=== PATIENT | female | born 1960 | race Caucasian/White ===

== ENCOUNTER → 2016-08-20 | Outpatient (CLI) | payer BC ==
[~2016-08-20] MED LIST: ATOR10TA88 PO; BTP80 PO; FLV1 PO; LEVO150T9 PO; SERT-234 PO; SPIR50TA2 PO; VTMD1000 PO; WARF5TAB7 PO
--- NOTE | 2016-08-21 06:32 | PAP/PSG TECHNICIAN REPORT ---
[facility] [place] Polysomnogram Report Study name: None Report date: 08/21/2016 Study date: 08/20/2016 Referring Physician: Rosa MARTINEZ M.D. Name: JULITA JOSE Interpreting Physician: Nuria Martinez M.D. Date of : 1960 [place]: Ana Ford RPSGT. Sex: Female Age: 55 Study Type: PSG PAP Weight: 305 lbs Height: 55 years, Height 5' 5.5" BMI: 49.98 Medications: ATORVASTATIN 10 MG, LEVOTHYROXINE 150 MCG, SERTRALINE 100 MG, WARFARIN 5 MG, SOTALOL 80 MG, FOLIC ACID 1 MG, SPRIONOLACTONE 50 MG, VIT D 1000 UNITS Patient History 55 yr-old female here for a CPAP update study. She was found to be positive for RAQUEL via a home sleep study. She was then placed on auto CPAP at home. She is back to assess her CPAP pressure. She wears a Dreamwear nasal pillows mask size small from [employer]. The test was started on room air. ETCO2 testing was not utilized during this study due to CPAP being in use. Room 1 Parameters Monitored NPSG: E1-M2, E2-M1, Fp1-M2, Fp2-M1, F3-M2, F4-M2, F4-M1, C3-M2, C4-M2, C4-M1, O1-M2, O2-M2, O2-M1, T3-M2, T4-M1, P3-M2, P4-M1, CHIN1, CHIN2, HR, EKG, Legs, PFLOW, SNOR, FLOW, CFLOW, Tidal Volume, THOR, ABDO, SpO2, PLTH, CPRESS, ETCO2 Wave, ETCO2, pH Sleep Architecture Sleep Stages Time at Lights Off 9:26:21 PM STAGES Time (min.) TST (%) Time at Lights On 5:34:51 AM Wake 130.0 -- Total Recording Time (TRT) 488.50 min. N1 47.0 13 Total Sleep Period (TSP) 464.0 min. N2 258.5 72 Total Sleep Time (TST) 358.5min. N3 20.5 6 Awake Time 130.0 min. REM 32.5 9 Wake after Sleep Onset 105.5 min. Sleep Efficiency (SE) 73 % Sleep Onset Latency (KALEE) 24.5 min. Number of Stage 1 Shifts None Awakenings 19 Stage Changes 102 Number of REM periods 1 REM 32.5 9 REM Latency 327.5 min. NREM 326.0 91 Body Position Analysis Supine Right Left Side Prone Vertical Total Sleep Time (min.) 387.5 22.4 16.5 38.93 0.0 0.0 Total Sleep Time (%) 89% 6% 5% 11 0% N/A% Total Sleep Time REM (min.) 32.5 0.0 0.0 None 0.0 0.0 Total Sleep Time NREM (min.) 287.1 22.4 16.5 None 0.0 0.0 Intermittent Wake (min.) 67.9 44.2 17.9 None 0.0 0.0 Total Sleep Period (%) 83% None None None None None Arousals Myoclonus (PLM) * Events Count Index Events Count Index Spontaneous 16 3 Events Awake (PLMW) 378 174.5 Respiratory 31 5.2 Events Asleep w/ Arousal (PLMA) 103 17.2 PLM 103 17 Events Asleep w/o Arousal (PLMS) 814 136.2 Snoring 2 0 Total Asleep 917 153.5 Total 152 25 Total 1,295 159 Respiratory Analysis * CA OA MA CH H RERA Total Count 4 1 0 0 84 4 89 Index 0.7 0.2 0.0 0 14.1 1 15.6 Mean Duration 13.7 12.1 0.0 0.00 15.1 14.7 15.0 Longest Duration 14.0 12.1 0.0 0.00 0.0 18.7 22.6 Respiratory Event Summary Total Supine ~Supine Right Left Prone REM NREM Apneas Count 5 4 1 1 0 N/A 1 4 Index 0.8 1 2 2.7 0.0 N/A 2 1 Hypopneas (4% Desat) Count 84 57 27 14 13 N/A 2 82 Index 14.1 10.7 42 37.4 47.3 N/A 3.7 15.1 Apneas & All Hypopneas Count 89 61 28 15 13 N/A 3 86 Index 14.9 11 43 40 47 N/A 5.5 15.8 Respiratory Events (Acute Coordinator+All Hyp+RERA) Count 89 63 30 15 15 N/A 3 86 Index 15.6 12 46 40.1 54.5 N/A 5.5 16.6 Respiratory Related Arousal Count 31 63 17 5 12 N/A 1 30 Index 5.2 3 26 13 44 N/A 2 6 Snoring Analysis Supine Right Left Prone REM NREM Total Snore duration 3.4 min Snores count 85 20 9 N/A 4 110 114 Snore mean duration 1.8 Sec Snores index 16 53 33 N/A 7.4 20.2 19.1 TST with snoring (%) 1.0% Desaturation Event Summary: Minimum %SpO2 Event Count Mean/Min/Max Duration(sec.) Desaturation Index % Time In Bed > 90 129 18.2 / 8.0 / 60.0 65.5 24.6 86 - 90 110 17.1 / 7.0 / 50.0 20.0 68.6 81 - 85 4 33.6 / 18.0 / 50.0 7.5 6.7 76 - 80 0 N/A 0.0 0.0 71 - 75 0 N/A 0.0 0.0 66 - 70 0 N/A 0.0 0.0 61 - 65 0 N/A 0.0 0.0 56 - 60 0 N/A 0.0 0.0 51 - 55 0 N/A 0.0 0.0 < 50 0 N/A 0.0 0.0 Total REM NREM Awake <50% 0.0 min. 0.0 min. 0.0 min. 0.0 min. 51 - 60% 0.0 min. 0.0 min. 0.0 min. 0.0 min. 61 - 70% 0.0 min. 0.0 min. 0.0 min. 0.0 min. 71 - 80% 0.2 min. 0.2 min. 0.0 min. 0.0 min. 81 - 90% 361.4 min. 32.3 min. 270.0 min. 59.0 min. 91 - 100% 118.1 min. 0.0 min. 56.0 min. 62.1 min. Average 89 85 89 91 Minimum SpO2 78 78 83 84 Desaturation Event Index 21.4 14.8 24.3 16.6 # Desat. Events below 89% 139 8 107 24 Time(%) with Saturation below 89% 38.9 6.7 29.9 2.4 Time(min.) with Saturation below 89% 186.6 31.9 143.3 11.4 Time (mins) REM (mins) NREM (mins) % of TST SpO2 Below 90% 137 8 N129 70.0 SpO2 Below 88% 34 0 0 32 Heart Rate Analysis Min (bpm) Max (bpm) Average (bpm) Awake 48 66 59 NREM 46 63 52 REM 50 57 53 Overall 46 63 52 Supplemental O2 Values Minimum O2 level: None Value Start Time End Time [place] Comments Ms. Jose slept in the right, left, and supine positions. No cardiac arrhythmias were noted. PLMs and many arousals from leg movements were noted. No bruxism noted. CPAP was initiated at +4 CMH2O and up-titrated to a level of +15 CMH2O, Cflex 2. A Dreamwear nasal pillows mask size small from [employer] was used during titration. She was not on an optimal pressure for two hours. An O2 titration could not be done. She awoke to use the restroom one time during the night. Ms. Jose stated that she was more restless than usual. The final report will be interpreted and signed by a sleep physician. The completed physician report will then be placed in the patient medical record. Therapy Event: Therapy (cm H20) 4 6 8 10 12 13 14 15 Total Time at Pressure (min.) 127.8 66.2 34.2 23.9 78.6 53.5 74.1 30.1 TST at Pressure (min.) 27.3 41.2 33.2 23.9 78.1 52.5 73.6 28.6 # Periods 1 1 1 1 1 1 1 1 Sleep Onset (min.) 24.5 0.0 1.0 0.0 0.0 0.0 0.0 0.0 REM Onset (min.) N/A N/A N/A N/A N/A 21.2 0.0 N/A Sleep Efficiency % 21 62 97 100 99 98 99 95 Wakefulness (%) 78.6 37.8 2.9 0.0 0.6 1.9 0.7 5.0 Wakefulness (min.) 100.5 25.0 1.0 0.0 0.5 1.0 0.5 1.5 NREM 1 (%) 11.3 25.7 5.8 0.0 3.2 2.8 5.4 18.3 NREM 1 (min.) 14.5 17.0 2.0 0.0 2.5 1.5 4.0 5.5 NREM 2 (%) 10.0 36.5 49.6 80.1 94.3 35.0 93.7 76.7 NREM 2 (min.) 12.8 24.2 17.0 19.1 74.1 18.7 69.4 23.1 NREM 3 (%) 0.0 0.0 41.6 19.9 1.9 0.0 0.0 0.0 NREM 3 (min.) 0.0 0.0 14.2 4.8 1.5 0.0 0.0 0.0 REM (%) 0.0 0.0 0.0 0.0 0.0 60.3 0.3 0.0 REM (min.) 0.0 0.0 0.0 0.0 0.0 32.3 0.2 0.0 # Arousals 44 66 10 0 9 6 9 8 Arousal Index 96.6 96.2 18.0 0.0 6.9 6.9 7.3 16.8 # Snore 30 43 1 0 5 9 10 16 Snore Index 65.9 62.7 1.8 0.0 3.8 10.3 8.2 33.6 AHI 32.9 36.4 30.7 10.1 8.4 6.9 7.3 4.2 AHI Supine 8.8 29.0 30.7 10.1 8.4 6.9 7.3 4.2 AHI Non-Supine 41.0 45.6 N/A N/A N/A N/A N/A N/A NREM AHI 32.9 36.4 30.7 10.1 8.4 8.9 7.4 4.2 REM AHI N/A N/A N/A N/A N/A 5.6 0.0 N/A RDI 37.3 37.9 30.7 10.1 9.2 6.9 7.3 4.2 # Obstructive 0 1 0 0 0 0 0 0 # Central Ap 0 0 0 0 0 1 2 1 # Mixed 0 0 0 0 0 0 0 0 # Hypopneas 15 24 17 4 11 5 7 1 RERAS 2 1 0 0 1 0 0 0 Total Respiratory Events 17 26 17 4 12 6 9 2 Time Below SpO2 89.00% (min.) 11.5 18.4 19.3 21.8 41.4 43.1 18.3 1.5 Mean NREM SpO2 (%) 89 89 89 86 88 88 89 90 Mean REM SpO2 (%) N/A N/A N/A N/A N/A 85 84 N/A Mean Sleep SpO2 (%) 89 89 89 86 88 86 89 90 Min NREM SpO2 (%) 85 83 85 84 85 83 85 87 Min REM SpO2 (%) N/A N/A N/A N/A N/A 78 83 N/A Position Supine (min.) 6.8 22.7 33.2 23.9 78.1 52.5 73.6 28.6 Position Non-supine (min.) 20.5 18.4 0.0 0.0 0.0 0.0 0.0 0.0 LM Index Sleep 122.9 204.0 187.7 201.1 191.2 59.4 119.0 188.8 LM Index NREM 122.9 204.0 187.7 201.1 191.2 94.9 119.3 188.8 LM Index REM N/A N/A N/A N/A N/A 37.2 0.0 N/A Mean Heart Rate (bpm) 57 58 53 52 50 52 49 49 Min Heart Rate (bpm) 54 54 51 50 48 48 46 47
--- NOTE | 2016-09-02 14:37 | POLYSOMNOGRAPH REPORT ---
REFERRING PERSON: Dr. Marina Martinez. METER TESTER POLYPHASE: Ana Ford. Ms. Ramirez is a 55-year-old female sent for a CPAP titration study. She was found to have obstructive sleep apnea on a home sleep test and placed on APAP. She is sent back to the lab to determine her optimal pressure needs. She wears a DreamWear nasal pillow small mask by [employer]. Her [place] sleepiness scale score on the evening of this study is not recorded. BMI is 49.98. Following the technical and digital specifications of the [place] [employer] (AASM) a standard diagnostic polysomnogram was performed monitoring EEG, EOG, EMG (chin and leg deviations), oxygen saturation, body position, digital video, respiratory effort and airflow. The sleep Stage and event scoring was based on the AASM Manual for the Scoring of Sleep and Associated Events 2007 edition. Apneas are defined as a drop in the peak thermal sensor excursion by >90% of baseline for at least 10 seconds. Hypopneas were scored using the 4% oxygen desaturation rule (4A-[employer]ic[employer]) and a decrease in the nasal pressure excursions by >30% of baseline for at least 10 seconds. Respiratory effort-related arousal (RERA's) is defined as a sequence of breaths lasting at least 10 seconds characterized by increasing respiratory effort or flattening of the nasal pressure waveform leading to an arousal from sleep when the sequence of breaths does not meet criteria for an apnea or hypopnea. Apnea Hypopnea index (AHI) is defined as the number of apneas and hypopneas occurring in an hour of sleep. Respiratory disturbance index (RDI) is defined as the number of apneas, hypopneas, and RERA's occurring in an hour of sleep. Ms. Ramirez's total sleep period time was 464 minutes. Total sleep time was 358.5 minutes. Sleep efficiency was 73%. Latency to sleep onset was 24.5 minutes. Wake after sleep onset was 105.5 minutes. Total non-REM sleep time was 326 minutes. She spent 13% of that time in N1 sleep, 72% in N2 sleep and 6% in N3 sleep. REM latency was 327.5 minutes. Total REM sleep time was 32.5 minutes or 9% of total sleep time. There were 152 cortical arousals from sleep. Thirty-one of these arousals were due to respiratory events, 103 were due to periodic limb movements of sleep, 2 were due to snoring and the remaining 16 were spontaneous. There were 917 periodic limb movements noted on this test. Limb movement index was 153.5. Limb movement with arousal index was 17.2. On this titration study, there was 1 obstructive apnea, 4 central apnea and no mixed apnea. Additionally, there were 84 hypopnea and 4 RERA. Apnea-hypopnea index was 14.9. A 114 snoring events were recorded. Total sleep time with snoring was 1%. Mean saturation with sleep was low at 89%. Lowest recorded saturation was 78%. Saturations were less than 89% for 186.6 minutes of recording time. This is significant nocturnal hypoxemia. There was no cardiac ectopy noted on this study. Heart rates during sleep ranged from a low of 46 beats per minute to a high of 63 beats per minute. As stated above, this was a CPAP titration study. This patient was titrated from a CPAP pressure of 4 to a CPAP pressure of 15 over the course of the night. Increasing pressures were needed to prevent apneas, hypopneas and arousals. She was observed on a pressure of 13 for 52.5 minutes of sleep time. 32.3 of these minutes were spent in supine REM sleep. AHI and RDI on this pressure were both 6.9 and saturations were less than 89% for 43.1 minutes of sleep time. Over the remainder of the night, she was titrated to a pressure of 14 then 15. She was observed on a pressure of 15 for 28.6 minutes of sleep time. There was no REM noted on this pressure. AHI and RDI were both 4.2 and saturations were much better with time spent less than 89 of only 1.5 minutes. IMPRESSION AND PLAN: Successful CPAP titration study in this patient with a history of apnea and nocturnal hypoxemia. I would recommend that if she has an APAP at home, that this be set from a minimum pressure of 15 to a maximum pressure of 20. It appears her hypoxemia resolves on these pressure; however, she did not have supine REM sleep on a pressure of 15. Should nocturnal hypoxemia still be suspected, ____ on optimal pressure can be done and further evaluation follow those results.
== END | disposition home or self-care (01) ==
LOC: C.NEUR 20:00
PROVIDERS: ATTEND Registered Nurse
DX: G47.33 Obstructive sleep apnea (adult) (pediatric) (principal); G47.34 Idiopathic sleep related nonobstructive alveolar hypoventilation; I48.0 Paroxysmal atrial fibrillation

== ENCOUNTER 2017-07-02 19:33 | Inpatient (IN) | payer BC, OTHER ==
[~2017-07-02] VITALS: Ht 160 cm; Wt 126.6 kg
[~2017-07-02 19:33] MED LIST changes: +ATOR10TA82 PO; -ATOR10TA88 PO
[2017-07-02 20:09] LABS: HEMATOCRIT 38.6 % (37-47); MEAN CELL VOLUME 87.5 fL (80-100); MEAN CORPUSCULAR HEMOGLOBIN 29.5 pg (25-34); MEAN CORPUSCULAR HGB CONC 33.7 g/dl (32-36); MEAN PLATELET VOLUME 10.3 fL (7.4-10.4); PLATELET COUNT 273 K/uL (130-400); RED CELL DISTRIBUTION WIDTH CV 14.2 % (11.5-14.5); RED CELL DISTRIBUTION WIDTH SD 45.7 fL (36.4-46.3)
[2017-07-02 20:20] LABS: INR 1.5 (0.9-1.1); PTT PATIENT 28.9 SECONDS (21.0-31.0)
[2017-07-02 20:27] LABS: ALBUMIN 3.9 gm/dl (3.4-5.0); CALCIUM 9.6 mg/dl (8.5-10.1); CREATININE 1.12 mg/dl (0.60-1.20); POTASSIUM 4.1 mmol/L (3.5-5.1)
[2017-07-02 20:32] LABS: CKMB 0.7 ng/ml (0.5-3.6); TOTAL PROTEIN 7.9 gm/dl (6.4-8.2)
[2017-07-02] MEDS ORDERED: CFT250 PO (20:34)
[2017-07-02] MEDS ORDERED: SOTA80TA PO (20:34)
[2017-07-02] MEDS ORDERED: WARF-246 PO (20:34)
[2017-07-02] MEDS ORDERED: FOLI1TAB8 PO (20:34)
[2017-07-02] MEDS ORDERED: THY/120 PO (20:34)
[2017-07-02] MEDS ORDERED: LSX20 PO (20:34)
[2017-07-02] MEDS ORDERED: CYAN100020 PO (20:36)
[2017-07-02] MEDS ORDERED: ASPIRIN 81 MG CHEW PO STA (20:37)
[2017-07-02] MEDS ORDERED: NITROGLYCERIN 0.4 MG SL PER TAB CHARGE SL PRN (20:45)
--- NOTE | 2017-07-02 20:46 | EMERGENCY ROOM VISIT NOTE ---
History Report prepared by Deena: Maite Bhat Under the Supervision of: Dr. Becca Brink M.D. First contact with patient: 20:16 Chief Complaint: IRREGULAR HEARTBEAT Stated Complaint: A FIB,CHEST/ARM/JAW DISCOMFORT Nursing Triage Summary: patient states when she was leaving work today she developed chest discomfort, left arm pain, and face pain. patient states she has a hx of afib. History of Present Illness The patient is a 56 year old female who presents to the Emergency Room with complaints of an irregular heart beat today. The patient states that she has atrial fibrillation, and that she can feel when she is in atrial fibrillation. She reports that she was in atrial fibrillation last night into this morning. She states that when she was leaving work today, she had chest pain, left arm pain, and left-sided facial pain. She denies back pain, abdominal pain, nausea, and vomiting. The patient rates her pain at a 6/10. The patient reports that she takes Coumadin for a history of blood clots. The patient reports a history of a DVT and PE. She denies a history of diabetes, but reports a family history of heart disease. She states that she was recently diagnosed with CREST syndrome. The patient denies recent travel. Source of History: patient Onset: today Position: chest Symptom Intensity: rated at a 6/10 Quality: other (irregular heart beat ) Associated Symptoms: + chest pain, No nausea, No vomiting, No abdominal pain , No back pain Note: additional symptoms: left arm pain, left-sided facial pain Review of Systems See HPI for pertinent positives & negatives. A total of 10 systems reviewed and were otherwise negative. Past Medical & Surgical Medical Problems: (1) Acute Venous Embolism & Thrombosis Deep Vessels Proximal Le (2) Atrial fibrillation (3) Depression (4) Depressive Disorder Nec (5) Diverticulosis Colon (W/O Ment Of Hemorrhage) (6) Dyslipidemia (7) History of adenomatous polyp of colon (8) History of DVT of lower extremity (9) History of pulmonary embolism (10) Hyperlipidemia Nec/Nos (11) Hypothyroidism (12) Hypothyroidism Nos (13) MTHFR mutation (14) Obesity, Nos (15) Osteoarthros Nos-Unspec (16) Raynaud's phenomenon (17) Raynaud's Syndrome Surgical Problems: (1) H/O myringotomy Family History Cancer Diabetes mellitus Heart disease Hypertension MTHFR deficiency Social History Smoking Status: Never Smoker Alcohol Use: none Drug Use: none Housing Status: lives alone Occupation Status: employed Current/Historical Medications Scheduled Atorvastatin (Lipitor), 10 MG PO QAM Cefuroxime Axetil (Cefuroxime Axetil), 500 MG PO BID Cholecalciferol (Vitamin D3), 1,000 INTER.UNIT PO QAM Cyanocobalamin (Vitamin B12), 1 TAB PO QAM Folic Acid (Folvite), 1 MG PO QAM Furosemide (Furosemide), 2 MG PO QAM Sertraline (Zoloft), 200 MG PO DAILY Sotalol Hcl (Sotalol Hcl), 80 MG PO BID Spironolactone (Aldactone), 75 MG PO BID Thyroid (Antlers Thyroid), 120 MG PO QAM Warfarin Sodium (Warfarin Sodium), 5 MG PO DAILY Allergies Coded Allergies: Amoxicillin (Verified Allergy, Unknown, RASH, PRURITIS, 02/27/16) Clavulanic Acid (Verified Allergy, Unknown, RASH, PRURITIS, 02/27/16) Physical Exam Vital Signs Date Time Temp Pulse Resp B/P (MAP) Pulse Ox O2 Delivery O2 Flow Rate FiO2 07/02/17 23:30 36.9 56 20 121/74 95 Room Air 07/02/17 23:18 56 20 121/74 96 Room Air 07/02/17 21:47 55 20 123/59 96 Room Air 07/02/17 20:57 60 07/02/17 20:22 70 20 116/56 95 Room Air 07/02/17 20:22 96 Room Air 07/02/17 19:36 36.9 56 20 155/74 97 Room Air Physical Exam Vital signs reviewed. General: Well-appearing female, in no significant distress. HEENT: No scleral icterus, PERRLA, neck supple. Atraumatic. Cardiovascular: Regular rate and rhythm, no extra sounds. Pulmonary: Clear to auscultation bilaterally, normal work of breathing. Abdomen: Obese, soft, nontender, nondistended, positive bowel sounds. Musculoskeletal: Atraumatic, no peripheral edema. Neurologic: Patient awake alert and oriented x 3 Skin: Warm, dry, no rash Medical Decision & Procedures ER Provider Diagnostic Interpretation: Radiology results as stated below per my review and radiologist interpretation: CHEST ONE VIEW PORTABLE CLINICAL HISTORY: Chest pain. COMPARISON STUDY: Chest CT February 27, 2016 per FINDINGS: Mild elevation of the left hemidiaphragm is unchanged. There is no pneumothorax or pleural effusion. Moderate cardiomegaly is noted. Mild interstitial thickening is present. There is no consolidation to suggest pneumonia. IMPRESSION: 1. Mild nonspecific interstitial thickening. 2. No consolidation to suggest pneumonia. Electronically signed by: Diogo Rhodes M.D. 07/02/2017 8:47 PM Dictated Date/Time: 07/02/2017 8:46 PM Laboratory Results Test 07/02/17 19:56 07/02/17 21:51 D-Dimer 310 ug/L FEU (0-500) Total Creatine Kinase 51 U/L (26-192) Creatine Kinase MB 0.7 ng/ml (0.5-3.6) Creatine Kinase MB Ratio 1.4 (0-3.0) Bedside Troponin I 0.270 ng/ml (0-0.045) Laboratory results per my review. Medications Administered Medications (Trade) Dose Ordered Sig/Aristides Route Start Time Stop Time Status Last Admin Dose Admin Aspirin (Aspirin Chew) 324 mg NOW STAT PO 07/02/17 20:37 07/02/17 20:38 DC 07/02/17 20:56 324 MG Nitroglycerin (Nitrostat Tab) 0.4 mg Q5M PRN SL 07/02/17 20:45 07/03/17 01:02 DC 07/02/17 20:56 0.4 MG Nitroglycerin (Nitroglycerin 2% Oint) 1 inch NOW ONCE EXT 07/02/17 23:00 07/02/17 23:01 DC 07/02/17 23:04 1 INCH Heparin Sodium/ Dextrose (Heparin 25,000 Unit/500ml D5W) 25,000 unit STK-MED ONCE .ROUTE 07/02/17 23:01 07/02/17 23:02 DC 07/02/17 23:16 25,000 UNIT Heparin Sodium (Porcine) (Heparin Iv Bolus) 10,000 unit STK-MED ONCE .ROUTE 07/02/17 23:02 07/02/17 23:03 DC 07/02/17 23:15 4,000 UNIT ECG Indication: chest pain Rate (beats per minute): 57 Rhythm: sinus bradycardia Findings: no ectopy, other (nonspecific-ST change, poor quality baseline for interpretation) ED Course 2036: Past medical records reviewed. The patient was evaluated in room B2. A complete history and physical examination was performed. 2044: Ordered Nitroglycerin 0.4 mg SL. 2248: Ordered Heparin Sodium/Dextrose 1 ea. 0: Ordered Nitroglycerin 1 inch EXT. 2300: Ordered Heparin Sodium/Dextrose 25,000 unir. 2302: Ordered Heparin Sodium (Porcine) 10,000 unit. 2308: I reviewed the patient's case with Dr. Carolina. He will evaluate the patient for further management. 2311: Upon reevaluation, the patient is resting comfortably. I discussed laboratory and radiographic results with her. She verbalized agreement of the treatment plan. The patient will be evaluated for further management and care. Medical Decision Differential Diagnoses: Acute coronary syndrome, pulmonary embolus, aortic dissection, musculoskeletal pain, pneumonia, pleural effusion, pneumothorax This patient was evaluated and appeared to be in no significant distress. IV access was obtained and laboratory work was drawn. The patient was placed on the cardiac monitor technician and found to be in a normal sinus rhythm. The patient was given aspirin 324 mg to chew. The patient was given a nitroglycerin trial which was successful in alleviating her episodic chest pain. First set of cardiac enzymes are negative. Chest x-ray is clear. Patient was advised of the findings and a repeat troponin was performed. The patient's troponin is positive at 0.270. Patient was placed on a heparin drip. Repeat EKG was performed and reveals no acute abnormality. Case was discussed with the hospitalist service will evaluate the patient for further management. Patient is aware of the plan and agrees. Medication Reconcilliation Current Medication List: was personally reviewed by me Blood Pressure Screening Patient's blood pressure: Low blood pressure Consults Time Called: [phone] Consulting Physician: Dr. Lynn Benoit Returned Call: [phone] I reviewed the patient's case with Dr. Carolina. He will evaluate the patient for further management. Impression Primary Impression: Acute coronary syndrome Scribe Attestation The scribe's documentation has been prepared under my direction and personally reviewed by me in its entirety. I confirm that the note above accurately reflects all work, treatment, procedures, and medical decision making performed by me. Departure Information Dispostion Being Evaluated By Hospitalist Referrals Silverio Gan DO (PCP) Patient Instructions My [facility]
--- NOTE | 2017-07-02 20:49 | DIAGNOSTIC IMAGING REPORT ---
CHEST ONE VIEW PORTABLE CLINICAL HISTORY: Chest pain. COMPARISON STUDY: Chest CT February 27, 2016 per FINDINGS: Mild elevation of the left hemidiaphragm is unchanged. There is no pneumothorax or pleural effusion. Moderate cardiomegaly is noted. Mild interstitial thickening is present. There is no consolidation to suggest pneumonia. IMPRESSION: 1. Mild nonspecific interstitial thickening. 2. No consolidation to suggest pneumonia. Electronically signed by: Diogo Rhodes M.D. 07/02/2017 8:47 PM Dictated Date/Time: 07/02/2017 8:46 PM
[2017-07-02] MEDS ORDERED: NITROGLYCERIN OINT 2% 1GM PACKET EXT ONE (23:00)
[2017-07-02] MEDS ORDERED: HEPARIN 25000 UNIT/500 ML D5W ONE (23:01)
[2017-07-02] MEDS ORDERED: HEPARIN SOD (PORCINE) 1000 UNIT/ML 10 ML VIAL ONE (23:02)
[2017-07-02 23:30] VITALS: BP 121/74; PULSE 56; TEMP 36.9; O2SAT 95; Ht 160 cm; Wt 126.6 kg
--- NOTE | 2017-07-02 23:57 | History and Physical ---
History & Physical Date & Time of Service: Jul 02, 2017 at 23:57 Chief Complaint: A Fib,Chest/Arm/Jaw Discomfort Primary Care Physician: Radha Longoria D.O. History of Present Illness Source: patient This is a 56 year old F patient with past medical history hypothyroidism, recent diagnosis of CREST, history of pulmonary embolism , atrial fibrillation, on coumadin 5 mg daily at home, found to be subtherapeutic with INR 1.5 , after presenting to the ED for left chest, left arm, and left jaw pain. These sensation started around 6:40 PM after patient was leaving a clinic and walking to her car. Patient reports history of palpitations in the past and for atrial fibrillation has followed with Dr. Silverio Gan black ash worker however the sensations that she experienced prior to arrival to the ED was unusual for her. In the ED, the initial troponin was negative however second troponin elevated to 0.27. The ED doctor ordered for her nitropaste, aspirin 325 mg and IV heparin. When patient was seen and examined by internal medicine hospitalist, the patient reported that symptoms resolving Past Medical/Surgical History Medical Problems: (1) Atrial fibrillation Status: Chronic (2) Depression Status: Chronic (3) Dyslipidemia Status: Chronic (4) History of adenomatous polyp of colon Permanent Comment: 2009 f/u 5 yrs Status: Chronic (5) History of DVT of lower extremity Permanent Comment: LLE December 2010 Status: Chronic (6) History of pulmonary embolism Permanent Comment: December 2010 + March 2014 Status: Chronic (7) Hypothyroidism Status: Chronic (8) MTHFR mutation Permanent Comment: heterozygous Status: Chronic (9) Raynaud's phenomenon Status: Chronic Family History Cancer Diabetes mellitus Heart disease Hypertension MTHFR deficiency Social History Smoking Status: Never Smoker Drug Use: none Occupational Status: employed Immunizations History of Influenza Vaccine: Yes Influenza Vaccine Date: Apr 03, 2015 History of Tetanus Vaccine?: Yes Tetanus Immunization Date: Jun 27, 2010 History of Pneumococcal: No History of Hepatitis B Vaccine: No Multi-Drug Resistant Organisms History of MDRO: No Allergies Coded Allergies: Amoxicillin (Verified Allergy, Unknown, RASH, PRURITIS, 02/27/16) Clavulanic Acid (Verified Allergy, Unknown, RASH, PRURITIS, 02/27/16) Home Medications Scheduled Atorvastatin (Lipitor), 10 MG PO QAM Cefuroxime Axetil (Cefuroxime Axetil), 500 MG PO BID Cholecalciferol (Vitamin D3), 1,000 INTER.UNIT PO QAM Cyanocobalamin (Vitamin B12), 1 TAB PO QAM Folic Acid (Folvite), 1 MG PO QAM Furosemide (Furosemide), 2 MG PO QAM Sertraline (Zoloft), 200 MG PO DAILY Sotalol Hcl (Sotalol Hcl), 80 MG PO BID Spironolactone (Aldactone), 75 MG PO BID Thyroid ([place] Thyroid), 120 MG PO QAM Warfarin Sodium (Warfarin Sodium), 5 MG PO DAILY Review of Systems Constitutional: No fever Eyes: No worsening of vision, No eye pain, No redness, No discharge, No diplopia, No problem reported ENT: + problem reported (left jaw pain), No hearing loss, No unusual epistaxis , No nasal symptoms, No sore throat, No tinnitus, No dental problems, No trouble swallowing Respiratory: No cough, No wheezing, No shortness of breath, No dyspnea on exertion, No dyspnea at rest Cardiovascular: + chest pain, + palpitations, No edema Abdomen: No pain, No nausea, No vomiting, No diarrhea, No constipation, No GI bleeding, No problem reported Musculoskeletal: + muscle pain (left arm pain) Genitourinary - Female: No dysuria Neurologic: No paralysis, No numbness/tingling Psychiatric: No substance abuse Endocrine: No fatigue Hematologic / Lymphatic: No abnormal bleeding/bruising Integumentary: No rash Physical Exam Vital Signs Date Time Temp Pulse Resp B/P (MAP) Pulse Ox O2 Delivery O2 Flow Rate FiO2 07/02/17 23:18 56 20 121/74 96 Room Air 07/02/17 21:47 55 20 123/59 96 Room Air 07/02/17 20:57 60 07/02/17 20:22 70 20 116/56 95 Room Air 07/02/17 20:22 96 Room Air 07/02/17 19:36 36.9 56 20 155/74 97 Room Air General Appearance: no apparent distress Head: normocephalic, atraumatic Eyes: normal inspection, EOMI, sclerae normal ENT: normal ENT inspection, hearing grossly normal, pharynx normal Neck: supple, no JVD, trachea midline Respiratory/Chest: chest non-tender, lungs clear, normal breath sounds, no respiratory distress, no accessory muscle use Cardiovascular: no edema, no JVD, normal peripheral pulses, + bradycardia ( heart rate in the 50s) Abdomen/GI: normal bowel sounds, non tender, soft Back: normal inspection, no CVA tenderness, no muscle spasm, normal range of motion Extremities/Musculoskelatal: normal inspection, no calf tenderness, no pedal edema, normal range of motion, non-tender Neurologic/Psych: alert, normal mood/affect, oriented x 3 Skin: normal color, warm/dry, no rash Diagnostics Laboratory Results Results Past 24 Hours Test 07/02/17 19:56 07/02/17 20:00 07/02/17 21:51 Range/Units White Blood Count 10.00 4.8-10.8 K/uL Red Blood Count 4.41 4.2-5.4 M/uL Hemoglobin 13.0 12.0-16.0 g/dL Hematocrit 38.6 37-47 % Mean Corpuscular Volume 87.5 80-100 fL Mean Corpuscular Hemoglobin 29.5 25-34 pg Mean Corpuscular Hemoglobin Concent 33.7 32-36 g/dl RDW Standard Deviation 45.7 36.4-46.3 fL RDW Coefficient of Variation 14.2 11.5-14.5 % Platelet Count 273 130-400 K/uL Mean Platelet Volume 10.3 7.4-10.4 fL Prothrombin Time 15.3 9.0-12.0 SECONDS Prothromb Time International Ratio 1.5 0.9-1.1 Activated Partial Thromboplast Time 28.9 21.0-31.0 SECONDS Partial Thromboplastin Ratio 1.1 D-Dimer 310 0-500 ug/L FEU Sodium Level 134 136-145 mmol/L Potassium Level 4.1 3.5-5.1 mmol/L Chloride Level 101 98-107 mmol/L Carbon Dioxide Level 27 21-32 mmol/L Anion Gap 6.0 3-11 mmol/L Blood Urea Nitrogen 16 7-18 mg/dl Creatinine 1.12 0.60-1.20 mg/dl Est Creatinine Clear Calc Drug Dose 72.4 ml/min Estimated GFR () 62.7 Estimated GFR (Non- 54.1 BUN/Creatinine Ratio 13.9 10-20 Random Glucose 101 70-99 mg/dl Calcium Level 9.6 8.5-10.1 mg/dl Total Bilirubin 0.9 0.2-1 mg/dl Aspartate Amino Transf (AST/SGOT) 20 15-37 U/L Alanine Aminotransferase (ALT/SGPT) 24 12-78 U/L Alkaline Phosphatase 109 45-117 U/L Total Creatine Kinase 51 26-192 U/L Creatine Kinase MB 0.7 0.5-3.6 ng/ml Creatine Kinase MB Ratio 1.4 0-3.0 Total Protein 7.9 6.4-8.2 gm/dl Albumin 3.9 3.4-5.0 gm/dl Globulin 4.0 2.5-4.0 gm/dl Albumin/Globulin Ratio 1.0 0.9-2 Bedside Troponin I < 0.030 0.270 0-0.045 ng/ml Diagnostic Radiology FINDINGS: Mild elevation of the left hemidiaphragm is unchanged. There is no pneumothorax or pleural effusion. Moderate cardiomegaly is noted. Mild interstitial thickening is present. There is no consolidation to suggest pneumonia. IMPRESSION: 1. Mild nonspecific interstitial thickening. 2. No consolidation to suggest pneumonia Impression Assessment and Plan 56 year old F with atrial fibrillation history and presents with left sided chest/arm/jaw pain Chest pain Lexiscan nuclear stress test report 06/2016: Myocardial perfusion imaging is normal. initial admission troponin negative, second troponin elevated 0.27, trend troponin s/p in the ED nitropaste, aspirin 325 mg currently on IV heparin echocardiogram ordered NPO after midnight if stress test needed cardiology consult requested Atrial Fibrillation - Rate controlled Continue home dose sotalol Continue Warfrain 5 mg daily and trend INR 2D echocardiogram report 01/2017: ejection fraction is 55-59%, The left ventricular diastolic function is moderately abnormal (grade II). elevated pulmonary artery systolic pressure is 58mm Hg. Continue home dose spirolactone and Lasix Hypothyroidism On [place] Thyroid 120 mg daily (is nonformulary medication) check TSH CREST syndrome - recent diagnosis as per patient Full Code Follows with Dr. Longoria PCP Follows with Dr. Silverio Gan Cardiology Level of Care Telemetry Resuscitation Status FULL RESUSCITATION VTE Prophylaxis VTE Risk Assessment Done? Y/N: Yes Risk Level: Moderate
[2017-07-03] VITALS (15 sets, daily range): BP systolic 100–130; BP diastolic 52–78; PULSE 46–61; TEMP 36.7–37.2; O2SAT 90–97
[2017-07-03] MEDS: HEPARIN 25,000 UNIT/500ML D5W 500 ML IV PRN (01:52)
[2017-07-03] MEDS: SOTALOL HCL 80 MG TAB PO SCH ×2 (07:47→20:44)
[2017-07-03] MEDS: ARMOUR THYROID 30 MG TAB PO SCH (07:48)
[2017-07-03] MEDS: CEFUROXIME AXETIL 250 MG TAB PO SCH ×2 (07:49→20:45)
[2017-07-03] MEDS: FUROSEMIDE 20 MG TAB PO SCH (07:49)
[2017-07-03] MEDS: SERTRALINE HCL 100 MG TAB PO SCH (07:50)
[2017-07-03] MEDS: SPIRONOLACTONE 25 MG TAB PO SCH ×2 (07:51→15:36)
[2017-07-03 08:28] LABS: BASO % 0.4 %; BASO ABS # 0.03 K/uL (0-0.2); EOS % 4.2 %; EOS ABS # 0.35 K/uL (0-0.5); HEMATOCRIT 37.5 % (37-47); HEMOGLOBIN 12.5 g/dL (12.0-16.0); IG# 0.01 K/uL (0.00-0.02); LYMPH % 17.8 %; LYMPH ABS # 1.47 K/uL (1.2-3.4); MEAN CELL VOLUME 87.8 fL (80-100); MEAN CORPUSCULAR HEMOGLOBIN 29.3 pg (25-34); MEAN CORPUSCULAR HGB CONC 33.3 g/dl (32-36); MEAN PLATELET VOLUME 10.3 fL (7.4-10.4); MONO % 6.9 %; MONO ABS # 0.57 K/uL (0.11-0.59); NEUT % 70.6 %; NEUT ABS # 5.85 K/uL (1.4-6.5); PLATELET COUNT 243 K/uL (130-400); RED CELL DISTRIBUTION WIDTH CV 14.3 % (11.5-14.5); RED CELL DISTRIBUTION WIDTH SD 46.1 fL (36.4-46.3); WHITE BLOOD COUNT 8.28 K/uL (4.8-10.8)
[2017-07-03 08:36] LABS: INR 1.4 (0.9-1.1)
[2017-07-03 08:44] LABS: PTT PATIENT 48.1 SECONDS (21.0-31.0)
[2017-07-03 08:53] LABS: ALBUMIN 3.6 gm/dl (3.4-5.0); CALCIUM 9.6 mg/dl (8.5-10.1); CREATININE 0.81 mg/dl (0.60-1.20); POTASSIUM 3.9 mmol/L (3.5-5.1)
[2017-07-03 09:04] LABS: TOTAL PROTEIN 7.4 gm/dl (6.4-8.2)
--- NOTE | 2017-07-03 10:00 | CARDIOLOGY CONSULTATION ---
DATE OF CONSULTATION: 07/03/2017 REASON FOR CONSULTATION: Chest pain. REFERRING PHYSICIAN: Dr. Jonah Carolina. HISTORY OF PRESENT ILLNESS: Ms. Ramirez is a 56-year-old female who is well known to the undersigned with a history of paroxysmal atrial fibrillation maintained in sinus rhythm with sotalol. Recently she had been experiencing episodes of recurrent atrial fibrillation and sotalol was again titrated to 80 mg twice daily. On 07/02/2017, she developed left-sided chest discomfort radiating down her left arm. The pain became moderate to severe and lasted more than 30 minutes. She came to the Emergency Department for further evaluation. Pain graded at 6/10. There was mild associated shortness of breath. The patient was admitted to the progressive care unit. She was treated with intravenous heparin overnight. Her INR was noted to be subtherapeutic on admission. Chest x-ray demonstrated no acute process. Resting 2D transthoracic echo performed this morning demonstrates normal biventricular function. A D-dimer was performed on admission and was found to be negative denoting a low probability for recurrent pulmonary embolus. Currently, the patient is resting comfortably. She is aware of an ache in her left upper chest. Previously noted discomfort has resolved. She describes the pain as extremely mild. There is no shortness of breath at this time. REVIEW OF SYSTEMS: The pertinent positive noted above, a comprehensive 10-system review is otherwise negative. PAST MEDICAL HISTORY: 1. Paroxysmal atrial fibrillation maintained in sinus rhythm with sotalol. 2. History of MTHFR mutation -- heterozygous. 3. History of deep venous thrombosis and pulmonary embolus. 4. History of right ventricular enlargement. 5. Dyslipidemia. 6. RAQUEL. 7. Diastolic heart failure. 8. Prothrombin gene mutation. 9. Chronic fatigue. 10. Pulmonary embolus. 11. Obesity. 12. Raynaud's phenomenon. 13. Recent diagnosis of CREST syndrome. PAST SURGICAL HISTORY: Colonoscopy. FAMILY HISTORY: Negative for premature CAD or sudden cardiac . SOCIAL HISTORY: Lifelong nonsmoker. She is single and lives alone. ALLERGIES: AUGMENTIN. HOME MEDICATIONS: 1. Lipitor 10 mg daily. 2. Folic acid daily. 3. Lasix 20 mg daily. 4. Sotalol 80 mg twice daily. 5. [place] Thyroid 120 mg daily. 6. Albuterol inhaler as needed. 7. Coumadin 10 mg as directed by the anticoagulation clinic. 8. Zoloft 100 mg, 2 tablets daily. 9. Supplemental oxygen through CPAP at bedtime. 10. Aldactone 75 mg daily. 11. Vitamin D daily. LABORATORY DATA: Initial troponin 0.27 with a repeat troponin of 18.700. Sodium 138, potassium 3.9, chloride 103, CO2 is 28, BUN is 13, creatinine is 0.81. TSH 1.80, white blood cell count 8.28, hemoglobin is 12.5, platelet count is 243. Hepatitis screen is pending. ECG on admission demonstrates sinus bradycardia with subtle ST elevation noted in lead 3. Repeat ECG performed at 10:55 p.m. demonstrates sinus rhythm with a nonspecific ST abnormality, subtle ST elevation in lead 3 has resolved. PHYSICAL EXAMINATION: VITAL SIGNS: Temperature is 36.7 degrees centigrade, pulse is 50 beats per minute and regular, respiratory rate is 18 breaths per minute, blood pressure is 101/57. SAO2 is 93% on room air. GENERAL: NAD, awake, alert and oriented x3. HEENT: Mucous membranes are moist. No scleral icterus. Conjunctivae are pink. NECK: Supple without JVD or HJR. There is no carotid bruit. HEART: Regular with a normal S1, S2. There is no murmur, rub, or gallop. LUNGS: Clear without rales, rhonchi or wheeze. ABDOMEN: Soft, nontender. No rebound or guarding. Normal bowel sounds. EXTREMITIES: Warm and dry. No clubbing, cyanosis or edema. Femoral pulses 2/4 bilaterally. Her radial pulses 2/4 in the right upper extremity. NEUROLOGIC: Demonstrates no focal deficit. FINAL IMPRESSION: 1. Non-ST elevation myocardial infarction, suspected right coronary artery culprit. 2. Preserved left ventricular systolic function. 3. Paroxysmal atrial fibrillation, currently sinus bradycardia on antiarrhythmic therapy. 4. History of deep venous thrombosis, pulmonary embolus, hypercoagulable state with currently subtherapeutic INR. 5. Obesity with obstructive sleep apnea on CPAP at bedtime. 6. History of pulmonary hypertension. 7. Compensated diastolic heart failure. PLAN AND RECOMMENDATIONS: The risk, benefits, and alternatives to cardiac catheterization with coronary angiography as well as the need for possible percutaneous intervention were discussed with patient at length. Given the need for long-term anticoagulation, we would consider bare metal stenting if necessary. The patient understands the risks and is agreeable to proceed with procedure. Due to her obesity, we will perform procedure via the right radial artery approach. All questions were answered to her satisfaction. Further recommendations pending result of catheterization.
[2017-07-03] MEDS ORDERED: MIDAZOLAM HCL 1 MG/ML 2ML VIAL ONE (10:27)
[2017-07-03] MEDS ORDERED: NiCARDipine HCL INJ 2.5 MG/ML 10 ML AMP ONE (10:27)
[2017-07-03] MEDS ORDERED: FENTANYL CITRATE INJ 50 MCG/1 ML 2 ML VIAL ONE (10:27)
[2017-07-03] MEDS ORDERED: HEPARIN SOD (PORCINE) 1000 UNIT/ML 10 ML VIAL ONE (10:27)
[2017-07-03] MEDS ORDERED: NITROGLYCERIN/D5W 100MCG/ML 20ML SYR ONE (10:29)
--- NOTE | 2017-07-03 11:30 | Post Sedation Assessment ---
Post Sedation Assessment General Date of Sedation Jul 03, 2017. Vital Signs: Vital Signs Past 12 Hours Date Time Temp Pulse Resp B/P (MAP) Pulse Ox O2 Delivery O2 Flow Rate FiO2 07/03/17 11:15 53 18 105/50 (68) 100 Mask 6 07/03/17 07:45 Room Air 07/03/17 07:34 36.7 50 18 101/57 (72) 93 Room Air 07/03/17 04:03 36.8 61 18 100/59 (73) 90 Nasal Cannula 2.0 07/03/17 04:00 Room Air 07/03/17 00:50 37.2 53 20 117/54 (75) 97 Room Air 07/03/17 00:27 54 20 121/74 93 Room Air Post Procedure Recovery Score Activity: (2) Moves 4 extremities * Respiration: (2) Deep breath/cough Circulation: (2) +/-20% PreAnes Value Consciousness: (2) Fully Awake Oxygen Saturation: (2) > 92% On Room Air Post Anesthesia Score: 10 Post Sedation Plan On clinical assessment, the patient appears to have tolerated the sedation without complications. Patient is recovering as anticipated. Patient will continue to be monitored by nursing and may be discharged when sedation discharge criteria are met per below protocol. Upon Completions of procedure and additional 15 minutes continue every 5 minute vital signs and the P.A.R. score; then discharge to a Phase I or Fast Track to Phase II per the following guidelines: * Discharge Patient to appropriate Phase II area if PAR is 8 or greater or return to pre- procedure baseline. The post - procedure orders will be as directed. * If PAR score is less than 8 or not return to pre-procedure baseline then patient will follow Phase I monitoring till PAR is reached for Phase II. The Phase I may be done in procedure room or may call to secure a Phase I area. * If naloxone or flumazenil are used for reversal, hold in Phase I for an additional 60 -120 minutes before discharge to Phase II. Please call the Sedation Physician to re-evaluate and complete post-note for discharge to Phase II area. Do NOT discharge from procedure sedation or Phase 1 until post- sedation evaluation note is complete by procedure /sedation MD Sedation Discharge Instructions to be given to the patient at discharge to home.
--- NOTE | 2017-07-03 11:31 | Pre Sedation Assessment ---
Pre Sedation Assessment General Date of Sedation: Jul 03, 2017. Vital Signs Past 12 Hours Date Time Temp Pulse Resp B/P (MAP) Pulse Ox O2 Delivery O2 Flow Rate FiO2 07/03/17 11:15 53 18 105/50 (68) 100 Mask 6 07/03/17 07:45 Room Air 07/03/17 07:34 36.7 50 18 101/57 (72) 93 Room Air 07/03/17 04:03 36.8 61 18 100/59 (73) 90 Nasal Cannula 2.0 07/03/17 04:00 Room Air 07/03/17 00:50 37.2 53 20 117/54 (75) 97 Room Air 07/03/17 00:27 54 20 121/74 93 Room Air Review Cardiovascular: regular rate, rhythm, no edema, no gallop Lungs: chest non-tender, lungs clear, normal breath sounds Pre-Sedation Airway Assessment Smoking Status: Never Smoker Short Thick Neck: Yes Thyro-mental Distance: < or =3 Finger Breadths Oral Cavity: WNL Mallampati Classification: Class III ASA Classification: Class III NPO Status Date of Last Intake of Fluids: Jul 02, 2017 Time of Last Intake of Fluids: 1899 Date of Last Intake of Solids: Jul 02, 2017 Time of Last Intake of Solids: 1899 Procedure Planning Contraindications for Sedation: None Current Medications Reviewed: Yes Notes The planned sedation has been discussed with the patient. Informed Consent was obtained. I have identified the patient, determined the appropriateness of sedation and have assessed the patient immediately prior to the procedure. All medicine(s) and interventions are by my order.
[2017-07-03] MEDS ORDERED: ATROPINE SULFATE 0.1 MG/ML 5ML SYR IV PRN (11:45)
[2017-07-03] MEDS ORDERED: SODIUM CHLORIDE 0.9% 1000ML 250 ML IV PRN (11:45)
[2017-07-03] MEDS ORDERED: ACETAMINOPHEN 325 MG TAB PO PRN (11:45)
[2017-07-03] MEDS ORDERED: ONDANSETRON INJ 2 MG/ML 2 ML VIAL IV PRN (11:45)
--- NOTE | 2017-07-03 11:45 | Cardiac Catheterization ---
Procedure Note Procedure Date Jul 03, 2017. Pre-Procedure Diagnosis Non STEMI AUC Score 8 Post-Procedure Diagnosis Mild CAD, Moderate CAD Procedure(s) Performed Coronary Angiography, Left Heart Cath Construction Superintendent Dr. Gan Lumber Kiln Operator(s) Yahaira AUTOMOTIVE SERVICES MANAGER Estimated Blood Loss 5cc Medication(s) Fentanyl, Heparin, Nicardipine, Nitroglycerin, Versed, Lidocaine 1% Summary of Findings Mild CAD. Hemodynamics Rest Ao: 107/77/53 Final Ao: 108/74/51 LV: 109/3/17 Recommendations Medical therapy and/or Counseling Specimens None Radiation Exposure (mGy) 1757 Contrast (mls) 80 Anesthesia light sedation, Start 1052. End 1115. Sedation monitor Destin Vaughn RN Procedural Complication(s) None Disposition PCU ACC Data Cardiac Status Clinical evaluation leading to the procedure CAD Presntation: Non STEMI Anginal Classification: CCS IV Heart Failure: No Cardiogenic Shock w/in 24Hrs: No Cardiac Arrest w/in 24Hrs: No Imaging studies past 6 months: Yes Stress studies past 6 months: No Coronary Anatomy Dominant: Right Left Main (% Stenosis): Normal LAD (% Stenosis): Distal (10%, tapers to small 1mm vessel at apex) D1 (% Stenosis): Normal D2 (% Stenosis): Normal D3 (% Stenosis): Normal Circumflex (% Stenosis): Proximal (10%) OM1 (% Stenosis): Distal (mild luminal irregularities) L PL1 (% Stenosis): Normal RCA (% Stenosis): Proximal (20%) R PDA (% Stenosis): Normal R PL1 (% Stenosis): Normal R PL2 (% Stenosis): Normal AM (% Stenosis): Normal Diagnostic Status: Urgent Closure Device Percutaneous Entry Location: Radial Closure Device: Radial Band Recommendations: Medical therapy and/or Counseling Intraprocedure Events Significant Dissection: No Perforation: No
[2017-07-03] MEDS ORDERED: CLOPIDOGREL BISULFATE 75 MG TAB PO ONE (14:44)
--- NOTE | 2017-07-03 15:25 | DIAGNOSTIC IMAGING REPORT ---
BILATERAL LOWER EXTREMITY VENOUS DOPPLER CLINICAL HISTORY: Chest pain and atrial fibrillation. History of deep venous thrombus. COMPARISON STUDY: Bilateral lower extremity venous Doppler April 17, 2014 TECHNIQUE: Sonography of the deep venous system of the bilateral lower extremities was performed. Compression and augmentation were evaluated. FINDINGS: The bilateral common femoral, superficial femoral and popliteal veins were compressible. Augmentation was normal. Flow was shown within the deep calf vessels. IMPRESSION: No evidence of deep venous thrombus within the bilateral lower extremities. Electronically signed by: Diogo Rhodes M.D. 07/03/2017 3:24 PM Dictated Date/Time: 07/03/2017 3:23 PM
[2017-07-03] MEDS: CHOLECALCIFEROL 1000 INTER.UNIT TAB PO SCH (15:36)
[2017-07-03] MEDS: ATORVASTATIN 10 MG TAB PO SCH (15:36)
[2017-07-03] MEDS: CYANOCOBALAMIN 100 MCG TAB (VIT B-12) PO SCH (15:38)
[2017-07-03] MEDS ORDERED: WARFARIN SOD 5 MG TAB PO SCH (16:00)
--- NOTE | 2017-07-03 16:10 | ECHOCARDIOGRAM REPORT ---
*NOTICE TO RECEIVING [employer] This information is strictly Confidential and protected under [place] law. [place] law prohibits you from making any further disclosure of this information unless further disclosure is expressly permitted by the written consent of the person to whom it pertains or is authorized by law. A general authorization for the release of medical or other information is not sufficient for this purpose. Hospital accepts no responsibility if the information is made available to any other person, INCLUDING THE PATIENT. Interpretation Summary * Name: JULITA JOSE Study Date: 07/03/2017 08:31 AM BP: 100/59 mmHg * Patient Location: C.2T\S\S239\S\2 HR: 61 * : 1960 (M/d/yyyy) Gender: Female Height: 63 in * Age: 56 yrs Ethnicity: [place] Weight: 288 lb * Ordering Physician: Jonah Carolina * Referring Physician: Self, Referred * Performed By: Alphonse Last RCS * * Reason For Study: Chest Pain * BSA: 2.3 m2 * The study was technically adequate. * Compared to prior study, there is no significant change. * -- Conclusions -- * Ejection Fraction = 55-60%. * There is borderline concentric left ventricular hypertrophy. * The left atrium is moderately dilated. * There is mild mitral regurgitation. * There is moderate tricuspid regurgitation. * The estimated systolic PAP 44mmHg. * Normal inferior vena cava diameter and respiratory variation suggests normal central venous pressure. Procedure Details * A complete two-dimensional transthoracic echocardiogram was performed (2D, M-mode, Doppler and color flow Doppler). * Patient supine for imagining. Left Ventricle * The left ventricle is normal in size. * There is borderline concentric left ventricular hypertrophy. * Ejection Fraction = 55-60%. * Left ventricular systolic function is normal. * The left ventricular wall motion is normal. Right Ventricle * The right ventricle is normal size. * The right ventricular systolic function is normal as assessed by tricuspid annular plane systolic excursion (TAPSE) (normal >1.5 cm). Atria * The left atrium is moderately dilated. * Right atrial size is normal. * There is no evidence of atrial septal defect, but resolution does not allow assessment for a patent foramen ovale. Mitral Valve * The mitral valve is normal. * There is mild mitral annular calcification. * There is no mitral valve stenosis. * There is mild mitral regurgitation. Tricuspid Valve * The tricuspid valve is normal. * There is no tricuspid stenosis. * There is moderate tricuspid regurgitation. * The estimated systolic PAP 44mmHg. Aortic Valve * Aortic valve sclerosis mild, without significant aortic valvular stenosis. * The aortic valve is not well visualized. * Aortic stenosis is absent. * There is no significant aortic regurgitation. Pulmonic Valve * The pulmonary valve is not well seen, but the Doppler examination is normal without significant regurgitation or stenosis. Great Vessels * The aortic root is normal size. Pericardium/Pleural * There is no pericardial effusion. Great Vessels * Normal inferior vena cava diameter and respiratory variation suggests normal central venous pressure. Left Ventricular Diastolic Function * Diastolic dysfunction, Grade II (pseudonormalization pattern). MMode 2D Measurements and Calculations IVSd 1.0 cm IVSs 1.4 cm LVIDd 5.2 cm LVIDs 3.6 cm LVPWd 1.0 cm LVPWs 1.4 cm IVS/LVPW 0.97 FS 30.2 % EDV(Teich) 126.7 ml ESV(Teich) 54.3 ml EF(Teich) 57.1 % EDV(cubed) 136.7 ml ESV(cubed) 46.6 ml EF(cubed) 65.9 % % IVS thick 42.2 % % LVPW thick 33.7 % LV mass(C)d 198.7 grams LV mass(C)dI 88.0 grams/m\S\2 LV mass(C)s 183.8 grams LV mass(C)sI 81.4 grams/m\S\2 SV(Teich) 72.3 ml SI(Teich) 32.0 ml/m\S\2 SV(cubed) 90.1 ml SI(cubed) 39.9 ml/m\S\2 Ao root diam 3.1 cm Ao root area 7.3 cm\S\2 ACS 1.6 cm LA dimension 4.8 cm asc Aorta Diam 2.5 cm LA/Ao 1.6 EDV(MOD-sp4) 101.5 ml ESV(MOD-sp4) 44.7 ml EF(MOD-sp4) 56.0 % EDV(MOD-sp2) 142.6 ml ESV(MOD-sp2) 44.3 ml EF(MOD-sp2) 68.9 % SV(MOD-sp4) 56.8 ml SI(MOD-sp4) 25.1 ml/m\S\2 SV(MOD-sp2) 98.3 ml SI(MOD-sp2) 43.5 ml/m\S\2 Doppler Measurements and Calculations MV E max orly 101.9 cm/sec MV A max orly 31.9 cm/sec MV E/A 3.2 MV P1/2t max orly 120.4 cm/sec MV P1/2t 96.7 msec MVA(P1/2t) 2.3 cm\S\2 MV dec slope 364.6 cm/sec\S\2 MV dec time 0.25 sec Ao V2 max 201.2 cm/sec Ao max PG 16.2 mmHg Ao max PG (full) 11.0 mmHg LV V1 max PG 5.2 mmHg LV V1 max 114.3 cm/sec PA V2 max 99.3 cm/sec PA max PG 3.9 mmHg TR max orly 319.6 cm/sec
--- NOTE | 2017-07-03 19:04 | Progress Note ---
Internal Med Progress Note Date of Service: Jul 03, 2017. Provider Documentation: SUBJECTIVE: no complain of chest pain or SOB no palpitation feels fine s/p cardiac cath today , shows minimum coronary occlusion OBJECTIVE: Vital Signs-as noted below Exam: General-pleasant, no sign of distress Eyes-sclera non icteric, , PERRLA/EOMI ENT-NAD Neck-no thyromegaly , trachea midline Lungs-CLEAR TO AUSCULTATE Heart-regular S1/s2 Abdomen-soft, non tender , no organomegaly Extremities-no rash or deformity Neuro-AAO x3, no focal neurological deficit Lab data as noted below. ASSESSMENT & PLAN: 56 year old F with atrial fibrillation history and presents with left sided chest/arm/jaw pain CHEST PAIN : symptom has resolved Lexiscan nuclear stress test report 06/2016: Myocardial perfusion imaging is normal. troponin elevated 0.2-> 18 .7 appreciate cardiology input ECHO : Ejection Fraction = 55-60%. There is borderline concentric left ventricular hypertrophy. The left atrium is moderately dilated. There is mild mitral regurgitation. There is moderate tricuspid regurgitation. The estimated systolic PAP 44mmHg. pt underwent Cardiac cath today : showed minimum occlusive coronary artery disease continue with IV heparin bridge with Coumadin for sub therapeutic INR Atrial Fibrillation - Rate controlled on Sotalol INR sub therapeutic 1.3 continued with Coumadin and IV heparin bridge HX OF PE /LOWER EXT DVT /MTHFR heterozygous mutation : On Coumadin continue IV heparin for sub therapeutic INR Hypothyroidism On [place] Thyroid 120 mg daily CREST syndrome - follows with Rheumatology Full Code DVT PROPHYLAXIS Coumadin/IV heparin bridge DISPOSITION discharge home when medically stable Follows with Dr. Longoria PCP Follows with Dr. Silverio Gan Cardiology Vital Signs: Date Time Temp Pulse Resp B/P (MAP) Pulse Ox O2 Delivery O2 Flow Rate FiO2 07/04/17 18:26 37.1 78 20 97 Room Air 07/04/17 16:00 Room Air 07/04/17 15:35 37.1 78 20 109/72 (84) 97 Nasal Cannula 2.0 07/04/17 12:00 Nasal Cannula 2.0 07/04/17 10:56 37.1 50 20 102/64 (77) 96 Nasal Cannula 2.0 07/04/17 08:00 Nasal Cannula 2.0 07/04/17 07:41 36.9 49 20 107/72 (84) 92 07/04/17 04:02 37.2 56 18 96/58 (71) 95 Nasal Cannula 2.0 07/04/17 04:00 Room Air 07/03/17 23:59 Room Air 07/03/17 23:10 37.2 56 17 103/67 (79) 92 Nasal Cannula 2.0 Lab Results: Results Past 24 Hours Test 07/04/17 06:44 Range/Units Prothrombin Time 13.9 9.0-12.0 SECONDS Prothromb Time International Ratio 1.3 0.9-1.1 Activated Partial Thromboplast Time 48.9 21.0-31.0 SECONDS Partial Thromboplastin Ratio 1.9 Troponin I 4.130 0-0.045 ng/ml
[2017-07-03 19:48] LABS: PTT PATIENT 48.5 SECONDS (21.0-31.0)
[2017-07-04 04:02] VITALS: BP 96/58; PULSE 56; TEMP 37.2; O2SAT 95
[2017-07-04 07:25] LABS: INR 1.3 (0.9-1.1)
[2017-07-04 07:41] VITALS: BP 107/72; PULSE 49; TEMP 36.9; O2SAT 92
[2017-07-04 07:43] LABS: PTT PATIENT 48.9 SECONDS (21.0-31.0)
[2017-07-04] MEDS: SOTALOL HCL 80 MG TAB PO SCH (08:52)
[2017-07-04] MEDS: SPIRONOLACTONE 25 MG TAB PO SCH ×2 (08:53→17:28)
[2017-07-04] MEDS: FUROSEMIDE 20 MG TAB PO SCH (08:53)
[2017-07-04] MEDS: SERTRALINE HCL 100 MG TAB PO SCH (08:53)
[2017-07-04] MEDS: ARMOUR THYROID 30 MG TAB PO SCH (08:54)
[2017-07-04] MEDS: CEFUROXIME AXETIL 250 MG TAB PO SCH (08:54)
[2017-07-04] MEDS: ATORVASTATIN 10 MG TAB PO SCH (08:54)
[2017-07-04] MEDS: CHOLECALCIFEROL 1000 INTER.UNIT TAB PO SCH (08:54)
[2017-07-04] MEDS: CYANOCOBALAMIN 100 MCG TAB (VIT B-12) PO SCH (08:55)
[2017-07-04] MEDS ORDERED: CLOPIDOGREL BISULFATE 75 MG TAB PO SCH (09:00)
[2017-07-04] MEDS ORDERED: OPTIRAY 320 IV PRN (09:45)
[2017-07-04 10:56] VITALS: BP 102/64; PULSE 50; TEMP 37.1; O2SAT 96
[2017-07-04] MEDS: HEPARIN 25,000 UNIT/500ML D5W 500 ML IV PRN (11:40)
--- NOTE | 2017-07-04 12:54 | DIAGNOSTIC IMAGING REPORT ---
CT ANGIOGRAM OF THE CHEST CLINICAL HISTORY: Atypical chest pain. COMPARISON STUDY: Chest CT scans dated 02/27/2016 and 12/27/2010. TECHNIQUE: Following the IV administration of 92 cc of Optiray 320, CT angiogram of the chest was performed from the upper abdomen to the thoracic inlet utilizing the pulmonary embolus protocol. Images are reviewed in the axial, sagittal, and coronal planes. 3-D MIPS images are created and assessed. IV contrast was administered without complication. A dose lowering technique was utilized adhering to the principles of ALARA. CT DOSE: 688.59 mGy.cm FINDINGS: Thyroid: Imaged portions of the thyroid gland are normal in size and attenuation. Thoracic aorta: There is mild atherosclerotic calcification of the thoracic aorta, which is normal in caliber and demonstrates standard 3-vessel arch anatomy. No dissection is seen. Pulmonary vasculature: The pulmonary trunk is normal in caliber. There are no filling defects identified in main, lobar, or segmental pulmonary branches to suggest pulmonary embolus. Heart: The heart is enlarged and without pericardial effusion. The coronary arteries are densely calcified. Lungs and pleural spaces: There are small foci of linear scarring versus atelectasis. No airspace consolidation or pleural effusion is identified. The trachea and central airways are clear. Mediastinum: There is no mediastinal lymphadenopathy. [place]: Clear. Axillae: There is no axillary lymphadenopathy. Upper abdomen: There is a small hiatal hernia. Partially visualized upper abdominal viscera is otherwise within normal limits. Skeletal structures: The skeletal structures are osteopenic. Degenerative change is seen throughout the thoracic spine. No lytic or blastic bony lesions are seen. IMPRESSION: 1. There is no evidence of pulmonary embolus in the main, lobar, or segmental pulmonary arteries. 2. Cardiomegaly. 3. The lungs are clear. Electronically signed by: Stevie Leach M.D. 07/04/2017 12:53 PM Dictated Date/Time: 07/04/2017 12:45 PM
--- NOTE | 2017-07-04 13:41 | CARDIOLOGY PROGRESS NOTE ---
DATE: 07/04/2017 DATE: 07/04/2017 SUBJECTIVE: The patient is seen and examined at the bedside. No recurrent chest discomfort overnight. No recurrent atrial fibrillation on telemetry. She is feeling well from a cardiovascular perspective. Denies shortness of breath, orthopnea, PND, lower extremity edema. CTA of the chest negative for PE. Anxiously awaiting discharge. INR subtherapeutic. REVIEW OF SYSTEMS: The pertinent positives noted above, a 4-system review including cardiovascular, pulmonary, gastroenterology, and neurologic systems otherwise negative. MEDICATIONS: Reviewed via EMR. Please see list for details. LABORATORY DATA: The labs were not performed this a.m. PHYSICAL EXAMINATION: VITAL SIGNS: Temperature is 37.1 degrees centigrade, pulse 50 beats per minute and regular, respiratory rate 20 breaths per minute. Blood pressure 102/64. SaO2 96% on 2 liters. GENERAL: NAD, obese, awake, alert and oriented x3. HEAD, EYES, EARS, NOSE, AND THROAT: Mucous membranes moist. No scleral icterus. Conjunctivae pink. NECK: Supple without JVD or HJR. No carotid bruit. HEART: Regular with a normal S1 and S2. No murmur, rub or gallop. LUNGS: Clear without rales, rhonchi or wheeze. ABDOMEN: Obese, nontender. No rebound or guarding. Normal bowel sounds. EXTREMITIES: Warm and dry without clubbing, cyanosis or edema. There is no right wrist ecchymosis. NEUROLOGIC EXAMINATION: Demonstrates no focal deficit. FINAL IMPRESSION: 1. Elevated troponin of undetermined etiology. There is no evidence of obstructive coronary artery disease. No evidence of pulmonary embolus on CTA. Suspect possible transient cardioembolic event related to paroxysmal atrial fibrillation in the setting of subtherapeutic INR. However, this cannot be confirmed at this time. Her echo is stable with normal LV function and no regional wall motion abnormalities. 2. Paroxysmal atrial fibrillation maintained in sinus rhythm with sotalol. 3. History of deep venous thrombosis, pulmonary embolism, hypercoagulable state, on chronic anticoagulation. 4. Obstructive sleep apnea on CPAP. 5. Pulmonary hypertension. 6. Compensated diastolic heart failure. PLAN AND RECOMMENDATIONS: The patient will continue Plavix for 3 months at this time. She will also continue aspirin and Coumadin as previously ordered. She has a follow-up appointment scheduled with me later next week on Thursday. Other cardiovascular medications will be continued as listed in the EMR. I will sign off at this time. Please call with questions.
[2017-07-04] MEDS ORDERED: LOVENOX TEACHING KIT ONE (15:00)
[2017-07-04] MEDS ORDERED: ENOXAPARIN 1 MG/KG SQ SCH (15:00)
[2017-07-04 15:35] VITALS: BP 109/72; PULSE 78; TEMP 37.1; O2SAT 97
[2017-07-04] MEDS ORDERED: ENOXAPARIN 150 MG/1ML SYR SQ SCH (16:00)
[2017-07-04] MEDS ORDERED: WARFARIN SOD 5 MG TAB PO SCH (16:00)
[2017-07-04] MEDS ORDERED: LVNIS120 SC (17:24)
[2017-07-04] MEDS ORDERED: PLV75 PO (17:24)
[2017-07-04] MEDS ORDERED: CMD5 PO ×2 (17:24→17:26)
--- NOTE | 2017-07-04 17:51 | Discharge Instructions ---
Discharge Instructions Date of Service Jul 04, 2017. Admission Reason for Admission: Atrial Fibrillation, Chest Pain Discharge Discharge Diagnosis / Problem: ATRIAL FIBRILLATION Discharge Goals Goal(s): Improve disease control, Diagnostic testing, Therapeutic intervention Activity Recommendations Activity Limitations: resume your previous activity . Instructions / Follow-Up Instructions / Follow-Up HOSPITAL FOLLOW UP 07/08/2017 9:50 AM Radha Longoria DO [facility] STOP TAKING PLAVIX AFTER 3 MONTHS CONT TO TAKE ASPIRIN AND COUMADIN PER DIRECTED YOU ARE BEING DISCHARGED WITH LOVENOX [facility] PT/INR CHECK ON Friday07/07/17 LOVENOX NEEDS TO BE DISCONTINUED WHEN INR ~2 YOUR INR TODAY IS 1.3 YOU ARE BEING DISCHARGED WITH LOVENOX [facility] CARDIOLOGY FOLLOW UP : 07/10/2017 4:00 PM Silverio Gan DO Cardiology, [facility] Hospital Diet Patient's current hospital diet: AHA Diet (Heart Healthy) Discharge Diet Recommended Diet: AHA Diet (Heart Healthy) Pending Studies Studies pending at discharge: yes List of pending studies: LAB : PT/INR ON Friday07/07/17 Medical Emergencies . Who to Call and When: Medical Emergencies: If at any time you feel your situation is an emergency, please call 911 immediately. . Non-Emergent Contact Non-Emergency issues call your: Primary Care Provider . . "Provider Documentation" section prepared by Chioma Iverson. . VTE Core Measure Inpt VTE Proph given/why not?: Warfarin (Coumadin)
[2017-07-04 18:26] VITALS: BP 109/72; PULSE 78; TEMP 37.1; O2SAT 97
--- NOTE | 2017-07-04 22:28 | Discharge Summary ---
Discharge Summary Date of Service Jul 04, 2017. Discharge Summary Admission Date: Jul 02, 2017 at 23:38 Discharge Date: Jul 04, 2017 Principal Diagnosis: ATRIAL FIBRILLATION Medication Reconciliation New Medications: Enoxaparin (Lovenox) 120 Mg/0.8 Ml Inj 120 MG SC Q12 for 4 Days, #8 EA 2 Refills Clopidogrel Bisulfate (Clopidogrel) 75 Mg Tab 75 MG PO QAM for 30 Days, #30 TAB 3 Refills Warfarin Sod (Coumadin) 5 Mg Tab 7.5 MG PO DAILY@1600 for 30 Days, #10 TAB Continued Medications: Atorvastatin (Lipitor) 10 Mg Tab 10 MG PO QAM, TAB Cholecalciferol (Vitamin D3) 1,000 Inter.unit Tab 1000 INTER.UNIT PO QAM Cyanocobalamin (Vitamin B12) Unknown Strength Tab 1 TAB PO QAM Folic Acid (Folvite) 1 Mg Tab 1 MG PO QAM, TAB Furosemide (Furosemide) 20 Mg Tab 2 MG PO QAM Sertraline (Zoloft) 100 Mg Tab 200 MG PO DAILY, TAB Sotalol Hcl (Sotalol Hcl) 80 Mg Tab 80 MG PO BID, TAB Spironolactone (Aldactone) 50 Mg Tab 75 MG PO BID Thyroid ([place] Thyroid) 120 Mg Tab 120 MG PO QAM Discontinued Medications: Cefuroxime Axetil (Cefuroxime Axetil) 250 Mg Tab 500 MG PO BID for 10 Days PRESCRIBED 06/27/2017, TAKE DIRECTED UNTIL GONE Warfarin Sodium (Warfarin Sodium) 5 Mg Tab 5 MG PO DAILY TAKE 5 MG EVERY DAY OR OTHERWISE DIRECTED TO TAKE BY THE ANTICOAGULATION CLINIC/MD Referrals At Discharge Follow up Referrals: Senior Research Project Manager Referral - 07/10/17 with Silverio Gan, DO Physician Referral - 07/08/17 with Radha Longoria D.O. Admission Information HPI (per Admitting provider): This is a 56 year old F patient with past medical history hypothyroidism, recent diagnosis of CREST, history of pulmonary embolism , atrial fibrillation, on coumadin 5 mg daily at home, found to be subtherapeutic with INR 1.5 , after presenting to the ED for left chest, left arm, and left jaw pain. These sensation started around 6:40 PM after patient was leaving a clinic and walking to her car. Patient reports history of palpitations in the past and for atrial fibrillation has followed with Dr. Silverio Gan training and documentation specialist however the sensations that she experienced prior to arrival to the ED was unusual for her. In the ED, the initial troponin was negative however second troponin elevated to 0.27. The ED doctor ordered for her nitropaste, aspirin 325 mg and IV heparin. When patient was seen and examined by internal medicine hospitalist, the patient reported that symptoms resolving Physical Exam (per Admitting): General Appearance: no apparent distress Head: normocephalic, atraumatic Eyes: normal inspection, EOMI, sclerae normal ENT: normal ENT inspection, hearing grossly normal, pharynx normal Neck: supple, no JVD, trachea midline Respiratory/Chest: chest non-tender, lungs clear, normal breath sounds, no respiratory distress, no accessory muscle use Cardiovascular: no edema, no JVD, normal peripheral pulses, + bradycardia ( heart rate in the 50s) Abdomen/GI: normal bowel sounds, non tender, soft Back: normal inspection, no CVA tenderness, no muscle spasm, normal range of motion Extremities/Musculoskelatal: normal inspection, no calf tenderness, no pedal edema, normal range of motion, non-tender Neurologic/Psych: alert, normal mood/affect, oriented x 3 Skin: normal color, warm/dry, no rash Hospital Course no complain of chest pain or SOB no LOZADA , P/E: Exam: General-pleasant, no sign of distress Eyes-sclera non icteric, , PERRLA/EOMI ENT-NAD Neck-no thyromegaly , trachea midline Lungs-CLEAR TO AUSCULTATE Heart-regular S1/s2 Abdomen-soft, non tender , no organomegaly Extremities-no rash or deformity Neuro-AAO x3, no focal neurological deficit Date Time Temp Pulse Resp B/P (MAP) Pulse Ox O2 Delivery O2 Flow Rate FiO2 07/04/17 18:26 37.1 78 20 97 Room Air 07/04/17 16:00 Room Air 07/04/17 15:35 37.1 78 20 109/72 (84) 97 Nasal Cannula 2.0 07/04/17 12:00 Nasal Cannula 2.0 07/04/17 10:56 37.1 50 20 102/64 (77) 96 Nasal Cannula 2.0 07/04/17 08:00 Nasal Cannula 2.0 07/04/17 07:41 36.9 49 20 107/72 (84) 92 07/04/17 04:02 37.2 56 18 96/58 (71) 95 Nasal Cannula 2.0 07/04/17 04:00 Room Air 07/03/17 23:59 Room Air 07/03/17 23:10 37.2 56 17 103/67 (79) 92 Nasal Cannula 2.0 CHEST PAIN : symptom has resolved . no further complain , no SOB or LOZADA Lexiscan nuclear stress test report 06/2016: Myocardial perfusion imaging is normal. troponin elevated 0.2-> 18 .7 appreciate cardiology input ECHO : Ejection Fraction = 55-60%. There is borderline concentric left ventricular hypertrophy. The left atrium is moderately dilated. There is mild mitral regurgitation. There is moderate tricuspid regurgitation. The estimated systolic PAP 44mmHg. pt underwent Cardiac cath : showed minimum occlusive coronary artery disease continue with IV heparin bridge with Coumadin for sub therapeutic INR CT chest negative for PE stable to be discharged home today will be discharged with SC Lovenox bridge /Coumadin Atrial Fibrillation - Rate controlled on Sotalol INR sub therapeutic 1.3 continued with Coumadin and IV heparin bridge will be discharged with SC Lovenox bridge /Coumadin pt is familiar with Lovenox SC , was on Lovenox bridge after Dx with PE in past HX OF PE /LOWER EXT DVT /MTHFR heterozygous mutation : On Coumadin treated with IV heparin for sub therapeutic INR will be discharged with SC Lovenox bridge /Coumadin Hypothyroidism On [place] Thyroid 120 mg daily CREST syndrome - follows with Rheumatology Full Code DVT PROPHYLAXIS Coumadin/IV heparin bridge DISPOSITION stable to be discharge home today Follows with Dr. Longoria PCP Follows with Dr. Silverio Gan Cardiology Total time spent on discharge = 35 MINS This includes examination of the patient, discharge planning, medication reconciliation, and communication with other providers. Discharge Instructions Discharge Instructions Date of Service Jul 04, 2017. Admission Reason for Admission: Atrial Fibrillation, Chest Pain Discharge Discharge Diagnosis / Problem: ATRIAL FIBRILLATION Discharge Goals Goal(s): Improve disease control, Diagnostic testing, Therapeutic intervention Activity Recommendations Activity Limitations: resume your previous activity . Instructions / Follow-Up Instructions / Follow-Up HOSPITAL FOLLOW UP 07/08/2017 9:50 AM Radha Longoria DO [facility] STOP TAKING PLAVIX AFTER 3 MONTHS CONT TO TAKE ASPIRIN AND COUMADIN PER DIRECTED YOU ARE BEING DISCHARGED WITH [facility] PT/INR CHECK ON Friday07/07/17 LOVENOX NEEDS TO BE DISCONTINUED WHEN INR ~2 YOUR INR TODAY IS 1.3 YOU ARE BEING DISCHARGED WITH LOVENOX [facility]ER[facility] CARDIOLOGY FOLLOW UP : 07/10/2017 4:00 PM Silverio Gan DO Cardiology, [facility] Diet Patient's current hospital diet: AHA Diet (Heart Healthy) Discharge Diet Recommended Diet: AHA Diet (Heart Healthy) Pending Studies Studies pending at discharge: yes List of pending studies: LAB : PT/INR ON Friday07/07/17 Medical Emergencies . Who to Call and When: Medical Emergencies: If at any time you feel your situation is an emergency, please call 911 immediately. . Non-Emergent Contact Non-Emergency issues call your: Primary Care Provider . . "Provider Documentation" section prepared by Chioma Iverson. Additional Copies To Radha Longoria D.O. Kopinski, Thomas O., DO
== END 2017-07-04 19:11 | disposition home or self-care (01) | DRG 287 ==
LOC: C.EDB 19:35 → C.2T 23:38 → ENRESERV 23:53
PROVIDERS: ADMIT Hospitalist; ATTEND Hospitalist
PROC: B211YZZ Fluoroscopy of Multiple Coronary Arteries using Other Contrast (ICD-10-PCS; principal; 2017-07-03 09:34)
PROC: 4A023N7 Measurement of Cardiac Sampling and Pressure, Left Heart, Percutaneous Approach (ICD-10-PCS; principal; 2017-07-03 09:34)
DX: I48.0 Paroxysmal atrial fibrillation (principal); I50.32 Chronic diastolic (congestive) heart failure; Z68.42 Body mass index [BMI] 45.0-49.9, adult; R07.9 Chest pain, unspecified; R79.1 Abnormal coagulation profile; I25.10 Atherosclerotic heart disease of native coronary artery without angina pectoris; R78.89 Finding of other specified substances, not normally found in blood; I27.20 Pulmonary hypertension, unspecified; E78.5 Hyperlipidemia, unspecified; F32.9 Major depressive disorder, single episode, unspecified; E03.9 Hypothyroidism, unspecified; M34.1 CR(E)ST syndrome; J32.9 Chronic sinusitis, unspecified; G47.33 Obstructive sleep apnea (adult) (pediatric); E66.9 Obesity, unspecified; Z79.899 Other long term (current) drug therapy; Z79.01 Long term (current) use of anticoagulants; Z86.718 Personal history of other venous thrombosis and embolism; Z86.711 Personal history of pulmonary embolism; Z82.49 Family history of ischemic heart disease and other diseases of the circulatory system; Z83.3 Family history of diabetes mellitus; Z83.49 Family history of other endocrine, nutritional and metabolic diseases

== ENCOUNTER → 2017-07-30 | Day surgery (SDC) | payer OTHER ==
[~2017-07-30] VITALS: Ht 160 cm; Wt 130.0 kg
[~2017-07-30] MED LIST changes: +ASPCH81X PO; -BTP80 PO; +CMD5 PO; +CYAN100020 PO; +FAMO20TA11 PO; +FENTANYL CITRATE INJ 50 MCG/1 ML 2 ML VIAL ONE; -FLV1 PO; +FOLI1TAB8 PO; -LEVO150T9 PO; +LSX20 PO; +LVNIS120 SC; +MIDAZOLAM HCL 1 MG/ML 2ML VIAL ONE; +PLV75 PO; +SOTA80TA PO; +THY/120 PO; -WARF5TAB7 PO
[2017-07-30 08:48] VITALS: BP 118/48; PULSE 51; TEMP 37.1; O2SAT 94; Ht 160 cm; Wt 130.0 kg
--- NOTE | 2017-07-30 09:52 | Pre Sedation Assessment ---
Pre Sedation Assessment General Date of Sedation: Jul 30, 2017. Vital Signs Past 12 Hours Date Time Temp Pulse Resp B/P (MAP) Pulse Ox O2 Delivery O2 Flow Rate FiO2 07/30/17 08:48 37.1 51 16 118/48 (71) 94 Room Air Review Cardiovascular: regular rate, rhythm, no edema, no gallop Lungs: lungs clear, normal breath sounds, no respiratory distress Pre-Sedation Airway Assessment Smoking Status: Never Smoker Hx of Sleep Apnea: Yes Short Thick Neck: Yes Thyro-mental Distance: < or =3 Finger Breadths Oral Cavity: Capped Teeth Mallampati Classification: Class II NPO Status Date of Last Intake of Fluids: Jul 29, 2017 Time of Last Intake of Fluids: 2149 Date of Last Intake of Solids: Jul 29, 2017 Time of Last Intake of Solids: 2029 Procedure Planning Contraindications for Sedation: None Current Medications Reviewed: Yes Notes The planned sedation has been discussed with the patient. Informed Consent was obtained. I have identified the patient, determined the appropriateness of sedation and have assessed the patient immediately prior to the procedure. All medicine(s) and interventions are by my order.
--- NOTE | 2017-07-30 09:53 | History & Physical Bridge Note ---
H&P Re-Evaluation Bridge Note: I have examined the patient, reviewed the History & Physical and in the interval since the performance of the History & Physical I have noted the following changes of clinical significance: Right heart catheterization requested by supervisor solder making to assess pulmonary artery pressure. Risk discussed with patient. She is agreeable to proceed.
--- NOTE | 2017-07-30 10:19 | Post Sedation Assessment ---
Post Sedation Assessment General Date of Sedation Jul 30, 2017. Vital Signs: Vital Signs Past 12 Hours Date Time Temp Pulse Resp B/P (MAP) Pulse Ox O2 Delivery O2 Flow Rate FiO2 07/30/17 08:48 37.1 51 16 118/48 (71) 94 Room Air Post Procedure Recovery Score Activity: (2) Moves 4 extremities * Respiration: (2) Deep breath/cough Circulation: (2) +/-20% PreAnes Value Consciousness: (2) Fully Awake Oxygen Saturation: (2) > 92% On Room Air Post Anesthesia Score: 10 Discharge Sedation Level of Care: Fast Track Phase II Post Sedation Plan On clinical assessment, the patient appears to have tolerated the sedation without complications. Patient is recovering as anticipated. Patient will continue to be monitored by nursing and may be discharged when sedation discharge criteria are met per below protocol. Upon Completions of procedure and additional 15 minutes continue every 5 minute vital signs and the P.A.R. score; then discharge to a Phase I or Fast Track to Phase II per the following guidelines: * Discharge Patient to appropriate Phase II area if PAR is 8 or greater or return to pre- procedure baseline. The post - procedure orders will be as directed. * If PAR score is less than 8 or not return to pre-procedure baseline then patient will follow Phase I monitoring till PAR is reached for Phase II. The Phase I may be done in procedure room or may call to secure a Phase I area. * If naloxone or flumazenil are used for reversal, hold in Phase I for an additional 60 -120 minutes before discharge to Phase II. Please call the Sedation Physician to re-evaluate and complete post-note for discharge to Phase II area. Do NOT discharge from procedure sedation or Phase 1 until post- sedation evaluation note is complete by procedure /sedation MD Sedation Discharge Instructions to be given to the patient at discharge to home.
--- NOTE | 2017-07-30 10:32 | Cardiac Catheterization ---
Procedure Note Procedure Date Jul 30, 2017. Pre-Procedure Diagnosis Cardiothoracic Symptom (Assess pulmonary hypertension) AUC Score N/A Post-Procedure Diagnosis Elevated Intracardiac Pressures (Moderate pulmonary hypertension) Procedure(s) Performed Right Heart Cath Chemical Plant Operator Supervisor Dr. Gan Manufactured Buildings Repairer(s) Donnie RTR Estimated Blood Loss 2cc Medication(s) Versed Summary of Findings Moderate pulmonary hypertension Mildly elevated PCWP 14mmHg Normal right atrial pressure. No evidence of intracardiac shunt. Qp/Qs= 1.0 using Room air pulse oximetry O2 saturation. Cardiac output (Thermodilution) 5.7 L/min Cardiac index (Thermodilution) 2.5 L/min/m2 Hemodynamics Rest Ao: 139/74 Final Ao: 129/72 LV: N/A RA: RV: 55/-310 PA: (s/d/m) PW: Recommendations Medical therapy and/or Counseling Specimens None Radiation Exposure (mGy) 44 Contrast (mls) 0cc Anesthesia Light sedation. Start 1001. End 1014. Monitor: Alphonse Gloria RN Procedural Complication(s) None Disposition Side Stapler Holding/Recovery ACC Data Cardiac Status Clinical evaluation leading to the procedure CAD Presntation: Stable angina Anginal Classification: CCS II Heart Failure: No Diagnostic Status: Elective Closure Device Percutaneous Entry Location: Brachial Closure Device: none - manual hold Recommendations: Medical therapy and/or Counseling
--- NOTE | 2017-07-30 10:36 | Discharge Instructions ---
Discharge Instructions Procedure Procedure Date: Jul 30, 2017. Reason for Visit: Pulmonary Hypertenstion. Discharge Discharge Date: Jul 30, 2017. Discharge Diagnosis: Moderate pulmonary hypertension Last Recorded Wt (Kilograms): 130 Anesthesia Post Anesthesia Instructions: If you have had General Anesthesia or IV Sedation: * Do not drive today. * Resume driving when surgeon permits. * Do not make important decisions or sign legal documents today. * Call surgeon for: 1. Temperature elevations greater than 101 degrees F. 2. Uncontrollable pain. 3. Excessive bleeding. 4. Persistent nausea and vomiting. 5. Medication intolerance (nausea, vomiting or rash). * For nausea and vomiting use only clear liquids such as: tea, soda, bouillon until nausea subsides, then gradually increase diet as tolerated. * If you have any concerns or questions, call your surgeon's office. If physician is unavailable and it is an emergency, call 911 or go to the nearest emergency room. Instructions Activity Recommendations: limitations as noted below Return to School/Work: with the following limitations Recommended Home Diet: resume previous diet Allergies: Coded Allergies: Amoxicillin (Verified Allergy, Unknown, RASH, PRURITIS, 02/27/16) Clavulanic Acid (Verified Allergy, Unknown, RASH, PRURITIS, 02/27/16) Provider Instructions ACTIVITY RECOMMENDATIONS: Excess manipulation of the wrist should be avoided for the next 24-48 hours. * No lifting over 2 pounds (approximately a 1/2 gallon of milk) with the utilized arm for 24 hours. * No strenuous activity such as bowling or tennis for 3 days. * Keep the site of the procedure covered with a bandage for 24 hours. *You may shower the day after the procedure. Do not take a tub bath or submerge the puncture site in water for the next 3 days. *Do not operate any motorized equipment for 3 days. SPECIAL CARE INSTRUCTIONS: The site may be slightly bruised and sore following your procedure. Should any of the following occur, contact the Dr. who performed your procedure. 1. Redness/inflammation, swelling, chills, or fever, or colored drainage at procedure site within 3-7 days after your procedure. 2. Coldness, discoloration, ongoing numbness, severe pain, or swelling. Expect mild tingling of hand and tenderness at the puncture site for up to three days. If this persists beyond three days, or other symptoms develop, notify the Dr. who performed your procedure. BLEEDING: If the procedure site on your wrist begins to bleed, do not panic 1. Place 1 or 2 fingers firmly just slightly below the insertion site to stop the bleeding. You may be able to feel your pulse as you hold pressure. 2. Lift your finger after 5 minutes to see if the bleeding has stopped. 3. Once the bleeding has stopped, gently wipe the wrist area clean with a bandage. * If the bleeding from your arm does not stop after 10 minutes, or if there is a large amount of bleeding or spurting, call 911 (do not drive yourself to the hospital). SKIN IRRITATION: * You may experience some redness and/or swelling in the area where radiation was administered. If any skin irritation occurs, please contact your family physician. FOLLOW UP VISIT: Keep any scheduled doctor appointments. Follow Up Follow-up with: Dr. Gan as scheduled. Dr. Rosa as scheduled. Roge Carrillo Recommendations: Call your doctor if: * Temperature above 101 degrees * Pain not relieved by pain medicine ordered * There is increased drainage or redness from any incision * You have any unanswered questions or concerns. Your Doctors Instructions noted above were prepared by provider Silverio Gan. Patient Signature Section: Patient Instructions Signature Page Claudia Ramirez Patient (or Guardian) Signature/Date: I have read and understand the instructions given to me by my caregivers. Caregiver/RN/Doctor Signature/Date: The above-named patient and/or guardian has received patient instructions on this date. + Original Patient Signature Page (only) stays with chart. Please make copy for patient.
[2017-07-30 11:30] VITALS: BP 108/48; PULSE 52; O2SAT 92
== END | disposition home or self-care (01) ==
LOC: C.CATH 08:27
PROVIDERS: ATTEND Internal Medicine Cardiovascular Disease
DX: I27.20 Pulmonary hypertension, unspecified (principal); I20.9 Angina pectoris, unspecified; I48.0 Paroxysmal atrial fibrillation; I34.0 Nonrheumatic mitral (valve) insufficiency; E78.5 Hyperlipidemia, unspecified; G47.33 Obstructive sleep apnea (adult) (pediatric); I50.32 Chronic diastolic (congestive) heart failure; E72.12 Methylenetetrahydrofolate reductase deficiency; Z86.711 Personal history of pulmonary embolism; Z86.718 Personal history of other venous thrombosis and embolism; Z83.3 Family history of diabetes mellitus; Z82.49 Family history of ischemic heart disease and other diseases of the circulatory system

== ENCOUNTER → 2017-08-27 | Outpatient (CLI) | payer OTHER ==
[~2017-08-27] MED LIST changes: -FENTANYL CITRATE INJ 50 MCG/1 ML 2 ML VIAL ONE; -LVNIS120 SC; -MIDAZOLAM HCL 1 MG/ML 2ML VIAL ONE
--- NOTE | 2017-08-27 12:37 | DIAGNOSTIC IMAGING REPORT ---
LUNG IMAGING VQ CLINICAL HISTORY: Dyspnea. Chest pain. COMPARISON: None TECHNIQUE: For the ventilation portion of this exam, 33 mCi of DTPA was inhaled at N 50 a.m.. Immediately following inhalation, imaging of the chest was carried out in the anterior, posterior, left lateral, right lateral, LPO, RPO, CROATIAN and BRUNNER projections. For the perfusion portion of exam, 5.7 mCi of technetium 99m MAA was injected IV at 12:15 PM. Immediately following injection, imaging of the chest was carried out in the same projections. FINDINGS: Uniform activity characteristics on both ventilation as well as perfusion components of the study. No perfusion defects. No significant ventilation/perfusion mismatch. IMPRESSION: Normal study The above report was generated using voice recognition software. It may contain grammatical, syntax or spelling errors. Electronically signed by: Rd Milligan M.D. 08/27/2017 12:36 PM Dictated Date/Time: 08/27/2017 12:35 PM
--- NOTE | 2017-08-27 12:48 | DIAGNOSTIC IMAGING REPORT ---
CHEST 2 VIEWS ROUTINE CLINICAL HISTORY: SOB, COUGH dyspnea COMPARISON STUDY: 07/02/2017 FINDINGS: Minimal parenchymal infiltrate medial right base. Lungs otherwise are clear. Diaphragms are smooth. IMPRESSION: Minimal parenchymal infiltrate medial right base. The above report was generated using voice recognition software. It may contain grammatical, syntax or spelling errors. Electronically signed by: Rd Milligan M.D. 08/27/2017 12:47 PM Dictated Date/Time: 08/27/2017 12:46 PM
== END | disposition home or self-care (01) ==
LOC: C.NUCL 11:34
PROVIDERS: ATTEND Internal Medicine Critical Care Medicine
DX: I27.20 Pulmonary hypertension, unspecified (principal); M34.1 CR(E)ST syndrome; Z86.711 Personal history of pulmonary embolism; R06.09 Other forms of dyspnea; R05 Cough

== ENCOUNTER 2023-01-09 18:25 | Inpatient (IN) ==
[2023-01-09 19:29] LABS: Basophils # (auto) 0.06 K/uL (0-0.2); Basophils % (auto) 0.8 %; Eosinophils # (auto) 0.12 K/uL (0-0.50); Eosinophils % (auto) 1.6 %; Hematocrit (blood only) 29.6 % (37.0-47.0); Immature Granulocytes # (auto) 0.04 K/uL (0.01-0.20); Immature Granulocytes % (auto) 0.5 %; Lymphocytes # (auto) 0.86 K/uL (1.2-3.4); Lymphocytes % (auto) 11.3 %; Mean Corpuscular Hemoglobin 30.2 pg (25.0-34.0); Mean Corpuscular Hgb Conc 33.8 g/dL (32.0-36.0); Mean Corpuscular Volume 89.4 fL (80.0-100.0); Mean Platelet Volume 11.1 fL (9.4-12.4); Monocytes # (auto) 0.47 K/uL (0.11-0.59); Monocytes % (auto) 6.2 %; Neutrophils # (auto) 6.05 K/uL (1.40-6.50); Neutrophils % (auto) 79.6 %; Platelet Count 184 K/uL (130-400); RDW Coefficient of Variation 15.8 % (11.5-14.5); RDW Standard Deviation 51.8 fL (36.4-46.3); Red Blood Count 3.31 M/uL (4.20-5.40)
[2023-01-09 19:50] LABS: Alanine Aminotransferase 6 U/L (7-52); Albumin Globulin Ratio 1.1 (0.9-2); Albumin Level 3.4 gm/dl (3.4-5.0); Alkaline Phosphatase 59 U/L (34-104); Anion Gap 21 (3-11); Aspartate Aminotransferase 16 U/L (13-39); BUN Creatinine Ratio 9.8 (10-20); Bilirubin,Total 1.1 mg/dl (0.2-1.0); Blood Urea Nitrogen 13 mg/dl (6-23); Calcium 8.9 mg/dl (8.6-10.3); Carbon Dioxide 24 mmol/L (21-32); Chloride 97 mmol/L (98-107); Est GFR (African American) 49.3 ml/min; Est GFR (Non-African American) 42.5 ml/min; Globulin 3.2 gm/dl (2.5-4.0); Glucose 80 mg/dl (70-99(Fasting)); Potassium 2.7 mmol/L (3.5-5.1); Sodium 142 mmol/L (136-145); Total Protein 6.6 gm/dl (6.0-8.3)
[2023-01-09 20:59] LABS: Magnesium 1.1 mg/dl (1.7-2.4)
[2023-01-09] MEDS: LACTATED RINGER'S 1,000 ML IV SCH (21:10)
[2023-01-09] MEDS ORDERED: PANTOprazole 40 MG in SYRINGE 0 ML IV ONE (21:16)
[2023-01-09] MEDS: MAGNESIUM SULFATE / D5W 1 GM/100 ML BAG IV SCH ×2 (21:33→22:40)
[2023-01-09] MEDS: POTASSIUM CHLORIDE / WTR 10 MEQ/100 ML PLCT IV SCH ×2 (21:33→22:39)
--- NOTE | 2023-01-09 22:06 | Emergency Department Note ---
Impression & Plan Diarrhea, Dehydration, Hypokalemia, Hypomagnesemia ED Provider Note ED Provider Note NAME: JULITA JOSE AGE:62 SEX: Female : 1960 ARRIVES VIA: Private vehicle INFORMANT: Patient ED PROVIDER(s): Jimena Blackburn DO CHIEF COMPLAINT: Dehydration, diarrhea, nausea HPI: This is a 62-year-old female presents emergency department due to concern for dehydration. Patient with recent prolonged course of antibiotics for a lung infection which she just completed 2 weeks ago after developing nausea, vomiting, diarrhea. Patient states she was nauseated and had developed diarrhea while on the antibiotics however since discontinuing them the symptoms have persisted. She is concerned for weakness and dehydration. She denies fevers or chills. She denies any accompanying abdominal pain. She denies black or bloody stools. No other recent travel and no known sick contact. PAST MEDICAL HISTORY:See Below PAST SURGICAL HISTORY:See Below FAMILY HISTORY:See Below SOCIAL HISTORY:See Below HOME MEDICATIONS:See Below ALLERGIES:See Below VITALS:See Below PHYSICAL EXAMINATION: GENERAL: alert, unwell appearing, well nourished, no distress, non-toxic EYE EXAM: normal conjunctiva, PERRL and EOM's grossly intact OROPHARYNX: no exudate, no erythema, lips, buccal mucosa, and tongue normal and mucous membranes are moist NECK: supple, no nuchal rigidity, no adenopathy, non-tender LUNGS: Clear to auscultation. Normal chest wall mechanics, no w/r/r HEART: no murmurs, S1 normal and S2 normal ABDOMEN: abdomen soft, non-tender, normo-active bowel sounds, no masses, no rebound or guarding. BACK: Back is symmetrical on inspection and there is no deformity, no midline tenderness, no CVA tenderness. SKIN: no rashes, petechiae, orbruising UPPER EXTREMITIES: upper extremities are grossly normal. FROM, nml pulses b/l. LOWER EXTREMITIES: No pitting edema. FROM, nml pulses b/l. NEURO EXAM: Normal sensorium, cranial nerves II-XII grossly intact, normal speech, no facial droop,nogross weakness of arms, no gross weakness of legs. Gross sensation intact. No ataxia. Vital Signs: reviewed and remarkable Differential Diagnosis: Medication ADR, C. difficile, electrolyte abnormality, dehydration, CUAUHTEMOC, PUD, gastritis, ACS, as well as others were considered MEDICAL DECISION MAKING: This is a 62-year-old female presents emergency room due to concern for ongoing vomiting and diarrhea after a lengthy course of antibiotics. Patient concern for dehydration. Patient was afebrile and vital signs stable. She does have a known history of A-fib. Labs are drawn and sent, IV established, EKG and chest x-ray performed at bedside and interpreted by me and patient monitored on telemetry. She was started on gentle IV fluid rehydration. It was noted on return of labs that she had hypokalemia and hypomagnesemia. IV repletion of these was started at bedside. She was also given IV Protonix due to her recurrent vomiting. She had no abdominal pain and was afebrile. We discussed the need for additional electrolyte repletion and hydration as an inpatient as well as monitoring and management of her symptoms given their persistence after antibiotics stopped 2 weeks ago. It is unclear if this is still related to her recent prolonged course of antibiotics or other evolving pathology. Patient does have a complicated past medical history including other rheumatologic disorder. Patient states she had not noted any blood in her emesis or stool despite history of anticoagulation due to her A-fib and history of DVT/PE. Patient and family bedside verbalized understanding of all results and plan. Case discussed with the hospitalist for additional evaluation and management. Consultation(s): 2228: Discussed case with Dr. Cassidy for additional inpatient evaluation and mgmt. ER Treatment Provided: See below Diagnostics Interpreted By Me: -ECG: Atrial fibrillation at 81, normal axis, normal intervals, nonspecific ST/T wave changes -Cardiac Monitoring: An order was placed for continuous cardiac monitoring. The monitor shows a rate of 70 with normal sinus rhythm. -Laboratory studies: As stated above and show below. -Imaging studies: X-ray Chest: A single view study of the chest was reviewed and was negative for cardiomegaly, focal infiltrate, effusion, pulmonary edema, or wide mediastinum. Triage Nursing Note Reviewed Prior/Outside Records Reviewed Past Med/Surg History Medical History Aortic stenosis Mild per 02/2020 ECHO Atrial fibrillation CAD (coronary artery disease) Non obstructive per 2017 cath per 03/01/20 cardio note Chronic diastolic CHF (congestive heart failure) Deep vein thrombosis UPPER LEFT THIGH 2010 Depression Mariama's disease Heterozygous MTHFR mutation [id number] Hyperlipidemia Hypothyroidism Mitral valve regurgitation Severe Morbid obesity with BMI of 45.0-49.9, adult On home oxygen therapy WEARS 4L O2 PRN SOB Pulmonary embolism Pulmonary hypertension severe- following with [facility] Restless leg syndrome Scleroderma Sleep apnea CPAP DEVICE WITH 4L O2 Surgical History History of breast biopsy History of bronchoscopy History of cardiac cath multiple--NO STENTS--per pt to check severe pulmonary htn History of cardioversion X 2 History of colonoscopy with polypectomy History of transesophageal echocardiography (SOPHIE) (~03/09/20) Family History Mother Family history of diabetes mellitus Family history of reaction to anesthesia had a stroke after surgery in [facility] [place], was informed that "it was due to the sedation medication they gave her and that it was administed too quickly to her", unsure of what it was Grandfather (Maternal) Family history of diabetes mellitus Grandmother (Maternal) Family history of diabetes mellitus Brother Family history of diabetes mellitus Social History Smoking Status: Never smoker Second Hand Exposure: Yes; Do You Dip or Chew Tobacco: No; Tobacco Cessation Education Requested by Patient: No Hx Alcohol Use: No Hx Substance Use: No Preferred Language: Japanese Communication Ability: Effective Amr Physician Required: No Beliefs That Will Affect Care: None Current Living Situation: Alone Other Information That Helps Us Care for You: No Feels Safe at Home: Yes Safety Concerns: Feels Safe At This Time Assistive Devices: CPAP, Glasses and Wheelchair Allergies Allergies Allergy/AdvReac Type Severity Reaction Status Date / Time amoxicillin Allergy Mild RASH, Verified 10/09/22 09:10 PRURITIS clavulanic acid Allergy Mild RASH, Verified 10/09/22 09:10 PRURITIS Sulfa (Sulfonamide Allergy Mild HEADACHE, Verified 10/09/22 09:10 Antibiotics) FATIGUE Home Meds Home Medications Medication Instructions Recorded Confirmed aspirin 81 mg chewable tablet 81 mg PO QAM 03/06/20 10/09/22 atorvastatin 10 mg tablet 20 mg PO QAM 03/06/20 10/09/22 cholecalciferol (vitamin D3) 125 125 mcg PO QAM 03/06/20 10/09/22 mcg (5,000 unit) tablet (Vitamin D3) cyanocobalamin (vitamin B-12) 500 500 mcg PO QAM 03/06/20 10/09/22 mcg tablet folic acid 1 mg tablet 1 mg PO QAM 03/06/20 10/09/22 furosemide 80 mg tablet 80 mg PO UD 03/06/20 10/09/22 levothyroxine 200 mcg tablet 200 mcg PO QAM 03/06/20 10/09/22 metoprolol succinate 50 mg 50 mg PO BID 03/06/20 10/09/22 tablet,extended release 24 hr sertraline 100 mg tablet 200 mg PO QAM 03/06/20 10/09/22 spironolactone 50 mg tablet 75 mg PO BID 03/06/20 10/09/22 warfarin 7.5 mg tablet (Jantoven) 7.5 mg PO DAILY 03/06/20 10/09/22 ambrisentan 10 mg tablet (Letairis) 10 mg PO DAILY 10/09/22 10/09/22 tadalafil (pulm. hypertension) 20 40 mg PO DAILY 10/09/22 10/09/22 mg tablet (pulmonary hypertension) (Adcirca) Results & Data (ED) Vital Signs Vital Signs - 24 hr 01/09/23 18:28 01/09/23 20:30 01/09/23 20:19 Temperature 36.8 C Temperature Source Temporal Artery Scan Pulse Rate 65 84 70 Pulse Rate from SpO2 Sensor 76 Respiratory Rate 18 21 Respiratory Effort / Characteristics Non-Labored Spontaneous Respiratory Depth Normal Respiratory Pattern Regular Blood Pressure 136/82 Blood Pressure Mean 100 Pulse Oximetry 100 100 Oxygen Delivery Method Nasal Cannula Nasal Cannula Oxygen Flow Rate 8 8 Sepsis Recent Fever Within 48 Hours No Sepsis New/Unexplained Change in Mental Status No Sepsis Action Taken by Nursing No Action Required 01/09/23 20:20 01/09/23 20:30 01/09/23 20:30 Temperature Temperature Source Pulse Rate 71 81 Pulse Rate from SpO2 Sensor 78 90 Respiratory Rate 17 17 Respiratory Effort / Characteristics Respiratory Depth Respiratory Pattern Blood Pressure 143/77 H Blood Pressure Mean 94 Pulse Oximetry 100 100 Oxygen Delivery Method Oxygen Flow Rate Sepsis Recent Fever Within 48 Hours Sepsis New/Unexplained Change in Mental Status Sepsis Action Taken by Nursing 01/09/23 20:40 01/09/23 20:50 01/09/23 21:00 Temperature Temperature Source Pulse Rate 73 72 69 Pulse Rate from SpO2 Sensor Respiratory Rate 15 17 15 Respiratory Effort / Characteristics Respiratory Depth Respiratory Pattern Blood Pressure Blood Pressure Mean Pulse Oximetry Oxygen Delivery Method Oxygen Flow Rate Sepsis Recent Fever Within 48 Hours Sepsis New/Unexplained Change in Mental Status Sepsis Action Taken by Nursing 01/09/23 21:10 01/09/23 21:20 01/09/23 21:30 Temperature Temperature Source Pulse Rate 69 75 73 Pulse Rate from SpO2 Sensor 78 73 Respiratory Rate 20 15 18 Respiratory Effort / Characteristics Respiratory Depth Respiratory Pattern Blood Pressure Blood Pressure Mean Pulse Oximetry 96 100 Oxygen Delivery Method Oxygen Flow Rate Sepsis Recent Fever Within 48 Hours Sepsis New/Unexplained Change in Mental Status Sepsis Action Taken by Nursing 01/09/23 21:40 Temperature Temperature Source Pulse Rate 74 Pulse Rate from SpO2 Sensor 77 Respiratory Rate 16 Respiratory Effort / Characteristics Respiratory Depth Respiratory Pattern Blood Pressure Blood Pressure Mean Pulse Oximetry 100 Oxygen Delivery Method Oxygen Flow Rate Sepsis Recent Fever Within 48 Hours Sepsis New/Unexplained Change in Mental Status Sepsis Action Taken by Nursing Laboratory Data 01/09/23 19:13 01/09/23 19:13 Lab Results 01/09/23 01/09/23 01/09/23 Range/Units 19:13 19:13 19:16 WBC 7.60 (4.8-10.8) K/ul RBC 3.31 L (4.20-5.40) M/uL Hgb 10.0 L (12.0-16.0) g/dl Hct 29.6 L (37.0-47.0) % MCV 89.4 (80.0-100.0) fL MCH 30.2 (25.0-34.0) pg MCHC 33.8 (32.0-36.0) g/dL RDW Std Deviation 51.8 H (36.4-46.3) fL RDW Coeff of Lane 15.8 H (11.5-14.5) % Plt Count 184 (130-400) K/uL MPV 11.1 (9.4-12.4) fL Immature Gran % (Auto) 0.5 % Neut % (Auto) 79.6 % Lymph % (Auto) 11.3 % Simpson % (Auto) 6.2 % Eos % (Auto) 1.6 % Baso % (Auto) 0.8 % Neut # (Auto) 6.05 (1.40-6.50) K/uL Lymph # (Auto) 0.86 L (1.2-3.4) K/uL Simpson # (Auto) 0.47 (0.11-0.59) K/uL Eos # (Auto) 0.12 (0-0.50) K/uL Baso # (Auto) 0.06 (0-0.2) K/uL Immature Gran # (Auto) 0.04 (0.01-0.20) K/uL PT 10.7 (9.0-12.0) Seconds INR 1.0 (0.9-1.1) Sodium 142 (136-145) mmol/L Potassium 2.7 L (3.5-5.1) mmol/L Chloride 97 L (98-107) mmol/L Carbon Dioxide 24 (21-32) mmol/L Anion Gap 21 H (3-11) BUN 13 (6-23) mg/dl Creatinine 1.32 H (0.6-1.2) mg/dl Est Cr Clr Drug Dosing Not Reportable Est GFR ( Amer) 49.3 ml/min Est GFR (Non-Af Amer) 42.5 ml/min BUN/Creatinine Ratio 9.8 L (10-20) Glucose 80 (70-99(Fasting)) mg/dl Calcium 8.9 (8.6-10.3) mg/dl Magnesium 1.1 L (1.7-2.4) mg/dl Total Bilirubin 1.1 H (0.2-1.0) mg/dl AST 16 (13-39) U/L ALT 6 L (7-52) U/L Alkaline Phosphatase 59 (34-104) U/L Total Protein 6.6 (6.0-8.3) gm/dl Albumin 3.4 (3.4-5.0) gm/dl Globulin 3.2 (2.5-4.0) gm/dl Albumin/Globulin Ratio 1.1 (0.9-2) SARS-CoV-2 (PCR) (Negative) Influenza Type A (PCR) (Neg) Influenza Type B (PCR) (Neg) RSV (RT-PCR) (Neg) 01/09/23 Range/Units 22:57 WBC (4.8-10.8) K/ul RBC (4.20-5.40) M/uL Hgb (12.0-16.0) g/dl Hct (37.0-47.0) % MCV (80.0-100.0) fL MCH (25.0-34.0) pg MCHC (32.0-36.0) g/dL RDW Std Deviation (36.4-46.3) fL RDW Coeff of Lane (11.5-14.5) % Plt Count (130-400) K/uL MPV (9.4-12.4) fL Immature Gran % (Auto) % Neut % (Auto) % Lymph % (Auto) % Simpson % (Auto) % Eos % (Auto) % Baso % (Auto) % Neut # (Auto) (1.40-6.50) K/uL Lymph # (Auto) (1.2-3.4) K/uL Simpson # (Auto) (0.11-0.59) K/uL Eos # (Auto) (0-0.50) K/uL Baso # (Auto) (0-0.2) K/uL Immature Gran # (Auto) (0.01-0.20) K/uL PT (9.0-12.0) Seconds INR (0.9-1.1) Sodium (136-145) mmol/L Potassium (3.5-5.1) mmol/L Chloride (98-107) mmol/L Carbon Dioxide (21-32) mmol/L Anion Gap (3-11) BUN (6-23) mg/dl Creatinine (0.6-1.2) mg/dl Est Cr Clr Drug Dosing Est GFR ( Amer) ml/min Est GFR (Non-Af Amer) ml/min BUN/Creatinine Ratio (10-20) Glucose (70-99(Fasting)) mg/dl Calcium (8.6-10.3) mg/dl Magnesium (1.7-2.4) mg/dl Total Bilirubin (0.2-1.0) mg/dl AST (13-39) U/L ALT (7-52) U/L Alkaline Phosphatase (34-104) U/L Total Protein (6.0-8.3) gm/dl Albumin (3.4-5.0) gm/dl Globulin (2.5-4.0) gm/dl Albumin/Globulin Ratio (0.9-2) SARS-CoV-2 (PCR) NEGATIVE (Negative) Influenza Type A (PCR) Negative (Neg) Influenza Type B (PCR) Negative (Neg) RSV (RT-PCR) Negative (Neg) Administered Medications Ambrisentan (Ambrisentan 10mg Tablet) 1 each PO DAILY [facility] Stop: 02/09/23 13:29 Last Admin: 01/10/23 15:13 Dose: 1 each Documented By: MOODY Aspirin (Aspirin 81 Mg Ectab) 81 mg PO [facility] Stop: 02/09/23 08:59 Last Admin: 01/10/23 08:11 Dose: 81 mg Documented By: MOODY Atorvastatin Calcium (Atorvastatin 20 Mg Tab) 20 mg PO [facility] Stop: 02/09/23 08:59 Last Admin: 01/10/23 08:10 Dose: 20 mg Documented By: MOODY Cyanocobalamin (Cyanocobalamin (B-12) 500 Mcg Tablet) 500 mcg PO [facility] Stop: 02/09/23 08:59 Last Admin: 01/10/23 08:11 Dose: 500 mcg Documented By: MOODY Folic Acid (Folic Acid 1 Mg Tab) 1 mg PO [facility] Stop: 02/09/23 08:59 Last Admin: 01/10/23 08:11 Dose: 1 mg Documented By: MOODY Potassium Chloride/Dextrose/Sod Cl (D5nss + 20meq Kcl) 20 meq in 1,000 mls @ 100 mls/hr IV .Q10H [facility] Stop: 02/09/23 01:49 Last Admin: 01/10/23 20:14 Dose: 100 mls/hr Documented By: Infusion: 01/10/23 17:04 Dose: 0 mls/hr Documented By: Admin: 01/10/23 04:29 Dose: 100 mls/hr Documented By: CELIO Levothyroxine Sodium (Levothyroxine Sodium 200 Mcg Tablet) 200 mcg PO DAILYBB [facility] Stop: 02/09/23 06:29 Last Admin: 01/10/23 06:19 Dose: 200 mcg Documented By: CELIO Metoprolol Succinate (Metoprolol Succ 50mg Ext Rel Tab) 50 mg PO BID [facility] Stop: 02/09/23 08:59 Last Admin: 01/10/23 20:14 Dose: 50 mg Documented By: Admin: 01/10/23 08:10 Dose: 50 mg Documented By: MOODY Ondansetron HCl (Ondansetron Inj 2 Mg/Ml 2 Ml Vial) 4 mg IV Q6H PRN PRN Reason: Nausea Stop: 02/09/23 01:49 Last Admin: 01/10/23 20:16 Dose: 4 mg Documented By: Admin: 01/10/23 08:38 Dose: 4 mg Documented By: MOODY Sertraline HCl (Sertraline Hcl 100 Mg Tablet) 200 mg PO [facility] Stop: 02/09/23 08:59 Last Admin: 01/10/23 08:11 Dose: 200 mg Documented By: MOODY Vitamin D (Cholecalciferol 5,000 Units 125 Mcg Tab) 5,000 units PO [facility] Stop: 02/09/23 08:59 Last Admin: 01/10/23 08:10 Dose: 5,000 units Documented By: MOODY Warfarin Sodium (Warfarin Sod 5 Mg Tab) 5 mg PO DAILY@1600 [facility] Stop: 02/09/23 15:59 Last Admin: 01/10/23 16:21 Dose: 5 mg Documented By: MOODY Discontinued Medications Enoxaparin Sodium (Enoxaparin Inj 120 Mg/0.8 Ml Syr) 111 mg SQ Q12@0600,1800 [facility] Stop: 02/09/23 05:59 Last Admin: 01/10/23 06:20 Dose: 111 mg Documented By: CELIO Lactated Ringer's (Lr) 1,000 mls @ 200 mls/hr IV .Q5H [facility] Stop: 02/08/23 20:44 Last Admin: 01/10/23 04:17 Dose: Not Given Documented By: Infusion: 01/10/23 02:10 Dose: 0 mls/hr Documented By: Admin: 01/09/23 21:10 Dose: 200 mls/hr Documented By: DAHLIA Magnesium Sulfate/Dextrose (Magnesium Sulfate / D5w) 1 gm in 100 mls @ 100 mls/hr IV Q1H [facility] Stop: 01/09/23 23:15 Last Infusion: 01/09/23 23:40 Dose: 0 mls/hr Documented By: Admin: 01/09/23 22:40 Dose: 100 mls/hr Documented By: Infusion: 01/09/23 22:39 Dose: 0 mls/hr Documented By: Admin: 01/09/23 21:33 Dose: 100 mls/hr Documented By: DAHLIA Potassium Chloride (K Edgard / Wtr) 10 meq in 100 mls @ 100 mls/hr IV Q1H [facility] Stop: 01/09/23 23:29 Last Infusion: 01/09/23 23:39 Dose: 0 mls/hr Documented By: Admin: 01/09/23 22:39 Dose: 100 mls/hr Documented By: Infusion: 01/09/23 22:39 Dose: 0 mls/hr Documented By: Admin: 01/09/23 21:33 Dose: 100 mls/hr Documented By: DAHLIA Pantoprazole Sodium 40 mg/ (Syringe) 10 mls @ 5 mls/min IV NOW ONE Stop: 01/09/23 21:17 Last Admin: 01/09/23 22:59 Dose: 5 mls/min Documented By: DAHLIA Potassium Chloride (K Edgard / Wtr) 10 meq in 100 mls @ 100 mls/hr IV Q1H [facility] Stop: 01/10/23 06:29 Last Infusion: 01/10/23 09:40 Dose: 0 mls/hr Documented By: Admin: 01/10/23 07:24 Dose: 100 mls/hr Documented By: Infusion: 01/10/23 07:22 Dose: 100 mls/hr Documented By: Admin: 01/10/23 06:22 Dose: 100 mls/hr Documented By: Infusion: 01/10/23 06:22 Dose: 100 mls/hr Documented By: Admin: 01/10/23 05:30 Dose: 100 mls/hr Documented By: Infusion: 01/10/23 05:15 Dose: 100 mls/hr Documented By: Admin: 01/10/23 04:15 Dose: 100 mls/hr Documented By: TPB Magnesium Sulfate/Dextrose (Magnesium Sulfate / D5w) 1 gm in 100 mls @ 50 mls/hr IV ONE ONE Stop: 01/10/23 03:53 Last Infusion: 01/10/23 06:29 Dose: 0 mls/hr Documented By: Admin: 01/10/23 04:15 Dose: 50 mls/hr Documented By: CELIO Magnesium Sulfate/Dextrose (Magnesium Sulfate / D5w) 1 gm in 100 mls @ 50 mls/hr IV Q2H [facility] Stop: 01/10/23 10:59 Last Infusion: 01/10/23 17:05 Dose: 0 mls/hr Documented By: Admin: 01/10/23 10:10 Dose: 50 mls/hr Documented By: Infusion: 01/10/23 10:04 Dose: 50 mls/hr Documented By: Admin: 01/10/23 08:04 Dose: 50 mls/hr Documented By: MOODY Potassium Phosphate 30 mmol/ (Sodium Chloride) 510 mls @ 102 mls/hr IV ONE ONE Stop: 01/10/23 11:59 Last Infusion: 01/10/23 17:07 Dose: 0 mls/hr Documented By: Admin: 01/10/23 08:04 Dose: 102 mls/hr Documented By: MOODY Magnesium Sulfate/Dextrose (Magnesium Sulfate / D5w) 1 gm in 100 mls @ 50 mls/hr IV Q2H [facility] Stop: 01/10/23 13:29 Last Infusion: 01/10/23 17:19 Dose: 0 mls/hr Documented By: Admin: 01/10/23 15:09 Dose: 50 mls/hr Documented By: Infusion: 01/10/23 14:55 Dose: 50 mls/hr Documented By: Abby Admin: 01/10/23 12:55 Dose: 50 mls/hr Documented By: MOODY Potassium Chloride (K Edgard / Wtr) 10 meq in 100 mls @ 100 mls/hr IV Q1H [facility] Stop: 01/10/23 17:59 Last Admin: 01/10/23 17:53 Dose: Not Given Documented By: [facility] Admin: 01/10/23 17:53 Dose: Not Given Documented By: Abby Infusion: 01/10/23 17:53 Dose: 100 mls/hr Documented By: Admin: 01/10/23 16:20 Dose: 100 mls/hr Documented By: Infusion: 01/10/23 16:13 Dose: 100 mls/hr Documented By: Admin: 01/10/23 15:13 Dose: 100 mls/hr Documented By: MOODY Ioversol (Optiray 320 100ml) 93 ml IV ONCE ONE Stop: 01/10/23 12:05 Last Admin: 01/10/23 12:05 Dose: 93 ml Documented By: LINDY Miscellaneous (Ambrisentan [Letairis] - Order Awaiting Action) 1 each N/A QS [facility] Stop: 02/09/23 07:59 Last Admin: 01/10/23 08:05 Dose: Not Given Documented By: MOODY Miscellaneous (Patient's Height &/Or Weight Needed) 1 each N/A Q2H [facility] Stop: 02/09/23 02:29 Last Admin: 01/10/23 02:28 Dose: 1 each Documented By: HERMES Potassium Chloride (Potassium Chloride Pwd 20 Meq Pack) 40 meq PO NOW [facility] Stop: 01/10/23 06:52 Last Admin: 01/10/23 08:03 Dose: 40 meq Documented By: MOODY Discharge Plan Visit Data Chief Complaint: Dehydration Stated Complaint: NAUSEA, VOMITING, DEHYDRATION ED Provider: Jimena Blackburn Discharge Problem: Diarrhea, Dehydration, Hypokalemia, Hypomagnesemia Patient Disposition: Admitted As Inpatient Discharge Instructions Interventions: ED Discharge Assessment Last Done: 01/10/23 02:44
[2023-01-09 22:55] LABS: Prothrombin Time 10.7 Seconds (9.0-12.0)
[2023-01-10 00:01] LABS: Influenza A virus by PCR Negative (Neg); Influenza B virus by PCR Negative (Neg); RSV by PCR Negative (Neg); SARS CoV2 RNA(COVID-19) Ceph NEGATIVE (Negative)
--- NOTE | 2023-01-10 00:01 | XRay Report ---
SINGLE VIEW CHEST CLINICAL HISTORY: Dehydration. FINDINGS: An AP upright chest radiograph is compared to study dated 10/09/2022. A right PICC line is u nchanged in position. The heart is enlarged. The pulmonary vasculature is not congested. Chronic inte rstitial thickening similar to previous. No airspace consolidation or large pleural effusion is ident ified. No pneumothorax is seen. The skeletal structures are osteopenic. Bony thorax is grossly intact . IMPRESSION: Cardiomegaly with no active disease in the chest. ACT 112: Negative or not required by law. Electronically signed by: Stevie Leach M.D. 01/10/2023 12:00 AM
--- NOTE | 2023-01-10 01:42 | History & Physical Report ---
Date of Service January 10, 2023 Assessment & Plan (1) Nausea & vomiting: Plan: 62-year-old female history of MTHFR mutation chronic hypoxemic respiratory failure on a 8-10 L oxygen at home, pulmonary artery hypertension, right ventricle enlargement, limited systemic sclerosis, history of PE, history of depression, hyperlipidemia, hypothyroidism, obstructive sleep apnea, on CPAP nightly, chronic atrial fibrillation, diastolic heart failure, obesity, chronic kidney disease stage III presents with n/v and electrolyte abnormalities. Persistent nausea and vomiting Weight loss Diarrhea Since on IV antibiotics for Mycobacterium abscesses Stop antibiotics couple of weeks ago but still has nausea and vomiting We will keep her on IV fluids, IV antiemetics, clears Monitor in the hospital and consult GI in a.m. Electrolyte abnormalities We will replace potassium and magnesium Will further labs in a.m. Chronic hypoxic respiratory failure on on 8 to 10 L oxygen at home History of PE History of A-fib History of pulmonary hypertension On Coumadin INR subtherapeutic We will do Lovenox bridge and follow INR Pulmonary hypertension Limited systemic sclerosis Continue home medications Follow-up with pulmonary Chronic A-fib On metoprolol and Coumadin We will monitor Chronic diastolic CHF We will hold the Lasix and spironolactone Getting fluids we will monitor for volume overload Obstructive sleep apnea CPAP nightly with oxygen Hypothyroidism continue Synthyroid Chronic kidney stage III Creatinine 1.32 seems baseline We will follow labs Decreased hearing Possible side effects from antibiotics We will consult ENT DVT prophylaxis Lovenox Disposition close monitoring telemetry floor Full code (2) Electrolyte abnormality: History of Present Illness Chief Complaint: Persistent nausea and vomiting, electrolyte abnormalities Primary Care Provider: Ibis Coyle PA-C 62-year-old female history of MTHFR mutation chronic hypoxemic respiratory failure on a 8-10 L oxygen at home, pulmonary artery hypertension, right ventricle enlargement, limited systemic sclerosis, history of PE, history of d epression, hyperlipidemia, hypothyroidism, obstructive sleep apnea, on CPAP nightly, chronic atrial fibrillation, diastolic heart failure, obesity, chronic kidney disease stage III, lives at home alone, ambulates with a walker, sister lives close by comes because of ongoing persistent nausea vomiting and weight loss and found to electrolyte abnormalities. Because of increasing oxygen requirements patient underwent bronchoscopy in July 2022 and cultures grew Mycobacterium abscessus . Followed with ID and was treated with p.o. azithromycin Zyvox and IV cefoxitin and amikacin plan to treat for 6 to 12 months. Per patient start developing CUAUHTEMOC and was not getting better and also patient was on and developing nausea vomiting and diarrhea patient was reevaluated by pulmonary and thought her cultures were mostly colonization and antibiotics were stopped couple of weeks ago. As outpatient labs were improving. After stopping antibiotics her diarrhea improved. But she still continued to have nausea and vomiting and not able to keep anything down. And last couple of days she was extremely weak and tired and at home health nurse advised to come to the ER. She says he lost about 45 pounds since last 1 month. Also thinks her hearing is decreased and thinks probably from the side effects of antibiotics. Denies any fevers. Has some cough. Some runny nose. No blurred visions no headaches. No chest pain. No abdominal pain. Today had diarrhea. Micturating fine. Currently hemodynamically stable. Allergies Allergy/AdvReac Type Severity Reaction Status Date / Time amoxicillin Allergy Mild RASH, Verified 10/09/22 09:10 PRURITIS clavulanic acid Allergy Mild RASH, Verified 10/09/22 09:10 PRURITIS Sulfa (Sulfonamide Allergy Mild HEADACHE, Verified 10/09/22 09:10 Antibiotics) FATIGUE Home Medications Medication Instructions Recorded Confirmed Type aspirin 81 mg chewable tablet 81 mg PO QAM 03/06/20 10/09/22 History atorvastatin 10 mg tablet 10 mg PO QAM 03/06/20 10/09/22 History cholecalciferol (vitamin D3) 125 125 mcg PO QAM 03/06/20 10/09/22 History mcg (5,000 unit) tablet (Vitamin D3) cyanocobalamin (vitamin B-12) 500 500 mcg PO QAM 03/06/20 10/09/22 History mcg tablet folic acid 1 mg tablet 1 mg PO QAM 03/06/20 10/09/22 History furosemide 80 mg tablet 80 mg PO UD 03/06/20 10/09/22 History levothyroxine 200 mcg tablet 200 mcg PO QAM 03/06/20 10/09/22 History metoprolol succinate 25 mg 25 mg PO QPM 03/06/20 10/09/22 History tablet,extended release 24 hr metoprolol succinate 50 mg 50 mg PO QAM 03/06/20 10/09/22 History tablet,extended release 24 hr sertraline 100 mg tablet 200 mg PO QAM 03/06/20 10/09/22 History spironolactone 50 mg tablet 100 mg PO QAM 03/06/20 10/09/22 History warfarin 7.5 mg tablet (Jantoven) 7.5 mg PO DAILY 03/06/20 10/09/22 History spironolactone 50 mg tablet 50 mg PO QPM 07/19/20 10/09/22 History ambrisentan 10 mg tablet (Letairis) 10 mg PO DAILY 10/09/22 10/09/22 History tadalafil (pulm. hypertension) 20 40 mg PO DAILY 10/09/22 10/09/22 History mg tablet (pulmonary hypertension) (Adcirca) Past Med/Surg History Medical History Aortic stenosis Mild per 02/2020 ECHO Atrial fibrillation CAD (coronary artery disease) Non obstructive per 2018 cath per 03/01/20 cardio note Chronic diastolic CHF (congestive heart failure) Deep vein thrombosis UPPER LEFT THIGH 2010 Depression Mariama's disease Heterozygous MTHFR mutation [id number] Hyperlipidemia Hypothyroidism Mitral valve regurgitation Severe Morbid obesity with BMI of 45.0-49.9, adult On home oxygen therapy WEARS 4L O2 PRN SOB Pulmonary embolism Pulmonary hypertension severe- following with [facility] Restless leg syndrome Scleroderma Sleep apnea CPAP DEVICE WITH 4L O2 Surgical History History of breast biopsy History of bronchoscopy History of cardiac cath multiple--NO STENTS--per pt to check severe pulmonary htn History of cardioversion X 2 History of colonoscopy with polypectomy History of transesophageal echocardiography (SOPHIE) (~03/09/20) Family History Mother Family history of diabetes mellitus Family history of reaction to anesthesia had a stroke after surgery in [facility] [place], was informed that "it was due to the sedation medication they gave her and that it was administed too quickly to her", unsure of what it was Grandfather (Maternal) Family history of diabetes mellitus Grandmother (Maternal) Family history of diabetes mellitus Brother Family history of diabetes mellitus Social History Smoking Status: Never smoker Second Hand Exposure: Yes (parents smoked); Do You Dip or Chew Tobacco: No; Hx Alcohol Use: No Hx Substance Use: No Preferred Language: Albanian Communication Ability: Effective Rn Production Required: No Beliefs That Will Affect Care: None Current Living Situation: Alone Feels Safe at Home: Yes Assistive Devices: Denture - Lower, Glasses and Oxygen - at Night Review of Systems Review of Systems: All systems reviewed & are unremarkable except as noted in Subjective Physical Exam Physical Exam: General- Not in acute distress. Head- atraumatic Eyes- PERRL ENT- oropharynx dry Neck- supple, no JVD, Lungs- clear to auscultation and percussion Heart- regular rhythm; no murmur, no gallop, no rub appreciated Abdomen- normal bowel sounds, soft, nontender, no masses or hepatosplenomegaly Extremities- pedal edema present, no erythema seen Neuro- alert, oriented x 3; NOn focal. Skin- warm & dry Results & Data Results & Data Vital Signs (Past 12 Hours) Vital Signs Temp Pulse Resp BP Pulse Ox O2 Del Method O2 Flow Rate 01/10/23 01:00 73 17 127/89 100 Nasal Cannula 9 01/10/23 00:30 71 17 137/82 100 Nasal Cannula 9 01/10/23 00:00 73 20 132/79 100 Nasal Cannula 9 01/09/23 23:31 67 16 131/85 100 Nasal Cannula 9 01/10/23 00:28 78 01/09/23 23:00 74 16 134/91 98 Nasal Cannula 9 01/09/23 21:40 74 16 100 01/09/23 21:30 73 18 100 01/09/23 21:20 75 15 01/09/23 21:10 69 20 96 01/09/23 21:00 69 15 01/09/23 20:50 72 17 01/09/23 20:40 73 15 01/09/23 20:30 81 17 100 01/09/23 20:30 143/77 H 01/09/23 20:20 71 17 100 01/09/23 20:19 70 21 100 Nasal Cannula 8 01/09/23 20:30 84 01/09/23 18:28 36.8 C 65 18 136/82 100 Nasal Cannula 8 Diagnostic Findings Laboratory Results WBC 7.60 K/ul (4.8-10.8) 01/09/23 19:13 RBC 3.31 M/uL (4.20-5.40) L 01/09/23 19:13 Hgb 10.0 g/dl (12.0-16.0) L 01/09/23 19:13 Hct 29.6 % (37.0-47.0) L 01/09/23 19:13 MCV 89.4 fL (80.0-100.0) 01/09/23 19:13 MCH 30.2 pg (25.0-34.0) 01/09/23 19:13 MCHC 33.8 g/dL (32.0-36.0) 01/09/23 19:13 RDW Std Deviation 51.8 fL (36.4-46.3) H 01/09/23 19:[address] 15.8 % (11.5-14.5) H 01/09/23 19:13 Plt Count 184 K/uL (130-400) 01/09/23 19:13 MPV 11.1 fL (9.4-12.4) 01/09/23 19:13 Immature Gran % (Auto) 0.5 % 01/09/23 19:13 Neut % (Auto) 79.6 % 01/09/23 19:13 Lymph % (Auto) 11.3 % 01/09/23 19:13 [place] % (Auto) 6.2 % 01/09/23 19:13 Eos % (Auto) 1.6 % 01/09/23 19:13 Baso % (Auto) 0.8 % 01/09/23 19:13 Neut # (Auto) 6.05 K/uL (1.40-6.50) 01/09/23 19:13 Lymph # (Auto) 0.86 K/uL (1.2-3.4) L 01/09/23 19:13 [place] # (Auto) 0.47 K/uL (0.11-0.59) 01/09/23 19:13 Eos # (Auto) 0.12 K/uL (0-0.50) 01/09/23 19:13 Baso # (Auto) 0.06 K/uL (0-0.2) 01/09/23 19:13 Immature Gran # (Auto) 0.04 K/uL (0.01-0.20) 01/09/23 19:13 PT 10.7 Seconds (9.0-12.0) 01/09/23 19:16 INR 1.0 (0.9-1.1) 01/09/23 19:16 Sodium 142 mmol/L (136-145) 01/09/23 19:13 Potassium 2.7 mmol/L (3.5-5.1) L 01/09/23 19:13 Chloride 97 mmol/L (98-107) L 01/09/23 19:13 Carbon Dioxide 24 mmol/L (21-32) 01/09/23 19:13 Anion Gap 21 (3-11) H 01/09/23 19:13 BUN 13 mg/dl (6-23) 01/09/23 19:13 Creatinine 1.32 mg/dl (0.6-1.2) H 01/09/23 19:13 Est Cr Clr Drug Dosing Not Reportable 01/09/23 19:13 Est GFR ( Amer) 49.3 ml/min 01/09/23 19:13 Est GFR (Non-Af Amer) 42.5 ml/min 01/09/23 19:13 BUN/Creatinine Ratio 9.8 (10-20) L 01/09/23 19:13 Glucose 80 mg/dl (70-99(Fasting)) 01/09/23 19:13 Calcium 8.9 mg/dl (8.6-10.3) 01/09/23 19:13 Magnesium 1.1 mg/dl (1.7-2.4) L 01/09/23 19:13 Total Bilirubin 1.1 mg/dl (0.2-1.0) H 01/09/23 19:13 AST 16 U/L (13-39) 01/09/23 19:13 ALT 6 U/L (7-52) L 01/09/23 19:13 Alkaline Phosphatase 59 U/L (34-104) 01/09/23 19:13 Total Protein 6.6 gm/dl (6.0-8.3) 01/09/23 19:13 Albumin 3.4 gm/dl (3.4-5.0) 01/09/23 19:13 Globulin 3.2 gm/dl (2.5-4.0) 01/09/23 19:13 Albumin/Globulin Ratio 1.1 (0.9-2) 01/09/23 19:13 SARS-CoV-2 (PCR) NEGATIVE (Negative) 01/09/23 22:57 Influenza Type A (PCR) Negative (Neg) 01/09/23 22:57 Influenza Type B (PCR) Negative (Neg) 01/09/23 22:57 RSV (RT-PCR) Negative (Neg) 01/09/23 22:57 Impressions Chest X-Ray 01/09/23 18:34 SINGLE VIEW CHEST CLINICAL HISTORY: Dehydration. FINDINGS: An AP upright chest radiograph is compared to study dated 10/09/2022. A right PICC line is unchanged in position. The heart is enlarged. The pulmonary vasculature is not congested. Chronic interstitial thickening similar to previous. No airspace consolidation or large pleural effusion is identified. No pneumothorax is seen. The skeletal structures are osteopenic. Bony thorax is grossly intact. IMPRESSION: Cardiomegaly with no active disease in the chest. ACT 112: Negative or not required by law. Electronically signed by: Stevie Leach M.D. 01/10/2023 12:00 AM ECG Additional Comments: ECG A-fib with rate of [address] changes seen Code Status & VTE Plan VTE Prophylaxis Plan VTE Prophylaxis will be ordered: Yes
[2023-01-10] MEDS ORDERED: ENOXAPARIN 1 MG/KG SQ SCH (01:50)
[2023-01-10] MEDS ORDERED: METOPROLOL TARTRATE 1 MG/ML VIAL IV PRN (01:50)
[2023-01-10] MEDS ORDERED: NITROGLYCERIN SL 0.4 MG/TAB TAB SL PRN (01:50)
[2023-01-10] MEDS ORDERED: MAGNESIUM SULFATE / D5W 1 GM/100 ML BAG IV ONE (01:54)
[2023-01-10] MEDS ORDERED: Patient's HEIGHT &/or WEIGHT Needed SCH (02:30)
[2023-01-10] MEDS ORDERED: ENOXAPARIN INJ 120 MG/0.8 ML SYR SQ SCH ×2 (03:00→06:00)
[2023-01-10] MEDS: POTASSIUM CHLORIDE / WTR 10 MEQ/100 ML PLCT IV SCH ×7 (04:15→17:53)
[2023-01-10] MEDS: LACTATED RINGER'S 1,000 ML IV SCH (04:17)
[2023-01-10] MEDS: D5NSS + 20MEQ KCL 20 MEQ/1,000 ML BAG IV SCH ×2 (04:29→20:14)
[2023-01-10] MEDS ORDERED: PNEUMOCOCCAL POLYSACCHARIDES 25 MCG/0.5 ML VIAL/SYR IM ONE (04:41)
[2023-01-10] MEDS: LEVOTHYROXINE SODIUM 200 MCG TABLET PO SCH (06:19)
[2023-01-10 06:32] LABS: Basophils # (auto) 0.05 K/uL (0-0.2); Basophils % (auto) 0.7 %; Eosinophils # (auto) 0.25 K/uL (0-0.50); Eosinophils % (auto) 3.5 %; Hematocrit (blood only) 26.7 % (37.0-47.0); Immature Granulocytes # (auto) 0.07 K/uL (0.01-0.20); Mean Corpuscular Hemoglobin 30.3 pg (25.0-34.0); Mean Corpuscular Hgb Conc 33.7 g/dL (32.0-36.0); Mean Corpuscular Volume 89.9 fL (80.0-100.0); Mean Platelet Volume 11.1 fL (9.4-12.4); Monocytes # (auto) 0.63 K/uL (0.11-0.59); Monocytes % (auto) 8.7 %; Neutrophils # (auto) 4.92 K/uL (1.40-6.50); Neutrophils % (auto) 68.1 %; Platelet Count 150 K/uL (130-400); RDW Coefficient of Variation 15.8 % (11.5-14.5); RDW Standard Deviation 52.2 fL (36.4-46.3); Red Blood Count 2.97 M/uL (4.20-5.40); White Blood Count 7.22 K/ul (4.8-10.8)
[2023-01-10 06:48] LABS: Calcium 8.4 mg/dl (8.6-10.3); Creatinine Clr Calc Pharmacy 55.4 ml/min; Est GFR (African American) 54.2 ml/min; Est GFR (Non-African American) 46.8 ml/min; Magnesium 1.6 mg/dl (1.7-2.4); Phosphorus 1.8 mg/dl (2.5-4.9); Potassium 2.7 mmol/L (3.5-5.1)
[2023-01-10] MEDS ORDERED: POTASSIUM CHLORIDE PWD 20 MEQ PACK PO STA (06:51)
[2023-01-10] MEDS ORDERED: POTASSIUM PHOS 3 MMOL/1 ML INFUSION IV STA (06:52)
[2023-01-10 06:59] LABS: INR 2.6 (0.9-1.1); Prothrombin Time 26.6 Seconds (9.0-12.0)
[2023-01-10] MEDS ORDERED: POTASSIUM PHOSPHATE 30 MMOL in SODIUM CHLORIDE 0.9% 500 ML IV ONE (07:00)
[2023-01-10] MEDS: MAGNESIUM SULFATE / D5W 1 GM/100 ML BAG IV SCH ×4 (08:04→15:09)
[2023-01-10] MEDS: ATORVASTATIN 20 MG TAB PO SCH (08:10)
[2023-01-10] MEDS: CHOLECALCIFEROL 5,000 UNITS 125 MCG TAB PO SCH (08:10)
[2023-01-10] MEDS: METOPROLOL SUCC 50MG EXT REL TAB PO SCH ×2 (08:10→20:14)
[2023-01-10] MEDS: FOLIC ACID 1 MG TAB PO SCH (08:11)
[2023-01-10] MEDS: CYANOCOBALAMIN (B-12) 500 MCG TABLET PO SCH (08:11)
[2023-01-10] MEDS: SERTRALINE HCL 100 MG TABLET PO SCH (08:11)
[2023-01-10] MEDS: ASPIRIN 81 MG ECTAB PO SCH (08:11)
[2023-01-10] MEDS: ONDANSETRON INJ 2 MG/ML 2 ML VIAL IV PRN ×2 (08:38→20:16)
[2023-01-10] MEDS ORDERED: HEPARIN SOD 5,000 UNIT/0.5 ML VIAL SQ SCH (09:00)
--- NOTE | 2023-01-10 10:09 | Gastrointestinal Consultation ---
Date of Consultation January 10, 2023 Assessment & Plan (1) Nausea & vomitin62 year old female with history of MTHFR mutation chronic hypoxemic respiratory failure on a 8-10 L oxygen at home, pulmonary artery hypertension, right ventricle enlargement, limited systemic sclerosis, history of PE, history of de pression, hyperlipidemia, hypothyroidism, obstructive sleep apnea, on CPAP nightly, chronic atrial fibrillation, diastolic heart failure, obesity, CKD3 - GI asked to evaluate for intermittent nausea/vomiting without abd pain but does note a 40 lb weight loss since onset of her symptoms May continue clear liquids as tolerated Recommend abdominal imaging, consider a CT scan given her weight loss Recommend antiemetics scheduled Check c.diff, stool culture Can trial PO PPI twice daily Given her chronic respiratory failure, pulmonary hypertension she should have a discussion with her pulmonary team regarding endoscopic evaluation. We did discuss EGD/Colonoscopy given her symptoms and weight loss. She would consider these testing pending on pulmonary clearance Thank you for allowing us to participate in the care of this patient. Please call with any acute changes, questions or concerns. Please see addendum below with additional recommendation from my supervising physician. Supervising Physician Co-Signing Physician Notes I performed a history and physical examination of the patient today, including specifically on physical exam - soft abdomen. I have discussed the patient's management with the advanced practitioner. Please refer to the nurse practitioner's note for the documented findings and plan of care. Obtain CT scan abdomen. Antiemetics. Endoscopy as OP. Recall GI if needed after imaging. History of Present Illness Reason for Consultation: nausea/vomiting Requesting Physician: Sarah Attending Physician: Navin Smith MD History of Present Illness 62 year old female with history of MTHFR mutation chronic hypoxemic respiratory failure on a 8-10 L oxygen at home, pulmonary artery hypertension, right ventricle enlargement, limited systemic sclerosis, history of PE, history of depression, hyperlipidemia, hypothyroidism, obstructive sleep apnea, on CPAP nightly, chronic atrial fibrillation, diastolic heart failure, obesity, chronic kidney disease stage III presents with n/v - GI asked to evaluate. Pt was seen and evaluated, chart reviewed. Notes that she was on 2 IV and 2 PO ABX since September for a pulmonary infection. Notes that she had some kidney function changes and one IV ABX was stopped about 1 month ago, persistent kidney function changes w/ cessation of the additional IV ABX about 3 weeks ago. Had an additional opinion from a pulmonary and stopped the oral PO ABX about 1-2 weeks ago. However, persistent GI symptoms. Notes nausea/vomiting started the day she started ABX. Occurs intermittent and at random. Not associated with any pain. No associated with PO intake. No GERD, dysphagia. Had diarrhea the duration of ABX, last episodes of diarrhea was yesterday, 1 episode. No black or bloody stools. Because of her pulmonary HTN she has not had endosocpic evaluation in a while No GI imaging LFTs normal Lipase not checked Still has gallbladder Colonoscopy 2014: diverticulosis, 5 mm polyp Colonoscopy 2009: Diverticulosis sigmoid colon and descending colon.One 4 mm polyp in the transverse colon. The examination was otherwise normal. Allergies Allergy/AdvReac Type Severity Reaction Status Date / Time amoxicillin Allergy Mild RASH, Verified 10/09/22 09:10 PRURITIS clavulanic acid Allergy Mild RASH, Verified 10/09/22 09:10 PRURITIS Sulfa (Sulfonamide Allergy Mild HEADACHE, Verified 10/09/22 09:10 Antibiotics) FATIGUE Home Medications Medication Instructions Recorded Confirmed Type aspirin 81 mg chewable tablet 81 mg PO QAM 03/06/20 10/09/22 History atorvastatin 10 mg tablet 20 mg PO QAM 03/06/20 10/09/22 History cholecalciferol (vitamin D3) 125 125 mcg PO QAM 03/06/20 10/09/22 History mcg (5,000 unit) tablet (Vitamin D3) cyanocobalamin (vitamin B-12) 500 500 mcg PO QAM 03/06/20 10/09/22 History mcg tablet folic acid 1 mg tablet 1 mg PO QAM 03/06/20 10/09/22 History furosemide 80 mg tablet 80 mg PO UD 03/06/20 10/09/22 History levothyroxine 200 mcg tablet 200 mcg PO QAM 03/06/20 10/09/22 History metoprolol succinate 50 mg 50 mg PO BID 03/06/20 10/09/22 History tablet,extended release 24 hr sertraline 100 mg tablet 200 mg PO QAM 03/06/20 10/09/22 History spironolactone 50 mg tablet 75 mg PO BID 03/06/20 10/09/22 History warfarin 7.5 mg tablet (Jantoven) 7.5 mg PO DAILY 03/06/20 10/09/22 History ambrisentan 10 mg tablet (Letairis) 10 mg PO DAILY 10/09/22 10/09/22 History tadalafil (pulm. hypertension) 20 40 mg PO DAILY 10/09/22 10/09/22 History mg tablet (pulmonary hypertension) (Adcirca) Patient History Medical History Aortic stenosis Mild per 02/2020 ECHO Atrial fibrillation CAD (coronary artery disease) Non obstructive per 2017 cath per 03/01/20 cardio note Chronic diastolic CHF (congestive heart failure) Deep vein thrombosis UPPER LEFT THIGH 2010 Depression Mariama's disease Heterozygous MTHFR mutation [id number] Hyperlipidemia Hypothyroidism Mitral valve regurgitation Severe Morbid obesity with BMI of 45.0-49.9, adult On home oxygen therapy WEARS 4L O2 PRN SOB Pulmonary embolism Pulmonary hypertension severe- following with [facility] Restless leg syndrome Scleroderma Sleep apnea CPAP DEVICE WITH 4L O2 Surgical History History of breast biopsy History of bronchoscopy History of cardiac cath multiple--NO STENTS--per pt to check severe pulmonary htn History of cardioversion X 2 History of colonoscopy with polypectomy History of transesophageal echocardiography (SOPHIE) (~03/09/20) Family History Mother Family history of diabetes mellitus Family history of reaction to anesthesia had a stroke after surgery in [facility] [place], was informed that "it was due to the sedation medication they gave her and that it was administed too quickly to her", unsure of what it was Grandfather (Maternal) Family history of diabetes mellitus Grandmother (Maternal) Family history of diabetes mellitus Brother Family history of diabetes mellitus Social History Smoking Status: Never smoker Second Hand Exposure: Yes; Do You Dip or Chew Tobacco: No; Tobacco Cessation Education Requested by Patient: No Hx Alcohol Use: No Hx Substance Use: No Preferred Language: Tamazight Communication Ability: Effective Binder Fixer Required: No Beliefs That Will Affect Care: None Current Living Situation: Alone Other Information That Helps Us Care for You: No Feels Safe at Home: Yes Safety Concerns: Feels Safe At This Time Assistive Devices: CPAP, Glasses and Wheelchair Review of Systems Review of Systems: All systems reviewed & are unremarkable except as noted in HPI & below Physical Exam Constitutional: WD/WN, vitals as above Respiratory: normal respiratory effort, lungs clear to auscultation Cardiovascular: Rate/Rhythm: regular rate and regular rhythm Gastrointestinal (Abdomen): normal bowel sounds, soft, nontender, no hepatosplenomegaly Skin: no rashes, warm and dry Results & Data Vital Signs (Past 12 Hours) Vital Signs Temp Pulse Pulse Resp BP BP Pulse Ox 01/10/23 08:00 36.8 C 92 H 18 105/63 98 01/10/23 04:00 01/10/23 04:15 81 19 96 01/10/23 03:54 36.9 C 88 20 135/64 98 01/10/23 02:00 82 19 125/74 100 01/10/23 01:30 90 16 136/75 100 01/10/23 01:00 73 17 127/89 100 01/10/23 00:30 71 17 137/82 100 01/10/23 00:00 73 20 132/79 100 01/09/23 23:31 67 16 131/85 100 01/10/23 00:28 78 01/09/23 23:00 74 16 134/91 98 O2 Del Method O2 Flow Rate 01/10/23 08:00 High Flow Nasal Cannula 9 01/10/23 04:00 Nasal Cannula 9 01/10/23 04:15 4 01/10/23 03:54 Nasal Cannula 9 01/10/23 02:00 Nasal Cannula 9 01/10/23 01:30 Nasal Cannula 10 01/10/23 01:00 Nasal Cannula 9 01/10/23 00:30 Nasal Cannula 9 01/10/23 00:00 Nasal Cannula 9 01/09/23 23:31 Nasal Cannula 9 01/10/23 00:28 01/09/23 23:00 Nasal Cannula 9 Laboratory Results 01/10/23 01/10/23 01/10/23 Range/Units 05:28 05:28 05:28 WBC 7.22 (4.8-10.8) K/ul RBC 2.97 L (4.20-5.40) M/uL Hgb 9.0 L (12.0-16.0) g/dl Hct 26.7 L (37.0-47.0) % MCV 89.9 (80.0-100.0) fL MCH 30.3 (25.0-34.0) pg MCHC 33.7 (32.0-36.0) g/dL RDW Std Deviation 52.2 H (36.4-46.3) fL RDW Coeff of Lane 15.8 H (11.5-14.5) % Plt Count 150 (130-400) K/uL MPV 11.1 (9.4-12.4) fL Immature Gran % (Auto) 1.0 % Neut % (Auto) 68.1 % Lymph % (Auto) 18.0 % [place] % (Auto) 8.7 % Eos % (Auto) 3.5 % Baso % (Auto) 0.7 % Neut # (Auto) 4.92 (1.40-6.50) K/uL Lymph # (Auto) 1.30 (1.2-3.4) K/uL [place] # (Auto) 0.63 H (0.11-0.59) K/uL Eos # (Auto) 0.25 (0-0.50) K/uL Baso # (Auto) 0.05 (0-0.2) K/uL Immature Gran # (Auto) 0.07 (0.01-0.20) K/uL PT 26.6 H (9.0-12.0) Seconds INR 2.6 H (0.9-1.1) Sodium 139 (136-145) mmol/L Potassium 2.7 L (3.5-5.1) mmol/L Chloride 97 L (98-107) mmol/L Carbon Dioxide 27 (21-32) mmol/L Anion Gap 15 H (3-11) BUN 11 (6-23) mg/dl Creatinine 1.22 H (0.6-1.2) mg/dl Est Cr Clr Drug Dosing 55.4 Est GFR ( Amer) 54.2 ml/min Est GFR (Non-Af Amer) 46.8 ml/min BUN/Creatinine Ratio 9.0 L (10-20) Glucose 91 (70-99(Fasting)) mg/dl Calcium 8.4 L (8.6-10.3) mg/dl Phosphorus 1.8 L (2.5-4.9) mg/dl Magnesium 1.6 L (1.7-2.4) mg/dl Total Bilirubin (0.2-1.0) mg/dl AST (13-39) U/L ALT (7-52) U/L Alkaline Phosphatase (34-104) U/L Total Protein (6.0-8.3) gm/dl Albumin (3.4-5.0) gm/dl Globulin (2.5-4.0) gm/dl Albumin/Globulin Ratio (0.9-2) SARS-CoV-2 (PCR) (Negative) Influenza Type A (PCR) (Neg) Influenza Type B (PCR) (Neg) RSV (RT-PCR) (Neg) 01/09/23 01/09/23 01/09/23 Range/Units 22:57 19:16 19:13 WBC (4.8-10.8) K/ul RBC (4.20-5.40) M/uL Hgb (12.0-16.0) g/dl Hct (37.0-47.0) % MCV (80.0-100.0) fL MCH (25.0-34.0) pg MCHC (32.0-36.0) g/dL RDW Std Deviation (36.4-46.3) fL RDW Coeff of Lane (11.5-14.5) % Plt Count (130-400) K/uL MPV (9.4-12.4) fL Immature Gran % (Auto) % Neut % (Auto) % Lymph % (Auto) % [place] % (Auto) % Eos % (Auto) % Baso % (Auto) % Neut # (Auto) (1.40-6.50) K/uL Lymph # (Auto) (1.2-3.4) K/uL [place] # (Auto) (0.11-0.59) K/uL Eos # (Auto) (0-0.50) K/uL Baso # (Auto) (0-0.2) K/uL Immature Gran # (Auto) (0.01-0.20) K/uL PT 10.7 (9.0-12.0) Seconds INR 1.0 (0.9-1.1) Sodium 142 (136-145) mmol/L Potassium 2.7 L (3.5-5.1) mmol/L Chloride 97 L (98-107) mmol/L Carbon Dioxide 24 (21-32) mmol/L Anion Gap 21 H (3-11) BUN 13 (6-23) mg/dl Creatinine 1.32 H (0.6-1.2) mg/dl Est Cr Clr Drug Dosing Not Reportable Est GFR ( Amer) 49.3 ml/min Est GFR (Non-Af Amer) 42.5 ml/min BUN/Creatinine Ratio 9.8 L (10-20) Glucose 80 (70-99(Fasting)) mg/dl Calcium 8.9 (8.6-10.3) mg/dl Phosphorus (2.5-4.9) mg/dl Magnesium 1.1 L (1.7-2.4) mg/dl Total Bilirubin 1.1 H (0.2-1.0) mg/dl AST 16 (13-39) U/L ALT 6 L (7-52) U/L Alkaline Phosphatase 59 (34-104) U/L Total Protein 6.6 (6.0-8.3) gm/dl Albumin 3.4 (3.4-5.0) gm/dl Globulin 3.2 (2.5-4.0) gm/dl Albumin/Globulin Ratio 1.1 (0.9-2) SARS-CoV-2 (PCR) NEGATIVE (Negative) Influenza Type A (PCR) Negative (Neg) Influenza Type B (PCR) Negative (Neg) RSV (RT-PCR) Negative (Neg) 01/09/23 Range/Units 19:13 WBC 7.60 (4.8-10.8) K/ul RBC 3.31 L (4.20-5.40) M/uL Hgb 10.0 L (12.0-16.0) g/dl Hct 29.6 L (37.0-47.0) % MCV 89.4 (80.0-100.0) fL MCH 30.2 (25.0-34.0) pg MCHC 33.8 (32.0-36.0) g/dL RDW Std Deviation 51.8 H (36.4-46.3) fL RDW Coeff of Lane 15.8 H (11.5-14.5) % Plt Count 184 (130-400) K/uL MPV 11.1 (9.4-12.4) fL Immature Gran % (Auto) 0.5 % Neut % (Auto) 79.6 % Lymph % (Auto) 11.3 % [place] % (Auto) 6.2 % Eos % (Auto) 1.6 % Baso % (Auto) 0.8 % Neut # (Auto) 6.05 (1.40-6.50) K/uL Lymph # (Auto) 0.86 L (1.2-3.4) K/uL [place] # (Auto) 0.47 (0.11-0.59) K/uL Eos # (Auto) 0.12 (0-0.50) K/uL Baso # (Auto) 0.06 (0-0.2) K/uL Immature Gran # (Auto) 0.04 (0.01-0.20) K/uL PT (9.0-12.0) Seconds INR (0.9-1.1) Sodium (136-145) mmol/L Potassium (3.5-5.1) mmol/L Chloride (98-107) mmol/L Carbon Dioxide (21-32) mmol/L Anion Gap (3-11) BUN (6-23) mg/dl Creatinine (0.6-1.2) mg/dl Est Cr Clr Drug Dosing Est GFR ( Amer) ml/min Est GFR (Non-Af Amer) ml/min BUN/Creatinine Ratio (10-20) Glucose (70-99(Fasting)) mg/dl Calcium (8.6-10.3) mg/dl Phosphorus (2.5-4.9) mg/dl Magnesium (1.7-2.4) mg/dl Total Bilirubin (0.2-1.0) mg/dl AST (13-39) U/L ALT (7-52) U/L Alkaline Phosphatase (34-104) U/L Total Protein (6.0-8.3) gm/dl Albumin (3.4-5.0) gm/dl Globulin (2.5-4.0) gm/dl Albumin/Globulin Ratio (0.9-2) SARS-CoV-2 (PCR) (Negative) Influenza Type A (PCR) (Neg) Influenza Type B (PCR) (Neg) RSV (RT-PCR) (Neg)
[2023-01-10] MEDS ORDERED: OPTIRAY 320 100ml IV ONE (12:04)
--- NOTE | 2023-01-10 12:20 | CT Scan Report ---
CT SCAN OF THE ABDOMEN AND PELVIS WITH IV CONTRAST CLINICAL HISTORY: Nausea and vomiting. COMPARISON STUDY: No priors. TECHNIQUE: Following the IV administration of 93 cc of Optiray 320, CT scan of the abdomen and pelvi s is performed from the lung bases to the proximal femora. Images are reviewed in the axial, sagittal , and coronal planes. IV contrast was administered without complication. A dose lowering technique wa s utilized adhering to the principles of ALARA. CT DOSE: 1352.60 mGy.cm FINDINGS: Lung bases: The heart is enlarged and without pericardial effusion. The coronary arteries an mitral a nnulus are densely calcified. There is a small hiatal hernia. There are small pleural effusions with dependent consolidation. Intralobular septal thickening is noted at the lung bases. Liver: The contrast-enhanced liver is normal in size, contour, and attenuation. There is no intrahepa tic biliary ductal dilatation. The hepatic veins and portal veins are patent. Gallbladder: Unremarkable. Spleen: Normal in size and attenuation. Pancreas: Unremarkable. Adrenal glands: Unremarkable. Kidneys: The contrast enhanced kidneys are normal in size and without hydronephrosis. The kidneys enh ance symmetrically. Abdominal vasculature: The abdominal aorta is normal in course and caliber noting moderate to advance d atherosclerotic calcification. Bowel: There is mild colonic diverticulosis without CT evidence of acute diverticulitis. No bowel obs truction is seen. The appendix is well-visualized and normal. Peritoneum: There is trace perihepatic, perisplenic, and pelvic ascites. No intraperitoneal free air is seen. Lymphadenopathy: None. Pelvic viscera: The bladder wall appears circumferentially thickened with surrounding infiltration. T he uterus and adnexa are normal as visualized. Skeletal structures: The skeletal structures are osteopenic. No lytic or blastic lesions are seen. Th ere is mild lumbosacral spondylosis. Soft tissues: There is body wall edema. IMPRESSION: 1. Cardiomegaly with intralobular septal thickening. Correlate clinically for evidence of congestive failure. 2. Small pleural effusions dependent consolidation. This likely represents atelectasis and clinical c orrelation will be required. 3. Body wall edema and a trace abdominopelvic ascites indicate fluid overload. 4. The bladder wall appears thickened and there is pericystic infiltration. Correlate with clinical f indings and urinalysis. 5. Additional findings as above. ACT 112: Negative or not required by law. Electronically signed by: Stevie Leach M.D. 01/10/2023 12:19 PM
--- NOTE | 2023-01-10 14:16 | Electrocardiogram Report ---
Test Reason : Blood Pressure : / mmHG Vent. Rate : 081 BPM Atrial Rate : 000 BPM P-R Int : 000 ms QRS Dur : 086 ms QT Int : 374 ms P-R-T Axes : 000 001 -38 degrees QTc Int : 434 ms Atrial fibrillation Abnormal ECG When compared with ECG of 03-JUL-2017 09:49, Atrial fibrillation has replaced Sinus rhythm Vent. rate has increased BY 32 BPM T wave inversion more evident in Inferior leads T wave inversion now evident in Anterior leads Confirmed by Justin Adams ([id number]) on 01/10/2023 12:25:49 PM Referred By: REFERRED SELF Confirmed By:Justin Adams
[2023-01-10] MEDS: AMBRISENTAN 10MG TABLET PO SCH (15:13)
[2023-01-10] MEDS ORDERED: WARFARIN SOD 7.5 MG TAB PO SCH (16:00)
[2023-01-10] MEDS ORDERED: WARFARIN SOD 5 MG TAB PO SCH (16:00)
--- NOTE | 2023-01-10 16:13 | Communication Note ---
Date of Service: January 10, 2023 Patient seen and examined at bedside. She is sitting up on the bed; not in any distress. She reports nausea; no vomiting episode. GI consulted; recommended CT abdomen pelvis. CT abdomen and pelvis reviewed; findings suspicious of UTI. Small pleural effusion with dependent consolidation. No significant intra-abdominal abnormality. Urinalysis ordered. Continue supportive care. On physical exam Constitutional: Awake, alert orient x3; not in distress. Respiratory: Bilateral fine crackles present. Cardiovascular: RRR, no murmur, no edema Vessels: no JVD or carotid bruit Chest: normal inspection of chest Abdomen: normal bowel sounds, soft, nontender, no hepatosplenomegaly Musculoskeletal: no cyanosis or clubbing, extremities motor strength 5/5 Skin: no rashes, warm and dry normal turgor Neurologic: PERRL, EOMI, accommodation nl, no face palsy, no dysarthria CN's II- XI intact bilaterally and moves all extremities Psychiatric: A+Ox3, euthymic affect
[2023-01-10 16:24] LABS: BUN Creatinine Ratio 7.9 (10-20); Calcium 8.2 mg/dl (8.6-10.3); Creatinine Clr Calc Pharmacy 53.2 ml/min; Est GFR (African American) 51.6 ml/min; Est GFR (Non-African American) 44.6 ml/min; Potassium 4.2 mmol/L (3.5-5.1)
[2023-01-10 17:50] LABS: Appearance Urine Cloudy (Clear); Bacteria Urine Automated 2+ (Negative); Bilirubin Urine Negative (Negative); Blood Urine Negative (Negative); Cast Urine Automated 0 /lpf (0-5); Color Urine Yellow; Glucose Urine UA Negative (Negative); Ketones Urine 1+ (Negative); Leukocyte Esterase Urine 2+ (Negative); Nitrite Urine Positive (Negative); Protein Urine Negative (Negative); Specific Gravity Urine 1.024 (1.000-1.030); Urobilinogen Urine Negative (Negative); pH Urine 6.5 (4.5-7.5)
[2023-01-11] MEDS: D5NSS + 20MEQ KCL 20 MEQ/1,000 ML BAG IV SCH ×2 (05:21→10:11)
[2023-01-11] MEDS: LEVOTHYROXINE SODIUM 200 MCG TABLET PO SCH (05:21)
[2023-01-11 06:15] LABS: Basophils # (auto) 0.04 K/uL (0-0.2); Basophils % (auto) 0.7 %; Eosinophils # (auto) 0.29 K/uL (0-0.50); Eosinophils % (auto) 5.1 %; Hematocrit (blood only) 26.2 % (37.0-47.0); Hemoglobin 8.7 g/dl (12.0-16.0); Immature Granulocytes # (auto) 0.03 K/uL (0.01-0.20); Immature Granulocytes % (auto) 0.5 %; Lymphocytes # (auto) 1.09 K/uL (1.2-3.4); Lymphocytes % (auto) 19.1 %; Mean Corpuscular Hemoglobin 30.7 pg (25.0-34.0); Mean Corpuscular Hgb Conc 33.2 g/dL (32.0-36.0); Mean Corpuscular Volume 92.6 fL (80.0-100.0); Mean Platelet Volume 11.2 fL (9.4-12.4); Monocytes % (auto) 8.7 %; Neutrophils # (auto) 3.77 K/uL (1.40-6.50); Neutrophils % (auto) 65.9 %; Platelet Count 123 K/uL (130-400); RDW Coefficient of Variation 15.9 % (11.5-14.5); RDW Standard Deviation 54.5 fL (36.4-46.3); Red Blood Count 2.83 M/uL (4.20-5.40); White Blood Count 5.72 K/ul (4.8-10.8)
[2023-01-11 06:20] LABS: BUN Creatinine Ratio 7.1 (10-20); Calcium 7.9 mg/dl (8.6-10.3); Creatinine Clr Calc Pharmacy 61.5 ml/min; Est GFR (African American) 60.1 ml/min; Est GFR (Non-African American) 51.9 ml/min; Phosphorus 2.3 mg/dl (2.5-4.9); Potassium 3.4 mmol/L (3.5-5.1)
[2023-01-11 06:32] LABS: INR 2.7 (0.9-1.1); Prothrombin Time 27.7 Seconds (9.0-12.0)
[2023-01-11] MEDS: FOLIC ACID 1 MG TAB PO SCH (09:18)
[2023-01-11] MEDS: METOPROLOL SUCC 50MG EXT REL TAB PO SCH ×2 (09:19→20:08)
[2023-01-11] MEDS: AMBRISENTAN 10MG TABLET PO SCH (09:19)
[2023-01-11] MEDS: CYANOCOBALAMIN (B-12) 500 MCG TABLET PO SCH (09:19)
[2023-01-11] MEDS: SERTRALINE HCL 100 MG TABLET PO SCH (09:19)
[2023-01-11] MEDS: CHOLECALCIFEROL 5,000 UNITS 125 MCG TAB PO SCH (09:19)
[2023-01-11] MEDS: ATORVASTATIN 20 MG TAB PO SCH (09:20)
[2023-01-11] MEDS: ASPIRIN 81 MG ECTAB PO SCH (09:20)
[2023-01-11] MEDS: ONDANSETRON INJ 2 MG/ML 2 ML VIAL IV PRN (09:23)
[2023-01-11] MEDS: cefTRIAXone SODIUM 2,000 MG in DEXTROSE 5% 50 ML IV SCH (09:27)
[2023-01-11] MEDS: METOCLOPRAMIDE HCL INJ 5 MG/ML 2 ML VIAL IV PRN ×2 (12:18→20:08)
--- NOTE | 2023-01-11 14:45 | Hospitalist Progress Note ---
Date of Service January 11, 2023 Assessment & Plan (1) Nausea & vomiting: (2) Electrolyte abnormality: Plan 62-year-old female history of MTHFR mutation chronic hypoxemic respiratory failure on a 8-10 L oxygen at home, pulmonary artery hypertension, right ventricle enlargement, limited systemic sclerosis, history of PE, history of depression, hyperlipidemia, hypothyroidism, obstructive sleep apnea, on CPAP nightly, chronic atrial fibrillation, diastolic heart failure, obesity, chronic kidney disease stage III presents with n/v and electrolyte abnormalities. Persistent nausea and vomiting Weight loss Diarrhea Urine tract infection Patient reports 3-month history of nausea, vomiting and weight loss Reports that they started when she was on IV antibiotics for Mycobacterium abscesses Stop antibiotics couple of weeks ago but still has nausea and vomiting GI consulted; recommended CT abdomen pelvis. CT abdomen and pelvis personally reviewed; bladder wall thickening present. Urinalysis suggestive of infection. Urine culture growing gram-negative bacilli. Continue supportive care with antiemetics. Her nausea and vomiting can be related with her UTI or gastroparesis secondary to systemic sclerosis. Started on ceftriaxone. Will obtain blood culture today. Recently, she was receiving IV antibiotics through PICC line as outpatient. We will start her on metoclopramide for nausea and vomiting prior to her food intake. Hypokalemia Hypomagnesemia Repleted Monitor for now Chronic hypoxic respiratory failure on on 8 to 10 L oxygen at home History of PE History of A-fib History of pulmonary hypertension On Coumadin. INR therapeutic. Pulmonary hypertension Limited systemic sclerosis Continue home medications Follow-up with pulmonary Chronic A-fib On metoprolol and Coumadin Chronic diastolic CHF Holding Lasix and Aldactone for now. Will resume when appropriate. Obstructive sleep apnea CPAP nightly with oxygen Hypothyroidism continue Synthyroid Chronic kidney stage III Creatinine at baseline Decreased hearing Possible side effects from antibiotics Stable. Dispofrom home. Independent with her ADLs. Works in [employer] office. Was to get discharged home. PT OT ordered. Time spent evaluating patient, direct bedside care, chart review, placing orders, interpretation of diagnostic studies, discussion with consultants, patient, and family members, as well as other required patient management activities is 60 minutes. Please note the above document was generated using voice recognition software. It may contain grammatical, syntax or spelling errors. Any formal questions or concerns about the content, text or information contained within the body of this dictation should be directly addressed to the provider for clarification Admission and Anticipated Discharge Date Admission Date: January 10, 2023 Subjective Patient seen and examined at bedside. Is comfortably lying in the bed. Continues to report nausea. No episode of vomiting. Review of Systems Review of Systems: All systems reviewed & are unremarkable except as noted in Subjective Physical Exam Physical Exam: Constitutional: Awake, alert orient x3; not in distress. Respiratory: Bilateral fine crackles present. Cardiovascular: RRR, no murmur, no edema Vessels: no JVD or carotid bruit Chest: normal inspection of chest Abdomen: normal bowel sounds, soft, nontender, no hepatosplenomegaly Musculoskeletal: no cyanosis or clubbing, extremities motor strength 5/5 Skin: no rashes, warm and dry normal turgor Neurologic: PERRL, EOMI, accommodation nl, no face palsy, no dysarthria CN's II- XI intact bilaterally and moves all extremities Psychiatric: A+Ox3, euthymic affect Results & Data Results & Data Vital Signs (Past 12 Hours) Vital Signs Temp Pulse Pulse Resp BP Pulse Ox O2 Del Method 01/11/23 11:10 36.6 C 103 H 20 122/82 97 High Flow Nasal Cannula 01/11/23 08:00 Nasal Cannula 01/11/23 07:54 36.4 C L 72 20 107/69 98 High Flow Nasal Cannula 01/11/23 07:35 88 01/11/23 03:58 36.6 C 90 16 91/60 L 98 CPAP O2 Flow Rate 01/11/23 11:10 9 01/11/23 08:00 9 01/11/23 07:54 9 01/11/23 07:35 01/11/23 03:58 Laboratory Results Laboratory Results WBC 5.72 K/ul (4.8-10.8) 01/11/23 05:16 RBC 2.83 M/uL (4.20-5.40) L 01/11/23 05:16 Hgb 8.7 g/dl (12.0-16.0) L 01/11/23 05:16 Hct 26.2 % (37.0-47.0) L 01/11/23 05:16 MCV 92.6 fL (80.0-100.0) 01/11/23 05:16 MCH 30.7 pg (25.0-34.0) 01/11/23 05:16 MCHC 33.2 g/dL (32.0-36.0) 01/11/23 05:16 RDW Std Deviation 54.5 fL (36.4-46.3) H 01/11/23 05:[address] 15.9 % (11.5-14.5) H 01/11/23 05:16 Plt Count 123 K/uL (130-400) L 01/11/23 05:16 MPV 11.2 fL (9.4-12.4) 01/11/23 05:16 Immature Gran % (Auto) 0.5 % 01/11/23 05:16 Neut % (Auto) 65.9 % 01/11/23 05:16 Lymph % (Auto) 19.1 % 01/11/23 05:16 [place] % (Auto) 8.7 % 01/11/23 05:16 Eos % (Auto) 5.1 % 01/11/23 05:16 Baso % (Auto) 0.7 % 01/11/23 05:16 Neut # (Auto) 3.77 K/uL (1.40-6.50) 01/11/23 05:16 Lymph # (Auto) 1.09 K/uL (1.2-3.4) L 01/11/23 05:16 [place] # (Auto) 0.50 K/uL (0.11-0.59) 01/11/23 05:16 Eos # (Auto) 0.29 K/uL (0-0.50) 01/11/23 05:16 Baso # (Auto) 0.04 K/uL (0-0.2) 01/11/23 05:16 Immature Gran # (Auto) 0.03 K/uL (0.01-0.20) 01/11/23 05:16 PT 27.7 Seconds (9.0-12.0) H 01/11/23 05:19 INR 2.7 (0.9-1.1) H 01/11/23 05:19 Sodium 141 mmol/L (136-145) 01/11/23 05:19 Potassium 3.4 mmol/L (3.5-5.1) L 01/11/23 05:19 Chloride 102 mmol/L (98-107) 01/11/23 05:19 Carbon Dioxide 30 mmol/L (21-32) 01/11/23 05:19 Anion Gap 9 (3-11) 01/11/23 05:19 BUN 8 mg/dl (6-23) 01/11/23 05:19 Creatinine 1.12 mg/dl (0.6-1.2) 01/11/23 05:19 Est Cr Clr Drug Dosing 61.5 ml/min 01/11/23 05:19 Est GFR ( Amer) 60.1 ml/min 01/11/23 05:19 Est GFR (Non-Af Amer) 51.9 ml/min 01/11/23 05:19 BUN/Creatinine Ratio 7.1 (10-20) L 01/11/23 05:19 Glucose 110 mg/dl (70-99(Fasting)) H 01/11/23 05:19 Calcium 7.9 mg/dl (8.6-10.3) L 01/11/23 05:19 Phosphorus 2.3 mg/dl (2.5-4.9) L 01/11/23 05:19 Magnesium 2.0 mg/dl (1.7-2.4) 01/11/23 05:19 Total Bilirubin 1.1 mg/dl (0.2-1.0) H 01/09/23 19:13 AST 16 U/L (13-39) 01/09/23 19:13 ALT 6 U/L (7-52) L 01/09/23 19:13 Alkaline Phosphatase 59 U/L (34-104) 01/09/23 19:13 Total Protein 6.6 gm/dl (6.0-8.3) 01/09/23 19:13 Albumin 3.4 gm/dl (3.4-5.0) 01/09/23 19:13 Globulin 3.2 gm/dl (2.5-4.0) 01/09/23 19:13 Albumin/Globulin Ratio 1.1 (0.9-2) 01/09/23 19:13 Urine Color Yellow 01/10/23 Unknown Urine Appearance Cloudy (Clear) A 01/10/23 Unknown Urine pH 6.5 (4.5-7.5) 01/10/23 Unknown Ur Specific [place] 1.024 (1.000-1.030) 01/10/23 Unknown Urine Protein Negative (Negative) 01/10/23 Unknown Urine Glucose (UA) Negative (Negative) 01/10/23 Unknown Urine Ketones 1+ (Negative) H 01/10/23 Unknown Urine Blood Negative (Negative) 01/10/23 Unknown Urine Nitrite Positive (Negative) A 01/10/23 Unknown Urine Bilirubin Negative (Negative) 01/10/23 Unknown Urine Urobilinogen Negative (Negative) 01/10/23 Unknown Ur Leukocyte Esterase 2+ (Negative) H 01/10/23 Unknown Urine WBC (Auto) 10-30 /hpf (0-5) H 01/10/23 Unknown Urine RBC (Auto) 10-30 /hpf (0-4) H 01/10/23 Unknown U Hyaline Cast (Auto) 0 /lpf (0-5) 01/10/23 Unknown U Epithel Cells (Auto) 10-20 /lpf (0-5) H 01/10/23 Unknown Urine Bacteria (Auto) 2+ (Negative) H 01/10/23 Unknown SARS-CoV-2 (PCR) NEGATIVE (Negative) 01/09/23 22:57 Influenza Type A (PCR) Negative (Neg) 01/09/23 22:57 Influenza Type B (PCR) Negative (Neg) 01/09/23 22:57 RSV (RT-PCR) Negative (Neg) 01/09/23 22:57 Impressions Chest X-Ray 01/09/23 18:34 SINGLE VIEW CHEST CLINICAL HISTORY: Dehydration. FINDINGS: An AP upright chest radiograph is compared to study dated 10/09/2022. A right PICC line is unchanged in position. The heart is enlarged. The pulmonary vasculature is not congested. Chronic interstitial thickening similar to previous. No airspace consolidation or large pleural effusion is identified. No pneumothorax is seen. The skeletal structures are osteopenic. Bony thorax is grossly intact. IMPRESSION: Cardiomegaly with no active disease in the chest. ACT 112: Negative or not required by law. Electronically signed by: Stevie Leach M.D. 01/10/2023 12:00 AM Abdomen/Pelvis CT 01/10/23 10:37 CT SCAN OF THE ABDOMEN AND PELVIS WITH IV CONTRAST CLINICAL HISTORY: Nausea and vomiting. COMPARISON STUDY: No priors. TECHNIQUE: Following the IV administration of 93 cc of Optiray 320, CT scan of the abdomen and pelvis is performed from the lung bases to the proximal femora. Images are reviewed in the axial, sagittal, and coronal planes. IV contrast was administered without complication. A dose lowering technique was utilized adhering to the principles of ALARA. CT DOSE: 1352.60 mGy.cm FINDINGS: Lung bases: The heart is enlarged and without pericardial effusion. The coronary arteries an mitral annulus are densely calcified. There is a small hiatal hernia. There are small pleural effusions with dependent consolidation. Intralobular septal thickening is noted at the lung bases. Liver: The contrast-enhanced liver is normal in size, contour, and attenuation. There is no intrahepatic biliary ductal dilatation. The hepatic veins and portal veins are patent. Gallbladder: Unremarkable. Spleen: Normal in size and attenuation. Pancreas: Unremarkable. Adrenal glands: Unremarkable. Kidneys: The contrast enhanced kidneys are normal in size and without hydronephrosis. The kidneys enhance symmetrically. Abdominal vasculature: The abdominal aorta is normal in course and caliber noting moderate to advanced atherosclerotic calcification. Bowel: There is mild colonic diverticulosis without CT evidence of acute diverticulitis. No bowel obstruction is seen. The appendix is well-visualized and normal. Peritoneum: There is trace perihepatic, perisplenic, and pelvic ascites. No intraperitoneal free air is seen. Lymphadenopathy: None. Pelvic viscera: The bladder wall appears circumferentially thickened with surrounding infiltration. The uterus and adnexa are normal as visualized. Skeletal structures: The skeletal structures are osteopenic. No lytic or blastic lesions are seen. There is mild lumbosacral spondylosis. Soft tissues: There is body wall edema. IMPRESSION: 1. Cardiomegaly with intralobular septal thickening. Correlate clinically for evidence of congestive failure. 2. Small pleural effusions dependent consolidation. This likely represents atelectasis and clinical correlation will be required. 3. Body wall edema and a trace abdominopelvic ascites indicate fluid overload. 4. The bladder wall appears thickened and there is pericystic infiltration. Correlate with clinical findings and urinalysis. 5. Additional findings as above. ACT 112: Negative or not required by law. Electronically signed by: Stevie Leach M.D. 01/10/2023 12:19 PM
[2023-01-11] MEDS: POTASSIUM CHLORIDE / WTR 10 MEQ/100 ML PLCT IV SCH ×2 (15:20→16:18)
[2023-01-12] MEDS: LEVOTHYROXINE SODIUM 200 MCG TABLET PO SCH (04:50)
[2023-01-12 05:22] LABS: Basophils # (auto) 0.04 K/uL (0-0.2); Basophils % (auto) 0.7 %; Eosinophils # (auto) 0.33 K/uL (0-0.50); Eosinophils % (auto) 5.9 %; Hematocrit (blood only) 25.9 % (37.0-47.0); Hemoglobin 8.5 g/dl (12.0-16.0); Immature Granulocytes # (auto) 0.02 K/uL (0.01-0.20); Immature Granulocytes % (auto) 0.4 %; Lymphocytes # (auto) 1.16 K/uL (1.2-3.4); Lymphocytes % (auto) 20.8 %; Mean Corpuscular Hemoglobin 30.4 pg (25.0-34.0); Mean Corpuscular Hgb Conc 32.8 g/dL (32.0-36.0); Mean Corpuscular Volume 92.5 fL (80.0-100.0); Mean Platelet Volume 11.4 fL (9.4-12.4); Monocytes # (auto) 0.51 K/uL (0.11-0.59); Monocytes % (auto) 9.1 %; Neutrophils # (auto) 3.52 K/uL (1.40-6.50); Neutrophils % (auto) 63.1 %; Platelet Count 132 K/uL (130-400); RDW Coefficient of Variation 15.8 % (11.5-14.5); RDW Standard Deviation 53.9 fL (36.4-46.3); White Blood Count 5.58 K/ul (4.8-10.8)
[2023-01-12 05:31] LABS: BUN Creatinine Ratio 5.5 (10-20); Creatinine Clr Calc Pharmacy 62.7 ml/min; Est GFR (African American) 61.4 ml/min; Potassium 3.3 mmol/L (3.5-5.1)
[2023-01-12 05:54] LABS: INR 4.3 (0.9-1.1); Prothrombin Time 42.9 Seconds (9.0-12.0)
--- NOTE | 2023-01-12 07:56 | Electrocardiogram Report ---
Test Reason : Blood Pressure : / mmHG Vent. Rate : 089 BPM Atrial Rate : 101 BPM P-R Int : 000 ms QRS Dur : 098 ms QT Int : 372 ms P-R-T Axes : 000 008 -21 degrees QTc Int : 452 ms Atrial fibrillation Diffuse Nonspecific T wave abnormality T-wave inversion in Anteroseptal leads Abnormal ECG When compared with ECG of 09-JAN-2023 19:15, No significant change was found Confirmed by Justin Adams ([id number]) on 01/12/2023 7:56:27 AM Referred By: REFERRED SELF Confirmed By:Justin Adams
[2023-01-12] MEDS: AMBRISENTAN 10MG TABLET PO SCH (08:33)
[2023-01-12] MEDS: METOCLOPRAMIDE HCL INJ 5 MG/ML 2 ML VIAL IV PRN (08:33)
[2023-01-12] MEDS: METOPROLOL SUCC 50MG EXT REL TAB PO SCH ×2 (08:33→20:16)
[2023-01-12] MEDS: cefTRIAXone SODIUM 2,000 MG in DEXTROSE 5% 50 ML IV SCH (08:33)
[2023-01-12] MEDS: CYANOCOBALAMIN (B-12) 500 MCG TABLET PO SCH (08:34)
[2023-01-12] MEDS: FOLIC ACID 1 MG TAB PO SCH (08:34)
[2023-01-12] MEDS: CHOLECALCIFEROL 5,000 UNITS 125 MCG TAB PO SCH (08:34)
[2023-01-12] MEDS: ASPIRIN 81 MG ECTAB PO SCH (08:34)
[2023-01-12] MEDS: ATORVASTATIN 20 MG TAB PO SCH (08:35)
[2023-01-12] MEDS: SERTRALINE HCL 100 MG TABLET PO SCH (08:35)
[2023-01-12] MEDS: METOCLOPRAMIDE HCL 5 MG TABLET PO SCH ×2 (13:13→16:24)
[2023-01-12] MEDS ORDERED: METOCLOPRAMIDE HCL 5 MG TABLET PO SCH ×2 (14:00→16:30)
--- NOTE | 2023-01-12 16:00 | Hospitalist Progress Note ---
Date of Service January 12, 2023 Assessment & Plan (1) Nausea & vomiting: (2) Electrolyte abnormality: Plan 62-year-old female history of MTHFR mutation chronic hypoxemic respiratory failure on a 8-10 L oxygen at home, pulmonary artery hypertension, right ventricle enlargement, limited systemic sclerosis, history of PE, history of depression, hyperlipidemia, hypothyroidism, obstructive sleep apnea, on CPAP nightly, chronic atrial fibrillation, diastolic heart failure, obesity, chronic kidney disease stage III presents with n/v and electrolyte abnormalities. Persistent nausea and vomiting Weight loss Diarrhea Urine tract infection Patient reports 3-month history of nausea, vomiting and weight loss Reports that they started when she was on IV antibiotics for Mycobacterium abscesses Stop antibiotics couple of weeks ago but still has nausea and vomiting GI consulted; recommended CT abdomen pelvis. CT abdomen and pelvis personally reviewed; bladder wall thickening present. Urinalysis suggestive of infection. Urine culture growing Enterobacter cloacae; pansensitive. Blood culture no growth till date. PICC line removed on 01/12. Continue supportive care with antiemetics. Her nausea and vomiting can be related with her UTI or gastroparesis secondary to systemic sclerosis. Under scheduled oral metoclopramide 30 minutes prior to eating to see if that will help. Continue on ceftriaxone; plan to treat UTI for 5 days Hypokalemia Hypomagnesemia Repleted Monitor for now Chronic hypoxic respiratory failure on on 8 to 10 L oxygen at home History of PE History of A-fib History of pulmonary hypertension On Coumadin. INR supratherapeutic. Hold for now. Patient is on 3.75 once a week due to supratherapeutic INR as outpatient. Pulmonary hypertension Limited systemic sclerosis Continue home medications Follow-up with pulmonary Chronic A-fib On metoprolol and Coumadin Chronic diastolic CHF Holding Lasix and Aldactone for now. Will resume when appropriate. Obstructive sleep apnea CPAP nightly with oxygen Hypothyroidism continue Synthyroid Chronic kidney stage III Creatinine at baseline Decreased hearing Possible side effects from antibiotics Stable. Dispofrom home. Independent with her ADLs. Works in [employer] office. Was to get discharged home. PT OT ordered. Time spent evaluating patient, direct bedside care, chart review, placing orders, interpretation of diagnostic studies, discussion with consultants, patient, and family members, as well as other required patient management activities is 60 minutes. Please note the above document was generated using voice recognition software. It may contain grammatical, syntax or spelling errors. Any formal questions or concerns about the content, text or information contained within the body of this dictation should be directly addressed to the provider for clarification Admission and Anticipated Discharge Date Admission Date: January 10, 2023 Subjective Patient seen and examined at bedside. She continues to report nausea. No episode of vomiting. Afebrile and saturating well on room air. Review of Systems Review of Systems: All systems reviewed & are unremarkable except as noted in Subjective Physical Exam Physical Exam: Constitutional: Awake, alert orient x3; not in distress. Respiratory: Bilateral fine crackles present. Cardiovascular: RRR, no murmur, no edema Vessels: no JVD or carotid bruit Chest: normal inspection of chest Abdomen: normal bowel sounds, soft, nontender, no hepatosplenomegaly Musculoskeletal: no cyanosis or clubbing, extremities motor strength 5/5 Skin: no rashes, warm and dry normal turgor Neurologic: PERRL, EOMI, accommodation nl, no face palsy, no dysarthria CN's II- XI intact bilaterally and moves all extremities Psychiatric: A+Ox3, euthymic affect Results & Data Results & Data Vital Signs (Past 12 Hours) Vital Signs Temp Pulse Pulse Resp BP Pulse Ox O2 Del Method 01/12/23 15:21 90 01/12/23 09:00 Nasal Cannula 01/12/23 12:09 36.6 C 89 20 95/62 L 93 High Flow Nasal Cannula 01/12/23 08:00 101 H 01/12/23 07:52 36.3 C L 90 20 121/78 97 High Flow Nasal Cannula O2 Flow Rate 01/12/23 15:21 01/12/23 09:00 9 01/12/23 12:09 8 01/12/23 08:00 01/12/23 07:52 8 Laboratory Results Laboratory Results WBC 5.58 K/ul (4.8-10.8) 01/12/23 04:49 RBC 2.80 M/uL (4.20-5.40) L 01/12/23 04:49 Hgb 8.5 g/dl (12.0-16.0) L 01/12/23 04:49 Hct 25.9 % (37.0-47.0) L 01/12/23 04:49 MCV 92.5 fL (80.0-100.0) 01/12/23 04:49 MCH 30.4 pg (25.0-34.0) 01/12/23 04:49 MCHC 32.8 g/dL (32.0-36.0) 01/12/23 04:49 RDW Std Deviation 53.9 fL (36.4-46.3) H 01/12/23 04:[address] 15.8 % (11.5-14.5) H 01/12/23 04:49 Plt Count 132 K/uL (130-400) 01/12/23 04:49 MPV 11.4 fL (9.4-12.4) 01/12/23 04:49 Immature Gran % (Auto) 0.4 % 01/12/23 04:49 Neut % (Auto) 63.1 % 01/12/23 04:49 Lymph % (Auto) 20.8 % 01/12/23 04:49 [place] % (Auto) 9.1 % 01/12/23 04:49 Eos % (Auto) 5.9 % 01/12/23 04:49 Baso % (Auto) 0.7 % 01/12/23 04:49 Neut # (Auto) 3.52 K/uL (1.40-6.50) 01/12/23 04:49 Lymph # (Auto) 1.16 K/uL (1.2-3.4) L 01/12/23 04:49 [place] # (Auto) 0.51 K/uL (0.11-0.59) 01/12/23 04:49 Eos # (Auto) 0.33 K/uL (0-0.50) 01/12/23 04:49 Baso # (Auto) 0.04 K/uL (0-0.2) 01/12/23 04:49 Immature Gran # (Auto) 0.02 K/uL (0.01-0.20) 01/12/23 04:49 PT 42.9 Seconds (9.0-12.0) H 01/12/23 04:49 INR 4.3 (0.9-1.1) H 01/12/23 04:49 Sodium 140 mmol/L (136-145) 01/12/23 04:49 Potassium 3.3 mmol/L (3.5-5.1) L 01/12/23 04:49 Chloride 104 mmol/L (98-107) 01/12/23 04:49 Carbon Dioxide 29 mmol/L (21-32) 01/12/23 04:49 Anion Gap 7 (3-11) 01/12/23 04:49 BUN 6 mg/dl (6-23) 01/12/23 04:49 Creatinine 1.10 mg/dl (0.6-1.2) 01/12/23 04:49 Est Cr Clr Drug Dosing 62.7 ml/min 01/12/23 04:49 Est GFR ( Amer) 61.4 ml/min 01/12/23 04:49 Est GFR (Non-Af Amer) 53.0 ml/min 01/12/23 04:49 BUN/Creatinine Ratio 5.5 (10-20) L 01/12/23 04:49 Glucose 91 mg/dl (70-99(Fasting)) 01/12/23 04:49 Calcium 8.0 mg/dl (8.6-10.3) L 01/12/23 04:49 Phosphorus 2.3 mg/dl (2.5-4.9) L 01/11/23 05:19 Magnesium 2.0 mg/dl (1.7-2.4) 01/11/23 05:19 Total Bilirubin 1.1 mg/dl (0.2-1.0) H 01/09/23 19:13 AST 16 U/L (13-39) 01/09/23 19:13 ALT 6 U/L (7-52) L 01/09/23 19:13 Alkaline Phosphatase 59 U/L (34-104) 01/09/23 19:13 Total Protein 6.6 gm/dl (6.0-8.3) 01/09/23 19:13 Albumin 3.4 gm/dl (3.4-5.0) 01/09/23 19:13 Globulin 3.2 gm/dl (2.5-4.0) 01/09/23 19:13 Albumin/Globulin Ratio 1.1 (0.9-2) 01/09/23 19:13 Urine Color Yellow 01/10/23 Unknown Urine Appearance Cloudy (Clear) A 01/10/23 Unknown Urine pH 6.5 (4.5-7.5) 01/10/23 Unknown Ur Specific [place] 1.024 (1.000-1.030) 01/10/23 Unknown Urine Protein Negative (Negative) 01/10/23 Unknown Urine Glucose (UA) Negative (Negative) 01/10/23 Unknown Urine Ketones 1+ (Negative) H 01/10/23 Unknown Urine Blood Negative (Negative) 01/10/23 Unknown Urine Nitrite Positive (Negative) A 01/10/23 Unknown Urine Bilirubin Negative (Negative) 01/10/23 Unknown Urine Urobilinogen Negative (Negative) 01/10/23 Unknown Ur Leukocyte Esterase 2+ (Negative) H 01/10/23 Unknown Urine WBC (Auto) 10-30 /hpf (0-5) H 01/10/23 Unknown Urine RBC (Auto) 10-30 /hpf (0-4) H 01/10/23 Unknown U Hyaline Cast (Auto) 0 /lpf (0-5) 01/10/23 Unknown U Epithel Cells (Auto) 10-20 /lpf (0-5) H 01/10/23 Unknown Urine Bacteria (Auto) 2+ (Negative) H 01/10/23 Unknown SARS-CoV-2 (PCR) NEGATIVE (Negative) 01/09/23 22:57 Influenza Type A (PCR) Negative (Neg) 01/09/23 22:57 Influenza Type B (PCR) Negative (Neg) 01/09/23 22:57 RSV (RT-PCR) Negative (Neg) 01/09/23 22:57 Impressions Chest X-Ray 01/09/23 18:34 SINGLE VIEW CHEST CLINICAL HISTORY: Dehydration. FINDINGS: An AP upright chest radiograph is compared to study dated 10/09/2022. A right PICC line is unchanged in position. The heart is enlarged. The pulmonary vasculature is not congested. Chronic interstitial thickening similar to previous. No airspace consolidation or large pleural effusion is identified. No pneumothorax is seen. The skeletal structures are osteopenic. Bony thorax is grossly intact. IMPRESSION: Cardiomegaly with no active disease in the chest. ACT 112: Negative or not required by law. Electronically signed by: Stevie Leach M.D. 01/10/2023 12:00 AM Abdomen/Pelvis CT 01/10/23 10:37 CT SCAN OF THE ABDOMEN AND PELVIS WITH IV CONTRAST CLINICAL HISTORY: Nausea and vomiting. COMPARISON STUDY: No priors. TECHNIQUE: Following the IV administration of 93 cc of Optiray 320, CT scan of the abdomen and pelvis is performed from the lung bases to the proximal femora. Images are reviewed in the axial, sagittal, and coronal planes. IV contrast was administered without complication. A dose lowering technique was utilized adhering to the principles of ALARA. CT DOSE: 1352.60 mGy.cm FINDINGS: Lung bases: The heart is enlarged and without pericardial effusion. The coronary arteries an mitral annulus are densely calcified. There is a small hiatal hernia. There are small pleural effusions with dependent consolidation. Intralobular septal thickening is noted at the lung bases. Liver: The contrast-enhanced liver is normal in size, contour, and attenuation. There is no intrahepatic biliary ductal dilatation. The hepatic veins and portal veins are patent. Gallbladder: Unremarkable. Spleen: Normal in size and attenuation. Pancreas: Unremarkable. Adrenal glands: Unremarkable. Kidneys: The contrast enhanced kidneys are normal in size and without hydronephrosis. The kidneys enhance symmetrically. Abdominal vasculature: The abdominal aorta is normal in course and caliber noting moderate to advanced atherosclerotic calcification. Bowel: There is mild colonic diverticulosis without CT evidence of acute diverticulitis. No bowel obstruction is seen. The appendix is well-visualized and normal. Peritoneum: There is trace perihepatic, perisplenic, and pelvic ascites. No intraperitoneal free air is seen. Lymphadenopathy: None. Pelvic viscera: The bladder wall appears circumferentially thickened with surrounding infiltration. The uterus and adnexa are normal as visualized. Skeletal structures: The skeletal structures are osteopenic. No lytic or blastic lesions are seen. There is mild lumbosacral spondylosis. Soft tissues: There is body wall edema. IMPRESSION: 1. Cardiomegaly with intralobular septal thickening. Correlate clinically for evidence of congestive failure. 2. Small pleural effusions dependent consolidation. This likely represents atelectasis and clinical correlation will be required. 3. Body wall edema and a trace abdominopelvic ascites indicate fluid overload. 4. The bladder wall appears thickened and there is pericystic infiltration. Correlate with clinical findings and urinalysis. 5. Additional findings as above. ACT 112: Negative or not required by law. Electronically signed by: Stevie Leach M.D. 01/10/2023 12:19 PM
[2023-01-13] MEDS: LEVOTHYROXINE SODIUM 200 MCG TABLET PO SCH (05:37)
[2023-01-13 06:18] LABS: Basophils # (auto) 0.06 K/uL (0-0.2); Basophils % (auto) 0.7 %; Eosinophils # (auto) 0.39 K/uL (0-0.50); Eosinophils % (auto) 4.5 %; Hematocrit (blood only) 29.8 % (37.0-47.0); Immature Granulocytes # (auto) 0.04 K/uL (0.01-0.20); Immature Granulocytes % (auto) 0.5 %; Lymphocytes # (auto) 1.19 K/uL (1.2-3.4); Lymphocytes % (auto) 13.7 %; Mean Corpuscular Hemoglobin 30.2 pg (25.0-34.0); Mean Corpuscular Hgb Conc 33.6 g/dL (32.0-36.0); Monocytes # (auto) 0.69 K/uL (0.11-0.59); Monocytes % (auto) 7.9 %; Neutrophils # (auto) 6.32 K/uL (1.40-6.50); Neutrophils % (auto) 72.7 %; Platelet Count 161 K/uL (130-400); RDW Coefficient of Variation 15.9 % (11.5-14.5); RDW Standard Deviation 52.9 fL (36.4-46.3); Red Blood Count 3.31 M/uL (4.20-5.40); White Blood Count 8.69 K/ul (4.8-10.8)
[2023-01-13 06:31] LABS: BUN Creatinine Ratio 6.1 (10-20); Calcium 8.5 mg/dl (8.6-10.3); Creatinine Clr Calc Pharmacy 60.2 ml/min; Est GFR (African American) 58.9 ml/min; Est GFR (Non-African American) 50.8 ml/min; Potassium 3.3 mmol/L (3.5-5.1)
[2023-01-13 06:48] LABS: INR 4.6 (0.9-1.1); Prothrombin Time 45.4 Seconds (9.0-12.0)
--- NOTE | 2023-01-13 08:48 | CT Scan Report ---
CT chest diagnostic wo con CT DOSE: 666.77 mGy.cm CLINICAL HISTORY: 62 years-old Female with Hx of interstitial lung disease. Chronic shortness of yvonne ath TECHNIQUE: Multiaxial CT images of the chest were performed without contrast. A dose lowering techni que was utilized adhering to the principles of ALARA. COMPARISON: CT abdomen and pelvis 01/10/2023, chest CT 07/04/2017 FINDINGS: Right peritracheal lymph node measures 2.1 x 1.3 cm on image 66, previously 1.6 x 0.9 cm. Subcarinal lymphadenopathy measures up to 1.1 cm. Moderate cardiomegaly with extensive coronary artery and moder ate mitral annular calcifications. Trace pericardial effusion. Decreased attenuation of the cardiac b lood pool suggestive of anemia. Elevation of the main pulmonary artery, 3.3 cm. Atherosclerosis of th e thoracic aorta without aneurysm. Small pleural effusions, right greater than left. Anasarca with trace upper abdominal ascites. Intral obular septal thickening with intermixed groundglass and consolidative opacities are noted in a multi segmental multilobar distribution. No bronchiectasis, honeycombing or significant fibrosis identified . Central airways appear patent. Mild dependent bibasilar consolidation. IMPRESSION: 1. Cardiomegaly with interstitial pulmonary edema, small pleural effusions, anasarca and trace upper abdominal ascites. 2. Bibasilar opacities suggestive of atelectasis. Additional patchy bilateral airspace opacities like ly represent alveolar pulmonary edema. A superimposed pneumonia is considered less likely however cou ld appear similarly. 3. Mild nonspecific mediastinal lymphadenopathy. 4. No definite evidence of chronic interstitial lung disease. ACT 112: Negative or not required by law. Electronically signed by: Khoa Farr M.D. 01/13/2023 8:45 AM
[2023-01-13] MEDS: CYANOCOBALAMIN (B-12) 500 MCG TABLET PO SCH (09:22)
[2023-01-13] MEDS: CHOLECALCIFEROL 5,000 UNITS 125 MCG TAB PO SCH (09:22)
[2023-01-13] MEDS: FOLIC ACID 1 MG TAB PO SCH (09:23)
[2023-01-13] MEDS: ASPIRIN 81 MG ECTAB PO SCH (09:23)
[2023-01-13] MEDS: METOCLOPRAMIDE HCL 5 MG TABLET PO SCH (09:23)
[2023-01-13] MEDS: METOPROLOL SUCC 50MG EXT REL TAB PO SCH ×2 (09:23→20:42)
[2023-01-13] MEDS: ATORVASTATIN 20 MG TAB PO SCH (09:23)
[2023-01-13] MEDS: SERTRALINE HCL 100 MG TABLET PO SCH (09:23)
[2023-01-13] MEDS: AMBRISENTAN 10MG TABLET PO SCH (09:26)
[2023-01-13] MEDS: cefTRIAXone SODIUM 2,000 MG in DEXTROSE 5% 50 ML IV SCH (09:28)
[2023-01-13] MEDS ORDERED: FUROSEMIDE 40 MG/4 ML VIAL IV ONE (10:36)
[2023-01-13] MEDS: POTASSIUM CHLORIDE / WTR 10 MEQ/100 ML PLCT IV SCH ×4 (11:57→14:52)
[2023-01-13] MEDS: ONDANSETRON 4 MG OD TAB PO SCH ×2 (14:52→20:42)
--- NOTE | 2023-01-13 14:55 | Hospitalist Progress Note ---
Date of Service January 13, 2023 Assessment & Plan (1) Nausea & vomiting: (2) Electrolyte abnormality: Plan 62-year-old female history of MTHFR mutation chronic hypoxemic respiratory failure on a 8-10 L oxygen at home, pulmonary artery hypertension, right ventricle enlargement, limited systemic sclerosis, history of PE, history of depression, hyperlipidemia, hypothyroidism, obstructive sleep apnea, on CPAP nightly, chronic atrial fibrillation, diastolic heart failure, obesity, chronic kidney disease stage III presents with n/v and electrolyte abnormalities. Persistent nausea and vomiting Weight loss Diarrhea Urine tract infection Patient reports 3-month history of nausea, vomiting and weight loss Reports that they started when she was on IV antibiotics for Mycobacterium abscesses Stop antibiotics couple of weeks ago but still has nausea and vomiting GI consulted; recommended CT abdomen pelvis. CT abdomen and pelvis personally reviewed; bladder wall thickening present. Urinalysis suggestive of infection. Urine culture growing Enterobacter cloacae; pansensitive. Blood culture no growth till date. PICC line removed on 01/12. Continue supportive care with antiemetics. Trial of metoclopramide unsuccessful. Patient continues to have nausea and vomiting. Will start her on Zofran every 8 hours and see response. Continue on ceftriaxone; plan to treat UTI for 5 days Hypokalemia Hypomagnesemia Repleted Monitor for now Chronic hypoxic respiratory failure on on 8 to 10 L oxygen at home History of PE History of A-fib History of pulmonary hypertension On Coumadin. INR supratherapeutic. Hold for now. Patient is on 3.75 once a week due to supratherapeutic INR as outpatient. CT chest without contrast reviewed personally; considered pulmonary edema Will give 1 dose of IV Lasix 40 mg. Pulmonary hypertension Limited systemic sclerosis Continue home medications Follow-up with pulmonary Chronic A-fib On metoprolol and Coumadin Chronic diastolic CHF Resume Lasix and Aldactone starting tomorrow. Obstructive sleep apnea CPAP nightly with oxygen Hypothyroidism continue Synthyroid Chronic kidney stage III Creatinine at baseline Decreased hearing Possible side effects from antibiotics Stable. Dispofrom home. Independent with her ADLs. Works in [employer] office. Continues to be hospitalized due to persistent nausea and vomiting, UTI requiring IV antibiotic and close monitoring for chronic respiratory failure. Time spent evaluating patient, direct bedside care, chart review, placing orders, interpretation of diagnostic studies, discussion with consultants, patient, and family members, as well as other required patient management activities is 60 minutes. Please note the above document was generated using voice recognition software. It may contain grammatical, syntax or spelling errors. Any formal questions or concerns about the content, text or information contained within the body of this dictation should be directly addressed to the provider for clarification Admission and Anticipated Discharge Date Admission Date: January 10, 2023 Subjective Continues to have nausea persistently. Also vomited after breakfast Sitting comfortably on on a chair at the side of the bed. Oxygen requirement 15 L/min by high flow nasal cannula in a.m. Review of Systems Review of Systems: All systems reviewed & are unremarkable except as noted in Subjective Physical Exam Physical Exam: Constitutional: Awake, alert orient x3; not in distress. Respiratory: Bilateral fine crackles present. Cardiovascular: RRR, no murmur, no edema Vessels: no JVD or carotid bruit Chest: normal inspection of chest Abdomen: normal bowel sounds, soft, nontender, no hepatosplenomegaly Musculoskeletal: no cyanosis or clubbing, extremities motor strength 5/5 Skin: no rashes, warm and dry normal turgor Neurologic: PERRL, EOMI, accommodation nl, no face palsy, no dysarthria CN's II- XI intact bilaterally and moves all extremities Psychiatric: A+Ox3, euthymic affect Results & Data Results & Data Vital Signs (Past 12 Hours) Vital Signs Temp Pulse Pulse Resp BP Pulse Ox O2 Del Method 01/13/23 11:29 36.8 C 99 H 20 121/77 99 High Flow Nasal Cannula 01/13/23 08:00 Nasal Cannula 01/13/23 07:56 36.5 C 110 H 20 105/69 95 High Flow Nasal Cannula 01/13/23 03:00 37.0 C 101 H 21 126/80 91 High Flow Nasal Cannula 01/13/23 03:00 89 O2 Flow Rate 01/13/23 11:29 8 01/13/23 08:00 10 01/13/23 07:56 8 01/13/23 03:00 01/13/23 03:00 Laboratory Results Laboratory Results WBC 8.69 K/ul (4.8-10.8) 01/13/23 05:50 RBC 3.31 M/uL (4.20-5.40) L 01/13/23 05:50 Hgb 10.0 g/dl (12.0-16.0) L 01/13/23 05:50 Hct 29.8 % (37.0-47.0) L 01/13/23 05:50 MCV 90.0 fL (80.0-100.0) 01/13/23 05:50 MCH 30.2 pg (25.0-34.0) 01/13/23 05:50 MCHC 33.6 g/dL (32.0-36.0) 01/13/23 05:50 RDW Std Deviation 52.9 fL (36.4-46.3) H 01/13/23 05:[address] 15.9 % (11.5-14.5) H 01/13/23 05:50 Plt Count 161 K/uL (130-400) 01/13/23 05:50 MPV 11.0 fL (9.4-12.4) 01/13/23 05:50 Immature Gran % (Auto) 0.5 % 01/13/23 05:50 Neut % (Auto) 72.7 % 01/13/23 05:50 Lymph % (Auto) 13.7 % 01/13/23 05:50 [place] % (Auto) 7.9 % 01/13/23 05:50 Eos % (Auto) 4.5 % 01/13/23 05:50 Baso % (Auto) 0.7 % 01/13/23 05:50 Neut # (Auto) 6.32 K/uL (1.40-6.50) 01/13/23 05:50 Lymph # (Auto) 1.19 K/uL (1.2-3.4) L 01/13/23 05:50 [place] # (Auto) 0.69 K/uL (0.11-0.59) H 01/13/23 05:50 Eos # (Auto) 0.39 K/uL (0-0.50) 01/13/23 05:50 Baso # (Auto) 0.06 K/uL (0-0.2) 01/13/23 05:50 Immature Gran # (Auto) 0.04 K/uL (0.01-0.20) 01/13/23 05:50 PT 45.4 Seconds (9.0-12.0) H 01/13/23 05:50 INR 4.6 (0.9-1.1) H 01/13/23 05:50 Sodium 140 mmol/L (136-145) 01/13/23 05:50 Potassium 3.3 mmol/L (3.5-5.1) L 01/13/23 05:50 Chloride 101 mmol/L (98-107) 01/13/23 05:50 Carbon Dioxide 29 mmol/L (21-32) 01/13/23 05:50 Anion Gap 10 (3-11) 01/13/23 05:50 BUN 7 mg/dl (6-23) 01/13/23 05:50 Creatinine 1.14 mg/dl (0.6-1.2) 01/13/23 05:50 Est Cr Clr Drug Dosing 60.2 ml/min 01/13/23 05:50 Est GFR ( Amer) 58.9 ml/min 01/13/23 05:50 Est GFR (Non-Af Amer) 50.8 ml/min 01/13/23 05:50 BUN/Creatinine Ratio 6.1 (10-20) L 01/13/23 05:50 Glucose 92 mg/dl (70-99(Fasting)) 01/13/23 05:50 Calcium 8.5 mg/dl (8.6-10.3) L 01/13/23 05:50 Phosphorus 2.3 mg/dl (2.5-4.9) L 01/11/23 05:19 Magnesium 2.0 mg/dl (1.7-2.4) 01/11/23 05:19 Total Bilirubin 1.1 mg/dl (0.2-1.0) H 01/09/23 19:13 AST 16 U/L (13-39) 01/09/23 19:13 ALT 6 U/L (7-52) L 01/09/23 19:13 Alkaline Phosphatase 59 U/L (34-104) 01/09/23 19:13 Total Protein 6.6 gm/dl (6.0-8.3) 01/09/23 19:13 Albumin 3.4 gm/dl (3.4-5.0) 01/09/23 19:13 Globulin 3.2 gm/dl (2.5-4.0) 01/09/23 19:13 Albumin/Globulin Ratio 1.1 (0.9-2) 01/09/23 19:13 Urine Color Yellow 01/10/23 Unknown Urine Appearance Cloudy (Clear) A 01/10/23 Unknown Urine pH 6.5 (4.5-7.5) 01/10/23 Unknown Ur Specific [place] 1.024 (1.000-1.030) 01/10/23 Unknown Urine Protein Negative (Negative) 01/10/23 Unknown Urine Glucose (UA) Negative (Negative) 01/10/23 Unknown Urine Ketones 1+ (Negative) H 01/10/23 Unknown Urine Blood Negative (Negative) 01/10/23 Unknown Urine Nitrite Positive (Negative) A 01/10/23 Unknown Urine Bilirubin Negative (Negative) 01/10/23 Unknown Urine Urobilinogen Negative (Negative) 01/10/23 Unknown Ur Leukocyte Esterase 2+ (Negative) H 01/10/23 Unknown Urine WBC (Auto) 10-30 /hpf (0-5) H 01/10/23 Unknown Urine RBC (Auto) 10-30 /hpf (0-4) H 01/10/23 Unknown U Hyaline Cast (Auto) 0 /lpf (0-5) 01/10/23 Unknown U Epithel Cells (Auto) 10-20 /lpf (0-5) H 01/10/23 Unknown Urine Bacteria (Auto) 2+ (Negative) H 01/10/23 Unknown SARS-CoV-2 (PCR) NEGATIVE (Negative) 01/09/23 22:57 Influenza Type A (PCR) Negative (Neg) 01/09/23 22:57 Influenza Type B (PCR) Negative (Neg) 01/09/23 22:57 RSV (RT-PCR) Negative (Neg) 01/09/23 22:57 Impressions Chest X-Ray 01/09/23 18:34 SINGLE VIEW CHEST CLINICAL HISTORY: Dehydration. FINDINGS: An AP upright chest radiograph is compared to study dated 10/09/2022. A right PICC line is unchanged in position. The heart is enlarged. The pulmonary vasculature is not congested. Chronic interstitial thickening similar to previous. No airspace consolidation or large pleural effusion is identified. No pneumothorax is seen. The skeletal structures are osteopenic. Bony thorax is grossly intact. IMPRESSION: Cardiomegaly with no active disease in the chest. ACT 112: Negative or not required by law. Electronically signed by: Stevie Leach M.D. 01/10/2023 12:00 AM Abdomen/Pelvis CT 01/10/23 10:37 CT SCAN OF THE ABDOMEN AND PELVIS WITH IV CONTRAST CLINICAL HISTORY: Nausea and vomiting. COMPARISON STUDY: No priors. TECHNIQUE: Following the IV administration of 93 cc of Optiray 320, CT scan of the abdomen and pelvis is performed from the lung bases to the proximal femora. Images are reviewed in the axial, sagittal, and coronal planes. IV contrast was administered without complication. A dose lowering technique was utilized adhering to the principles of ALARA. CT DOSE: 1352.60 mGy.cm FINDINGS: Lung bases: The heart is enlarged and without pericardial effusion. The coronary arteries an mitral annulus are densely calcified. There is a small hiatal hernia. There are small pleural effusions with dependent consolidation. Intralobular septal thickening is noted at the lung bases. Liver: The contrast-enhanced liver is normal in size, contour, and attenuation. There is no intrahepatic biliary ductal dilatation. The hepatic veins and portal veins are patent. Gallbladder: Unremarkable. Spleen: Normal in size and attenuation. Pancreas: Unremarkable. Adrenal glands: Unremarkable. Kidneys: The contrast enhanced kidneys are normal in size and without h ydronephrosis. The kidneys enhance symmetrically. Abdominal vasculature: The abdominal aorta is normal in course and caliber noting moderate to advanced atherosclerotic calcification. Bowel: There is mild colonic diverticulosis without CT evidence of acute diverticulitis. No bowel obstruction is seen. The appendix is well-visualized and normal. Peritoneum: There is trace perihepatic, perisplenic, and pelvic ascites. No intraperitoneal free air is seen. Lymphadenopathy: None. Pelvic viscera: The bladder wall appears circumferentially thickened with surrounding infiltration. The uterus and adnexa are normal as visualized. Skeletal structures: The skeletal structures are osteopenic. No lytic or blastic lesions are seen. There is mild lumbosacral spondylosis. Soft tissues: There is body wall edema. IMPRESSION: 1. Cardiomegaly with intralobular septal thickening. Correlate clinically for evidence of congestive failure. 2. Small pleural effusions dependent consolidation. This likely represents atelectasis and clinical correlation will be required. 3. Body wall edema and a trace abdominopelvic ascites indicate fluid overload. 4. The bladder wall appears thickened and there is pericystic infiltration. Correlate with clinical findings and urinalysis. 5. Additional findings as above. ACT 112: Negative or not required by law. Electronically signed by: Stevie Leach M.D. 01/10/2023 12:[address] 01/13/23 08:00 CT chest diagnostic wo con CT DOSE: 666.77 mGy.cm CLINICAL HISTORY: 62 years-old Female with Hx of interstitial lung disease. Chronic shortness of breath TECHNIQUE: Multiaxial CT images of the chest were performed without contrast. A dose lowering technique was utilized adhering to the principles of ALARA. COMPARISON: CT abdomen and pelvis 01/10/2023, chest CT 07/04/2017 FINDINGS: Right peritracheal lymph node measures 2.1 x 1.3 cm on image 66, previously 1.6 x 0.9 cm. Subcarinal lymphadenopathy measures up to 1.1 cm. Moderate cardiomegaly with extensive coronary artery and moderate mitral annular calcifications. Trace pericardial effusion. Decreased attenuation of the cardiac blood pool suggestive of anemia. Elevation of the main pulmonary artery, 3.3 cm. Atherosclerosis of the thoracic aorta without aneurysm. Small pleural effusions, right greater than left. Anasarca with trace upper abdominal ascites. Intralobular septal thickening with intermixed groundglass and consolidative opacities are noted in a multisegmental multilobar distribution. No bronchiectasis, honeycombing or significant fibrosis identified. Central airways appear patent. Mild dependent bibasilar consolidation. IMPRESSION: 1. Cardiomegaly with interstitial pulmonary edema, small pleural effusions, anasarca and trace upper abdominal ascites. 2. Bibasilar opacities suggestive of atelectasis. Additional patchy bilateral airspace opacities likely represent alveolar pulmonary edema. A superimposed pneumonia is considered less likely however could appear similarly. 3. Mild nonspecific mediastinal lymphadenopathy. 4. No definite evidence of chronic interstitial lung disease. ACT 112: Negative or not required by law. Electronically signed by: Khoa Farr M.D. 01/13/2023 8:45 AM
[2023-01-14] MEDS: ONDANSETRON 4 MG OD TAB PO SCH ×2 (06:06→13:58)
[2023-01-14] MEDS: LEVOTHYROXINE SODIUM 200 MCG TABLET PO SCH (06:06)
[2023-01-14 06:55] LABS: Prothrombin Time 49.1 Seconds (9.0-12.0)
[2023-01-14] MEDS: SERTRALINE HCL 100 MG TABLET PO SCH (08:28)
[2023-01-14] MEDS: ASPIRIN 81 MG ECTAB PO SCH (08:28)
[2023-01-14] MEDS: METOPROLOL SUCC 50MG EXT REL TAB PO SCH ×2 (08:28→20:56)
[2023-01-14] MEDS: ATORVASTATIN 20 MG TAB PO SCH (08:28)
[2023-01-14] MEDS: CHOLECALCIFEROL 5,000 UNITS 125 MCG TAB PO SCH (08:29)
[2023-01-14] MEDS: FOLIC ACID 1 MG TAB PO SCH (08:29)
[2023-01-14] MEDS: CYANOCOBALAMIN (B-12) 500 MCG TABLET PO SCH (08:29)
[2023-01-14] MEDS: AMBRISENTAN 10MG TABLET PO SCH (08:30)
[2023-01-14] MEDS: cefTRIAXone SODIUM 2,000 MG in DEXTROSE 5% 50 ML IV SCH (08:32)
[2023-01-14] MEDS: cefUROXime axetil 500 MG TAB PO SCH ×2 (10:47→20:56)
[2023-01-14] MEDS: CARBAMIDE PEROXIDE 6.5% 15 ML BTL OT SCH ×2 (10:47→20:59)
--- NOTE | 2023-01-14 15:24 | Palliative Care Consultation ---
Date of Consultation January 14, 2023 Assessment & Plan (1) Nausea & vomiting: Refractory to zofran She does admit that there may be an anxiety component to this which would not be unusual with several months of symptoms. She does see a counselor. We discussed breaking the cycle of chronic nausea may help to relieve anxiety component. Would consider more focused approach to dopamine receptors with refractory nausea. Discussed low dose zyprexa at hs and she is agreeable. Would continue zofran prn. There has been a study published in NEJ showing inhaled isopropyl alcohol superior to zofran in relief of nausea. I discussed this with her and she is willing to try alcohol swabs placed at bedside for use prn with nausea. History of Present Illness Reason for Consultation: symptom management Requesting Physician: Dr. Smith Attending Physician: Navin Smith MD History of Present Illness 62 yo lady with pulmonary hypertension, diastolic heart failure right ventricular hypertrophy, RAQUEL and chronic hypoxic respiratory failure as well as CKD and afib. She underwent bronchoscopy in July 2022 and was found to have positive cultures for Mycobacterium. She had been on regimen of azithromycin, zyvox, cefoxitin and amakacin but developed CUAUHTEMOC, and persistent nausea, vomiting and diarrhea. The regimen was stopped and she has had some improvement in diarrhea but continues to have nausea and vomiting. She reports 45lb weight loss in one month. She describes a heavy feeling in her abdomen and has nausea, vomiting or wretching with most po intake. She describes the best times as at night when she is lying flat. She does feel hungry and wants to eat but can't keep things down. She has been on routine zofran without significant relief. She tells me that she has not been on other nausea medications prior to zofran. Allergies Allergy/AdvReac Type Severity Reaction Status Date / Time amoxicillin Allergy Mild RASH, Verified 10/09/22 09:10 PRURITIS clavulanic acid Allergy Mild RASH, Verified 10/09/22 09:10 PRURITIS Sulfa (Sulfonamide Allergy Mild HEADACHE, Verified 10/09/22 09:10 Antibiotics) FATIGUE Home Medications Medication Instructions Recorded Confirmed Type aspirin 81 mg chewable tablet 81 mg PO QAM 03/06/20 10/09/22 History atorvastatin 10 mg tablet 20 mg PO QAM 03/06/20 10/09/22 History cholecalciferol (vitamin D3) 125 125 mcg PO QAM 03/06/20 10/09/22 History mcg (5,000 unit) tablet (Vitamin D3) cyanocobalamin (vitamin B-12) 500 500 mcg PO QAM 03/06/20 10/09/22 History mcg tablet folic acid 1 mg tablet 1 mg PO QAM 03/06/20 10/09/22 History furosemide 80 mg tablet 80 mg PO UD 03/06/20 10/09/22 History levothyroxine 200 mcg tablet 200 mcg PO QAM 03/06/20 10/09/22 History metoprolol succinate 50 mg 50 mg PO BID 03/06/20 10/09/22 History tablet,extended release 24 hr sertraline 100 mg tablet 200 mg PO QAM 03/06/20 10/09/22 History spironolactone 50 mg tablet 75 mg PO BID 03/06/20 10/09/22 History warfarin 7.5 mg tablet (Jantoven) 7.5 mg PO DAILY 03/06/20 10/09/22 History ambrisentan 10 mg tablet (Letairis) 10 mg PO DAILY 10/09/22 10/09/22 History tadalafil (pulm. hypertension) 20 40 mg PO DAILY 10/09/22 10/09/22 History mg tablet (pulmonary hypertension) (Adcirca) Patient History Medical History Aortic stenosis Mild per 02/2020 ECHO Atrial fibrillation CAD (coronary artery disease) Non obstructive per 2017 cath per 03/01/20 cardio note Chronic diastolic CHF (congestive heart failure) Deep vein thrombosis UPPER LEFT THIGH 2010 Depression Mariama's disease Heterozygous MTHFR mutation [id number] Hyperlipidemia Hypothyroidism Mitral valve regurgitation Severe Morbid obesity with BMI of 45.0-49.9, adult On home oxygen therapy WEARS 4L O2 PRN SOB Pulmonary embolism Pulmonary hypertension severe- following with [facility] Restless leg syndrome Scleroderma Sleep apnea CPAP DEVICE WITH 4L O2 Surgical History History of breast biopsy History of bronchoscopy History of cardiac cath multiple--NO STENTS--per pt to check severe pulmonary htn History of cardioversion X 2 History of colonoscopy with polypectomy History of transesophageal echocardiography (SOPHIE) (~03/09/20) Family History Mother Family history of diabetes mellitus Family history of reaction to anesthesia had a stroke after surgery in [facility], was informed that "it was due to the sedation medication they gave her and that it was administed too quickly to her", unsure of what it was Grandfather (Maternal) Family history of diabetes mellitus Grandmother (Maternal) Family history of diabetes mellitus Brother Family history of diabetes mellitus Social History Smoking Status: Never smoker Second Hand Exposure: Yes; Do You Dip or Chew Tobacco: No; Tobacco Cessation Education Requested by Patient: No Hx Alcohol Use: No Hx Substance Use: No Preferred Language: Tajik Communication Ability: Effective Real Estate Paralegal Required: No Beliefs That Will Affect Care: None Current Living Situation: Alone Other Information That Helps Us Care for You: No Feels Safe at Home: Yes Safety Concerns: Feels Safe At This Time Assistive Devices: CPAP, Glasses and Wheelchair Review of Systems Review of Systems: Pain 0/3 Dyspnea 1/3 Nausea 2/3 Drowsiness 1/3 Physical Exam Constitutional: no acute distress ENMT: Mouth: + dry oral mucous membranes Respiratory: normal respiratory effort no dyspnea with conversation, on high flow O2 at 8L Cardiovascular: irregular Gastrointestinal (Abdomen): obese, nontender, normal BS Skin: warm and dry Neurologic: Speech / Cognition: normal cognition Results & Data Vital Signs (Past 12 Hours) Vital Signs Temp Pulse Resp BP Pulse Ox O2 Del Method O2 Flow Rate 01/14/23 11:13 97.9 F 89 20 117/76 96 High Flow Nasal Cannula 8 01/14/23 08:00 Nasal Cannula 9 01/14/23 08:03 97.7 F 102 H 18 124/78 91 High Flow Nasal Cannula 8 PG Care Time/CCT Total # of Minutes Spent Total Time Spent with Patient: Total time spent is greater than 50% in coordination of care (as documented) at patient's floor/unit and/or counseling patient: Coding Level of Care Code 26668 INT INP/OBS CARE 2/55MIN Diagnoses Nausea & vomiting R11.2
--- NOTE | 2023-01-14 16:17 | Hospitalist Progress Note ---
Date of Service January 14, 2023 Assessment & Plan (1) Nausea & vomiting: (2) Electrolyte abnormality: Plan 62-year-old female history of MTHFR mutation chronic hypoxemic respiratory failure on a 8-10 L oxygen at home, pulmonary artery hypertension, right ventricle enlargement, limited systemic sclerosis, history of PE, history of depression, hyperlipidemia, hypothyroidism, obstructive sleep apnea, on CPAP nightly, chronic atrial fibrillation, diastolic heart failure, obesity, chronic kidney disease stage III presents with n/v and electrolyte abnormalities. Persistent nausea and vomiting Weight loss Diarrhea Urine tract infection Patient reports 3-month history of nausea, vomiting and weight loss Reports that they started when she was on IV antibiotics for Mycobacterium abscesses Stop antibiotics couple of weeks ago but still has nausea and vomiting GI consulted; recommended CT abdomen pelvis. CT abdomen and pelvis personally reviewed; bladder wall thickening present. Urinalysis suggestive of infection. Urine culture growing Enterobacter cloacae; pansensitive. Blood culture no growth till date. PICC line removed on 01/12. Continue supportive care with antiemetics. Trial of metoclopramide unsuccessful. Patient continues to have nausea and vomiting. Continue trial of Zofran Antibiotics switched over to Ceftin Palliative care consulted for persistent nausea. Hypokalemia Hypomagnesemia Repleted Monitor for now Chronic hypoxic respiratory failure on on 8 to 10 L oxygen at home History of PE History of A-fib History of pulmonary hypertension On Coumadin. INR supratherapeutic. Hold for now. Patient is on 3.75 once a week due to supratherapeutic INR as outpatient. CT chest without contrast reviewed personally; considered pulmonary edema Given IV Lasix 40 mg on 01/14. Pulmonary hypertension Limited systemic sclerosis Continue home medications Follow-up with pulmonary Chronic A-fib On metoprolol and Coumadin Chronic diastolic CHF Resume Lasix and Aldactone starting tomorrow. Obstructive sleep apnea CPAP nightly with oxygen Hypothyroidism continue Synthyroid Chronic kidney stage III Creatinine at baseline Decreased hearing Possible side effects from antibiotics Stable. Dispofrom home. Independent with her ADLs. Works in [employer] office. Continues to be hospitalized due to persistent nausea and vomiting, close monitoring for chronic respiratory failure. Time spent evaluating patient, direct bedside care, chart review, placing orders, interpretation of diagnostic studies, discussion with consultants, patient, and family members, as well as other required patient management activities is 60 minutes. Please note the above document was generated using voice recognition software. It may contain grammatical, syntax or spelling errors. Any formal questions or concerns about the content, text or information contained within the body of this dictation should be directly addressed to the provider for clarification Admission and Anticipated Discharge Date Admission Date: January 10, 2023 Subjective Patient seen and examined bedside Patient reports persistent nausea. Vomited her breakfast as well. Denies abdominal pain. Review of Systems Review of Systems: All systems reviewed & are unremarkable except as noted in Subjective Physical Exam Physical Exam: Constitutional: Awake, alert orient x3; not in distress. Respiratory: Bilateral fine crackles present. Cardiovascular: RRR, no murmur, no edema Vessels: no JVD or carotid bruit Chest: normal inspection of chest Abdomen: normal bowel sounds, soft, nontender, no hepatosplenomegaly Musculoskeletal: no cyanosis or clubbing, extremities motor strength 5/5 Skin: no rashes, warm and dry normal turgor Neurologic: PERRL, EOMI, accommodation nl, no face palsy, no dysarthria CN's II- XI intact bilaterally and moves all extremities Psychiatric: A+Ox3, euthymic affect Results & Data Results & Data Vital Signs (Past 12 Hours) Vital Signs Temp Pulse Resp BP Pulse Ox O2 Del Method O2 Flow Rate 01/14/23 15:30 36.6 C 99 H 16 124/79 94 High Flow Nasal Cannula 8 01/14/23 11:13 36.6 C 89 20 117/76 96 High Flow Nasal Cannula 8 01/14/23 08:00 Nasal Cannula 9 01/14/23 08:03 36.5 C 102 H 18 124/78 91 High Flow Nasal Cannula 8 Laboratory Results Laboratory Results WBC 8.69 K/ul (4.8-10.8) 01/13/23 05:50 RBC 3.31 M/uL (4.20-5.40) L 01/13/23 05:50 Hgb 10.0 g/dl (12.0-16.0) L 01/13/23 05:50 Hct 29.8 % (37.0-47.0) L 01/13/23 05:50 MCV 90.0 fL (80.0-100.0) 01/13/23 05:50 MCH 30.2 pg (25.0-34.0) 01/13/23 05:50 MCHC 33.6 g/dL (32.0-36.0) 01/13/23 05:50 RDW Std Deviation 52.9 fL (36.4-46.3) H 01/13/23 05:[address] 15.9 % (11.5-14.5) H 01/13/23 05:50 Plt Count 161 K/uL (130-400) 01/13/23 05:50 MPV 11.0 fL (9.4-12.4) 01/13/23 05:50 Immature Gran % (Auto) 0.5 % 01/13/23 05:50 Neut % (Auto) 72.7 % 01/13/23 05:50 Lymph % (Auto) 13.7 % 01/13/23 05:50 [place] % (Auto) 7.9 % 01/13/23 05:50 Eos % (Auto) 4.5 % 01/13/23 05:50 Baso % (Auto) 0.7 % 01/13/23 05:50 Neut # (Auto) 6.32 K/uL (1.40-6.50) 01/13/23 05:50 Lymph # (Auto) 1.19 K/uL (1.2-3.4) L 01/13/23 05:50 Barber # (Auto) 0.69 K/uL (0.11-0.59) H 01/13/23 05:50 Eos # (Auto) 0.39 K/uL (0-0.50) 01/13/23 05:50 Baso # (Auto) 0.06 K/uL (0-0.2) 01/13/23 05:50 Immature Gran # (Auto) 0.04 K/uL (0.01-0.20) 01/13/23 05:50 PT 49.1 Seconds (9.0-12.0) H 01/14/23 05:47 INR 5.0 (0.9-1.1) H 01/14/23 05:47 Sodium 140 mmol/L (136-145) 01/13/23 05:50 Potassium 3.3 mmol/L (3.5-5.1) L 01/13/23 05:50 Chloride 101 mmol/L (98-107) 01/13/23 05:50 Carbon Dioxide 29 mmol/L (21-32) 01/13/23 05:50 Anion Gap 10 (3-11) 01/13/23 05:50 BUN 7 mg/dl (6-23) 01/13/23 05:50 Creatinine 1.14 mg/dl (0.6-1.2) 01/13/23 05:50 Est Cr Clr Drug Dosing 60.2 ml/min 01/13/23 05:50 Est GFR ( Amer) 58.9 ml/min 01/13/23 05:50 Est GFR (Non-Af Amer) 50.8 ml/min 01/13/23 05:50 BUN/Creatinine Ratio 6.1 (10-20) L 01/13/23 05:50 Glucose 92 mg/dl (70-99(Fasting)) 01/13/23 05:50 Calcium 8.5 mg/dl (8.6-10.3) L 01/13/23 05:50 Phosphorus 2.3 mg/dl (2.5-4.9) L 01/11/23 05:19 Magnesium 2.0 mg/dl (1.7-2.4) 01/11/23 05:19 Total Bilirubin 1.1 mg/dl (0.2-1.0) H 01/09/23 19:13 AST 16 U/L (13-39) 01/09/23 19:13 ALT 6 U/L (7-52) L 01/09/23 19:13 Alkaline Phosphatase 59 U/L (34-104) 01/09/23 19:13 Total Protein 6.6 gm/dl (6.0-8.3) 01/09/23 19:13 Albumin 3.4 gm/dl (3.4-5.0) 01/09/23 19:13 Globulin 3.2 gm/dl (2.5-4.0) 01/09/23 19:13 Albumin/Globulin Ratio 1.1 (0.9-2) 01/09/23 19:13 Urine Color Yellow 01/10/23 Unknown Urine Appearance Cloudy (Clear) A 01/10/23 Unknown Urine pH 6.5 (4.5-7.5) 01/10/23 Unknown Ur Specific [place] 1.024 (1.000-1.030) 01/10/23 Unknown Urine Protein Negative (Negative) 01/10/23 Unknown Urine Glucose (UA) Negative (Negative) 01/10/23 Unknown Urine Ketones 1+ (Negative) H 01/10/23 Unknown Urine Blood Negative (Negative) 01/10/23 Unknown Urine Nitrite Positive (Negative) A 01/10/23 Unknown Urine Bilirubin Negative (Negative) 01/10/23 Unknown Urine Urobilinogen Negative (Negative) 01/10/23 Unknown Ur Leukocyte Esterase 2+ (Negative) H 01/10/23 Unknown Urine WBC (Auto) 10-30 /hpf (0-5) H 01/10/23 Unknown Urine RBC (Auto) 10-30 /hpf (0-4) H 01/10/23 Unknown U Hyaline Cast (Auto) 0 /lpf (0-5) 01/10/23 Unknown U Epithel Cells (Auto) 10-20 /lpf (0-5) H 01/10/23 Unknown Urine Bacteria (Auto) 2+ (Negative) H 01/10/23 Unknown SARS-CoV-2 (PCR) NEGATIVE (Negative) 01/09/23 22:57 Influenza Type A (PCR) Negative (Neg) 01/09/23 22:57 Influenza Type B (PCR) Negative (Neg) 01/09/23 22:57 RSV (RT-PCR) Negative (Neg) 01/09/23 22:57 Impressions Chest X-Ray 01/09/23 18:34 SINGLE VIEW CHEST CLINICAL HISTORY: Dehydration. FINDINGS: An AP upright chest radiograph is compared to study dated 10/09/2022. A right PICC line is unchanged in position. The heart is enlarged. The pulmonary vasculature is not congested. Chronic interstitial thickening similar to previous. No airspace consolidation or large pleural effusion is identified. No pneumothorax is seen. The skeletal structures are osteopenic. Bony thorax is grossly intact. IMPRESSION: Cardiomegaly with no active disease in the chest. ACT 112: Negative or not required by law. Electronically signed by: Stevie Leach M.D. 01/10/2023 12:00 AM Abdomen/Pelvis CT 01/10/23 10:37 CT SCAN OF THE ABDOMEN AND PELVIS WITH IV CONTRAST CLINICAL HISTORY: Nausea and vomiting. COMPARISON STUDY: No priors. TECHNIQUE: Following the IV administration of 93 cc of Optiray 320, CT scan of the abdomen and pelvis is performed from the lung bases to the proximal femora. Images are reviewed in the axial, sagittal, and coronal planes. IV contrast was administered without complication. A dose lowering technique was utilized adhering to the principles of ALARA. CT DOSE: 1352.60 mGy.cm FINDINGS: Lung bases: The heart is enlarged and without pericardial effusion. The coronary arteries an mitral annulus are densely calcified. There is a small hiatal hernia. There are small pleural effusions with dependent consolidation. Intralobular septal thickening is noted at the lung bases. Liver: The contrast-enhanced liver is normal in size, contour, and attenuation. There is no intrahepatic biliary ductal dilatation. The hepatic veins and portal veins are patent. Gallbladder: Unremarkable. Spleen: Normal in size and attenuation. Pancreas: Unremarkable. Adrenal glands: Unremarkable. Kidneys: The contrast enhanced kidneys are normal in size and without hydronephrosis. The kidneys enhance symmetrically. Abdominal vasculature: The abdominal aorta is normal in course and caliber noting moderate to advanced atherosclerotic calcification. Bowel: There is mild colonic diverticulosis without CT evidence of acute diverticulitis. No bowel obstruction is seen. The appendix is well-visualized and normal. Peritoneum: There is trace perihepatic, perisplenic, and pelvic ascites. No intraperitoneal free air is seen. Lymphadenopathy: None. Pelvic viscera: The bladder wall appears circumferentially thickened with surrounding infiltration. The uterus and adnexa are normal as visualized. Skeletal structures: The skeletal structures are osteopenic. No lytic or blastic lesions are seen. There is mild lumbosacral spondylosis. Soft tissues: There is body wall edema. IMPRESSION: 1. Cardiomegaly with intralobular septal thickening. Correlate clinically for evidence of congestive failure. 2. Small pleural effusions dependent consolidation. This likely represents atelectasis and clinical correlation will be required. 3. Body wall edema and a trace abdominopelvic ascites indicate fluid overload. 4. The bladder wall appears thickened and there is pericystic infiltration. Correlate with clinical findings and urinalysis. 5. Additional findings as above. ACT 112: Negative or not required by law. Electronically signed by: Stevie Leach M.D. 01/10/2023 12:[address] 01/13/23 08:00 CT chest diagnostic wo con CT DOSE: 666.77 mGy.cm CLINICAL HISTORY: 62 years-old Female with Hx of interstitial lung disease. Chronic shortness of breath TECHNIQUE: Multiaxial CT images of the chest were performed without contrast. A dose lowering technique was utilized adhering to the principles of ALARA. COMPARISON: CT abdomen and pelvis 01/10/2023, chest CT 07/04/2017 FINDINGS: Right peritracheal lymph node measures 2.1 x 1.3 cm on image 66, previously 1.6 x 0.9 cm. Subcarinal lymphadenopathy measures up to 1.1 cm. Moderate cardiomeg jarocho with extensive coronary artery and moderate mitral annular calcifications. Trace pericardial effusion. Decreased attenuation of the cardiac blood pool suggestive of anemia. Elevation of the main pulmonary artery, 3.3 cm. Atherosclerosis of the thoracic aorta without aneurysm. Small pleural effusions, right greater than left. Anasarca with trace upper abdominal ascites. Intralobular septal thickening with intermixed groundglass and consolidative opacities are noted in a multisegmental multilobar distribution. No bronchiectasis, honeycombing or significant fibrosis identified. Central airways appear patent. Mild dependent bibasilar consolidation. IMPRESSION: 1. Cardiomegaly with interstitial pulmonary edema, small pleural effusions, anasarca and trace upper abdominal ascites. 2. Bibasilar opacities suggestive of atelectasis. Additional patchy bilateral airspace opacities likely represent alveolar pulmonary edema. A superimposed pneumonia is considered less likely however could appear similarly. 3. Mild nonspecific mediastinal lymphadenopathy. 4. No definite evidence of chronic interstitial lung disease. ACT 112: Negative or not required by law. Electronically signed by: Khoa Farr M.D. 01/13/2023 8:45 AM
[2023-01-14] MEDS: OLANZapine ZYDIS 5 MG ORALLY DIS. TAB PO SCH (20:56)
[2023-01-15] MEDS: LEVOTHYROXINE SODIUM 200 MCG TABLET PO SCH (05:53)
[2023-01-15 06:15] LABS: Basophils # (auto) 0.05 K/uL (0-0.2); Basophils % (auto) 0.7 %; Eosinophils # (auto) 0.41 K/uL (0-0.50); Eosinophils % (auto) 5.4 %; Hematocrit (blood only) 25.3 % (37.0-47.0); Hemoglobin 8.5 g/dl (12.0-16.0); Immature Granulocytes # (auto) 0.05 K/uL (0.01-0.20); Immature Granulocytes % (auto) 0.7 %; Lymphocytes # (auto) 1.24 K/uL (1.2-3.4); Lymphocytes % (auto) 16.4 %; Mean Corpuscular Hemoglobin 30.1 pg (25.0-34.0); Mean Corpuscular Hgb Conc 33.6 g/dL (32.0-36.0); Mean Corpuscular Volume 89.7 fL (80.0-100.0); Mean Platelet Volume 11.1 fL (9.4-12.4); Monocytes # (auto) 0.63 K/uL (0.11-0.59); Monocytes % (auto) 8.3 %; Neutrophils # (auto) 5.17 K/uL (1.40-6.50); Neutrophils % (auto) 68.5 %; Platelet Count 124 K/uL (130-400); RDW Coefficient of Variation 15.8 % (11.5-14.5); RDW Standard Deviation 52.4 fL (36.4-46.3); Red Blood Count 2.82 M/uL (4.20-5.40); White Blood Count 7.55 K/ul (4.8-10.8)
[2023-01-15 06:34] LABS: Calcium 8.4 mg/dl (8.6-10.3); Creatinine Clr Calc Pharmacy 60.9 ml/min; Est GFR (African American) 61.4 ml/min; Potassium 3.1 mmol/L (3.5-5.1)
[2023-01-15 06:49] LABS: INR 5.3 (0.9-1.1); Prothrombin Time 51.8 Seconds (9.0-12.0)
[2023-01-15] MEDS: cefUROXime axetil 500 MG TAB PO SCH ×2 (09:37→20:26)
[2023-01-15] MEDS: METOPROLOL SUCC 50MG EXT REL TAB PO SCH ×2 (09:37→20:27)
[2023-01-15] MEDS: CYANOCOBALAMIN (B-12) 500 MCG TABLET PO SCH (09:37)
[2023-01-15] MEDS: ATORVASTATIN 20 MG TAB PO SCH (09:37)
[2023-01-15] MEDS: SERTRALINE HCL 100 MG TABLET PO SCH (09:37)
[2023-01-15] MEDS: FOLIC ACID 1 MG TAB PO SCH (09:38)
[2023-01-15] MEDS: CARBAMIDE PEROXIDE 6.5% 15 ML BTL OT SCH ×2 (09:38→22:51)
[2023-01-15] MEDS: CHOLECALCIFEROL 5,000 UNITS 125 MCG TAB PO SCH (09:38)
[2023-01-15] MEDS: ASPIRIN 81 MG ECTAB PO SCH (09:38)
[2023-01-15] MEDS: AMBRISENTAN 10MG TABLET PO SCH (09:39)
[2023-01-15] MEDS: POTASSIUM CHLORIDE / WTR 10 MEQ/100 ML PLCT IV SCH ×4 (15:18→18:09)
--- NOTE | 2023-01-15 15:23 | Hospitalist Progress Note ---
Date of Service January 15, 2023 Assessment & Plan (1) Nausea & vomiting: (2) Electrolyte abnormality: Plan 62-year-old female history of MTHFR mutation chronic hypoxemic respiratory failure on a 8-10 L oxygen at home, pulmonary artery hypertension, right ventricle enlargement, limited systemic sclerosis, history of PE, history of depression, hyperlipidemia, hypothyroidism, obstructive sleep apnea, on CPAP nightly, chronic atrial fibrillation, diastolic heart failure, obesity, chronic kidney disease stage III presents with n/v and electrolyte abnormalities. Persistent nausea and vomiting Weight loss Diarrhea Urine tract infection Patient reports 3-month history of nausea, vomiting and weight loss Reports that they started when she was on IV antibiotics for Mycobacterium abscesses Stop antibiotics couple of weeks ago but still has nausea and vomiting GI consulted; recommended CT abdomen pelvis. CT abdomen and pelvis personally reviewed; bladder wall thickening present. Urinalysis suggestive of infection. Urine culture growing Enterobacter cloacae; pansensitive. Blood culture no growth till date. PICC line removed on 01/12. Continue supportive care with antiemetics. Trial of metoclopramide unsuccessful. Patient continues to have nausea and vomiting. Trial of Zofran was also unsuccessful. Antibiotics switched over to Ceftin Palliative care was consulted for persistent nausea. Patient is started on Zyprexa at bedtime. Also, nonpharmacologic method with smelling of isopropyl alcohol was also successful. Continue to monitor. Hypokalemia Hypomagnesemia Repleted Monitor for now Chronic hypoxic respiratory failure on on 8 to 10 L oxygen at home History of PE History of A-fib History of pulmonary hypertension On Coumadin. INR supratherapeutic. Hold for now. Patient is on 3.75 once a week due to supratherapeutic INR as outpatient. CT chest without contrast reviewed personally; consistent with pulmonary edema Given IV Lasix 40 mg on 01/14. Pulmonary hypertension Limited systemic sclerosis Continue home medications Follow-up with pulmonary Chronic A-fib On metoprolol and Coumadin Chronic diastolic CHF Resume Lasix and Aldactone starting tomorrow. Obstructive sleep apnea CPAP nightly with oxygen Hypothyroidism continue Synthyroid Chronic kidney stage III Creatinine at baseline Decreased hearing Possible side effects from antibiotics Stable. Dispofrom home. Independent with her ADLs. Works in [employer] office. Continues to be hospitalized due to persistent nausea and vomiting, close monitoring for chronic respiratory failure. Time spent evaluating patient, direct bedside care, chart review, placing orders, interpretation of diagnostic studies, discussion with consultants, patient, and family members, as well as other required patient management activities is 60 minutes. Please note the above document was generated using voice recognition software. It may contain grammatical, syntax or spelling errors. Any formal questions or concerns about the content, text or information contained within the body of this dictation should be directly addressed to the provider for clarification Admission and Anticipated Discharge Date Admission Date: January 10, 2023 Subjective Patient seen and examined at bedside. She reports that her nausea is better compared to previous days. She was able to eat her breakfast. Review of Systems Review of Systems: All systems reviewed & are unremarkable except as noted in Subjective Physical Exam Physical Exam: Constitutional: Awake, alert orient x3; not in distress. Respiratory: Bilateral fine crackles present. Cardiovascular: RRR, no murmur, no edema Vessels: no JVD or carotid bruit Chest: normal inspection of chest Abdomen: normal bowel sounds, soft, nontender, no hepatosplenomegaly Musculoskeletal: no cyanosis or clubbing, extremities motor strength 5/5 Skin: no rashes, warm and dry normal turgor Neurologic: PERRL, EOMI, accommodation nl, no face palsy, no dysarthria CN's II- XI intact bilaterally and moves all extremities Psychiatric: A+Ox3, euthymic affect Results & Data Results & Data Vital Signs (Past 12 Hours) Vital Signs Temp Pulse Pulse Resp BP Pulse Ox O2 Del Method 01/15/23 08:00 Nasal Cannula 01/15/23 08:00 89 01/15/23 11:11 36.9 C 94 H 20 96/65 L 92 High Flow Nasal Cannula 01/15/23 07:27 36.8 C 105 H 20 120/73 92 High Flow Nasal Cannula O2 Flow Rate 01/15/23 08:00 8 01/15/23 08:00 01/15/23 11:11 8 01/15/23 07:27 8 Laboratory Results Laboratory Results WBC 7.55 K/ul (4.8-10.8) 01/15/23 05:49 RBC 2.82 M/uL (4.20-5.40) L 01/15/23 05:49 Hgb 8.5 g/dl (12.0-16.0) L 01/15/23 05:49 Hct 25.3 % (37.0-47.0) L 01/15/23 05:49 MCV 89.7 fL (80.0-100.0) 01/15/23 05:49 MCH 30.1 pg (25.0-34.0) 01/15/23 05:49 MCHC 33.6 g/dL (32.0-36.0) 01/15/23 05:49 RDW Std Deviation 52.4 fL (36.4-46.3) H 01/15/23 05:[address] 15.8 % (11.5-14.5) H 01/15/23 05:49 Plt Count 124 K/uL (130-400) L 01/15/23 05:49 MPV 11.1 fL (9.4-12.4) 01/15/23 05:49 Immature Gran % (Auto) 0.7 % 01/15/23 05:49 Neut % (Auto) 68.5 % 01/15/23 05:49 Lymph % (Auto) 16.4 % 01/15/23 05:49 Calvert % (Auto) 8.3 % 01/15/23 05:49 Eos % (Auto) 5.4 % 01/15/23 05:49 Baso % (Auto) 0.7 % 01/15/23 05:49 Neut # (Auto) 5.17 K/uL (1.40-6.50) 01/15/23 05:49 Lymph # (Auto) 1.24 K/uL (1.2-3.4) 01/15/23 05:49 Calvert # (Auto) 0.63 K/uL (0.11-0.59) H 01/15/23 05:49 Eos # (Auto) 0.41 K/uL (0-0.50) 01/15/23 05:49 Baso # (Auto) 0.05 K/uL (0-0.2) 01/15/23 05:49 Immature Gran # (Auto) 0.05 K/uL (0.01-0.20) 01/15/23 05:49 PT 51.8 Seconds (9.0-12.0) H 01/15/23 05:49 INR 5.3 (0.9-1.1) H 01/15/23 05:49 Sodium 139 mmol/L (136-145) 01/15/23 05:49 Potassium 3.1 mmol/L (3.5-5.1) L 01/15/23 05:49 Chloride 99 mmol/L (98-107) 01/15/23 05:49 Carbon Dioxide 30 mmol/L (21-32) 01/15/23 05:49 Anion Gap 10 (3-11) 01/15/23 05:49 BUN 11 mg/dl (6-23) 01/15/23 05:49 Creatinine 1.10 mg/dl (0.6-1.2) 01/15/23 05:49 Est Cr Clr Drug Dosing 60.9 ml/min 01/15/23 05:49 Est GFR ( Amer) 61.4 ml/min 01/15/23 05:49 Est GFR (Non-Af Amer) 53.0 ml/min 01/15/23 05:49 BUN/Creatinine Ratio 10.0 (10-20) 01/15/23 05:49 Glucose 88 mg/dl (70-99(Fasting)) 01/15/23 05:49 Calcium 8.4 mg/dl (8.6-10.3) L 01/15/23 05:49 Phosphorus 2.3 mg/dl (2.5-4.9) L 01/11/23 05:19 Magnesium 2.0 mg/dl (1.7-2.4) 01/11/23 05:19 Total Bilirubin 1.1 mg/dl (0.2-1.0) H 01/09/23 19:13 AST 16 U/L (13-39) 01/09/23 19:13 ALT 6 U/L (7-52) L 01/09/23 19:13 Alkaline Phosphatase 59 U/L (34-104) 01/09/23 19:13 Total Protein 6.6 gm/dl (6.0-8.3) 01/09/23 19:13 Albumin 3.4 gm/dl (3.4-5.0) 01/09/23 19:13 Globulin 3.2 gm/dl (2.5-4.0) 01/09/23 19:13 Albumin/Globulin Ratio 1.1 (0.9-2) 01/09/23 19:13 Urine Color Yellow 01/10/23 Unknown Urine Appearance Cloudy (Clear) A 01/10/23 Unknown Urine pH 6.5 (4.5-7.5) 01/10/23 Unknown Ur Specific Amigo 1.024 (1.000-1.030) 01/10/23 Unknown Urine Protein Negative (Negative) 01/10/23 Unknown Urine Glucose (UA) Negative (Negative) 01/10/23 Unknown Urine Ketones 1+ (Negative) H 01/10/23 Unknown Urine Blood Negative (Negative) 01/10/23 Unknown Urine Nitrite Positive (Negative) A 01/10/23 Unknown Urine Bilirubin Negative (Negative) 01/10/23 Unknown Urine Urobilinogen Negative (Negative) 01/10/23 Unknown Ur Leukocyte Esterase 2+ (Negative) H 01/10/23 Unknown Urine WBC (Auto) 10-30 /hpf (0-5) H 01/10/23 Unknown Urine RBC (Auto) 10-30 /hpf (0-4) H 01/10/23 Unknown U Hyaline Cast (Auto) 0 /lpf (0-5) 01/10/23 Unknown U Epithel Cells (Auto) 10-20 /lpf (0-5) H 01/10/23 Unknown Urine Bacteria (Auto) 2+ (Negative) H 01/10/23 Unknown SARS-CoV-2 (PCR) NEGATIVE (Negative) 01/09/23 22:57 Influenza Type A (PCR) Negative (Neg) 01/09/23 22:57 Influenza Type B (PCR) Negative (Neg) 01/09/23 22:57 RSV (RT-PCR) Negative (Neg) 01/09/23 22:57 Impressions Chest X-Ray 01/09/23 18:34 SINGLE VIEW CHEST CLINICAL HISTORY: Dehydration. FINDINGS: An AP upright chest radiograph is compared to study dated 10/09/2022. A right PICC line is unchanged in position. The heart is enlarged. The pulmonary vasculature is not congested. Chronic interstitial thickening similar to previous. No airspace consolidation or large pleural effusion is identified. No pneumothorax is seen. The skeletal structures are osteopenic. Bony thorax is grossly intact. IMPRESSION: Cardiomegaly with no active disease in the chest. ACT 112: Negative or not required by law. Electronically signed by: Stevie Leach M.D. 01/10/2023 12:00 AM Abdomen/Pelvis CT 01/10/23 10:37 CT SCAN OF THE ABDOMEN AND PELVIS WITH IV CONTRAST CLINICAL HISTORY: Nausea and vomiting. COMPARISON STUDY: No priors. TECHNIQUE: Following the IV administration of 93 cc of Optiray 320, CT scan of the abdomen and pelvis is performed from the lung bases to the proximal femora. Images are reviewed in the axial, sagittal, and coronal planes. IV contrast was administered without complication. A dose lowering technique was utilized adhering to the principles of ALARA. CT DOSE: 1352.60 mGy.cm FINDINGS: Lung bases: The heart is enlarged and without pericardial effusion. The coronary arteries an mitral annulus are densely calcified. There is a small hiatal hernia. There are small pleural effusions with dependent consolidation. Intralobular septal thickening is noted at the lung bases. Liver: The contrast-enhanced liver is normal in size, contour, and attenuation. There is no intrahepatic biliary ductal dilatation. The hepatic veins and portal veins are patent. Gallbladder: Unremarkable. Spleen: Normal in size and attenuation. Pancreas: Unremarkable. Adrenal glands: Unremarkable. Kidneys: The contrast enhanced kidneys are normal in size and without hydronephrosis. The kidneys enhance symmetrically. Abdominal vasculature: The abdominal aorta is normal in course and caliber noting moderate to advanced atherosclerotic calcification. Bowel: There is mild colonic diverticulosis without CT evidence of acute diverticulitis. No bowel obstruction is seen. The appendix is well-visualized and normal. Peritoneum: There is trace perihepatic, perisplenic, and pelvic ascites. No intraperitoneal free air is seen. Lymphadenopathy: None. Pelvic viscera: The bladder wall appears circumferentially thickened with surrounding infiltration. The uterus and adnexa are normal as visualized. Skeletal structures: The skeletal structures are osteopenic. No lytic or blastic lesions are seen. There is mild lumbosacral spondylosis. Soft tissues: There is body wall edema. IMPRESSION: 1. Cardiomegaly with intralobular septal thickening. Correlate clinically for evidence of congestive failure. 2. Small pleural effusions dependent consolidation. This likely represents atelectasis and clinical correlation will be required. 3. Body wall edema and a trace abdominopelvic ascites indicate fluid overload. 4. The bladder wall appears thickened and there is pericystic infiltration. Correlate with clinical findings and urinalysis. 5. Additional findings as above. ACT 112: Negative or not required by law. Electronically signed by: Stevie Leach M.D. 01/10/2023 12:[address] 01/13/23 08:00 CT chest diagnostic wo con CT DOSE: 666.77 mGy.cm CLINICAL HISTORY: 62 years-old Female with Hx of interstitial lung disease. Chronic shortness of breath TECHNIQUE: Multiaxial CT images of the chest were performed without contrast. A dose lowering technique was utilized adhering to the principles of ALARA. COMPARISON: CT abdomen and pelvis 01/10/2023, chest CT 07/04/2017 FINDINGS: Right peritracheal lymph node measures 2.1 x 1.3 cm on image 66, previously 1.6 x 0.9 cm. Subcarinal lymphadenopathy measures up to 1.1 cm. Moderate cardiomegaly with extensive coronary artery and moderate mitral annular calcifications. Trace pericardial effusion. Decreased attenuation of the cardiac blood pool suggestive of anemia. Elevation of the main pulmonary artery, 3.3 cm. Atherosclerosis of the thoracic aorta without aneurysm. Small pleural effusions, right greater than left. Anasarca with trace upper abdominal ascites. Intralobular septal thickening with intermixed groundglass and consolidative opacities are noted in a multisegmental multilobar distribution. No bronchiectasis, honeycombing or significant fibrosis identified. Central airways appear patent. Mild dependent bibasilar consolidation. IMPRESSION: 1. Cardiomegaly with interstitial pulmonary edema, small pleural effusions, anas arca and trace upper abdominal ascites. 2. Bibasilar opacities suggestive of atelectasis. Additional patchy bilateral airspace opacities likely represent alveolar pulmonary edema. A superimposed pne umonia is considered less likely however could appear similarly. 3. Mild nonspecific mediastinal lymphadenopathy. 4. No definite evidence of chronic interstitial lung disease. ACT 112: Negative or not required by law. Electronically signed by: Khoa Farr M.D. 01/13/2023 8:45 AM
[2023-01-15] MEDS: SPIRONOLACTONE 25 MG TAB PO SCH (17:16)
[2023-01-15] MEDS: OLANZapine ZYDIS 5 MG ORALLY DIS. TAB PO SCH (20:28)
[2023-01-16] MEDS: LEVOTHYROXINE SODIUM 200 MCG TABLET PO SCH (06:13)
[2023-01-16 06:35] LABS: Basophils # (auto) 0.06 K/uL (0-0.2); Basophils % (auto) 0.7 %; Eosinophils # (auto) 0.59 K/uL (0-0.50); Eosinophils % (auto) 7.3 %; Hematocrit (blood only) 26.6 % (37.0-47.0); Hemoglobin 8.8 g/dl (12.0-16.0); Immature Granulocytes # (auto) 0.06 K/uL (0.01-0.20); Immature Granulocytes % (auto) 0.7 %; Lymphocytes # (auto) 1.55 K/uL (1.2-3.4); Lymphocytes % (auto) 19.1 %; Mean Corpuscular Hemoglobin 30.3 pg (25.0-34.0); Mean Corpuscular Hgb Conc 33.1 g/dL (32.0-36.0); Mean Corpuscular Volume 91.7 fL (80.0-100.0); Mean Platelet Volume 11.1 fL (9.4-12.4); Monocytes # (auto) 0.65 K/uL (0.11-0.59); Neutrophils # (auto) 5.19 K/uL (1.40-6.50); Neutrophils % (auto) 64.2 %; Platelet Count 133 K/uL (130-400); RDW Coefficient of Variation 15.7 % (11.5-14.5); RDW Standard Deviation 52.5 fL (36.4-46.3)
[2023-01-16 06:54] LABS: BUN Creatinine Ratio 10.7 (10-20); Calcium 8.8 mg/dl (8.6-10.3); Creatinine Clr Calc Pharmacy 59.9 ml/min; Est GFR (African American) 60.1 ml/min; Est GFR (Non-African American) 51.9 ml/min; Potassium 3.3 mmol/L (3.5-5.1)
[2023-01-16 07:05] LABS: INR 4.6 (0.9-1.1); Prothrombin Time 45.8 Seconds (9.0-12.0)
[2023-01-16] MEDS ORDERED: FUROSEMIDE 80 MG TAB PO SCH (08:00)
[2023-01-16] MEDS: METOPROLOL SUCC 50MG EXT REL TAB PO SCH ×2 (08:25→20:45)
[2023-01-16] MEDS: cefUROXime axetil 500 MG TAB PO SCH ×2 (08:25→20:47)
[2023-01-16] MEDS: CYANOCOBALAMIN (B-12) 500 MCG TABLET PO SCH (08:26)
[2023-01-16] MEDS: SPIRONOLACTONE 25 MG TAB PO SCH ×2 (08:26→17:25)
[2023-01-16] MEDS: CHOLECALCIFEROL 5,000 UNITS 125 MCG TAB PO SCH (08:26)
[2023-01-16] MEDS: SERTRALINE HCL 100 MG TABLET PO SCH (08:26)
[2023-01-16] MEDS: FOLIC ACID 1 MG TAB PO SCH (08:26)
[2023-01-16] MEDS: ATORVASTATIN 20 MG TAB PO SCH (08:26)
[2023-01-16] MEDS: ASPIRIN 81 MG ECTAB PO SCH (08:26)
[2023-01-16] MEDS: AMBRISENTAN 10MG TABLET PO SCH (08:27)
[2023-01-16] MEDS: CARBAMIDE PEROXIDE 6.5% 15 ML BTL OT SCH ×2 (08:27→20:47)
--- NOTE | 2023-01-16 11:13 | Palliative Care Progress Note ---
Date of Service January 16, 2023 Assessment & Plan (1) Nausea & vomiting: Plan: Improvement with hs zyprexa and alcohol pads at meal time. She feels that she is making steps toward improvement. She is in favor of rehab after discharge before returning home and hopeful that she will eventually be able to resume some of her normal activities. Sedation with zyprexa seems to be improving. Monitor. Discussed with waste oil pumper and Anticipated Discharge Date Admission Date: January 10, 2023 Subjective Sitting on edge of bed. She tells me that she has not felt nausea when she wakes up the last two days. She does have "a little upset stomach at times, but not like it was". No prn zofran. She did have some somnolence yesterday after zyprexa dose but that is better today. She has been able to eat small amounts and has been using alcohol pads at meal times. Review of Systems Review of Systems: ESAS Pain 0/3 Dyspnea 1/3 Nausea 1/3 Drowsiness 0/3 Physical Exam Constitutional: no acute distress ENMT: Mouth: oral mucous membranes not dry Respiratory: normal respiratory effort; no labored breathing O2 NC Cardiovascular: Rate/Rhythm: regular rate and regular rhythm Neurologic: Speech / Cognition: normal cognition Results & Data Vital Signs (Past 12 Hours) Vital Signs Temp Pulse Pulse Resp BP Pulse Ox O2 Del Method 01/16/23 10:26 97 01/16/23 09:48 Nasal Cannula 01/16/23 08:36 97.9 F 93 H 16 116/75 92 Nasal Cannula 01/16/23 03:00 97.7 F 90 18 119/73 94 High Flow Nasal Cannula 01/16/23 00:21 88 O2 Flow Rate 01/16/23 10:26 01/16/23 09:48 8 01/16/23 08:36 01/16/23 03:00 8 01/16/23 00:21 PG Care Time/CCT Total # of Minutes Spent Total Time Spent: 40 Total Time Spent with Patient: Total time spent is greater than 50% in coordination of care (as documented) at patient's floor/unit and/or counseling patient: symptom management, patient education and support Coding Level of Care Code 04531 SUB INP/OBS CARE 2/35MIN Diagnoses Nausea & vomiting R11.2
[2023-01-16] MEDS: SODIUM CHLORIDE 0.9% 1000ML 1,000 ML IV SCH ×2 (12:46→20:49)
[2023-01-16] MEDS ORDERED: FUROSEMIDE 40 MG TAB PO SCH (14:00)
--- NOTE | 2023-01-16 16:02 | Hospitalist Progress Note ---
Date of Service January 16, 2023 Assessment & Plan (1) Nausea & vomiting: (2) Electrolyte abnormality: Plan 62-year-old female history of MTHFR mutation chronic hypoxemic respiratory failure on a 8-10 L oxygen at home, pulmonary artery hypertension, right ventricle enlargement, limited systemic sclerosis, history of PE, history of depression, hyperlipidemia, hypothyroidism, obstructive sleep apnea, on CPAP nightly, chronic atrial fibrillation, diastolic heart failure, obesity, chronic kidney disease stage III presents with n/v and electrolyte abnormalities. Persistent nausea and vomiting Weight loss Diarrhea Urine tract infection Patient reports 3-month history of nausea, vomiting and weight loss Reports that they started when she was on IV antibiotics for Mycobacterium abscesses Stop antibiotics couple of weeks ago but still has nausea and vomiting GI consulted; recommended CT abdomen pelvis. CT abdomen and pelvis personally reviewed; bladder wall thickening present. Urinalysis suggestive of infection. Urine culture growing Enterobacter cloacae; pansensitive. Blood culture no growth till date. PICC line removed on 01/12. Continue supportive care with antiemetics. Trial of metoclopramide unsuccessful. Patient continues to have nausea and vomiting. Trial of Zofran was also unsuccessful. Antibiotics switched over to Ceftin Palliative care was consulted for persistent nausea. Patient is started on Zyprexa at bedtime. Also, nonpharmacologic method with smelling of isopropyl alcohol was also successful. Continue to monitor. Orthostatic hypotension During PTs assessment on 01/16; orthostatic positive. IV hydration with normal saline at 100 cc/h Repeat orthostatics tomorrow AM. Hypokalemia Hypomagnesemia Repleted Monitor for now Chronic hypoxic respiratory failure on on 8 to 10 L oxygen at home History of PE History of A-fib History of pulmonary hypertension On Coumadin. INR supratherapeutic. Hold for now. Patient is on 3.75 once a week due to supratherapeutic INR as outpatient. CT chest without contrast reviewed personally; consistent with pulmonary edema Given IV Lasix 40 mg on 01/14. Pulmonary hypertension Limited systemic sclerosis Continue home medications Follow-up with pulmonary Chronic A-fib On metoprolol and Coumadin Chronic diastolic CHF Resume Lasix and Aldactone starting tomorrow. Obstructive sleep apnea CPAP nightly with oxygen Hypothyroidism continue Synthyroid Chronic kidney stage III Creatinine at baseline Decreased hearing Possible side effects from antibiotics Stable. Dispofrom home. Independent with her ADLs. Works in [employer] office. Continues to be hospitalized due to orthostatic hypotension and persistent nausea/vomiting. Close monitoring for chronic respiratory failure. Time spent evaluating patient, direct bedside care, chart review, placing orders, interpretation of diagnostic studies, discussion with consultants, patient, and family members, as well as other required patient management activities is 60 minutes. Please note the above document was generated using voice recognition software. It may contain grammatical, syntax or spelling errors. Any formal questions or concerns about the content, text or information contained within the body of this dictation should be directly addressed to the provider for clarification Admission and Anticipated Discharge Date Admission Date: January 10, 2023 Subjective Patient seen and examined at bedside. Reports that her nausea and vomiting is much better. However, was dizzy and orthostatics were positive during assessment with PT OT today. Review of Systems Review of Systems: All systems reviewed & are unremarkable except as noted in Subjective Physical Exam Physical Exam: Constitutional: Awake, alert orient x3; not in distress. Respiratory: Bilateral fine crackles present. Cardiovascular: RRR, no murmur, no edema Vessels: no JVD or carotid bruit Chest: normal inspection of chest Abdomen: normal bowel sounds, soft, nontender, no hepatosplenomegaly Musculoskeletal: no cyanosis or clubbing, extremities motor strength 5/5 Skin: no rashes, warm and dry normal turgor Neurologic: PERRL, EOMI, accommodation nl, no face palsy, no dysarthria CN's II- XI intact bilaterally and moves all extremities Psychiatric: A+Ox3, euthymic affect Results & Data Results & Data Vital Signs (Past 12 Hours) Vital Signs Temp Pulse Resp BP BP Pulse Ox O2 Del Method 01/16/23 15:20 36.5 C 84 20 129/76 Nasal Cannula 01/16/23 12:03 36.6 C 89 16 95/60 L 93 Room Air 01/16/23 10:26 97 01/16/23 09:48 Nasal Cannula 01/16/23 08:36 36.6 C 93 H 16 116/75 92 Nasal Cannula O2 Flow Rate 01/16/23 15:20 7 01/16/23 12:03 01/16/23 10:26 01/16/23 09:48 8 01/16/23 08:36 Laboratory Results Laboratory Results WBC 8.10 K/ul (4.8-10.8) 01/16/23 06:02 RBC 2.90 M/uL (4.20-5.40) L 01/16/23 06:02 Hgb 8.8 g/dl (12.0-16.0) L 01/16/23 06:02 Hct 26.6 % (37.0-47.0) L 01/16/23 06:02 MCV 91.7 fL (80.0-100.0) 01/16/23 06:02 MCH 30.3 pg (25.0-34.0) 01/16/23 06:02 MCHC 33.1 g/dL (32.0-36.0) 01/16/23 06:02 RDW Std Deviation 52.5 fL (36.4-46.3) H 01/16/23 06:[address] 15.7 % (11.5-14.5) H 01/16/23 06:02 Plt Count 133 K/uL (130-400) 01/16/23 06:02 MPV 11.1 fL (9.4-12.4) 01/16/23 06:02 Immature Gran % (Auto) 0.7 % 01/16/23 06:02 Neut % (Auto) 64.2 % 01/16/23 06:02 Lymph % (Auto) 19.1 % 01/16/23 06:02 [place] % (Auto) 8.0 % 01/16/23 06:02 Eos % (Auto) 7.3 % 01/16/23 06:02 Baso % (Auto) 0.7 % 01/16/23 06:02 Neut # (Auto) 5.19 K/uL (1.40-6.50) 01/16/23 06:02 Lymph # (Auto) 1.55 K/uL (1.2-3.4) 01/16/23 06:02 [place] # (Auto) 0.65 K/uL (0.11-0.59) H 01/16/23 06:02 Eos # (Auto) 0.59 K/uL (0-0.50) H 01/16/23 06:02 Baso # (Auto) 0.06 K/uL (0-0.2) 01/16/23 06:02 Immature Gran # (Auto) 0.06 K/uL (0.01-0.20) 01/16/23 06:02 PT 45.8 Seconds (9.0-12.0) H 01/16/23 06:02 INR 4.6 (0.9-1.1) H 01/16/23 06:02 Sodium 137 mmol/L (136-145) 01/16/23 06:02 Potassium 3.3 mmol/L (3.5-5.1) L 01/16/23 06:02 Chloride 98 mmol/L (98-107) 01/16/23 06:02 Carbon Dioxide 30 mmol/L (21-32) 01/16/23 06:02 Anion Gap 9 (3-11) 01/16/23 06:02 BUN 12 mg/dl (6-23) 01/16/23 06:02 Creatinine 1.12 mg/dl (0.6-1.2) 01/16/23 06:02 Est Cr Clr Drug Dosing 59.9 ml/min 01/16/23 06:02 Est GFR ( Amer) 60.1 ml/min 01/16/23 06:02 Est GFR (Non-Af Amer) 51.9 ml/min 01/16/23 06:02 BUN/Creatinine Ratio 10.7 (10-20) 01/16/23 06:02 Glucose 88 mg/dl (70-99(Fasting)) 01/16/23 06:02 Calcium 8.8 mg/dl (8.6-10.3) 01/16/23 06:02 Phosphorus 2.3 mg/dl (2.5-4.9) L 01/11/23 05:19 Magnesium 2.0 mg/dl (1.7-2.4) 01/11/23 05:19 Total Bilirubin 1.1 mg/dl (0.2-1.0) H 01/09/23 19:13 AST 16 U/L (13-39) 01/09/23 19:13 ALT 6 U/L (7-52) L 01/09/23 19:13 Alkaline Phosphatase 59 U/L (34-104) 01/09/23 19:13 Total Protein 6.6 gm/dl (6.0-8.3) 01/09/23 19:13 Albumin 3.4 gm/dl (3.4-5.0) 01/09/23 19:13 Globulin 3.2 gm/dl (2.5-4.0) 01/09/23 19:13 Albumin/Globulin Ratio 1.1 (0.9-2) 01/09/23 19:13 Urine Color Yellow 01/10/23 Unknown Urine Appearance Cloudy (Clear) A 01/10/23 Unknown Urine pH 6.5 (4.5-7.5) 01/10/23 Unknown Ur Specific [place] 1.024 (1.000-1.030) 01/10/23 Unknown Urine Protein Negative (Negative) 01/10/23 Unknown Urine Glucose (UA) Negative (Negative) 01/10/23 Unknown Urine Ketones 1+ (Negative) H 01/10/23 Unknown Urine Blood Negative (Negative) 01/10/23 Unknown Urine Nitrite Positive (Negative) A 01/10/23 Unknown Urine Bilirubin Negative (Negative) 01/10/23 Unknown Urine Urobilinogen Negative (Negative) 01/10/23 Unknown Ur Leukocyte Esterase 2+ (Negative) H 01/10/23 Unknown Urine WBC (Auto) 10-30 /hpf (0-5) H 01/10/23 Unknown Urine RBC (Auto) 10-30 /hpf (0-4) H 01/10/23 Unknown U Hyaline Cast (Auto) 0 /lpf (0-5) 01/10/23 Unknown U Epithel Cells (Auto) 10-20 /lpf (0-5) H 01/10/23 Unknown Urine Bacteria (Auto) 2+ (Negative) H 01/10/23 Unknown SARS-CoV-2 (PCR) NEGATIVE (Negative) 01/09/23 22:57 Influenza Type A (PCR) Negative (Neg) 01/09/23 22:57 Influenza Type B (PCR) Negative (Neg) 01/09/23 22:57 RSV (RT-PCR) Negative (Neg) 01/09/23 22:57 Impressions Chest X-Ray 01/09/23 18:34 SINGLE VIEW CHEST CLINICAL HISTORY: Dehydration. FINDINGS: An AP upright chest radiograph is compared to study dated 10/09/2022. A right PICC line is unchanged in position. The heart is enlarged. The pulmonary vasculature is not congested. Chronic interstitial thickening similar to previous. No airspace consolidation or large pleural effusion is identified. No pneumothorax is seen. The skeletal structures are osteopenic. Bony thorax is grossly intact. IMPRESSION: Cardiomegaly with no active disease in the chest. ACT 112: Negative or not required by law. Electronically signed by: Stevie Leach M.D. 01/10/2023 12:00 AM Abdomen/Pelvis CT 01/10/23 10:37 CT SCAN OF THE ABDOMEN AND PELVIS WITH IV CONTRAST CLINICAL HISTORY: Nausea and vomiting. COMPARISON STUDY: No priors. TECHNIQUE: Following the IV administration of 93 cc of Optiray 320, CT scan of the abdomen and pelvis is performed from the lung bases to the proximal femora. Images are reviewed in the axial, sagittal, and coronal planes. IV contrast was administered without complication. A dose lowering technique was utilized adhering to the principles of ALARA. CT DOSE: 1352.60 mGy.cm FINDINGS: Lung bases: The heart is enlarged and without pericardial effusion. The coronary arteries an mitral annulus are densely calcified. There is a small hiatal hernia. There are small pleural effusions with dependent consolidation. Intralobular septal thickening is noted at the lung bases. Liver: The contrast-enhanced liver is normal in size, contour, and attenuation. There is no intrahepatic biliary ductal dilatation. The hepatic veins and portal veins are patent. Gallbladder: Unremarkable. Spleen: Normal in size and attenuation. Pancreas: Unremarkable. Adrenal glands: Unremarkable. Kidneys: The contrast enhanced kidneys are normal in size and without hydronephrosis. The kidneys enhance symmetrically. Abdominal vasculature: The abdominal aorta is normal in course and caliber noting moderate to advanced atherosclerotic calcification. Bowel: There is mild colonic diverticulosis without CT evidence of acute diverticulitis. No bowel obstruction is seen. The appendix is well-visualized and normal. Peritoneum: There is trace perihepatic, perisplenic, and pelvic ascites. No intraperitoneal free air is seen. Lymphadenopathy: None. Pelvic viscera: The bladder wall appears circumferentially thickened with surrounding infiltration. The uterus and adnexa are normal as visualized. Skeletal structures: The skeletal structures are osteopenic. No lytic or blastic lesions are seen. There is mild lumbosacral spondylosis. Soft tissues: There is body wall edema. IMPRESSION: 1. Cardiomegaly with intralobular septal thickening. Correlate clinically for evidence of congestive failure. 2. Small pleural effusions dependent consolidation. This likely represents atelectasis and clinical correlation will be required. 3. Body wall edema and a trace abdominopelvic ascites indicate fluid overload. 4. The bladder wall appears thickened and there is pericystic infiltration. Correlate with clinical findings and urinalysis. 5. Additional findings as above. ACT 112: Negative or not required by law. Electronically signed by: Stevie Leach M.D. 01/10/2023 12:[address] 01/13/23 08:00 CT chest diagnostic wo con CT DOSE: 666.77 mGy.cm CLINICAL HISTORY: 62 years-old Female with Hx of interstitial lung disease. Chronic shortness of breath TECHNIQUE: Multiaxial CT images of the chest were performed without contrast. A dose lowering technique was utilized adhering to the principles of ALARA. COMPARISON: CT abdomen and pelvis 01/10/2023, chest CT 07/04/2017 FINDINGS: Right peritracheal lymph node measures 2.1 x 1.3 cm on image 66, previously 1.6 x 0.9 cm. Subcarinal lymphadenopathy measures up to 1.1 cm. Moderate cardiomegaly with extensive coronary artery and moderate mitral annular calcifications. Trace pericardial effusion. Decreased attenuation of the cardiac blood pool suggestive of anemia. Elevation of the main pulmonary artery, 3.3 cm. Atherosclerosis of the thoracic aorta without aneurysm. Small pleural effusions, right greater than left. Anasarca with trace upper abdominal ascites. Intralobular septal thickening with intermixed groundglass and consolidative opacities are noted in a multisegmental multilobar distribution. No bronchiectasis, honeycombing or significant fibrosis identified. Central airways appear patent. Mild dependent bibasilar consolidation. IMPRESSION: 1. Cardiomegaly with interstitial pulmonary edema, small pleural effusions, anasarca and trace upper abdominal ascites. 2. Bibasilar opacities suggestive of atelectasis. Additional patchy bilateral airspace opacities likely represent alveolar pulmonary edema. A superimposed pneumonia is considered less likely however could appear similarly. 3. Mild nonspecific mediastinal lymphadenopathy. 4. No definite evidence of chronic interstitial lung disease. ACT 112: Negative or not required by law. Electronically signed by: Khoa Farr M.D. 01/13/2023 8:45 AM
[2023-01-16] MEDS: OLANZapine ZYDIS 5 MG ORALLY DIS. TAB PO SCH (20:45)
[2023-01-16] MEDS ORDERED: POTASSIUM CHLORIDE CRTAB 20 MEQ TABCR PO STA (21:10)
[2023-01-17] MEDS: LEVOTHYROXINE SODIUM 200 MCG TABLET PO SCH (06:08)
[2023-01-17] MEDS: SODIUM CHLORIDE 0.9% 1000ML 1,000 ML IV SCH (06:09)
[2023-01-17 07:04] LABS: INR 3.5 (0.9-1.1); Prothrombin Time 35.4 Seconds (9.0-12.0)
[2023-01-17 07:05] LABS: BUN Creatinine Ratio 9.7 (10-20); Calcium 8.9 mg/dl (8.6-10.3); Creatinine Clr Calc Pharmacy 58.6 ml/min; Est GFR (African American) 59.5 ml/min; Est GFR (Non-African American) 51.3 ml/min; Potassium 3.2 mmol/L (3.5-5.1)
[2023-01-17 09:19] LABS: Basophils # (auto) 0.06 K/uL (0-0.2); Basophils % (auto) 0.6 %; Eosinophils # (auto) 0.69 K/uL (0-0.50); Eosinophils % (auto) 7.2 %; Hematocrit (blood only) 27.8 % (37.0-47.0); Hemoglobin 9.5 g/dl (12.0-16.0); Immature Granulocytes # (auto) 0.05 K/uL (0.01-0.20); Immature Granulocytes % (auto) 0.5 %; Lymphocytes # (auto) 1.72 K/uL (1.2-3.4); Mean Corpuscular Hgb Conc 34.2 g/dL (32.0-36.0); Mean Corpuscular Volume 90.8 fL (80.0-100.0); Mean Platelet Volume 11.1 fL (9.4-12.4); Monocytes # (auto) 0.62 K/uL (0.11-0.59); Monocytes % (auto) 6.5 %; Neutrophils # (auto) 6.43 K/uL (1.40-6.50); Neutrophils % (auto) 67.2 %; Platelet Count 154 K/uL (130-400); RDW Coefficient of Variation 15.6 % (11.5-14.5); Red Blood Count 3.06 M/uL (4.20-5.40); White Blood Count 9.57 K/ul (4.8-10.8)
[2023-01-17] MEDS: AMBRISENTAN 10MG TABLET PO SCH (09:50)
[2023-01-17] MEDS: CYANOCOBALAMIN (B-12) 500 MCG TABLET PO SCH (09:51)
[2023-01-17] MEDS: SPIRONOLACTONE 25 MG TAB PO SCH ×2 (09:51→16:14)
[2023-01-17] MEDS: ATORVASTATIN 20 MG TAB PO SCH (09:51)
[2023-01-17] MEDS: cefUROXime axetil 500 MG TAB PO SCH ×2 (09:51→20:08)
[2023-01-17] MEDS: FOLIC ACID 1 MG TAB PO SCH (09:51)
[2023-01-17] MEDS: SERTRALINE HCL 100 MG TABLET PO SCH (09:51)
[2023-01-17] MEDS: CHOLECALCIFEROL 5,000 UNITS 125 MCG TAB PO SCH (09:51)
[2023-01-17] MEDS: ASPIRIN 81 MG ECTAB PO SCH (09:51)
[2023-01-17] MEDS: CARBAMIDE PEROXIDE 6.5% 15 ML BTL OT SCH ×2 (09:52→20:08)
[2023-01-17] MEDS: METOPROLOL SUCC 50MG EXT REL TAB PO SCH ×2 (09:52→20:12)
--- NOTE | 2023-01-17 15:50 | Hospitalist Progress Note ---
Date of Service January 17, 2023 Assessment & Plan (1) Nausea & vomiting: (2) Electrolyte abnormality: Plan 62-year-old female history of MTHFR mutation chronic hypoxemic respiratory failure on a 8-10 L oxygen at home, pulmonary artery hypertension, right ventricle enlargement, limited systemic sclerosis, history of PE, history of depression, hyperlipidemia, hypothyroidism, obstructive sleep apnea, on CPAP nightly, chronic atrial fibrillation, diastolic heart failure, obesity, chronic kidney disease stage III presents with n/v and electrolyte abnormalities. Persistent nausea and vomiting Weight loss Diarrhea Urine tract infection Patient reports 3-month history of nausea, vomiting and weight loss Reports that they started when she was on IV antibiotics for Mycobacterium abscesses Stop antibiotics couple of weeks ago but still has nausea and vomiting GI consulted; recommended CT abdomen pelvis. CT abdomen and pelvis personally reviewed; bladder wall thickening present. Urinalysis suggestive of infection. Urine culture growing Enterobacter cloacae; pansensitive. Blood culture no growth till date. PICC line removed on 01/12. Continue supportive care with antiemetics. Trial of metoclopramide unsuccessful. Patient continues to have nausea and vomiting. Trial of Zofran was also unsuccessful. Antibiotics switched over to Ceftin; plan to treat till 01/19. Palliative care was consulted for persistent nausea. Patient is started on Zyprexa at bedtime. Also, nonpharmacologic method with smelling of isopropyl alcohol was also successful. Continue to monitor. Orthostatic hypotension During PTs assessment on 01/16; orthostatic positive. IV hydration with normal saline at 100 cc/h Repeat orthostatic static negative today. Will encourage oral hydration. Lasix is currently on hold Hypokalemia Hypomagnesemia Repleted Monitor for now Chronic hypoxic respiratory failure on on 8 to 10 L oxygen at home History of PE History of A-fib History of pulmonary hypertension On Coumadin. INR supratherapeutic. Hold for now. Patient is on 3.75 once a week due to supratherapeutic INR as outpatient. CT chest without contrast reviewed personally; consistent with pulmonary edema Given IV Lasix 40 mg on 01/14. Lasix currently on hold. Pulmonary hypertension Limited systemic sclerosis Continue home medications Follow-up with pulmonary Chronic A-fib On metoprolol and Coumadin Chronic diastolic CHF Lasix is on hold. Monitor for volume overload. Continue Aldactone. Obstructive sleep apnea CPAP nightly with oxygen Hypothyroidism continue Synthyroid Chronic kidney stage III Creatinine at baseline Decreased hearing Possible side effects from antibiotics Stable. Dispofrom home. Independent with her ADLs. Works in [employer] office. Continues to be hospitalized due to orthostatic hypotension and persistent nausea/vomiting. PT OT recommends rehab; case management on board. Time spent evaluating patient, direct bedside care, chart review, placing orders, interpretation of diagnostic studies, discussion with consultants, patient, and family members, as well as other required patient management activities is 60 minutes. Please note the above document was generated using voice recognition software. It may contain grammatical, syntax or spelling errors. Any formal questions or concerns about the content, text or information contained within the body of this dictation should be directly addressed to the provider for clarification Admission and Anticipated Discharge Date Admission Date: January 10, 2023 Subjective Patient seen and examined at bedside. She reports that her nausea and vomiting has much improved. Orthostatic negative today morning. However, patient continues to complain of dizziness on standing Review of Systems Review of Systems: All systems reviewed & are unremarkable except as noted in Subjective Physical Exam Physical Exam: Constitutional: Awake, alert orient x3; not in distress. Respiratory: Bilateral fine crackles present. Cardiovascular: RRR, no murmur, no edema Vessels: no JVD or carotid bruit Chest: normal inspection of chest Abdomen: normal bowel sounds, soft, nontender, no hepatosplenomegaly Musculoskeletal: no cyanosis or clubbing, extremities motor strength 5/5 Skin: no rashes, warm and dry normal turgor Neurologic: PERRL, EOMI, accommodation nl, no face palsy, no dysarthria CN's II- XI intact bilaterally and moves all extremities Psychiatric: A+Ox3, euthymic affect Results & Data Results & Data Vital Signs (Past 12 Hours) Vital Signs Temp Pulse Pulse Resp BP Pulse Ox O2 Del Method 01/17/23 15:19 104 H 01/17/23 08:00 Nasal Cannula 01/17/23 12:00 36.5 C 90 18 108/73 93 High Flow Nasal Cannula 01/17/23 08:13 36.7 C 70 18 107/69 93 High Flow Nasal Cannula O2 Flow Rate 01/17/23 15:19 01/17/23 08:00 8 01/17/23 12:00 9 01/17/23 08:13 9 Laboratory Results Laboratory Results WBC 9.57 K/ul (4.8-10.8) 01/17/23 06:10 RBC 3.06 M/uL (4.20-5.40) L 01/17/23 06:10 Hgb 9.5 g/dl (12.0-16.0) L 01/17/23 06:10 Hct 27.8 % (37.0-47.0) L 01/17/23 06:10 MCV 90.8 fL (80.0-100.0) 01/17/23 06:10 MCH 31.0 pg (25.0-34.0) 01/17/23 06:10 MCHC 34.2 g/dL (32.0-36.0) 01/17/23 06:10 RDW Std Deviation 52.0 fL (36.4-46.3) H 01/17/23 06:[address] 15.6 % (11.5-14.5) H 01/17/23 06:10 Plt Count 154 K/uL (130-400) 01/17/23 06:10 MPV 11.1 fL (9.4-12.4) 01/17/23 06:10 Immature Gran % (Auto) 0.5 % 01/17/23 06:10 Neut % (Auto) 67.2 % 01/17/23 06:10 Lymph % (Auto) 18.0 % 01/17/23 06:10 [place] % (Auto) 6.5 % 01/17/23 06:10 Eos % (Auto) 7.2 % 01/17/23 06:10 Baso % (Auto) 0.6 % 01/17/23 06:10 Neut # (Auto) 6.43 K/uL (1.40-6.50) 01/17/23 06:10 Lymph # (Auto) 1.72 K/uL (1.2-3.4) 01/17/23 06:10 [place] # (Auto) 0.62 K/uL (0.11-0.59) H 01/17/23 06:10 Eos # (Auto) 0.69 K/uL (0-0.50) H 01/17/23 06:10 Baso # (Auto) 0.06 K/uL (0-0.2) 01/17/23 06:10 Immature Gran # (Auto) 0.05 K/uL (0.01-0.20) 01/17/23 06:10 PT 35.4 Seconds (9.0-12.0) H 01/17/23 06:10 INR 3.5 (0.9-1.1) H 01/17/23 06:10 Sodium 139 mmol/L (136-145) 01/17/23 06:10 Potassium 3.2 mmol/L (3.5-5.1) L 01/17/23 06:10 Chloride 96 mmol/L (98-107) L 01/17/23 06:10 Carbon Dioxide 32 mmol/L (21-32) 01/17/23 06:10 Anion Gap 11 (3-11) 01/17/23 06:10 BUN 11 mg/dl (6-23) 01/17/23 06:10 Creatinine 1.13 mg/dl (0.6-1.2) 01/17/23 06:10 Est Cr Clr Drug Dosing 58.6 ml/min 01/17/23 06:10 Est GFR ( Amer) 59.5 ml/min 01/17/23 06:10 Est GFR (Non-Af Amer) 51.3 ml/min 01/17/23 06:10 BUN/Creatinine Ratio 9.7 (10-20) L 01/17/23 06:10 Glucose 93 mg/dl (70-99(Fasting)) 01/17/23 06:10 Calcium 8.9 mg/dl (8.6-10.3) 01/17/23 06:10 Phosphorus 2.3 mg/dl (2.5-4.9) L 01/11/23 05:19 Magnesium 2.0 mg/dl (1.7-2.4) 01/11/23 05:19 Total Bilirubin 1.1 mg/dl (0.2-1.0) H 01/09/23 19:13 AST 16 U/L (13-39) 01/09/23 19:13 ALT 6 U/L (7-52) L 01/09/23 19:13 Alkaline Phosphatase 59 U/L (34-104) 01/09/23 19:13 Total Protein 6.6 gm/dl (6.0-8.3) 01/09/23 19:13 Albumin 3.4 gm/dl (3.4-5.0) 01/09/23 19:13 Globulin 3.2 gm/dl (2.5-4.0) 01/09/23 19:13 Albumin/Globulin Ratio 1.1 (0.9-2) 01/09/23 19:13 Urine Color Yellow 01/10/23 Unknown Urine Appearance Cloudy (Clear) A 01/10/23 Unknown Urine pH 6.5 (4.5-7.5) 01/10/23 Unknown Ur Specific [place] 1.024 (1.000-1.030) 01/10/23 Unknown Urine Protein Negative (Negative) 01/10/23 Unknown Urine Glucose (UA) Negative (Negative) 01/10/23 Unknown Urine Ketones 1+ (Negative) H 01/10/23 Unknown Urine Blood Negative (Negative) 01/10/23 Unknown Urine Nitrite Positive (Negative) A 01/10/23 Unknown Urine Bilirubin Negative (Negative) 01/10/23 Unknown Urine Urobilinogen Negative (Negative) 01/10/23 Unknown Ur Leukocyte Esterase 2+ (Negative) H 01/10/23 Unknown Urine WBC (Auto) 10-30 /hpf (0-5) H 01/10/23 Unknown Urine RBC (Auto) 10-30 /hpf (0-4) H 01/10/23 Unknown U Hyaline Cast (Auto) 0 /lpf (0-5) 01/10/23 Unknown U Epithel Cells (Auto) 10-20 /lpf (0-5) H 01/10/23 Unknown Urine Bacteria (Auto) 2+ (Negative) H 01/10/23 Unknown SARS-CoV-2 (PCR) NEGATIVE (Negative) 01/09/23 22:57 Influenza Type A (PCR) Negative (Neg) 01/09/23 22:57 Influenza Type B (PCR) Negative (Neg) 01/09/23 22:57 RSV (RT-PCR) Negative (Neg) 01/09/23 22:57 Impressions Chest X-Ray 01/09/23 18:34 SINGLE VIEW CHEST CLINICAL HISTORY: Dehydration. FINDINGS: An AP upright chest radiograph is compared to study dated 10/09/2022. A right PICC line is unchanged in position. The heart is enlarged. The pulmonary vasculature is not congested. Chronic interstitial thickening similar to previous. No airspace consolidation or large pleural effusion is identified. No pneumothorax is seen. The skeletal structures are osteopenic. Bony thorax is grossly intact. IMPRESSION: Cardiomegaly with no active disease in the chest. ACT 112: Negative or not required by law. Electronically signed by: Stevie Leach M.D. 01/10/2023 12:00 AM Abdomen/Pelvis CT 01/10/23 10:37 CT SCAN OF THE ABDOMEN AND PELVIS WITH IV CONTRAST CLINICAL HISTORY: Nausea and vomiting. COMPARISON STUDY: No priors. TECHNIQUE: Following the IV administration of 93 cc of Optiray 320, CT scan of the abdomen and pelvis is performed from the lung bases to the proximal femora. Images are reviewed in the axial, sagittal, and coronal planes. IV contrast was administered without complication. A dose lowering technique was utilized adhering to the principles of ALARA. CT DOSE: 1352.60 mGy.cm FINDINGS: Lung bases: The heart is enlarged and without pericardial effusion. The coronary arteries an mitral annulus are densely calcified. There is a small hiatal hernia. There are small pleural effusions with dependent consolidation. Intralobular septal thickening is noted at the lung bases. Liver: The contrast-enhanced liver is normal in size, contour, and attenuation. There is no intrahepatic biliary ductal dilatation. The hepatic veins and portal veins are patent. Gallbladder: Unremarkable. Spleen: Normal in size and attenuation. Pancreas: Unremarkable. Adrenal glands: Unremarkable. Kidneys: The contrast enhanced kidneys are normal in size and without hydronep hrosis. The kidneys enhance symmetrically. Abdominal vasculature: The abdominal aorta is normal in course and caliber noting moderate to advanced atherosclerotic calcification. Bowel: There is mild colonic diverticulosis without CT evidence of acute diverticulitis. No bowel obstruction is seen. The appendix is well-visualized and normal. Peritoneum: There is trace perihepatic, perisplenic, and pelvic ascites. No intraperitoneal free air is seen. Lymphadenopathy: None. Pelvic viscera: The bladder wall appears circumferentially thickened with surrounding infiltration. The uterus and adnexa are normal as visualized. Skeletal structures: The skeletal structures are osteopenic. No lytic or blastic lesions are seen. There is mild lumbosacral spondylosis. Soft tissues: There is body wall edema. IMPRESSION: 1. Cardiomegaly with intralobular septal thickening. Correlate clinically for evidence of congestive failure. 2. Small pleural effusions dependent consolidation. This likely represents atelectasis and clinical correlation will be required. 3. Body wall edema and a trace abdominopelvic ascites indicate fluid overload. 4. The bladder wall appears thickened and there is pericystic infiltration. Correlate with clinical findings and urinalysis. 5. Additional findings as above. ACT 112: Negative or not required by law. Electronically signed by: Stevie Leach M.D. 01/10/2023 12:[address] 01/13/23 08:00 CT chest diagnostic wo con CT DOSE: 666.77 mGy.cm CLINICAL HISTORY: 62 years-old Female with Hx of interstitial lung disease. Chronic shortness of breath TECHNIQUE: Multiaxial CT images of the chest were performed without contrast. A dose lowering technique was utilized adhering to the principles of ALARA. COMPARISON: CT abdomen and pelvis 01/10/2023, chest CT 07/04/2017 FINDINGS: Right peritracheal lymph node measures 2.1 x 1.3 cm on image 66, previously 1.6 x 0.9 cm. Subcarinal lymphadenopathy measures up to 1.1 cm. Moderate cardiomegaly with extensive coronary artery and moderate mitral annular calcifications. Trace pericardial effusion. Decreased attenuation of the cardiac blood pool suggestive of anemia. Elevation of the main pulmonary artery, 3.3 cm. Atherosclerosis of the thoracic aorta without aneurysm. Small pleural effusions, right greater than left. Anasarca with trace upper abdominal ascites. Intralobular septal thickening with intermixed groundglass and consolidative opacities are noted in a multisegmental multilobar distribution. No bronchiectasis, honeycombing or significant fibrosis identified. Central airways appear patent. Mild dependent bibasilar consolidation. IMPRESSION: 1. Cardiomegaly with interstitial pulmonary edema, small pleural effusions, a nasarca and trace upper abdominal ascites. 2. Bibasilar opacities suggestive of atelectasis. Additional patchy bilateral airspace opacities likely represent alveolar pulmonary edema. A superimposed pneumonia is considered less likely however could appear similarly. 3. Mild nonspecific mediastinal lymphadenopathy. 4. No definite evidence of chronic interstitial lung disease. ACT 112: Negative or not required by law. Electronically signed by: Khoa Farr M.D. 01/13/2023 8:45 AM
[2023-01-17] MEDS: POTASSIUM CHLORIDE / WTR 10 MEQ/100 ML PLCT IV SCH ×4 (16:14→20:10)
[2023-01-17] MEDS: OLANZapine ZYDIS 5 MG ORALLY DIS. TAB PO SCH (20:14)
[2023-01-18] MEDS: LEVOTHYROXINE SODIUM 200 MCG TABLET PO SCH (05:39)
[2023-01-18 07:26] LABS: Prothrombin Time 30.3 Seconds (9.0-12.0)
[2023-01-18] MEDS: SPIRONOLACTONE 25 MG TAB PO SCH ×2 (09:28→17:48)
[2023-01-18] MEDS: AMBRISENTAN 10MG TABLET PO SCH (09:28)
[2023-01-18] MEDS: ASPIRIN 81 MG ECTAB PO SCH (09:28)
[2023-01-18] MEDS: cefUROXime axetil 500 MG TAB PO SCH ×2 (09:29→19:23)
[2023-01-18] MEDS: CHOLECALCIFEROL 5,000 UNITS 125 MCG TAB PO SCH (09:29)
[2023-01-18] MEDS: ATORVASTATIN 20 MG TAB PO SCH (09:29)
[2023-01-18] MEDS: SERTRALINE HCL 100 MG TABLET PO SCH (09:29)
[2023-01-18] MEDS: FOLIC ACID 1 MG TAB PO SCH (09:29)
[2023-01-18] MEDS: METOPROLOL SUCC 50MG EXT REL TAB PO SCH ×2 (09:29→19:24)
[2023-01-18] MEDS: CYANOCOBALAMIN (B-12) 500 MCG TABLET PO SCH (09:30)
[2023-01-18] MEDS: CARBAMIDE PEROXIDE 6.5% 15 ML BTL OT SCH (09:30)
[2023-01-18] MEDS ORDERED: POTASSIUM CHLORIDE CRTAB 20 MEQ TABCR PO ONE (09:40)
[2023-01-18] MEDS: POTASSIUM CHLORIDE / WTR 10 MEQ/100 ML PLCT IV SCH ×2 (12:13→13:17)
[2023-01-18] MEDS ORDERED: WARFARIN SOD 2 MG TAB PO SCH (16:00)
[2023-01-18] MEDS: WARFARIN SOD 1 MG TAB PO SCH (16:47)
--- NOTE | 2023-01-18 16:58 | Hospitalist Progress Note ---
Date of Service January 18, 2023 Assessment & Plan (1) Nausea & vomiting: (2) Electrolyte abnormality: Plan Patient is a 62 yr female with H/O MTHFR mutation, chronic hypoxemic respiratory failure on a 8-10 L oxygen at home, pulmonary artery hypertension, right ventricle enlargement, limited systemic sclerosis, history of PE, history of depression, hyperlipidemia, hypothyroidism, obstructive sleep apnea, on CPAP nightly, chronic atrial fibrillation, diastolic heart failure, obesity, chronic kidney disease stage III presents with n/v and electrolyte abnormalities. Persistent nausea and vomiting Weight loss Diarrhea Urine tract infection --Patient reports 3-month history of nausea, vomiting and weight loss. Reports that they started when she was on IV antibiotics for Mycobacterium abscesses. Was on amikacin, cefoxitin, linezolid, azithromycin per patient --Followed with infectious disease and pulmonology as outpatient--recommended to discontinue antibiotics thought to be causing significant nausea, vomiting. Patient discontinued antibiotics a couple of weeks ago. --CT ABD:Cardiomegaly with intralobular septal thickening. Correlate clinically for evidence of congestive failure. Small pleural effusions dependent consolidation. This likely represents atelectasis and clinical correlation will be required. Body wall edema and a trace abdominopelvic ascites indicate fluid overload. The bladder wall appears thickened and there is pericystic infiltratio n. Correlate with clinical findings and urinalysis. -- GI was consulted. Offered EGD/colonoscopy. Consider further testing as outpatient --Urine culture growing Enterobacter cloacae -- Blood culture negative to date --Trial of metoclopramide, Zofran unsuccessful. IV Antibiotics switched over to Ceftin--will complete course on 01/19. Palliative care was consulted for persistent nausea Symptomatically improved on Zyprexa. Also, nonpharmacologic method with smelling of isopropyl alcohol was also successful. Slowly improving Orthostatic hypotension Received IV hydration Lasix held for now Monitor volume status, BP Hypokalemia Hypomagnesemia Replete as needed Chronic hypoxic respiratory failure on on 8 to 10 L oxygen at home Pulmonary edema History of PE History of A-fib History of pulmonary hypertension Resumed Coumadin INR supratherapeutic initially INR:3.0 today Received IV Lasix on 01/14. Lasix currently on hold. Pulmonary hypertension Limited systemic sclerosis Continue home medications Follow-up with pulmonary as outpatient Chronic A-fib On metoprolol and Coumadin Chronic diastolic CHF Lasix is on hold. Monitor for volume overload. Continue Aldactone. Obstructive sleep apnea CPAP nightly with oxygen Hypothyroidism continue Levothyroxine Chronic kidney stage III Creatinine at baseline Decreased hearing Possible side effects from antibiotics Stable DVT Px: Coumadin Code Status Full Code Disposition Rehab as able Admission and Anticipated Discharge Date Admission Date: January 10, 2023 Subjective Patient is seen and examined at bedside States having intermittent dizziness associated with balance issues Nausea resolved Able to tolerate food Denies any chest pain, dyspnea, abdominal pain No other complaints Review of Systems Review of Systems: All systems reviewed & are unremarkable except as noted in Subjective Physical Exam Physical Exam: Physical Exam: Vitals signs as noted above General Appearance:Morbidly Obese, no apparent distress Head: normocephalic, Atraumatic Eyes: normal inspection, EOMI Neck: supple, Trachea midline Respiratory/Chest: Normal breath sounds, CTA, No accessory muscle use Cardiovascular: Irregularly irregular, S1, S2, +murmur Abdomen/GI:Soft, Non tender, Bowel sounds present Extremities/Musculoskeletal:normal inspection, 1+ Pedal edema Neurologic/Psych:AAOX3, grossly no focal neurological deficits Skin: normal color, warm Results & Data Results & Data Vital Signs (Past 12 Hours) Vital Signs Temp Pulse Resp BP Pulse Ox O2 Del Method O2 Flow Rate 01/18/23 15:38 36.5 C 90 18 92/61 L 98 Nasal Cannula 01/18/23 08:00 Nasal Cannula 9 01/18/23 12:00 36.7 C 88 18 112/78 97 Nasal Cannula 9 01/18/23 08:31 36.8 C 80 20 133/85 97 Nasal Cannula 9.0
[2023-01-18] MEDS: OLANZapine ZYDIS 5 MG ORALLY DIS. TAB PO SCH (19:24)
[2023-01-19] MEDS: LEVOTHYROXINE SODIUM 200 MCG TABLET PO SCH (05:23)
[2023-01-19 05:59] LABS: Hematocrit (blood only) 22.5 % (37.0-47.0); Hemoglobin 7.6 g/dl (12.0-16.0); Mean Corpuscular Hemoglobin 30.5 pg (25.0-34.0); Mean Corpuscular Hgb Conc 33.8 g/dL (32.0-36.0); Mean Corpuscular Volume 90.4 fL (80.0-100.0); Platelet Count 104 K/uL (130-400); RDW Coefficient of Variation 14.9 % (11.5-14.5); Red Blood Count 2.49 M/uL (4.20-5.40); White Blood Count 6.96 K/ul (4.8-10.8)
[2023-01-19 06:10] LABS: Anion Gap 7 (3-11); BUN Creatinine Ratio 9.3 (10-20); Blood Urea Nitrogen 10 mg/dl (6-23); Calcium 8.9 mg/dl (8.6-10.3); Carbon Dioxide 32 mmol/L (21-32); Chloride 97 mmol/L (98-107); Creatinine Clr Calc Pharmacy 62.4 ml/min; Est GFR (African American) 63.5 ml/min; Est GFR (Non-African American) 54.8 ml/min; Glucose 93 mg/dl (70-99(Fasting)); Magnesium 1.1 mg/dl (1.7-2.4); Potassium 3.5 mmol/L (3.5-5.1); Sodium 136 mmol/L (136-145)
[2023-01-19 06:18] LABS: INR 2.2 (0.9-1.1)
[2023-01-19] MEDS: SPIRONOLACTONE 25 MG TAB PO SCH ×2 (08:24→17:15)
[2023-01-19] MEDS: AMBRISENTAN 10MG TABLET PO SCH (08:25)
[2023-01-19] MEDS: ASPIRIN 81 MG ECTAB PO SCH (08:25)
[2023-01-19] MEDS: ATORVASTATIN 20 MG TAB PO SCH (08:25)
[2023-01-19] MEDS: SERTRALINE HCL 100 MG TABLET PO SCH (08:26)
[2023-01-19] MEDS: CYANOCOBALAMIN (B-12) 500 MCG TABLET PO SCH (08:26)
[2023-01-19] MEDS: cefUROXime axetil 500 MG TAB PO SCH (08:26)
[2023-01-19] MEDS: FOLIC ACID 1 MG TAB PO SCH (08:27)
[2023-01-19] MEDS: METOPROLOL SUCC 50MG EXT REL TAB PO SCH ×2 (08:27→20:12)
[2023-01-19] MEDS: CHOLECALCIFEROL 5,000 UNITS 125 MCG TAB PO SCH (08:27)
[2023-01-19] MEDS: MAGNESIUM SULFATE / D5W 1 GM/100 ML BAG IV SCH ×3 (10:13→13:55)
[2023-01-19] MEDS: MAGNESIUM OXIDE 400 MG TAB PO SCH (10:39)
[2023-01-19] MEDS ORDERED: SODIUM CHLORIDE 0.9% 250 ML IV PRN (10:47)
[2023-01-19 11:38] LABS: Ferritin 611.9 ng/ml (8-388)
[2023-01-19 11:39] LABS: Iron 77 mcg/dl (35-150); Transferrin < 95 mg/dl (200-360)
[2023-01-19 12:08] LABS: Folate (Folic Acid),Ser orPlas 14.43 ng/ml (>5.38)
[2023-01-19] MEDS: MIDODRINE HCL 2.5 MG TAB PO SCH ×2 (13:19→17:15)
[2023-01-19 14:49] LABS: Hematocrit (blood only) 21.8 % (37.0-47.0); Hemoglobin 7.6 g/dl (12.0-16.0)
--- NOTE | 2023-01-19 16:12 | Hospitalist Progress Note ---
Date of Service January 19, 2023 Assessment & Plan (1) Nausea & vomiting: (2) Electrolyte abnormality: Plan Patient is a 62 yr female with H/O MTHFR mutation, chronic hypoxemic respiratory failure on a 8-10 L oxygen at home, pulmonary artery hypertension, right ventricle enlargement, limited systemic sclerosis, history of PE, history of depression, hyperlipidemia, hypothyroidism, obstructive sleep apnea, on CPAP nightly, chronic atrial fibrillation, diastolic heart failure, obesity, chronic kidney disease stage III presents with n/v and electrolyte abnormalities. Persistent nausea and vomiting Weight loss Diarrhea Urine tract infection --Patient reports 3-month history of nausea, vomiting and weight loss. Reports that they started when she was on IV antibiotics for Mycobacterium abscesses. Was on amikacin, cefoxitin, linezolid, azithromycin per patient --Followed with infectious disease and pulmonology as outpatient--recommended to discontinue antibiotics thought to be causing significant nausea, vomiting. Patient discontinued antibiotics a couple of weeks ago. --CT ABD:Cardiomegaly with intralobular septal thickening. Correlate clinically for evidence of congestive failure. Small pleural effusions dependent consolidation. This likely represents atelectasis and clinical correlation will be required. Body wall edema and a trace abdominopelvic ascites indicate fluid overload. The bladder wall appears thickened and there is pericystic infiltratio n. Correlate with clinical findings and urinalysis. -- GI was consulted. Offered EGD/colonoscopy. Consider further testing as outpatient --Urine culture growing Enterobacter cloacae -- Blood culture negative to date --Trial of metoclopramide, Zofran unsuccessful. IV Antibiotics switched over to Ceftin--will complete course on 01/19. Palliative care was consulted for persistent nausea Symptomatically improved on Zyprexa. Also, nonpharmacologic method with smelling of isopropyl alcohol was also successful. Nausea resolved, tolerating diet Orthostatic hypotension Received IV hydration Lasix held for now Teds, started on midodrine Monitor BP Hypokalemia Hypomagnesemia Replete as needed Monitor Acute on chronic anemia Denies any obvious bleeding issues Fecal occult pending Anemia work up reviewed Monitor H&H and transfuse as needed Hb 7.6 today Chronic hypoxic respiratory failure on on 8 to 10 L oxygen at home Pulmonary edema History of PE History of A-fib History of pulmonary hypertension Resumed Coumadin INR supratherapeutic initially INR:2.2 today Received IV Lasix on 01/14. Lasix currently on hold. Pulmonary hypertension Limited systemic sclerosis Continue home medications Follow-up with pulmonary as outpatient Chronic A-fib On metoprolol and Coumadin Chronic diastolic CHF Lasix is on hold. Monitor for volume overload. Continue Aldactone. Obstructive sleep apnea CPAP nightly with oxygen Hypothyroidism continue Levothyroxine Chronic kidney stage III Creatinine at baseline Decreased hearing Possible side effects from antibiotics Stable DVT Px: Coumadin Code Status Full Code Disposition Rehab as able Admission and Anticipated Discharge Date Admission Date: January 10, 2023 Subjective Patient is seen and examined at bedside Reports dizziness associated with facial tightness this morning Noted drop in hemoglobin patient denies any bleeding issues Blood pressure low today Nausea resolved Tolerating diet Denies any chest pain, dyspnea, abdominal pain Review of Systems Review of Systems: All systems reviewed & are unremarkable except as noted in Subjective Physical Exam Physical Exam: Physical Exam: Vitals signs as noted above General Appearance:Morbidly Obese, no apparent distress Head: normocephalic, Atraumatic Eyes: normal inspection, EOMI Neck: supple, Trachea midline Respiratory/Chest: Normal breath sounds, CTA, No accessory muscle use Cardiovascular: Irregularly irregular, S1, S2, +murmur Abdomen/GI:Soft, Non tender, Bowel sounds present Extremities/Musculoskeletal:normal inspection, 1+ Pedal edema Neurologic/Psych:AAOX3, grossly no focal neurological deficits Skin: normal color, warm Results & Data Results & Data Vital Signs (Past 12 Hours) Vital Signs Temp Pulse Pulse Resp BP BP Pulse Ox 01/19/23 15:39 79 01/19/23 15:19 36.6 C 81 16 91/56 L 96 01/19/23 12:00 97 01/19/23 11:29 36.9 C 86 18 94/60 L 86 L 01/19/23 07:30 01/19/23 09:50 70/55 L 01/19/23 10:07 90/55 L 01/19/23 07:48 36.8 C 71 18 106/66 95 01/19/23 07:37 81 O2 Del Method O2 Flow Rate 01/19/23 15:39 01/19/23 15:19 Nasal Cannula 9 01/19/23 12:00 High Flow Nasal Cannula 9 01/19/23 11:29 Nasal Cannula 9 01/19/23 07:30 High Flow Nasal Cannula 9 01/19/23 09:50 01/19/23 10:07 01/19/23 07:48 Nasal Cannula 9 01/19/23 07:37 Laboratory Results Short CBC 01/19/23 01/19/23 Range/Units 04:40 14:18 WBC 6.96 (4.8-10.8) K/ul Hgb 7.6 L 7.6 L (12.0-16.0) g/dl Hct 22.5 L 21.8 L (37.0-47.0) % Plt Count 104 L (130-400) K/uL BMP 01/19/23 04:40 Sodium 136 Potassium 3.5 Chloride 97 L Carbon Dioxide 32 BUN 10 Creatinine 1.07 Glucose 93 Calcium 8.9
[2023-01-19] MEDS: WARFARIN SOD 1 MG TAB PO SCH (17:16)
[2023-01-19] MEDS: OLANZapine ZYDIS 5 MG ORALLY DIS. TAB PO SCH (20:18)
[2023-01-19] MEDS ORDERED: ALBUMIN 25% 25 GM/100 ML VIAL IV ONE (20:27)
[2023-01-19 21:26] LABS: BUN Creatinine Ratio 8.2 (10-20); Calcium 9.3 mg/dl (8.6-10.3); Creatinine Clr Calc Pharmacy 45.4 ml/min; Est GFR (African American) 43.3 ml/min; Est GFR (Non-African American) 37.3 ml/min; Potassium 3.6 mmol/L (3.5-5.1)
--- NOTE | 2023-01-19 22:01 | Communication Note ---
Date of Service: January 19, 2023 Patient SBP noted to be 80s as per RN. Patient complaining of dizziness. Creatinine 1.47 Lactic acid noted to be 2.2 AP Symptomatic hypotension ARF, lactic acidosis Patient on multiple antihypertensive and vasodilator medications Continue midodrine and titrate accordingly Baseline UA, monitor creatinine response to IV albumin (preferred over crystall oid given pulmonary congestion on imaging) Decrease maintenance beta-adis dose Hold spironolactone and Lasix for now Will relay to AM provider.
[2023-01-20 01:39] LABS: Appearance Urine Clear (Clear); Bacteria Urine Automated Negative (Negative); Bilirubin Urine Negative (Negative); Blood Urine Negative (Negative); Color Urine Yellow; Epithelial Cell Urine Auto >30 /lpf (0-5); Glucose Urine UA Negative (Negative); Ketones Urine Negative (Negative); Leukocyte Esterase Urine 1+ (Negative); Nitrite Urine Negative (Negative); Protein Urine Negative (Negative); RBC Urine Automated 0-4 /hpf (0-4); Specific Gravity Urine 1.007 (1.000-1.030); Urobilinogen Urine Negative (Negative)
[2023-01-20] MEDS: LEVOTHYROXINE SODIUM 200 MCG TABLET PO SCH (06:25)
[2023-01-20 06:32] LABS: Hematocrit (blood only) 20.9 % (37.0-47.0); Hemoglobin 7.1 g/dl (12.0-16.0); Mean Corpuscular Hemoglobin 30.2 pg (25.0-34.0); Mean Corpuscular Volume 88.9 fL (80.0-100.0); Mean Platelet Volume 11.5 fL (9.4-12.4); Platelet Count 100 K/uL (130-400); RDW Coefficient of Variation 15.3 % (11.5-14.5); RDW Standard Deviation 49.8 fL (36.4-46.3); Red Blood Count 2.35 M/uL (4.20-5.40); White Blood Count 7.29 K/ul (4.8-10.8)
[2023-01-20 06:42] LABS: Magnesium 1.6 mg/dl (1.7-2.4)
[2023-01-20 06:56] LABS: INR 1.8 (0.9-1.1)
[2023-01-20] MEDS ORDERED: SODIUM CHLORIDE 0.9% 250 ML IV PRN (07:46)
[2023-01-20] MEDS ORDERED: MAGNESIUM SULFATE / D5W 1 GM/100 ML BAG IV ONE (07:51)
[2023-01-20] MEDS: CYANOCOBALAMIN (B-12) 500 MCG TABLET PO SCH (08:31)
[2023-01-20] MEDS: SERTRALINE HCL 100 MG TABLET PO SCH (08:31)
[2023-01-20] MEDS: ASPIRIN 81 MG ECTAB PO SCH (08:31)
[2023-01-20] MEDS: FOLIC ACID 1 MG TAB PO SCH (08:31)
[2023-01-20] MEDS: MAGNESIUM OXIDE 400 MG TAB PO SCH (08:31)
[2023-01-20] MEDS: ATORVASTATIN 20 MG TAB PO SCH (08:31)
[2023-01-20] MEDS: CHOLECALCIFEROL 5,000 UNITS 125 MCG TAB PO SCH (08:32)
[2023-01-20] MEDS: METOPROLOL SUCC 25MG EXT REL TAB PO SCH ×2 (08:32→20:33)
[2023-01-20] MEDS: MIDODRINE HCL 2.5 MG TAB PO SCH ×3 (08:32→16:08)
[2023-01-20] MEDS: AMBRISENTAN 10MG TABLET PO SCH (08:33)
[2023-01-20 08:36] LABS: BUN Creatinine Ratio 9.8 (10-20); Calcium 9.4 mg/dl (8.6-10.3); Creatinine Clr Calc Pharmacy 50.5 ml/min; Est GFR (African American) 49.3 ml/min; Est GFR (Non-African American) 42.5 ml/min; Potassium 3.4 mmol/L (3.5-5.1)
--- NOTE | 2023-01-20 09:28 | CT Scan Report ---
CT OF THE ABDOMEN AND PELVIS WITHOUT CONTRAST CLINICAL HISTORY: Nausea, vomiting, anemia R/O bleeding. COMPARISON STUDY: CT of the abdomen and pelvis January 10, 2023. TECHNIQUE: Axial images of the abdomen and pelvis were obtained without IV contrast. Images were revi ewed in the axial, sagittal, and coronal planes. Automated exposure control was utilized for the marco antonio dy. A dose lowering technique was utilized adhering to the principles of ALARA. FINDINGS: Please note that the chest CT will be reported separately. No hemoperitoneum or pneumoperit oneum is present. There is no retroperitoneal hematoma. Evaluation of the abdomen and pelvis is subop timal on this unenhanced exam. Unenhanced images of the liver, spleen, kidneys and is unremarkable. H yperdense material within the gallbladder is noted. There is no evidence for acute cholecystitis. The re is no evidence for a bowel obstruction. There are sigmoid diverticulosis without evidence for acut e diverticulitis. There is no lymphadenopathy. Body wall edema is again noted. This is similar to linnette or exam. There is presacral stranding. Trace bilateral pleural effusions are present. IMPRESSION: 1. No acute process within the abdomen or pelvis on unenhanced exam. No retroperitoneal hematoma. No hemoperitoneum. 2. No significant change since CT of January 10, 2023. Evidence for volume overload with body wall edema and trace bilateral pleural effusions. 3. Sigmoid diverticulosis. No evidence for acute diverticulitis. ACT 112: Negative or not required by law. Electronically signed by: Diogo Rhodes M.D. 01/20/2023 9:26 AM
[2023-01-20] MEDS ORDERED: POTASSIUM CHLORIDE CRTAB 20 MEQ TABCR PO ONE (10:30)
--- NOTE | 2023-01-20 10:53 | CT Scan Report ---
CT chest diagnostic wo con CT DOSE: 2132.35 mGy.cm CLINICAL HISTORY: 62 years-old Female with Interstitial lung disease, Anemia R/O bleeding. TECHNIQUE: Multiaxial CT images of the chest were performed without contrast. A dose lowering techni que was utilized adhering to the principles of ALARA. COMPARISON: CT abdomen and pelvis of same day, chest CT 01/13/2023 FINDINGS: Right paratracheal lymph node measures 1.9 x 1.2 cm on image 72, previously 2.1 x 1.3 cm. T his is likely reactive. Subcarinal lymphadenopathy measures up to 9 mm . Moderate cardiomegaly with e xtensive coronary artery and moderate mitral annular calcifications. Trace pericardial effusion. Decr eased attenuation of the cardiac blood pool suggestive of anemia. Elevation of the main pulmonary art js, 3.3 cm. Atherosclerosis of the thoracic aorta without aneurysm. Small right and trace left pleural effusions, mildly decreased from prior. Anasarca. Intralobular sep hortencia thickening with intermixed groundglass and consolidative opacities are noted in a multisegmental multilobar distribution. Findings mildly improved from prior. No bronchiectasis, honeycombing or sign ificant subpleural reticulation identified. Mild endobronchial secretions. Mild dependent bibasilar c onsolidation have improved. No acute fracture. No acute process of the imaged upper abdomen. IMPRESSION: 1. Cardiomegaly with mildly improved pulmonary edema and patchy bilateral airspace opacities. 2. Small right and trace left pleural effusions have mildly decreased in size from prior. 3. Mildly decreased size of the previously described mediastinal lymphadenopathy. ACT 112: Negative or not required by law. Electronically signed by: Khoa Farr M.D. 01/20/2023 10:51 AM
[2023-01-20] MEDS: FLUTICASONE PROPIONATE NA SPR 16 GM BTL SCH (12:32)
[2023-01-20] MEDS: FUROSEMIDE 40 MG TAB PO SCH (12:33)
[2023-01-20] MEDS: SPIRONOLACTONE 25 MG TAB PO SCH (16:07)
[2023-01-20] MEDS: WARFARIN SOD 1 MG TAB PO SCH (16:07)
--- NOTE | 2023-01-20 16:49 | Hospitalist Progress Note ---
Date of Service January 20, 2023 Assessment & Plan (1) Nausea & vomiting: (2) Electrolyte abnormality: Plan Patient is a 62 yr female with H/O MTHFR mutation, chronic hypoxemic respiratory failure on a 8-10 L oxygen at home, pulmonary artery hypertension, right ventricle enlargement, limited systemic sclerosis, history of PE, history of depression, hyperlipidemia, hypothyroidism, obstructive sleep apnea, on CPAP nightly, chronic atrial fibrillation, diastolic heart failure, obesity, chronic kidney disease stage III presents with n/v and electrolyte abnormalities. Persistent nausea and vomiting Weight loss Diarrhea Urine tract infection --Patient reports 3-month history of nausea, vomiting and weight loss. Reports that they started when she was on IV antibiotics for Mycobacterium abscesses. Was on amikacin, cefoxitin, linezolid, azithromycin per patient --Followed with infectious disease and pulmonology as outpatient--recommended to discontinue antibiotics thought to be causing significant nausea, vomiting. Patient discontinued antibiotics a couple of weeks ago. --CT ABD:Cardiomegaly with intralobular septal thickening. Correlate clinically for evidence of congestive failure. Small pleural effusions dependent consolidation. This likely represents atelectasis and clinical correlation will be required. Body wall edema and a trace abdominopelvic ascites indicate fluid overload. The bladder wall appears thickened and there is pericystic infiltratio n. Correlate with clinical findings and urinalysis. -- GI was consulted. Offered EGD/colonoscopy. Consider further testing as outpatient --Urine culture growing Enterobacter cloacae -- Blood culture negative to date --Trial of metoclopramide, Zofran unsuccessful. IV Antibiotics switched over to Ceftin--will complete course on 01/19. Palliative care was consulted for persistent nausea Symptomatically improved on Zyprexa. Also, nonpharmacologic method with smelling of isopropyl alcohol was also successful. Nausea resolved, tolerating diet Orthostatic hypotension Continue Teds Increase midodrine 5mg TID Monitor BP Hypokalemia Hypomagnesemia Replete as needed Monitor Acute on chronic anemia Imaging studies showed no signs of bleeding Denies any obvious bleeding issues ? Likely dilutional due to volume overload Fecal occult pending Anemia work up reviewed Monitor H&H and transfuse as needed Hb 7.1 today Transfuse 1 unit PRBC today Resume diuretics Monitor CBC Chronic hypoxic respiratory failure on on 8 to 10 L oxygen at home Pulmonary edema History of PE History of A-fib History of pulmonary hypertension Resumed Coumadin INR supratherapeutic initially INR:1.8 today Received IV Lasix on 01/14. Lasix resumed Pulmonary hypertension Limited systemic sclerosis Continue home medications Follow-up with pulmonary as outpatient Chronic A-fib On metoprolol and Coumadin Chronic diastolic CHF Lasix is on hold. Monitor for volume overload. Continue Aldactone. Obstructive sleep apnea CPAP nightly with oxygen Hypothyroidism continue Levothyroxine Chronic kidney stage III Creatinine at baseline Decreased hearing Possible side effects from antibiotics Stable DVT Px: Coumadin Code Status Full Code Disposition Rehab as able Admission and Anticipated Discharge Date Admission Date: January 10, 2023 Subjective Patient is seen and examined at bedside Noted drop in hemoglobin Dizziness slightly better No obvious bleeding source on imaging studies today Also reports having ear pressure sensation No other complaints Denies any recurrence of nausea, vomiting Also denies any chest pain, dyspnea, abdominal pain Review of Systems Review of Systems: All systems reviewed & are unremarkable except as noted in Subjective Physical Exam Physical Exam: Physical Exam: Vitals signs as noted above General Appearance:Morbidly Obese, no apparent distress Head: normocephalic, Atraumatic Eyes: normal inspection, EOMI Neck: supple, Trachea midline Respiratory/Chest: Normal breath sounds, CTA, No accessory muscle use Cardiovascular: Irregularly irregular, S1, S2, +murmur Abdomen/GI:Soft, Non tender, Bowel sounds present Extremities/Musculoskeletal:normal inspection, 1+ Pedal edema Neurologic/Psych:AAOX3, grossly no focal neurological deficits Skin: normal color, warm Results & Data Results & Data Vital Signs (Past 12 Hours) Vital Signs Temp Pulse Pulse Resp BP BP Pulse Ox 01/20/23 12:41 36.6 C 88 16 98/67 L 96 01/20/23 12:32 36.6 C 88 16 98/67 L 96 01/20/23 11:32 36.6 C 81 16 90/62 L 94 01/20/23 10:32 36.5 C 76 16 76/47 L 96 01/20/23 10:02 36.6 C 77 18 85/55 L 98 01/20/23 09:47 36.4 C L 96 H 16 67/37 L 100 01/20/23 09:46 36.4 C L 96 H 16 67/37 L 100 01/20/23 09:30 36.5 C 94 H 16 77/51 L 99 01/20/23 08:05 36.5 C 88 18 113/74 100 01/20/23 07:00 O2 Del Method O2 Flow Rate 01/20/23 12:41 9 01/20/23 12:32 9 01/20/23 11:32 9 01/20/23 10:32 9 01/20/23 10:02 9 01/20/23 09:47 9 01/20/23 09:46 9 01/20/23 09:30 9 01/20/23 08:05 High Flow Nasal Cannula 9 01/20/23 07:00 High Flow Nasal Cannula 9 Laboratory Results Short CBC 01/20/23 Range/Units 05:23 WBC 7.29 (4.8-10.8) K/ul Hgb 7.1 L (12.0-16.0) g/dl Hct 20.9 L* (37.0-47.0) % Plt Count 100 L (130-400) K/uL BMP 01/19/23 01/20/23 20:44 05:23 Sodium 136 138 Potassium 3.6 3.4 L Chloride 97 L 100 Carbon Dioxide 29 28 BUN 12 13 Creatinine 1.47 H D 1.32 H Glucose 109 H 96 Calcium 9.3 9.4 Urine 01/20/23 Range/Units 01:15 Urine Color Yellow Urine Appearance Clear (Clear) Urine pH 7.0 (4.5-7.5) Ur Specific [place] 1.007 (1.000-1.030) Urine Protein Negative (Negative) Urine Glucose (UA) Negative (Negative)
[2023-01-20 20:25] LABS: Hematocrit (blood only) 23.8 % (37.0-47.0); Hemoglobin 8.3 g/dl (12.0-16.0)
[2023-01-20] MEDS: OLANZapine ZYDIS 5 MG ORALLY DIS. TAB PO SCH (20:33)
[2023-01-21] MEDS: LEVOTHYROXINE SODIUM 200 MCG TABLET PO SCH (06:09)
[2023-01-21 06:38] LABS: Hematocrit (blood only) 23.6 % (37.0-47.0); Mean Corpuscular Hemoglobin 30.7 pg (25.0-34.0); Mean Corpuscular Hgb Conc 33.9 g/dL (32.0-36.0); Mean Corpuscular Volume 90.4 fL (80.0-100.0); Mean Platelet Volume 11.4 fL (9.4-12.4); Platelet Count 114 K/uL (130-400); RDW Coefficient of Variation 15.8 % (11.5-14.5); RDW Standard Deviation 52.6 fL (36.4-46.3); Red Blood Count 2.61 M/uL (4.20-5.40); White Blood Count 7.63 K/ul (4.8-10.8)
[2023-01-21 06:45] LABS: BUN Creatinine Ratio 11.4 (10-20); Calcium 9.4 mg/dl (8.6-10.3); Creatinine Clr Calc Pharmacy 50.5 ml/min; Est GFR (African American) 49.3 ml/min; Est GFR (Non-African American) 42.5 ml/min; Magnesium 1.6 mg/dl (1.7-2.4); Potassium 3.8 mmol/L (3.5-5.1)
[2023-01-21 07:01] LABS: INR 1.4 (0.9-1.1); Prothrombin Time 14.6 Seconds (9.0-12.0)
[2023-01-21] MEDS ORDERED: MAGNESIUM SULFATE / D5W 1 GM/100 ML BAG IV ONE (07:39)
[2023-01-21] MEDS: MIDODRINE HCL 2.5 MG TAB PO SCH ×3 (08:17→16:09)
[2023-01-21] MEDS: CYANOCOBALAMIN (B-12) 500 MCG TABLET PO SCH (08:17)
[2023-01-21] MEDS: CHOLECALCIFEROL 5,000 UNITS 125 MCG TAB PO SCH (08:17)
[2023-01-21] MEDS: FUROSEMIDE 40 MG TAB PO SCH (08:18)
[2023-01-21] MEDS: SERTRALINE HCL 100 MG TABLET PO SCH (08:18)
[2023-01-21] MEDS: SPIRONOLACTONE 25 MG TAB PO SCH ×2 (08:18→16:09)
[2023-01-21] MEDS: METOPROLOL SUCC 25MG EXT REL TAB PO SCH ×2 (08:18→21:04)
[2023-01-21] MEDS: MAGNESIUM OXIDE 400 MG TAB PO SCH (08:18)
[2023-01-21] MEDS: AMBRISENTAN 10MG TABLET PO SCH (08:19)
[2023-01-21] MEDS: FOLIC ACID 1 MG TAB PO SCH (08:19)
[2023-01-21] MEDS: ASPIRIN 81 MG ECTAB PO SCH (08:19)
[2023-01-21] MEDS: FLUTICASONE PROPIONATE NA SPR 16 GM BTL SCH (08:19)
[2023-01-21] MEDS: ATORVASTATIN 20 MG TAB PO SCH (08:19)
--- NOTE | 2023-01-21 13:57 | CT Scan Report ---
CT head/brain wo con CLINICAL HISTORY: 62 years-old Female with Dizziness. Acute dizziness TECHNIQUE: Multiple axial CT images of the head were obtained without contrast. A dose lowering tech nique was utilized adhering to the principles of ALARA. CT DOSE: 625.80 mGy.cm COMPARISON: 01/15/2011. FINDINGS: No acute intracranial hemorrhage, midline shift, intracranial mass, hydrocephalus, territorial ischem ia or abnormal extra-axial collection. Involutional changes with white matter hypodensities again not ed, most pronounced in the right frontal lobe. Findings may represent microvascular ischemic disease versus a demyelinating process. The calvarium is intact. Trace mastoid effusions. Paranasal sinuses are clear. Unremarkable soft tissues and orbits. IMPRESSION: No acute intracranial abnormality. ACT 112: Negative or not required by law. The above report was generated using voice recognition software. It may contain grammatical, syntax o r spelling errors. Electronically signed by: Khoa Farr M.D. 01/21/2023 1:56 PM
[2023-01-21] MEDS: WARFARIN SOD 3 MG TAB PO SCH (16:10)
--- NOTE | 2023-01-21 16:41 | Hospitalist Progress Note ---
Date of Service January 21, 2023 Assessment & Plan (1) Nausea & vomiting: (2) Electrolyte abnormality: Plan Patient is a 62 yr female with H/O MTHFR mutation, chronic hypoxemic respiratory failure on a 8-10 L oxygen at home, pulmonary artery hypertension, right ventricle enlargement, limited systemic sclerosis, history of PE, history of depression, hyperlipidemia, hypothyroidism, obstructive sleep apnea, on CPAP nightly, chronic atrial fibrillation, diastolic heart failure, obesity, chronic kidney disease stage III presents with n/v and electrolyte abnormalities. Persistent nausea and vomiting Weight loss Diarrhea Urine tract infection --Patient reports 3-month history of nausea, vomiting and weight loss. Reports that they started when she was on IV antibiotics for Mycobacterium abscesses. Was on amikacin, cefoxitin, linezolid, azithromycin per patient --Followed with infectious disease and pulmonology as outpatient--recommended to discontinue antibiotics thought to be causing significant nausea, vomiting. Patient discontinued antibiotics a couple of weeks ago. --CT ABD:Cardiomegaly with intralobular septal thickening. Correlate clinically for evidence of congestive failure. Small pleural effusions dependent consolidation. This likely represents atelectasis and clinical correlation will be required. Body wall edema and a trace abdominopelvic ascites indicate fluid overload. The bladder wall appears thickened and there is pericystic infiltrati on. Correlate with clinical findings and urinalysis. -- GI was consulted. Offered EGD/colonoscopy. Consider further testing as outpatient --Urine culture growing Enterobacter cloacae -- Blood culture negative to date --Trial of metoclopramide, Zofran unsuccessful. IV Antibiotics switched over to Ceftin--will complete course on 01/19. Palliative care was consulted for persistent nausea Symptomatically improved on Zyprexa. Also, nonpharmacologic method with smelling of isopropyl alcohol was also successful. Nausea resolved, tolerating diet Orthostatic hypotension Continue Teds Increased midodrine 5mg TID Monitor BP Metoprolol dose decreased to 25mg BID Will obtain CT head given persistent dizziness Hypokalemia Hypomagnesemia Replete as needed Monitor Acute on chronic anemia Imaging studies showed no signs of bleeding Denies any obvious bleeding issues ? Likely dilutional due to volume overload Fecal occult pending Anemia work up reviewed Monitor H&H and transfuse as needed Hb 8.0 today S/P 1 unit PRBC Resume diuretics Monitor CBC Chronic hypoxic respiratory failure on on 8 to 10 L oxygen at home Pulmonary edema History of PE History of A-fib History of pulmonary hypertension Resumed Coumadin INR supratherapeutic initially INR:1.4 today Received IV Lasix on 01/14. Lasix resumed Increase Coumadin to 3mg today Pulmonary hypertension Limited systemic sclerosis Continue home medications Follow-up with pulmonary as outpatient Chronic A-fib On metoprolol and Coumadin Chronic diastolic CHF Lasix is on hold. Monitor for volume overload. Continue Aldactone. Obstructive sleep apnea CPAP nightly with oxygen Hypothyroidism continue Levothyroxine Chronic kidney stage III Creatinine at baseline Decreased hearing Possible side effects from antibiotics Stable DVT Px: Coumadin Code Status Full Code Disposition Rehab as able Admission and Anticipated Discharge Date Admission Date: January 10, 2023 Subjective Patient is seen and examined at bedside States her dizziness is about the same as yesterday BP Variable Hb stable Tolerating diet with no recurrence of nausea/vomiting Denies any chest pain, dyspnea, abdominal pain Review of Systems Review of Systems: All systems reviewed & are unremarkable except as noted in Subjective Physical Exam Physical Exam: Physical Exam: Vitals signs as noted above General Appearance:Morbidly Obese, no apparent distress Head: normocephalic, Atraumatic Eyes: normal inspection, EOMI Neck: supple, Trachea midline Respiratory/Chest: Normal breath sounds, CTA, No accessory muscle use Cardiovascular: Irregularly irregular, S1, S2, +murmur Abdomen/GI:Soft, Non tender, Bowel sounds present Extremities/Musculoskeletal:normal inspection, 1+ Pedal edema Neurologic/Psych:AAOX3, grossly no focal neurological deficits Skin: normal color, warm Results & Data Results & Data Vital Signs (Past 12 Hours) Vital Signs Temp Pulse Pulse Resp BP BP Pulse Ox 01/21/23 15:12 89 01/21/23 11:33 36.5 C 71 18 88/56 L 96 01/21/23 07:54 36.6 C 86 18 103/68 94 01/21/23 07:00 O2 Del Method O2 Flow Rate 01/21/23 15:12 01/21/23 11:33 High Flow Nasal Cannula 9 01/21/23 07:54 High Flow Nasal Cannula 9 01/21/23 07:00 High Flow Nasal Cannula 8 Laboratory Results Short CBC 01/20/23 01/21/23 Range/Units 19:38 05:27 WBC 7.63 (4.8-10.8) K/ul Hgb 8.3 L 8.0 L (12.0-16.0) g/dl Hct 23.8 L 23.6 L (37.0-47.0) % Plt Count 114 L (130-400) K/uL [facility] 01/21/23 05:27 Sodium 140 Potassium 3.8 Chloride 102 Carbon Dioxide 30 BUN 15 Creatinine 1.32 H Glucose 96 Calcium 9.4
[2023-01-21] MEDS: OLANZapine ZYDIS 5 MG ORALLY DIS. TAB PO SCH (21:05)
[2023-01-22] MEDS: LEVOTHYROXINE SODIUM 200 MCG TABLET PO SCH (06:32)
[2023-01-22] MEDS: FLUTICASONE PROPIONATE NA SPR 16 GM BTL SCH (08:32)
[2023-01-22] MEDS: FOLIC ACID 1 MG TAB PO SCH (08:33)
[2023-01-22] MEDS: MIDODRINE HCL 2.5 MG TAB PO SCH ×4 (08:33→18:06)
[2023-01-22] MEDS: SPIRONOLACTONE 25 MG TAB PO SCH ×2 (08:33→10:12)
[2023-01-22] MEDS: FUROSEMIDE 40 MG TAB PO SCH ×2 (08:34→10:12)
[2023-01-22] MEDS: CHOLECALCIFEROL 5,000 UNITS 125 MCG TAB PO SCH (08:34)
[2023-01-22] MEDS: MAGNESIUM OXIDE 400 MG TAB PO SCH (08:34)
[2023-01-22] MEDS: ASPIRIN 81 MG ECTAB PO SCH (08:35)
[2023-01-22] MEDS: SERTRALINE HCL 100 MG TABLET PO SCH (08:35)
[2023-01-22] MEDS: METOPROLOL SUCC 25MG EXT REL TAB PO SCH (08:35)
[2023-01-22] MEDS: CYANOCOBALAMIN (B-12) 500 MCG TABLET PO SCH (08:36)
[2023-01-22] MEDS: ATORVASTATIN 20 MG TAB PO SCH (08:36)
[2023-01-22] MEDS: AMBRISENTAN 10MG TABLET PO SCH (08:36)
[2023-01-22 09:30] LABS: Hematocrit (blood only) 24.7 % (37.0-47.0); Hemoglobin 8.3 g/dl (12.0-16.0); Mean Corpuscular Hgb Conc 33.6 g/dL (32.0-36.0); Mean Corpuscular Volume 92.2 fL (80.0-100.0); Mean Platelet Volume 11.3 fL (9.4-12.4); Platelet Count 136 K/uL (130-400); RDW Coefficient of Variation 15.9 % (11.5-14.5); RDW Standard Deviation 52.8 fL (36.4-46.3); Red Blood Count 2.68 M/uL (4.20-5.40); White Blood Count 8.33 K/ul (4.8-10.8)
[2023-01-22 09:51] LABS: INR 1.1 (0.9-1.1); Prothrombin Time 11.9 Seconds (9.0-12.0)
[2023-01-22 09:52] LABS: BUN Creatinine Ratio 13.9 (10-20); Calcium 9.6 mg/dl (8.6-10.3); Creatinine Clr Calc Pharmacy 54.9 ml/min; Est GFR (African American) 54.2 ml/min; Est GFR (Non-African American) 46.8 ml/min; Magnesium 1.6 mg/dl (1.7-2.4); Potassium 3.8 mmol/L (3.5-5.1)
[2023-01-22] MEDS ORDERED: SODIUM CHLORIDE 0.9% 1000ML 500 ML IV ONE (12:22)
[2023-01-22] MEDS: SODIUM CHLORIDE 0.9% 500 ML IV SCH (14:25)
[2023-01-22] MEDS: WARFARIN SOD 3 MG TAB PO SCH (16:19)
--- NOTE | 2023-01-22 16:21 | Hospitalist Progress Note ---
Date of Service January 22, 2023 Assessment & Plan (1) Nausea & vomiting: (2) Electrolyte abnormality: Plan Patient is a 62 yr female with H/O MTHFR mutation, chronic hypoxemic respiratory failure on a 8-10 L oxygen at home, pulmonary artery hypertension, right ventricle enlargement, limited systemic sclerosis, history of PE, history of depression, hyperlipidemia, hypothyroidism, obstructive sleep apnea, on CPAP nightly, chronic atrial fibrillation, diastolic heart failure, obesity, chronic kidney disease stage III presents with n/v and electrolyte abnormalities. Persistent nausea and vomiting Weight loss Diarrhea Urine tract infection --Patient reports 3-month history of nausea, vomiting and weight loss. Reports that they started when she was on IV antibiotics for Mycobacterium abscesses. Was on amikacin, cefoxitin, linezolid, azithromycin per patient --Followed with infectious disease and pulmonology as outpatient--recommended to discontinue antibiotics thought to be causing significant nausea, vomiting. Patient discontinued antibiotics a couple of weeks ago. --CT ABD:Cardiomegaly with intralobular septal thickening. Correlate clinically for evidence of congestive failure. Small pleural effusions dependent consolidation. This likely represents atelectasis and clinical correlation will be required. Body wall edema and a trace abdominopelvic ascites indicate fluid overload. The bladder wall appears thickened and there is pericystic infiltration. Correlate with clinical findings and urinalysis. -- GI was consulted. Offered EGD/colonoscopy. Consider further testing as outpatient --Urine culture growing Enterobacter cloacae -- Blood culture negative to date --Trial of metoclopramide, Zofran unsuccessful. IV Antibiotics switched over to Ceftin--completed course Palliative care was consulted for persistent nausea Symptomatically improved on Zyprexa. Also, nonpharmacologic method with smelling of isopropyl alcohol was also successful. Nausea resolved, tolerating diet Orthostatic hypotension Continues to be persistently hypotensive. Stop Aldactone, Lasix and metoprolol. Normal saline bolus given. Normal saline at 80 cc/h. Obtain echocardiogram Hypokalemia Hypomagnesemia Replete as needed Monitor Acute on chronic anemia Imaging studies showed no signs of bleeding Denies any obvious bleeding issues ? Likely dilutional due to volume overload Fecal occult negative Anemia work up reviewed Monitor H&H and transfuse as needed Hb 8.0 today S/P 1 unit PRBC Chronic hypoxic respiratory failure on on 8 to 10 L oxygen at home Pulmonary edema History of PE History of A-fib History of pulmonary hypertension Coumadin increased to 5 mg today. Pulmonary hypertension Limited systemic sclerosis Continue home medications Follow-up with pulmonary as outpatient Chronic A-fib On metoprolol and Coumadin Chronic diastolic CHF Lasix is on hold. Monitor for volume overload. Hold Aldactone. Obstructive sleep apnea CPAP nightly with oxygen Hypothyroidism continue Levothyroxine Chronic kidney stage III Creatinine at baseline Decreased hearing Possible side effects from antibiotics Stable DVT Px: Coumadin Code Status Full Code Disposition Rehab as able Time spent evaluating patient, direct bedside care, chart review, placing orders, interpretation of diagnostic studies, discussion with consultants, yael nt, and family members, as well as other required patient management activities is 60 minutes Please note the above document was generated using voice recognition software. It may contain grammatical, syntax or spelling errors. Any formal questions or concerns about the content, text or information contained within the body of this dictation should be directly addressed to the provider for clarification Admission and Anticipated Discharge Date Admission Date: January 10, 2023 Subjective Patient seen and examined at bed side. Reports that her nausea and vomiting has resolved. However, orthostatic continues to be positive. Review of Systems Review of Systems: All systems reviewed & are unremarkable except as noted in Subjective Physical Exam Physical Exam: Constitutional: Awake, alert orient x3; not in distress. Respiratory: Bilateral fine crackles present. Cardiovascular: RRR, no murmur, no edema Vessels: no JVD or carotid bruit Chest: normal inspection of chest Abdomen: normal bowel sounds, soft, nontender, no hepatosplenomegaly Musculoskeletal: no cyanosis or clubbing, extremities motor strength 5/5 Skin: no rashes, warm and dry normal turgor Neurologic: PERRL, EOMI, accommodation nl, no face palsy, no dysarthria CN's II- XI intact bilaterally and moves all extremities Psychiatric: A+Ox3, euthymic affect Results & Data Results & Data Vital Signs (Past 12 Hours) Vital Signs Temp Pulse Resp BP Pulse Ox O2 Del Method O2 Flow Rate 01/22/23 11:50 36.9 C 83 18 79/52 L 95 High Flow Nasal Cannula 8 01/22/23 10:50 High Flow Nasal Cannula 01/22/23 08:10 36.8 C 96 H 16 95/58 L 90 High Flow Nasal Cannula 8 Laboratory Results Laboratory Results WBC 8.33 K/ul (4.8-10.8) 01/22/23 08:55 RBC 2.68 M/uL (4.20-5.40) L 01/22/23 08:55 Hgb 8.3 g/dl (12.0-16.0) L 01/22/23 08:55 Hct 24.7 % (37.0-47.0) L 01/22/23 08:55 MCV 92.2 fL (80.0-100.0) 01/22/23 08:55 MCH 31.0 pg (25.0-34.0) 01/22/23 08:55 MCHC 33.6 g/dL (32.0-36.0) 01/22/23 08:55 RDW Std Deviation 52.8 fL (36.4-46.3) H 01/22/23 08:[address] 15.9 % (11.5-14.5) H 01/22/23 08:55 Plt Count 136 K/uL (130-400) 01/22/23 08:55 MPV 11.3 fL (9.4-12.4) 01/22/23 08:55 Immature Gran % (Auto) 0.5 % 01/17/23 06:10 Neut % (Auto) 67.2 % 01/17/23 06:10 Lymph % (Auto) 18.0 % 01/17/23 06:10 [place] % (Auto) 6.5 % 01/17/23 06:10 Eos % (Auto) 7.2 % 01/17/23 06:10 Baso % (Auto) 0.6 % 01/17/23 06:10 Neut # (Auto) 6.43 K/uL (1.40-6.50) 01/17/23 06:10 Lymph # (Auto) 1.72 K/uL (1.2-3.4) 01/17/23 06:10 [place] # (Auto) 0.62 K/uL (0.11-0.59) H 01/17/23 06:10 Eos # (Auto) 0.69 K/uL (0-0.50) H 01/17/23 06:10 Baso # (Auto) 0.06 K/uL (0-0.2) 01/17/23 06:10 Immature Gran # (Auto) 0.05 K/uL (0.01-0.20) 01/17/23 06:10 PT 11.9 Seconds (9.0-12.0) 01/22/23 08:55 INR 1.1 (0.9-1.1) 01/22/23 08:55 Sodium 140 mmol/L (136-145) 01/22/23 08:55 Potassium 3.8 mmol/L (3.5-5.1) 01/22/23 08:55 Chloride 102 mmol/L (98-107) 01/22/23 08:55 Carbon Dioxide 30 mmol/L (21-32) 01/22/23 08:55 Anion Gap 8 (3-11) 01/22/23 08:55 BUN 17 mg/dl (6-23) 01/22/23 08:55 Creatinine 1.22 mg/dl (0.6-1.2) H 01/22/23 08:55 Est Cr Clr Drug Dosing 54.9 ml/min 01/22/23 08:55 Est GFR ( Amer) 54.2 ml/min 01/22/23 08:55 Est GFR (Non-Af Amer) 46.8 ml/min 01/22/23 08:55 BUN/Creatinine Ratio 13.9 (10-20) 01/22/23 08:55 Glucose 98 mg/dl (70-99(Fasting)) 01/22/23 08:55 Lactate 1.5 mmol/L (0.4-2.0) 01/20/23 00:27 Calcium 9.6 mg/dl (8.6-10.3) 01/22/23 08:55 Phosphorus 2.3 mg/dl (2.5-4.9) L 01/11/23 05:19 Magnesium 1.6 mg/dl (1.7-2.4) L 01/22/23 08:55 Iron Cancelled 01/19/23 12:37 Transferrin Cancelled 01/19/23 12:37 Ferritin Cancelled 01/19/23 12:37 Total Bilirubin 1.1 mg/dl (0.2-1.0) H 01/09/23 19:13 AST 16 U/L (13-39) 01/09/23 19:13 ALT 6 U/L (7-52) L 01/09/23 19:13 Alkaline Phosphatase 59 U/L (34-104) 01/09/23 19:13 Total Protein 6.6 gm/dl (6.0-8.3) 01/09/23 19:13 Albumin 3.4 gm/dl (3.4-5.0) 01/09/23 19:13 Globulin 3.2 gm/dl (2.5-4.0) 01/09/23 19:13 Albumin/Globulin Ratio 1.1 (0.9-2) 01/09/23 19:13 Vitamin B12 1016 pg/ml (180-914) H 01/19/23 04:40 Folate 14.43 ng/ml (>5.38) 01/19/23 04:40 TSH 2.572 uIu/ml (0.300-4.500) 01/19/23 20:44 Urine Color Yellow 01/20/23 01:15 Urine Appearance Clear (Clear) 01/20/23 01:15 Urine pH 7.0 (4.5-7.5) 01/20/23 01:15 Ur Specific [place] 1.007 (1.000-1.030) 01/20/23 01:15 Urine Protein Negative (Negative) 01/20/23 01:15 Urine Glucose (UA) Negative (Negative) 01/20/23 01:15 Urine Ketones Negative (Negative) 01/20/23 01:15 Urine Blood Negative (Negative) 01/20/23 01:15 Urine Nitrite Negative (Negative) 01/20/23 01:15 Urine Bilirubin Negative (Negative) 01/20/23 01:15 Urine Urobilinogen Negative (Negative) 01/20/23 01:15 Ur Leukocyte Esterase 1+ (Negative) H 01/20/23 01:15 Urine WBC (Auto) 1-5 /hpf (0-5) 01/20/23 01:15 Urine RBC (Auto) 0-4 /hpf (0-4) 01/20/23 01:15 U Hyaline Cast (Auto) 1-5 /lpf (0-5) 01/20/23 01:15 U Epithel Cells (Auto) >30 /lpf (0-5) H 01/20/23 01:15 Urine Bacteria (Auto) Negative (Negative) 01/20/23 01:15 Stool Occult Bld Scrn Negative (Negative) 01/19/23 17:17 SARS-CoV-2 (PCR) NEGATIVE (Negative) 01/09/23 22:57 Influenza Type A (PCR) Negative (Neg) 01/09/23 22:57 Influenza Type B (PCR) Negative (Neg) 01/09/23 22:57 RSV (RT-PCR) Negative (Neg) 01/09/23 22:57 Blood Type A Positive 01/19/23 04:40 Blood Type Recheck A Positive 01/20/23 05:23 Antibody Screen NEGATIVE 01/19/23 04:40 Crossmatch See Detail 01/19/23 04:40 Impressions Chest X-Ray 01/09/23 18:34 SINGLE VIEW CHEST CLINICAL HISTORY: Dehydration. FINDINGS: An AP upright chest radiograph is compared to study dated 10/09/2022. A right PICC line is unchanged in position. The heart is enlarged. The pulmonary vasculature is not congested. Chronic interstitial thickening similar to previous. No airspace consolidation or large pleural effusion is identified. No pneumothorax is seen. The skeletal structures are osteopenic. Bony thorax is grossly intact. IMPRESSION: Cardiomegaly with no active disease in the chest. ACT 112: Negative or not required by law. Electronically signed by: Stevie Leach M.D. 01/10/2023 12:00 AM Abdomen/Pelvis CT 01/20/23 07:44 CT OF THE ABDOMEN AND PELVIS WITHOUT CONTRAST CLINICAL HISTORY: Nausea, vomiting, anemia R/O bleeding. COMPARISON STUDY: CT of the abdomen and pelvis January 10, 2023. TECHNIQUE: Axial images of the abdomen and pelvis were obtained without IV contrast. Images were reviewed in the axial, sagittal, and coronal planes. Automated exposure control was utilized for the study. A dose lowering technique was utilized adhering to the principles of ALARA. FINDINGS: Please note that the chest CT will be reported separately. No hemoperitoneum or pneumoperitoneum is present. There is no retroperitoneal hematoma. Evaluation of the abdomen and pelvis is suboptimal on this unenhanced exam. Unenhanced images of the liver, spleen, kidneys and is unremarkable. Hyperdense material within the gallbladder is noted. There is no evidence for acute cholecystitis. There is no evidence for a bowel obstruction. There are sigmoid diverticulosis without evidence for acute diverticulitis. There is no lymphadenopathy. Body wall edema is again noted. This is similar to prior exam. There is presacral stranding. Trace bilateral pleural effusions are present. IMPRESSION: 1. No acute process within the abdomen or pelvis on unenhanced exam. No retroperitoneal hematoma. No hemoperitoneum. 2. No significant change since CT of January 10, 2023. Evidence for volume overload with body wall edema and trace bilateral pleural effusions. 3. Sigmoid diverticulosis. No evidence for acute diverticulitis. ACT 112: Negative or not required by law. Electronically signed by: Diogo Rhodes M.D. 01/20/2023 9:[address] 01/20/23 07:44 CT chest diagnostic wo con CT DOSE: 2132.35 mGy.cm CLINICAL HISTORY: 62 years-old Female with Interstitial lung disease, Anemia R/O bleeding. TECHNIQUE: Multiaxial CT images of the chest were performed without contrast. A dose lowering technique was utilized adhering to the principles of ALARA. COMPARISON: CT abdomen and pelvis of same day, chest CT 01/13/2023 FINDINGS: Right paratracheal lymph node measures 1.9 x 1.2 cm on image 72, previously 2.1 x 1.3 cm. This is likely reactive. Subcarinal lymphadenopathy measures up to 9 mm . Moderate cardiomegaly with extensive coronary artery and moderate mitral annular calcifications. Trace pericardial effusion. Decreased a ttenuation of the cardiac blood pool suggestive of anemia. Elevation of the main pulmonary artery, 3.3 cm. Atherosclerosis of the thoracic aorta without aneurysm. Small right and trace left pleural effusions, mildly decreased from prior. Anasarca. Intralobular septal thickening with intermixed groundglass and consolidative opacities are noted in a multisegmental multilobar distribution. Findings mildly improved from prior. No bronchiectasis, honeycombing or significant subpleural reticulation identified. Mild endobronchial secretions. Mild dependent bibasilar consolidation have improved. No acute fracture. No acute process of the imaged upper abdomen. IMPRESSION: 1. Cardiomegaly with mildly improved pulmonary edema and patchy bilateral airspace opacities. 2. Small right and trace left pleural effusions have mildly decreased in size from prior. 3. Mildly decreased size of the previously described mediastinal lymphadenopathy. ACT 112: Negative or not required by law. Electronically signed by: Khoa Farr M.D. 01/20/2023 10:[address] 01/21/23 12:44 CT head/brain wo con CLINICAL HISTORY: 62 years-old Female with Dizziness. Acute dizziness TECHNIQUE: Multiple axial CT images of the head were obtained without contrast. A dose lowering technique was utilized adhering to the principles of ALARA. CT DOSE: 625.80 mGy.cm COMPARISON: 01/15/2011. FINDINGS: No acute intracranial hemorrhage, midline shift, intracranial mass, hydrocephalus, territorial ischemia or abnormal extra-axial collection. Involutional changes with white matter hypodensities again noted, most pronounced in the right frontal lobe. Findings may represent microvascular ischemic disease versus a demyelinating process. The calvarium is intact. Trace mastoid effusions. Paranasal sinuses are clear. Unremarkable soft tissues and orbits. IMPRESSION: No acute intracranial abnormality. ACT 112: Negative or not required by law. The above report was generated using voice recognition software. It may contain grammatical, syntax or spelling errors. Electronically signed by: Khoa Farr M.D. 01/21/2023 1:56 PM
[2023-01-22] MEDS: WARFARIN SOD 5 MG TAB PO SCH (18:06)
[2023-01-22] MEDS: OLANZapine ZYDIS 5 MG ORALLY DIS. TAB PO SCH (21:07)
[2023-01-23] MEDS: SODIUM CHLORIDE 0.9% 500 ML IV SCH ×4 (04:52→22:04)
[2023-01-23] MEDS: LEVOTHYROXINE SODIUM 200 MCG TABLET PO SCH (06:04)
[2023-01-23 06:46] LABS: Hematocrit (blood only) 22.9 % (37.0-47.0); Hemoglobin 7.6 g/dl (12.0-16.0); Mean Corpuscular Hemoglobin 30.8 pg (25.0-34.0); Mean Corpuscular Hgb Conc 33.2 g/dL (32.0-36.0); Mean Corpuscular Volume 92.7 fL (80.0-100.0); Mean Platelet Volume 11.6 fL (9.4-12.4); Platelet Count 127 K/uL (130-400); RDW Standard Deviation 53.8 fL (36.4-46.3); Red Blood Count 2.47 M/uL (4.20-5.40); White Blood Count 7.25 K/ul (4.8-10.8)
[2023-01-23 06:52] LABS: Albumin Globulin Ratio 1.1 (0.9-2); Albumin Level 3.1 gm/dl (3.4-5.0); BUN Creatinine Ratio 15.3 (10-20); Bilirubin,Total 0.7 mg/dl (0.2-1.0); Calcium 9.2 mg/dl (8.6-10.3); Creatinine Clr Calc Pharmacy 56.2 ml/min; Est GFR (African American) 56.4 ml/min; Est GFR (Non-African American) 48.7 ml/min; Globulin 2.8 gm/dl (2.5-4.0); Potassium 3.9 mmol/L (3.5-5.1); Total Protein 5.9 gm/dl (6.0-8.3)
[2023-01-23 06:59] LABS: INR 1.1 (0.9-1.1); Prothrombin Time 12.1 Seconds (9.0-12.0)
[2023-01-23 07:10] LABS: Basophils # (auto) 0.04 K/uL (0-0.2); Basophils % (auto) 0.6 %; Eosinophils # (auto) 0.39 K/uL (0-0.50); Eosinophils % (auto) 5.4 %; Immature Granulocytes # (auto) 0.07 K/uL (0.01-0.20); Lymphocytes % (auto) 17.9 %; Monocytes # (auto) 0.59 K/uL (0.11-0.59); Monocytes % (auto) 8.1 %; Neutrophils # (auto) 4.86 K/uL (1.40-6.50); Polychromasia 1+; Tear Drop Cells 1+
[2023-01-23] MEDS: MIDODRINE HCL 2.5 MG TAB PO SCH ×3 (07:26→17:41)
[2023-01-23] MEDS: FLUTICASONE PROPIONATE NA SPR 16 GM BTL SCH (09:24)
[2023-01-23] MEDS: AMBRISENTAN 10MG TABLET PO SCH (09:25)
[2023-01-23] MEDS: MAGNESIUM OXIDE 400 MG TAB PO SCH (09:26)
[2023-01-23] MEDS: FOLIC ACID 1 MG TAB PO SCH (09:26)
[2023-01-23] MEDS: SERTRALINE HCL 100 MG TABLET PO SCH (09:26)
[2023-01-23] MEDS: ASPIRIN 81 MG ECTAB PO SCH (09:26)
[2023-01-23] MEDS: CHOLECALCIFEROL 5,000 UNITS 125 MCG TAB PO SCH (09:26)
[2023-01-23] MEDS: ATORVASTATIN 20 MG TAB PO SCH (09:26)
[2023-01-23] MEDS: CYANOCOBALAMIN (B-12) 500 MCG TABLET PO SCH (09:26)
[2023-01-23] MEDS: ENOXAPARIN 100 MG/1ML SYR SQ SCH ×3 (12:47→22:20)
--- NOTE | 2023-01-23 15:14 | Hospitalist Progress Note ---
Date of Service January 23, 2023 Assessment & Plan (1) Nausea & vomiting: (2) Electrolyte abnormality: Plan Patient is a 62 yr female with H/O MTHFR mutation, chronic hypoxemic respiratory failure on a 8-10 L oxygen at home, pulmonary artery hypertension, right ventricle enlargement, limited systemic sclerosis, history of PE, history of depression, hyperlipidemia, hypothyroidism, obstructive sleep apnea, on CPAP nightly, chronic atrial fibrillation, diastolic heart failure, obesity, chronic kidney disease stage III presents with n/v and electrolyte abnormalities. Persistent nausea and vomiting Weight loss Diarrhea Urine tract infection --Patient reports 3-month history of nausea, vomiting and weight loss. Reports that they started when she was on IV antibiotics for Mycobacterium abscesses. Was on amikacin, cefoxitin, linezolid, azithromycin per patient --Followed with infectious disease and pulmonology as outpatient--recommended to discontinue antibiotics thought to be causing significant nausea, vomiting. Patient discontinued antibiotics a couple of weeks ago. --CT ABD:Cardiomegaly with intralobular septal thickening. Correlate clinically for evidence of congestive failure. Small pleural effusions dependent consolidation. This likely represents atelectasis and clinical correlation will be required. Body wall edema and a trace abdominopelvic ascites indicate fluid overload. The bladder wall appears thickened and there is pericystic infiltration. Correlate with clinical findings and urinalysis. -- GI was consulted. Offered EGD/colonoscopy. Consider further testing as outpatient --Urine culture growing Enterobacter cloacae -- Blood culture negative to date --Trial of metoclopramide, Zofran unsuccessful. IV Antibiotics switched over to Ceftin--completed course Palliative care was consulted for persistent nausea Symptomatically improved on Zyprexa. Also, nonpharmacologic method with smelling of isopropyl alcohol was also successful. Nausea resolved, tolerating diet Orthostatic hypotension Continues to be persistently hypotensive. Stop Aldactone, Lasix and metoprolol. Echocardiogram done; EF of 55 to 60%. Pulmonary artery systolic pressure estimated to be 37 mmHg. Will resume metoprolol. Continue to hold Lasix and Aldactone Continue normal saline at 80 cc/h Repeat orthostatic tomorrow AM. Hypokalemia Hypomagnesemia Replete as needed Monitor Acute on chronic anemia Imaging studies showed no signs of bleeding Denies any obvious bleeding issues ? Likely dilutional due to volume overload Fecal occult negative Anemia work up reviewed Monitor H&H and transfuse as needed Hemoglobin stable. Chronic hypoxic respiratory failure on on 8 to 10 L oxygen at home Pulmonary edema History of PE History of A-fib History of pulmonary hypertension Continue Coumadin at 5 mg/day Also started on Lovenox. Pulmonary hypertension Limited systemic sclerosis Continue home medications Follow-up with pulmonary as outpatient Chronic A-fib On metoprolol and Coumadin Chronic diastolic CHF Lasix is on hold. Monitor for volume overload. Hold Aldactone. Obstructive sleep apnea CPAP nightly with oxygen Hypothyroidism continue Levothyroxine Chronic kidney stage III Creatinine at baseline Decreased hearing Possible side effects from antibiotics Stable DVT Px: Coumadin Overdose. Code Status Full Code Disposition Rehab as able Time spent evaluating patient, direct bedside care, chart review, placing orders, interpretation of diagnostic studies, discussion with consultants, patient, and family members, as well as other required patient management activities is 60 minutes Please note the above document was generated using voice recognition software. It may contain grammatical, syntax or spelling errors. Any formal questions or concerns about the content, text or information contained within the body of this dictation should be directly addressed to the provider for clarification Admission and Anticipated Discharge Date Admission Date: January 10, 2023 Subjective Reports that her nausea and vomiting has resolved. Continues to be dizzy on standing but reports symptoms are overall better. Review of Systems Review of Systems: All systems reviewed & are unremarkable except as noted in Subjective Physical Exam Physical Exam: Constitutional: Awake, alert orient x3; not in distress. Respiratory: Bilateral fine crackles present. Cardiovascular: RRR, no murmur, no edema Vessels: no JVD or carotid bruit Chest: normal inspection of chest Abdomen: normal bowel sounds, soft, nontender, no hepatosplenomegaly Musculoskeletal: no cyanosis or clubbing, extremities motor strength 5/5 Skin: no rashes, warm and dry normal turgor Neurologic: PERRL, EOMI, accommodation nl, no face palsy, no dysarthria CN's II- XI intact bilaterally and moves all extremities Psychiatric: A+Ox3, euthymic affect Results & Data Results & Data Vital Signs (Past 12 Hours) Vital Signs Temp Pulse Resp BP BP Pulse Ox O2 Del Method 01/23/23 12:06 36.4 C L 90 16 104/69 100 High Flow Nasal Cannula 01/23/23 11:02 Nasal Cannula 01/23/23 08:10 36.8 C 92 H 16 109/69 96 High Flow Nasal Cannula 01/23/23 03:21 36.8 C 93 H 20 115/71 100 Nasal Cannula O2 Flow Rate 01/23/23 12:06 8 01/23/23 11:02 01/23/23 08:10 8 01/23/23 03:21 9.0 Laboratory Results Laboratory Results WBC 7.25 K/ul (4.8-10.8) 01/23/23 05:58 RBC 2.47 M/uL (4.20-5.40) L 01/23/23 05:58 Hgb 7.6 g/dl (12.0-16.0) L 01/23/23 05:58 Hct 22.9 % (37.0-47.0) L 01/23/23 05:58 MCV 92.7 fL (80.0-100.0) 01/23/23 05:58 MCH 30.8 pg (25.0-34.0) 01/23/23 05:58 MCHC 33.2 g/dL (32.0-36.0) 01/23/23 05:58 RDW Std Deviation 53.8 fL (36.4-46.3) H 01/23/23 05:[address] 16.0 % (11.5-14.5) H 01/23/23 05:58 Plt Count 127 K/uL (130-400) L 01/23/23 05:58 MPV 11.6 fL (9.4-12.4) 01/23/23 05:58 Immature Gran % (Auto) 1.0 % 01/23/23 05:58 Neut % (Auto) 67.0 % 01/23/23 05:58 Lymph % (Auto) 17.9 % 01/23/23 05:58 Childress % (Auto) 8.1 % 01/23/23 05:58 Eos % (Auto) 5.4 % 01/23/23 05:58 Baso % (Auto) 0.6 % 01/23/23 05:58 Neut # (Auto) 4.86 K/uL (1.40-6.50) 01/23/23 05:58 Lymph # (Auto) 1.30 K/uL (1.2-3.4) 01/23/23 05:58 Childress # (Auto) 0.59 K/uL (0.11-0.59) 01/23/23 05:58 Eos # (Auto) 0.39 K/uL (0-0.50) 01/23/23 05:58 Baso # (Auto) 0.04 K/uL (0-0.2) 01/23/23 05:58 Immature Gran # (Auto) 0.07 K/uL (0.01-0.20) 01/23/23 05:58 Polychromasia 1+ 01/23/23 05:58 Tear Drop Cells 1+ 01/23/23 05:58 PT 12.1 Seconds (9.0-12.0) H 01/23/23 05:58 INR 1.1 (0.9-1.1) 01/23/23 05:58 Sodium 140 mmol/L (136-145) 01/23/23 05:58 Potassium 3.9 mmol/L (3.5-5.1) 01/23/23 05:58 Chloride 105 mmol/L (98-107) 01/23/23 05:58 Carbon Dioxide 27 mmol/L (21-32) 01/23/23 05:58 Anion Gap 8 (3-11) 01/23/23 05:58 BUN 18 mg/dl (6-23) 01/23/23 05:58 Creatinine 1.18 mg/dl (0.6-1.2) 01/23/23 05:58 Est Cr Clr Drug Dosing 56.2 ml/min 01/23/23 05:58 Est GFR ( Amer) 56.4 ml/min 01/23/23 05:58 Est GFR (Non-Af Amer) 48.7 ml/min 01/23/23 05:58 BUN/Creatinine Ratio 15.3 (10-20) 01/23/23 05:58 Glucose 94 mg/dl (70-99(Fasting)) 01/23/23 05:58 Lactate 1.5 mmol/L (0.4-2.0) 01/20/23 00:27 Calcium 9.2 mg/dl (8.6-10.3) 01/23/23 05:58 Phosphorus 2.3 mg/dl (2.5-4.9) L 01/11/23 05:19 Magnesium 1.6 mg/dl (1.7-2.4) L 01/22/23 08:55 Iron Cancelled 01/19/23 12:37 Transferrin Cancelled 01/19/23 12:37 Ferritin Cancelled 01/19/23 12:37 Total Bilirubin 0.7 mg/dl (0.2-1.0) 01/23/23 05:58 AST 10 U/L (13-39) L 01/23/23 05:58 ALT 5 U/L (7-52) L 01/23/23 05:58 Alkaline Phosphatase 64 U/L (34-104) 01/23/23 05:58 Total Protein 5.9 gm/dl (6.0-8.3) L 01/23/23 05:58 Albumin 3.1 gm/dl (3.4-5.0) L 01/23/23 05:58 Globulin 2.8 gm/dl (2.5-4.0) 01/23/23 05:58 Albumin/Globulin Ratio 1.1 (0.9-2) 01/23/23 05:58 Vitamin B12 1016 pg/ml (180-914) H 01/19/23 04:40 Folate 14.43 ng/ml (>5.38) 01/19/23 04:40 TSH 2.572 uIu/ml (0.300-4.500) 01/19/23 20:44 Urine Color Yellow 01/20/23 01:15 Urine Appearance Clear (Clear) 01/20/23 01:15 Urine pH 7.0 (4.5-7.5) 01/20/23 01:15 Ur Specific Deary 1.007 (1.000-1.030) 01/20/23 01:15 Urine Protein Negative (Negative) 01/20/23 01:15 Urine Glucose (UA) Negative (Negative) 01/20/23 01:15 Urine Ketones Negative (Negative) 01/20/23 01:15 Urine Blood Negative (Negative) 01/20/23 01:15 Urine Nitrite Negative (Negative) 01/20/23 01:15 Urine Bilirubin Negative (Negative) 01/20/23 01:15 Urine Urobilinogen Negative (Negative) 01/20/23 01:15 Ur Leukocyte Esterase 1+ (Negative) H 01/20/23 01:15 Urine WBC (Auto) 1-5 /hpf (0-5) 01/20/23 01:15 Urine RBC (Auto) 0-4 /hpf (0-4) 01/20/23 01:15 U Hyaline Cast (Auto) 1-5 /lpf (0-5) 01/20/23 01:15 U Epithel Cells (Auto) >30 /lpf (0-5) H 01/20/23 01:15 Urine Bacteria (Auto) Negative (Negative) 01/20/23 01:15 Stool Occult Bld Scrn Negative (Negative) 01/19/23 17:17 SARS-CoV-2 (PCR) NEGATIVE (Negative) 01/09/23 22:57 Influenza Type A (PCR) Negative (Neg) 01/09/23 22:57 Influenza Type B (PCR) Negative (Neg) 01/09/23 22:57 RSV (RT-PCR) Negative (Neg) 01/09/23 22:57 Blood Type A Positive 01/19/23 04:40 Blood Type Recheck A Positive 01/20/23 05:23 Antibody Screen NEGATIVE 01/19/23 04:40 Crossmatch See Detail 01/19/23 04:40 Impressions Chest X-Ray 01/09/23 18:34 SINGLE VIEW CHEST CLINICAL HISTORY: Dehydration. FINDINGS: An AP upright chest radiograph is compared to study dated 10/09/2022. A right PICC line is unchanged in position. The heart is enlarged. The pulmonary vasculature is not congested. Chronic interstitial thickening similar to previous. No airspace consolidation or large pleural effusion is identified. No pneumothorax is seen. The skeletal structures are osteopenic. Bony thorax is grossly intact. IMPRESSION: Cardiomegaly with no active disease in the chest. ACT 112: Negative or not required by law. Electronically signed by: Stevie Leach M.D. 01/10/2023 12:00 AM Abdomen/Pelvis CT 01/20/23 07:44 CT OF THE ABDOMEN AND PELVIS WITHOUT CONTRAST CLINICAL HISTORY: Nausea, vomiting, anemia R/O bleeding. COMPARISON STUDY: CT of the abdomen and pelvis January 10, 2023. TECHNIQUE: Axial images of the abdomen and pelvis were obtained without IV contrast. Images were reviewed in the axial, sagittal, and coronal planes. Automated exposure control was utilized for the study. A dose lowering technique was utilized adhering to the principles of ALARA. FINDINGS: Please note that the chest CT will be reported separately. No hemoperitoneum or pneumoperitoneum is present. There is no retroperitoneal hematoma. Evaluation of the abdomen and pelvis is suboptimal on this unenhanced exam. Unenhanced images of the liver, spleen, kidneys and is unremarkable. Hyperdense material within the gallbladder is noted. There is no evidence for acute cholecystitis. There is no evidence for a bowel obstruction. There are sigmoid diverticulosis without evidence for acute diverticulitis. There is no lymphadenopathy. Body wall edema is again noted. This is similar to prior exam. There is presacral stranding. Trace bilateral pleural effusions are present. IMPRESSION: 1. No acute process within the abdomen or pelvis on unenhanced exam. No retroperitoneal hematoma. No hemoperitoneum. 2. No significant change since CT of January 10, 2023. Evidence for volume overload with body wall edema and trace bilateral pleural effusions. 3. Sigmoid diverticulosis. No evidence for acute diverticulitis. ACT 112: Negative or not required by law. Electronically signed by: Diogo Rhodes M.D. 01/20/2023 9:[address] 01/20/23 07:44 CT chest diagnostic wo con CT DOSE: 2132.35 mGy.cm CLINICAL HISTORY: 62 years-old Female with Interstitial lung disease, Anemia R/O bleeding. TECHNIQUE: Multiaxial CT images of the chest were performed without contrast. A dose lowering technique was utilized adhering to the principles of ALARA. COMPARISON: CT abdomen and pelvis of same day, chest CT 01/13/2023 FINDINGS: Right paratracheal lymph node measures 1.9 x 1.2 cm on image 72, previously 2.1 x 1.3 cm. This is likely reactive. Subcarinal lymphadenopathy measures up to 9 mm . Moderate cardiomegaly with extensive coronary artery and moderate mitral annular calcifications. Trace pericardial effusion. Decreased attenuation of the cardiac blood pool suggestive of anemia. Elevation of the main pulmonary artery, 3.3 cm. Atherosclerosis of the thoracic aorta without aneurysm. Small right and trace left pleural effusions, mildly decreased from prior. Anasarca. Intralobular septal thickening with intermixed groundglass and consolidative opacities are noted in a multisegmental multilobar distribution. Findings mildly improved from prior. No bronchiectasis, honeycombing or significant subpleural reticulation identified. Mild endobronchial secretions. Mild dependent bibasilar consolidation have improved. No acute fracture. No acute process of the imaged upper abdomen. IMPRESSION: 1. Cardiomegaly with mildly improved pulmonary edema and patchy bilateral airspace opacities. 2. Small right and trace left pleural effusions have mildly decreased in size from prior. 3. Mildly decreased size of the previously described mediastinal lymphadenopathy. ACT 112: Negative or not required by law. Electronically signed by: Khoa Farr M.D. 01/20/2023 10:[address] 01/21/23 12:44 CT head/brain wo con CLINICAL HISTORY: 62 years-old Female with Dizziness. Acute dizziness TECHNIQUE: Multiple axial CT images of the head were obtained without contrast. A dose lowering technique was utilized adhering to the principles of ALARA. CT DOSE: 625.80 mGy.cm COMPARISON: 01/15/2011. FINDINGS: No acute intracranial hemorrhage, midline shift, intracranial mass, hydrocephalus, territorial ischemia or abnormal extra-axial collection. Involutional changes with white matter hypodensities again noted, most pronounced in the right frontal lobe. Findings may represent microvascular ischemic disease versus a demyelinating process. The calvarium is intact. Trace mastoid effusions. Paranasal sinuses are clear. Unremarkable soft tissues and orbits. IMPRESSION: No acute intracranial abnormality. ACT 112: Negative or not required by law. The above report was generated using voice recognition software. It may contain grammatical, syntax or spelling errors. Electronically signed by: Khoa Farr M.D. 01/21/2023 1:56 PM
[2023-01-23] MEDS: WARFARIN SOD 5 MG TAB PO SCH (17:41)
[2023-01-23] MEDS: METOPROLOL SUCC 25MG EXT REL TAB PO SCH (21:49)
[2023-01-23] MEDS: OLANZapine ZYDIS 5 MG ORALLY DIS. TAB PO SCH (21:49)
[2023-01-24] MEDS: SODIUM CHLORIDE 0.9% 500 ML IV SCH (03:14)
[2023-01-24] MEDS: LEVOTHYROXINE SODIUM 200 MCG TABLET PO SCH (05:30)
[2023-01-24 06:09] LABS: Albumin Globulin Ratio 1.1 (0.9-2); BUN Creatinine Ratio 14.8 (10-20); Bilirubin,Total 0.6 mg/dl (0.2-1.0); Calcium 8.9 mg/dl (8.6-10.3); Creatinine Clr Calc Pharmacy 49.7 ml/min; Est GFR (Non-African American) 41.4 ml/min; Globulin 2.7 gm/dl (2.5-4.0); Total Protein 5.7 gm/dl (6.0-8.3)
[2023-01-24 06:55] LABS: Hematocrit (blood only) 21.3 % (37.0-47.0); Mean Corpuscular Hemoglobin 30.7 pg (25.0-34.0); Mean Corpuscular Hgb Conc 32.9 g/dL (32.0-36.0); Mean Corpuscular Volume 93.4 fL (80.0-100.0); Mean Platelet Volume 11.5 fL (9.4-12.4); Platelet Count 144 K/uL (130-400); RDW Coefficient of Variation 16.1 % (11.5-14.5); RDW Standard Deviation 54.6 fL (36.4-46.3); Red Blood Count 2.28 M/uL (4.20-5.40); White Blood Count 6.29 K/ul (4.8-10.8)
[2023-01-24 06:56] LABS: INR 1.2 (0.9-1.1); Prothrombin Time 13.2 Seconds (9.0-12.0)
[2023-01-24 07:27] LABS: Basophils # (auto) 0.03 K/uL (0-0.2); Basophils % (auto) 0.5 %; Eosinophils # (auto) 0.32 K/uL (0-0.50); Eosinophils % (auto) 5.1 %; Immature Granulocytes # (auto) 0.04 K/uL (0.01-0.20); Immature Granulocytes % (auto) 0.6 %; Lymphocytes # (auto) 1.14 K/uL (1.2-3.4); Lymphocytes % (auto) 18.1 %; Monocytes # (auto) 0.48 K/uL (0.11-0.59); Monocytes % (auto) 7.6 %; Neutrophils # (auto) 4.28 K/uL (1.40-6.50); Neutrophils % (auto) 68.1 %; Polychromasia 1+
[2023-01-24] MEDS: MIDODRINE HCL 2.5 MG TAB PO SCH ×3 (07:49→16:46)
[2023-01-24] MEDS: ASPIRIN 81 MG ECTAB PO SCH (08:31)
[2023-01-24] MEDS: SERTRALINE HCL 100 MG TABLET PO SCH (08:31)
[2023-01-24] MEDS: ATORVASTATIN 20 MG TAB PO SCH (08:32)
[2023-01-24] MEDS: CYANOCOBALAMIN (B-12) 500 MCG TABLET PO SCH (08:32)
[2023-01-24] MEDS: METOPROLOL SUCC 25MG EXT REL TAB PO SCH ×2 (08:32→21:21)
[2023-01-24] MEDS: CHOLECALCIFEROL 5,000 UNITS 125 MCG TAB PO SCH (08:32)
[2023-01-24] MEDS: FLUTICASONE PROPIONATE NA SPR 16 GM BTL SCH (08:33)
[2023-01-24] MEDS: MAGNESIUM OXIDE 400 MG TAB PO SCH (08:33)
[2023-01-24] MEDS: FOLIC ACID 1 MG TAB PO SCH (08:33)
[2023-01-24] MEDS: AMBRISENTAN 10MG TABLET PO SCH (08:34)
[2023-01-24] MEDS: ENOXAPARIN 100 MG/1ML SYR SQ SCH ×2 (12:12→22:36)
--- NOTE | 2023-01-24 15:24 | Hospitalist Progress Note ---
Date of Service January 24, 2023 Assessment & Plan (1) Nausea & vomiting: (2) Electrolyte abnormality: Plan Patient is a 62 yr female with H/O MTHFR mutation, chronic hypoxemic respiratory failure on a 8-10 L oxygen at home, pulmonary artery hypertension, right ventricle enlargement, limited systemic sclerosis, history of PE, history of depression, hyperlipidemia, hypothyroidism, obstructive sleep apnea, on CPAP nightly, chronic atrial fibrillation, diastolic heart failure, obesity, chronic kidney disease stage III presents with n/v and electrolyte abnormalities. Persistent nausea and vomiting Weight loss Diarrhea Urine tract infection --Patient reports 3-month history of nausea, vomiting and weight loss. Reports that they started when she was on IV antibiotics for Mycobacterium abscesses. Was on amikacin, cefoxitin, linezolid, azithromycin per patient --Followed with infectious disease and pulmonology as outpatient--recommended to discontinue antibiotics thought to be causing significant nausea, vomiting. Patient discontinued antibiotics a couple of weeks ago. --CT ABD:Cardiomegaly with intralobular septal thickening. Correlate clinically for evidence of congestive failure. Small pleural effusions dependent consolidation. This likely represents atelectasis and clinical correlation will be required. Body wall edema and a trace abdominopelvic ascites indicate fluid overload. The bladder wall appears thickened and there is pericystic infiltration. Correlate with clinical findings and urinalysis. -- GI was consulted. Offered EGD/colonoscopy. Consider further testing as outpatient --Urine culture growing Enterobacter cloacae -- Blood culture negative to date --Trial of metoclopramide, Zofran unsuccessful. IV Antibiotics switched over to Ceftin--completed course Palliative care was consulted for persistent nausea Symptomatically improved on Zyprexa. Also, nonpharmacologic method with smelling of isopropyl alcohol was also successful. Nausea resolved, tolerating diet Orthostatic hypotension Continues to be persistently hypotensive. Stop Aldactone, Lasix. Echocardiogram done; EF of 55 to 60%. Pulmonary artery systolic pressure estimated to be 37 mmHg. Will resume metoprolol. Continue to hold Lasix and Aldactone Repeat orthostatic daily.. Hypokalemia Hypomagnesemia Replete as needed Monitor Acute on chronic anemia Imaging studies showed no signs of bleeding Denies any obvious bleeding issues ? Likely dilutional due to volume overload Fecal occult negative Anemia work up reviewed Monitor H&H and transfuse as needed Hemoglobin 7 today. Chronic hypoxic respiratory failure on on 8 to 10 L oxygen at home Pulmonary edema History of PE History of A-fib History of pulmonary hypertension Continue Coumadin at 5 mg/day Also started on Lovenox bridge Pulmonary hypertension Limited systemic sclerosis Continue home medications Follow-up with pulmonary as outpatient Chronic A-fib On metoprolol and Coumadin Chronic diastolic CHF Lasix is on hold. Monitor for volume overload. Hold Aldactone. Obstructive sleep apnea CPAP nightly with oxygen Hypothyroidism continue Levothyroxine Chronic kidney stage III Creatinine at baseline Decreased hearing Possible side effects from antibiotics Stable DVT Px: Coumadin Overdose. Code Status Full Code Disposition Rehab as able Time spent evaluating patient, direct bedside care, chart review, placing orders, interpretation of diagnostic studies, discussion with consultants, patient, and family members, as well as other required patient management activities is 60 minutes Please note the above document was generated using voice recognition software. It may contain grammatical, syntax or spelling errors. Any formal questions or concerns about the content, text or information contained within the body of this dictation should be directly addressed to the provider for clarification Admission and Anticipated Discharge Date Admission Date: January 10, 2023 Subjective Patient seen and examined at bedside. Reports that her dizziness is much better. No longer nauseous or having vomiting. Review of Systems Review of Systems: All systems reviewed & are unremarkable except as noted in Subjective Physical Exam Physical Exam: Constitutional: Awake, alert orient x3; not in distress. Respiratory: Bilateral fine crackles present. Cardiovascular: RRR, no murmur, no edema Vessels: no JVD or carotid bruit Chest: normal inspection of chest Abdomen: normal bowel sounds, soft, nontender, no hepatosplenomegaly Musculoskeletal: no cyanosis or clubbing, extremities motor strength 5/5 Skin: no rashes, warm and dry normal turgor Neurologic: PERRL, EOMI, accommodation nl, no face palsy, no dysarthria CN's II- XI intact bilaterally and moves all extremities Psychiatric: A+Ox3, euthymic affect Results & Data Results & Data Vital Signs (Past 12 Hours) Vital Signs Temp Pulse Pulse Resp BP Pulse Ox O2 Del Method 01/24/23 12:48 Nasal Cannula 01/24/23 12:06 36.7 C 78 21 100/67 95 Nasal Cannula 01/24/23 10:46 95 H 01/24/23 08:04 36.7 C 102 H 20 101/64 90 Nasal Cannula 01/24/23 03:51 High Flow Nasal Cannula O2 Flow Rate 01/24/23 12:48 8 01/24/23 12:06 9 01/24/23 10:46 01/24/23 08:04 9 01/24/23 03:51 8 Laboratory Results Laboratory Results WBC 6.29 K/ul (4.8-10.8) 01/24/23 05:29 RBC 2.28 M/uL (4.20-5.40) L 01/24/23 05:29 Hgb 7.0 g/dl (12.0-16.0) L 01/24/23 05:29 Hct 21.3 % (37.0-47.0) L 01/24/23 05:29 MCV 93.4 fL (80.0-100.0) 01/24/23 05:29 MCH 30.7 pg (25.0-34.0) 01/24/23 05:29 MCHC 32.9 g/dL (32.0-36.0) 01/24/23 05:29 RDW Std Deviation 54.6 fL (36.4-46.3) H 01/24/23 05:[address] 16.1 % (11.5-14.5) H 01/24/23 05:29 Plt Count 144 K/uL (130-400) 01/24/23 05:29 MPV 11.5 fL (9.4-12.4) 01/24/23 05:29 Immature Gran % (Auto) 0.6 % 01/24/23 05:29 Neut % (Auto) 68.1 % 01/24/23 05:29 Lymph % (Auto) 18.1 % 01/24/23 05:29 [place] % (Auto) 7.6 % 01/24/23 05:29 Eos % (Auto) 5.1 % 01/24/23 05:29 Baso % (Auto) 0.5 % 01/24/23 05:29 Neut # (Auto) 4.28 K/uL (1.40-6.50) 01/24/23 05:29 Lymph # (Auto) 1.14 K/uL (1.2-3.4) L 01/24/23 05:29 [place] # (Auto) 0.48 K/uL (0.11-0.59) 01/24/23 05:29 Eos # (Auto) 0.32 K/uL (0-0.50) 01/24/23 05:29 Baso # (Auto) 0.03 K/uL (0-0.2) 01/24/23 05:29 Immature Gran # (Auto) 0.04 K/uL (0.01-0.20) 01/24/23 05:29 Polychromasia 1+ 01/24/23 05:29 Tear Drop Cells 1+ 01/23/23 05:58 PT 13.2 Seconds (9.0-12.0) H 01/24/23 05:29 INR 1.2 (0.9-1.1) H 01/24/23 05:29 Sodium 140 mmol/L (136-145) 01/24/23 05:29 Potassium 4.0 mmol/L (3.5-5.1) 01/24/23 05:29 Chloride 108 mmol/L (98-107) H 01/24/23 05:29 Carbon Dioxide 25 mmol/L (21-32) 01/24/23 05:29 Anion Gap 7 (3-11) 01/24/23 05:29 BUN 20 mg/dl (6-23) 01/24/23 05:29 Creatinine 1.35 mg/dl (0.6-1.2) H 01/24/23 05:29 Est Cr Clr Drug Dosing 49.7 ml/min 01/24/23 05:29 Est GFR ( Amer) 48.0 ml/min 01/24/23 05:29 Est GFR (Non-Af Amer) 41.4 ml/min 01/24/23 05:29 BUN/Creatinine Ratio 14.8 (10-20) 01/24/23 05:29 Glucose 95 mg/dl (70-99(Fasting)) 01/24/23 05:29 Lactate 1.5 mmol/L (0.4-2.0) 01/20/23 00:27 Calcium 8.9 mg/dl (8.6-10.3) 01/24/23 05:29 Phosphorus 2.3 mg/dl (2.5-4.9) L 01/11/23 05:19 Magnesium 1.6 mg/dl (1.7-2.4) L 01/22/23 08:55 Iron Cancelled 01/19/23 12:37 Transferrin Cancelled 01/19/23 12:37 Ferritin Cancelled 01/19/23 12:37 Total Bilirubin 0.6 mg/dl (0.2-1.0) 01/24/23 05:29 AST 10 U/L (13-39) L 01/24/23 05:29 ALT 6 U/L (7-52) L 01/24/23 05:29 Alkaline Phosphatase 64 U/L (34-104) 01/24/23 05:29 Total Protein 5.7 gm/dl (6.0-8.3) L 01/24/23 05:29 Albumin 3.0 gm/dl (3.4-5.0) L 01/24/23 05:29 Globulin 2.7 gm/dl (2.5-4.0) 01/24/23 05:29 Albumin/Globulin Ratio 1.1 (0.9-2) 01/24/23 05:29 Vitamin B12 1016 pg/ml (180-914) H 01/19/23 04:40 Folate 14.43 ng/ml (>5.38) 01/19/23 04:40 TSH 2.572 uIu/ml (0.300-4.500) 01/19/23 20:44 Urine Color Yellow 01/20/23 01:15 Urine Appearance Clear (Clear) 01/20/23 01:15 Urine pH 7.0 (4.5-7.5) 01/20/23 01:15 Ur Specific [place] 1.007 (1.000-1.030) 01/20/23 01:15 Urine Protein Negative (Negative) 01/20/23 01:15 Urine Glucose (UA) Negative (Negative) 01/20/23 01:15 Urine Ketones Negative (Negative) 01/20/23 01:15 Urine Blood Negative (Negative) 01/20/23 01:15 Urine Nitrite Negative (Negative) 01/20/23 01:15 Urine Bilirubin Negative (Negative) 01/20/23 01:15 Urine Urobilinogen Negative (Negative) 01/20/23 01:15 Ur Leukocyte Esterase 1+ (Negative) H 01/20/23 01:15 Urine WBC (Auto) 1-5 /hpf (0-5) 01/20/23 01:15 Urine RBC (Auto) 0-4 /hpf (0-4) 01/20/23 01:15 U Hyaline Cast (Auto) 1-5 /lpf (0-5) 01/20/23 01:15 U Epithel Cells (Auto) >30 /lpf (0-5) H 01/20/23 01:15 Urine Bacteria (Auto) Negative (Negative) 01/20/23 01:15 Stool Occult Bld Scrn Negative (Negative) 01/19/23 17:17 SARS-CoV-2 (PCR) NEGATIVE (Negative) 01/09/23 22:57 Influenza Type A (PCR) Negative (Neg) 01/09/23 22:57 Influenza Type B (PCR) Negative (Neg) 01/09/23 22:57 RSV (RT-PCR) Negative (Neg) 01/09/23 22:57 Blood Type A Positive 01/19/23 04:40 Blood Type Recheck A Positive 01/20/23 05:23 Antibody Screen NEGATIVE 01/19/23 04:40 Crossmatch See Detail 01/19/23 04:40 Impressions Chest X-Ray 01/09/23 18:34 SINGLE VIEW CHEST CLINICAL HISTORY: Dehydration. FINDINGS: An AP upright chest radiograph is compared to study dated 10/09/2022. A right PICC line is unchanged in position. The heart is enlarged. The pulmonary vasculature is not congested. Chronic interstitial thickening similar to prev ious. No airspace consolidation or large pleural effusion is identified. No pneumothorax is seen. The skeletal structures are osteopenic. Bony thorax is grossly intact. IMPRESSION: Cardiomegaly with no active disease in the chest. ACT 112: Negative or not required by law. Electronically signed by: Stevie Leach M.D. 01/10/2023 12:00 AM Abdomen/Pelvis CT 01/20/23 07:44 CT OF THE ABDOMEN AND PELVIS WITHOUT CONTRAST CLINICAL HISTORY: Nausea, vomiting, anemia R/O bleeding. COMPARISON STUDY: CT of the abdomen and pelvis January 10, 2023. TECHNIQUE: Axial images of the abdomen and pelvis were obtained without IV contrast. Images were reviewed in the axial, sagittal, and coronal planes. Automated exposure control was utilized for the study. A dose lowering technique was utilized adhering to the principles of ALARA. FINDINGS: Please note that the chest CT will be reported separately. No hemoperitoneum or pneumoperitoneum is present. There is no retroperitoneal hematoma. Evaluation of the abdomen and pelvis is suboptimal on this unenhanced exam. Unenhanced images of the liver, spleen, kidneys and is unremarkable. Hyperdense material within the gallbladder is noted. There is no evidence for acute cholecystitis. There is no evidence for a bowel obstruction. There are sigmoid diverticulosis without evidence for acute diverticulitis. There is no lymphadenopathy. Body wall edema is again noted. This is similar to prior exam. There is presacral stranding. Trace bilateral pleural effusions are present. IMPRESSION: 1. No acute process within the abdomen or pelvis on unenhanced exam. No retroperitoneal hematoma. No hemoperitoneum. 2. No significant change since CT of January 10, 2023. Evidence for volume overload with body wall edema and trace bilateral pleural effusions. 3. Sigmoid diverticulosis. No evidence for acute diverticulitis. ACT 112: Negative or not required by law. Electronically signed by: Diogo Rhodes M.D. 01/20/2023 9:[address] 01/20/23 07:44 CT chest diagnostic wo con CT DOSE: 2132.35 mGy.cm CLINICAL HISTORY: 62 years-old Female with Interstitial lung disease, Anemia R/O bleeding. TECHNIQUE: Multiaxial CT images of the chest were performed without contrast. A dose lowering technique was utilized adhering to the principles of ALARA. COMPARISON: CT abdomen and pelvis of same day, chest CT 01/13/2023 FINDINGS: Right paratracheal lymph node measures 1.9 x 1.2 cm on image 72, previously 2.1 x 1.3 cm. This is likely reactive. Subcarinal lymphadenopathy measures up to 9 mm . Moderate cardiomegaly with extensive coronary artery and moderate mitral annular calcifications. Trace pericardial effusion. Decreased attenuation of the cardiac blood pool suggestive of anemia. Elevation of the main pulmonary artery, 3.3 cm. Atherosclerosis of the thoracic aorta without aneurysm. Small right and trace left pleural effusions, mildly decreased from prior. Anasarca. Intralobular septal thickening with intermixed groundglass and consolidative opacities are noted in a multisegmental multilobar distribution. Findings mildly improved from prior. No bronchiectasis, honeycombing or significant subpleural reticulation identified. Mild endobronchial secretions. Mild dependent bibasilar consolidation have improved. No acute fracture. No acute process of the imaged upper abdomen. IMPRESSION: 1. Cardiomegaly with mildly improved pulmonary edema and patchy bilateral airspace opacities. 2. Small right and trace left pleural effusions have mildly decreased in size from prior. 3. Mildly decreased size of the previously described mediastinal lymphadenopathy. ACT 112: Negative or not required by law. Electronically signed by: Khoa Farr M.D. 01/20/2023 10:[address] 01/21/23 12:44 CT head/brain wo con CLINICAL HISTORY: 62 years-old Female with Dizziness. Acute dizziness TECHNIQUE: Multiple axial CT images of the head were obtained without contrast. A dose lowering technique was utilized adhering to the principles of ALARA. CT DOSE: 625.80 mGy.cm COMPARISON: 01/15/2011. FINDINGS: No acute intracranial hemorrhage, midline shift, intracranial mass, hydrocephalus, territorial ischemia or abnormal extra-axial collection. Involutional changes with white matter hypodensities again noted, most pronounced in the right frontal lobe. Findings may represent microvascular ischemic disease versus a demyelinating process. The calvarium is intact. Trace mastoid effusions. Paranasal sinuses are clear. Unremarkable soft tissues and orbits. IMPRESSION: No acute intracranial abnormality. ACT 112: Negative or not required by law. The above report was generated using voice recognition software. It may contain grammatical, syntax or spelling errors. Electronically signed by: Khoa Farr M.D. 01/21/2023 1:56 PM
[2023-01-24] MEDS: WARFARIN SOD 5 MG TAB PO SCH (16:46)
[2023-01-24] MEDS: OLANZapine ZYDIS 5 MG ORALLY DIS. TAB PO SCH (21:20)
[2023-01-24] MEDS ORDERED: SODIUM CHLORIDE 0.9% 500 ML IV SCH (21:30)
[2023-01-24 22:00] LABS: Hematocrit (blood only) 22.7 % (37.0-47.0); Hemoglobin 7.4 g/dl (12.0-16.0)
[2023-01-25 06:10] LABS: Albumin Globulin Ratio 1.2 (0.9-2); Albumin Level 3.4 gm/dl (3.4-5.0); BUN Creatinine Ratio 14.3 (10-20); Bilirubin,Total 0.6 mg/dl (0.2-1.0); Calcium 9.1 mg/dl (8.6-10.3); Creatinine Clr Calc Pharmacy 45.6 ml/min; Est GFR (African American) 43.3 ml/min; Est GFR (Non-African American) 37.3 ml/min; Globulin 2.9 gm/dl (2.5-4.0); Potassium 4.1 mmol/L (3.5-5.1); Total Protein 6.3 gm/dl (6.0-8.3)
[2023-01-25] MEDS: LEVOTHYROXINE SODIUM 200 MCG TABLET PO SCH (06:17)
[2023-01-25 06:19] LABS: Hemoglobin 6.8 g/dl (12.0-16.0); Mean Corpuscular Hemoglobin 30.5 pg (25.0-34.0); Mean Corpuscular Hgb Conc 32.4 g/dL (32.0-36.0); Mean Corpuscular Volume 94.2 fL (80.0-100.0); Mean Platelet Volume 11.4 fL (9.4-12.4); Platelet Count 214 K/uL (130-400); RDW Coefficient of Variation 16.2 % (11.5-14.5); RDW Standard Deviation 55.6 fL (36.4-46.3); Red Blood Count 2.23 M/uL (4.20-5.40); White Blood Count 7.77 K/ul (4.8-10.8)
[2023-01-25 06:23] LABS: INR 1.2 (0.9-1.1); Prothrombin Time 13.2 Seconds (9.0-12.0)
[2023-01-25 06:41] LABS: Basophils # (auto) 0.04 K/uL (0-0.2); Basophils % (auto) 0.5 %; Eosinophils # (auto) 0.44 K/uL (0-0.50); Eosinophils % (auto) 5.7 %; Immature Granulocytes # (auto) 0.07 K/uL (0.01-0.20); Immature Granulocytes % (auto) 0.9 %; Lymphocytes # (auto) 1.38 K/uL (1.2-3.4); Lymphocytes % (auto) 17.8 %; Monocytes # (auto) 0.54 K/uL (0.11-0.59); Monocytes % (auto) 6.9 %; Neutrophils % (auto) 68.2 %; Polychromasia 1+
[2023-01-25] MEDS ORDERED: SODIUM CHLORIDE 0.9% 250 ML IV PRN (07:29)
[2023-01-25 07:57] LABS: Hematocrit (blood only) 21.4 % (37.0-47.0); Hemoglobin 6.9 g/dl (12.0-16.0)
[2023-01-25] MEDS: MIDODRINE HCL 2.5 MG TAB PO SCH ×3 (09:08→17:11)
[2023-01-25] MEDS: SERTRALINE HCL 100 MG TABLET PO SCH (09:09)
[2023-01-25] MEDS: ATORVASTATIN 20 MG TAB PO SCH (09:09)
[2023-01-25] MEDS: FLUTICASONE PROPIONATE NA SPR 16 GM BTL SCH (09:09)
[2023-01-25] MEDS: METOPROLOL SUCC 25MG EXT REL TAB PO SCH ×2 (09:10→21:00)
[2023-01-25] MEDS: CYANOCOBALAMIN (B-12) 500 MCG TABLET PO SCH (09:10)
[2023-01-25] MEDS: CHOLECALCIFEROL 5,000 UNITS 125 MCG TAB PO SCH (09:10)
[2023-01-25] MEDS: ASPIRIN 81 MG ECTAB PO SCH (09:11)
[2023-01-25] MEDS: MAGNESIUM OXIDE 400 MG TAB PO SCH (09:11)
[2023-01-25] MEDS: FOLIC ACID 1 MG TAB PO SCH (09:12)
[2023-01-25] MEDS: ENOXAPARIN 100 MG/1ML SYR SQ SCH ×2 (09:13→21:02)
[2023-01-25] MEDS: AMBRISENTAN 10MG TABLET PO SCH (09:13)
--- NOTE | 2023-01-25 13:35 | Hospitalist Progress Note ---
Date of Service January 25, 2023 Assessment & Plan (1) Nausea & vomiting: (2) Electrolyte abnormality: Plan Patient is a 62 yr female with H/O MTHFR mutation, chronic hypoxemic respiratory failure on a 8-10 L oxygen at home, pulmonary artery hypertension, right ventricle enlargement, limited systemic sclerosis, history of PE, history of depression, hyperlipidemia, hypothyroidism, obstructive sleep apnea, on CPAP nightly, chronic atrial fibrillation, diastolic heart failure, obesity, chronic kidney disease stage III presents with n/v and electrolyte abnormalities. Persistent nausea and vomiting Weight loss Diarrhea Urine tract infection --Patient reports 3-month history of nausea, vomiting and weight loss. Reports that they started when she was on IV antibiotics for Mycobacterium abscesses. Was on amikacin, cefoxitin, linezolid, azithromycin per patient --Followed with infectious disease and pulmonology as outpatient--recommended to discontinue antibiotics thought to be causing significant nausea, vomiting. Patient discontinued antibiotics a couple of weeks ago. --CT ABD:Cardiomegaly with intralobular septal thickening. Correlate clinically for evidence of congestive failure. Small pleural effusions dependent consolidation. This likely represents atelectasis and clinical correlation will be required. Body wall edema and a trace abdominopelvic ascites indicate fluid overload. The bladder wall appears thickened and there is pericystic infiltration. Correlate with clinical findings and urinalysis. -- GI was consulted. Offered EGD/colonoscopy. Consider further testing as outpatient --Urine culture growing Enterobacter cloacae -- Blood culture negative to date --Trial of metoclopramide, Zofran unsuccessful. IV Antibiotics switched over to Ceftin--completed course Palliative care was consulted for persistent nausea Symptomatically improved on Zyprexa. Also, nonpharmacologic method with smelling of isopropyl alcohol was also successful. Nausea resolved, tolerating diet Orthostatic hypotension Continues to be persistently hypotensive. Stop Aldactone, Lasix. Echocardiogram done; EF of 55 to 60%. Pulmonary artery systolic pressure estimated to be 37 mmHg. Will resume metoprolol. Continue to hold Lasix and Aldactone A.m. cortisol of 9.73 in setting of hypotension. Will obtain cosyntropin stimulation test tomorrow AM. Also on midodrine. Bolus as needed. Hypokalemia Hypomagnesemia Replete as needed Monitor Acute on chronic anemia Imaging studies showed no signs of bleeding Denies any obvious bleeding issues ? Likely dilutional due to volume overload Fecal occult negative Anemia work up reviewed Monitor H&H and transfuse as needed Hemoglobin less than 7 today. We will transfuse 1 unit of blood. Obtain reticulocyte count. Chronic hypoxic respiratory failure on on 8 to 10 L oxygen at home Pulmonary edema History of PE History of A-fib History of pulmonary hypertension Continue Coumadin at 5 mg/day Also started on Lovenox bridge Pulmonary hypertension Limited systemic sclerosis Continue home medications Follow-up with pulmonary as outpatient Chronic A-fib On metoprolol and Coumadin Chronic diastolic CHF Lasix is on hold. Monitor for volume overload. Hold Aldactone. Obstructive sleep apnea CPAP nightly with oxygen Hypothyroidism continue Levothyroxine Chronic kidney stage III Creatinine at baseline Decreased hearing Possible side effects from antibiotics Stable DVT Px: Coumadin Overdose. Code Status Full Code Disposition Rehab as able; Time spent evaluating patient, direct bedside care, chart review, placing orders, interpretation of diagnostic studies, discussion with consultants, patient, and family members, as well as other required patient management activities is 60 minutes Please note the above document was generated using voice recognition software. It may contain grammatical, syntax or spelling errors. Any formal questions or concerns about the content, text or information contained within the body of this dictation should be directly addressed to the provider for clarification Admission and Anticipated Discharge Date Admission Date: January 10, 2023 Subjective Patient seen and examined bedside. Denies any dizziness. No nausea/vomiting. Review of Systems Review of Systems: All systems reviewed & are unremarkable except as noted in Subjective Physical Exam Physical Exam: Constitutional: Awake, alert orient x3; not in distress. Respiratory: Bilateral fine crackles present. Cardiovascular: RRR, no murmur, no edema Vessels: no JVD or carotid bruit Chest: normal inspection of chest Abdomen: normal bowel sounds, soft, nontender, no hepatosplenomegaly Musculoskeletal: no cyanosis or clubbing, extremities motor strength 5/5 Skin: no rashes, warm and dry normal turgor Neurologic: PERRL, EOMI, accommodation nl, no face palsy, no dysarthria CN's II- XI intact bilaterally and moves all extremities Psychiatric: A+Ox3, euthymic affect Results & Data Results & Data Vital Signs (Past 12 Hours) Vital Signs Temp Pulse Pulse Resp BP BP Pulse Ox 01/25/23 11:01 36.9 C 84 16 106/71 98 08/05/23 08:00 92 H 01/25/23 08:00 01/25/23 10:01 36.9 C 84 16 98/65 L 100 01/25/23 09:31 36.9 C 99 H 16 96/63 L 99 01/25/23 09:16 36.8 C 107 H 19 96/63 L 98 01/25/23 08:59 37.1 C 97 H 18 103/67 96 01/25/23 07:58 36.5 C 100 H 18 111/69 98 01/25/23 02:54 36.6 C 93 H 20 99/65 L 96 01/25/23 01:49 36.7 C 110 H 16 111/61 93 O2 Del Method O2 Flow Rate 01/25/23 11:01 9 01/25/23 08:00 01/25/23 08:00 High Flow Nasal Cannula 10 01/25/23 10:01 9 01/25/23 09:31 9 01/25/23 09:16 10 01/25/23 08:59 10 01/25/23 07:58 High Flow Nasal Cannula 10 01/25/23 02:54 Nasal Cannula 9.0 01/25/23 01:49 Nasal Cannula 10 Laboratory Results Laboratory Results WBC 7.77 K/ul (4.8-10.8) 01/25/23 05:27 RBC 2.23 M/uL (4.20-5.40) L 01/25/23 05:27 Hgb 6.9 g/dl (12.0-16.0) L* 01/25/23 06:52 Hct 21.4 % (37.0-47.0) L 01/25/23 06:52 MCV 94.2 fL (80.0-100.0) 01/25/23 05:27 MCH 30.5 pg (25.0-34.0) 01/25/23 05:27 MCHC 32.4 g/dL (32.0-36.0) 01/25/23 05:27 RDW Std Deviation 55.6 fL (36.4-46.3) H 01/25/23 05:[address] 16.2 % (11.5-14.5) H 01/25/23 05:27 Plt Count 214 K/uL (130-400) 01/25/23 05:27 MPV 11.4 fL (9.4-12.4) 01/25/23 05:27 Immature Gran % (Auto) 0.9 % 01/25/23 05:27 Neut % (Auto) 68.2 % 01/25/23 05:27 Lymph % (Auto) 17.8 % 01/25/23 05:27 [place] % (Auto) 6.9 % 01/25/23 05:27 Eos % (Auto) 5.7 % 01/25/23 05:27 Baso % (Auto) 0.5 % 01/25/23 05:27 Neut # (Auto) 5.30 K/uL (1.40-6.50) 01/25/23 05:27 Lymph # (Auto) 1.38 K/uL (1.2-3.4) 01/25/23 05:27 [place] # (Auto) 0.54 K/uL (0.11-0.59) 01/25/23 05:27 Eos # (Auto) 0.44 K/uL (0-0.50) 01/25/23 05:27 Baso # (Auto) 0.04 K/uL (0-0.2) 01/25/23 05:27 Immature Gran # (Auto) 0.07 K/uL (0.01-0.20) 01/25/23 05:27 Polychromasia 1+ 01/25/23 05:27 Tear Drop Cells 1+ 01/23/23 05:58 PT 13.2 Seconds (9.0-12.0) H 01/25/23 05:27 INR 1.2 (0.9-1.1) H 01/25/23 05:27 Sodium 139 mmol/L (136-145) 01/25/23 05:27 Potassium 4.1 mmol/L (3.5-5.1) 01/25/23 05:27 Chloride 106 mmol/L (98-107) 01/25/23 05:27 Carbon Dioxide 26 mmol/L (21-32) 01/25/23 05:27 Anion Gap 7 (3-11) 01/25/23 05:27 BUN 21 mg/dl (6-23) 01/25/23 05:27 Creatinine 1.47 mg/dl (0.6-1.2) H 01/25/23 05:27 Est Cr Clr Drug Dosing 45.6 ml/min 01/25/23 05:27 Est GFR ( Amer) 43.3 ml/min 01/25/23 05:27 Est GFR (Non-Af Amer) 37.3 ml/min 01/25/23 05:27 BUN/Creatinine Ratio 14.3 (10-20) 01/25/23 05:27 Glucose 96 mg/dl (70-99(Fasting)) 01/25/23 05:27 Lactate 1.5 mmol/L (0.4-2.0) 01/20/23 00:27 Calcium 9.1 mg/dl (8.6-10.3) 01/25/23 05:27 Phosphorus 2.3 mg/dl (2.5-4.9) L 01/11/23 05:19 Magnesium 1.4 mg/dl (1.7-2.4) L 01/24/23 21:38 Iron Cancelled 01/19/23 12:37 Transferrin Cancelled 01/19/23 12:37 Ferritin Cancelled 01/19/23 12:37 Total Bilirubin 0.6 mg/dl (0.2-1.0) 01/25/23 05:27 AST 12 U/L (13-39) L 01/25/23 05:27 ALT 7 U/L (7-52) 01/25/23 05:27 Alkaline Phosphatase 74 U/L (34-104) 01/25/23 05:27 Total Protein 6.3 gm/dl (6.0-8.3) 01/25/23 05:27 Albumin 3.4 gm/dl (3.4-5.0) 01/25/23 05:27 Globulin 2.9 gm/dl (2.5-4.0) 01/25/23 05:27 Albumin/Globulin Ratio 1.2 (0.9-2) 01/25/23 05:27 Vitamin B12 1016 pg/ml (180-914) H 01/19/23 04:40 Folate 14.43 ng/ml (>5.38) 01/19/23 04:40 TSH 2.572 uIu/ml (0.300-4.500) 01/19/23 20:44 Cortisol AM Sample 9.75 mcg/dl (6.2-22.6) 01/25/23 06:56 Urine Color Yellow 01/20/23 01:15 Urine Appearance Clear (Clear) 01/20/23 01:15 Urine pH 7.0 (4.5-7.5) 01/20/23 01:15 Ur Specific [place] 1.007 (1.000-1.030) 01/20/23 01:15 Urine Protein Negative (Negative) 01/20/23 01:15 Urine Glucose (UA) Negative (Negative) 01/20/23 01:15 Urine Ketones Negative (Negative) 01/20/23 01:15 Urine Blood Negative (Negative) 01/20/23 01:15 Urine Nitrite Negative (Negative) 01/20/23 01:15 Urine Bilirubin Negative (Negative) 01/20/23 01:15 Urine Urobilinogen Negative (Negative) 01/20/23 01:15 Ur Leukocyte Esterase 1+ (Negative) H 01/20/23 01:15 Urine WBC (Auto) 1-5 /hpf (0-5) 01/20/23 01:15 Urine RBC (Auto) 0-4 /hpf (0-4) 01/20/23 01:15 U Hyaline Cast (Auto) 1-5 /lpf (0-5) 01/20/23 01:15 U Epithel Cells (Auto) >30 /lpf (0-5) H 01/20/23 01:15 Urine Bacteria (Auto) Negative (Negative) 01/20/23 01:15 Stool Occult Bld Scrn Negative (Negative) 01/19/23 17:17 SARS-CoV-2 (PCR) NEGATIVE (Negative) 01/09/23 22:57 Influenza Type A (PCR) Negative (Neg) 01/09/23 22:57 Influenza Type B (PCR) Negative (Neg) 01/09/23 22:57 RSV (RT-PCR) Negative (Neg) 01/09/23 22:57 Blood Type A Positive 01/24/23 21:44 Blood Type Recheck A Positive 01/20/23 05:23 Antibody Screen NEGATIVE 01/24/23 21:44 Crossmatch See Detail 01/24/23 21:44 Impressions Chest X-Ray 01/09/23 18:34 SINGLE VIEW CHEST CLINICAL HISTORY: Dehydration. FINDINGS: An AP upright chest radiograph is compared to study dated 10/09/2022. A right PICC line is unchanged in position. The heart is enlarged. The pulmonary vasculature is not congested. Chronic interstitial thickening similar to previous. No airspace consolidation or large pleural effusion is identified. No pneumothorax is seen. The skeletal structures are osteopenic. Bony thorax is grossly intact. IMPRESSION: Cardiomegaly with no active disease in the chest. ACT 112: Negative or not required by law. Electronically signed by: Stevie Leach M.D. 01/10/2023 12:00 AM Abdomen/Pelvis CT 01/20/23 07:44 CT OF THE ABDOMEN AND PELVIS WITHOUT CONTRAST CLINICAL HISTORY: Nausea, vomiting, anemia R/O bleeding. COMPARISON STUDY: CT of the abdomen and pelvis January 10, 2023. TECHNIQUE: Axial images of the abdomen and pelvis were obtained without IV contrast. Images were reviewed in the axial, sagittal, and coronal planes. Automated exposure control was utilized for the study. A dose lowering technique was utilized adhering to the principles of ALARA. FINDINGS: Please note that the chest CT will be reported separately. No hemoperitoneum or pneumoperitoneum is present. There is no retroperitoneal hematoma. Evaluation of the abdomen and pelvis is suboptimal on this unenhanced exam. Unenhanced images of the liver, spleen, kidneys and is unremarkable. Hyper dense material within the gallbladder is noted. There is no evidence for acute cholecystitis. There is no evidence for a bowel obstruction. There are sigmoid diverticulosis without evidence for acute diverticulitis. There is no lymphadenopathy. Body wall edema is again noted. This is similar to prior exam. There is presacral stranding. Trace bilateral pleural effusions are present. IMPRESSION: 1. No acute process within the abdomen or pelvis on unenhanced exam. No retroperitoneal hematoma. No hemoperitoneum. 2. No significant change since CT of January 10, 2023. Evidence for volume overload with body wall edema and trace bilateral pleural effusions. 3. Sigmoid diverticulosis. No evidence for acute diverticulitis. ACT 112: Negative or not required by law. Electronically signed by: Diogo Rhodes M.D. 01/20/2023 9:[address] 01/20/23 07:44 CT chest diagnostic wo con CT DOSE: 2132.35 mGy.cm CLINICAL HISTORY: 62 years-old Female with Interstitial lung disease, Anemia R/O bleeding. TECHNIQUE: Multiaxial CT images of the chest were performed without contrast. A dose lowering technique was utilized adhering to the principles of ALARA. COMPARISON: CT abdomen and pelvis of same day, chest CT 01/13/2023 FINDINGS: Right paratracheal lymph node measures 1.9 x 1.2 cm on image 72, previously 2.1 x 1.3 cm. This is likely reactive. Subcarinal lymphadenopathy measures up to 9 mm . Moderate cardiomegaly with extensive coronary artery and moderate mitral annular calcifications. Trace pericardial effusion. Decreased attenuation of the cardiac blood pool suggestive of anemia. Elevation of the main pulmonary artery, 3.3 cm. Atherosclerosis of the thoracic aorta without aneurysm. Small right and trace left pleural effusions, mildly decreased from prior. Anasarca. Intralobular septal thickening with intermixed groundglass and consolidative opacities are noted in a multisegmental multilobar distribution. Findings mildly improved from prior. No bronchiectasis, honeycombing or significant subpleural reticulation identified. Mild endobronchial secretions. Mild dependent bibasilar consolidation have improved. No acute fracture. No acute process of the imaged upper abdomen. IMPRESSION: 1. Cardiomegaly with mildly improved pulmonary edema and patchy bilateral airspace opacities. 2. Small right and trace left pleural effusions have mildly decreased in size from prior. 3. Mildly decreased size of the previously described mediastinal lymphadenopathy. ACT 112: Negative or not required by law. Electronically signed by: Khoa Farr M.D. 01/20/2023 10:[address] 01/21/23 12:44 CT head/brain wo con CLINICAL HISTORY: 62 years-old Female with Dizziness. Acute dizziness TECHNIQUE: Multiple axial CT images of the head were obtained without contrast. A dose lowering technique was utilized adhering to the principles of ALARA. CT DOSE: 625.80 mGy.cm COMPARISON: 01/15/2011. FINDINGS: No acute intracranial hemorrhage, midline shift, intracranial mass, hydrocephalus, territorial ischemia or abnormal extra-axial collection. Involutional changes with white matter hypodensities again noted, most pronounced in the right frontal lobe. Findings may represent microvascular ischemic disease versus a demyelinating process. The calvarium is intact. Trace mastoid effusions. Paranasal sinuses are clear. Unremarkable soft tissues and orbits. IMPRESSION: No acute intracranial abnormality. ACT 112: Negative or not required by law. The above report was generated using voice recognition software. It may contain grammatical, syntax or spelling errors. Electronically signed by: Khoa Farr M.D. 01/21/2023 1:56 PM
[2023-01-25] MEDS: WARFARIN SOD 5 MG TAB PO SCH (17:10)
[2023-01-25] MEDS: OLANZapine ZYDIS 5 MG ORALLY DIS. TAB PO SCH (20:56)
[2023-01-26] MEDS: ACETAMINOPHEN 325 MG TAB PO PRN ×3 (01:18→20:37)
[2023-01-26] MEDS: LEVOTHYROXINE SODIUM 200 MCG TABLET PO SCH (05:57)
[2023-01-26] MEDS: MIDODRINE HCL 2.5 MG TAB PO SCH ×3 (08:00→17:24)
[2023-01-26] MEDS ORDERED: COSYNTROPIN 250 MCG in SYRINGE 4 ML IV ONE (08:00)
[2023-01-26 08:21] LABS: Basophils # (auto) 0.04 K/uL (0-0.2); Basophils % (auto) 0.7 %; Eosinophils # (auto) 0.36 K/uL (0-0.50); Eosinophils % (auto) 6.5 %; Hematocrit (blood only) 21.4 % (37.0-47.0); Immature Granulocytes # (auto) 0.03 K/uL (0.01-0.20); Immature Granulocytes % (auto) 0.5 %; Lymphocytes % (auto) 21.7 %; Mean Corpuscular Hemoglobin 30.4 pg (25.0-34.0); Mean Corpuscular Hgb Conc 32.7 g/dL (32.0-36.0); Monocytes % (auto) 7.2 %; Neutrophils # (auto) 3.51 K/uL (1.40-6.50); Neutrophils % (auto) 63.4 %; Platelet Count 188 K/uL (130-400); RDW Coefficient of Variation 17.2 % (11.5-14.5); RDW Standard Deviation 57.9 fL (36.4-46.3); Reticulocyte % 2.4 % (0.5-2.0); Reticulocytes # 0.05 10^6/uL (0.02-0.10); White Blood Count 5.54 K/ul (4.8-10.8)
[2023-01-26 08:31] LABS: Albumin Globulin Ratio 1.1 (0.9-2); Albumin Level 3.2 gm/dl (3.4-5.0); BUN Creatinine Ratio 16.4 (10-20); Bilirubin,Total 0.6 mg/dl (0.2-1.0); Calcium 9.1 mg/dl (8.6-10.3); Est GFR (African American) 61.4 ml/min; Globulin 2.9 gm/dl (2.5-4.0); Potassium 4.4 mmol/L (3.5-5.1); Total Protein 6.1 gm/dl (6.0-8.3)
[2023-01-26 08:41] LABS: INR 1.2 (0.9-1.1); Prothrombin Time 13.5 Seconds (9.0-12.0)
[2023-01-26 08:50] LABS: Anisocytosis Present
[2023-01-26] MEDS: ATORVASTATIN 20 MG TAB PO SCH (09:14)
[2023-01-26] MEDS: MAGNESIUM OXIDE 400 MG TAB PO SCH (09:14)
[2023-01-26] MEDS: SERTRALINE HCL 100 MG TABLET PO SCH (09:14)
[2023-01-26] MEDS: METOPROLOL SUCC 25MG EXT REL TAB PO SCH ×2 (09:14→20:37)
[2023-01-26] MEDS: FOLIC ACID 1 MG TAB PO SCH (09:14)
[2023-01-26] MEDS: CHOLECALCIFEROL 5,000 UNITS 125 MCG TAB PO SCH (09:15)
[2023-01-26] MEDS: CYANOCOBALAMIN (B-12) 500 MCG TABLET PO SCH (09:15)
[2023-01-26] MEDS: ASPIRIN 81 MG ECTAB PO SCH (09:15)
[2023-01-26] MEDS: FLUTICASONE PROPIONATE NA SPR 16 GM BTL SCH (09:15)
[2023-01-26] MEDS: AMBRISENTAN 10MG TABLET PO SCH (09:16)
[2023-01-26] MEDS: ENOXAPARIN 100 MG/1ML SYR SQ SCH ×2 (11:36→20:36)
[2023-01-26 14:35] LABS: Hematocrit (blood only) 24.3 % (37.0-47.0)
--- NOTE | 2023-01-26 14:38 | Hospitalist Progress Note ---
Date of Service January 26, 2023 Assessment & Plan (1) Nausea & vomiting: (2) Electrolyte abnormality: Plan Patient is a 62 yr female with H/O MTHFR mutation, chronic hypoxemic respiratory failure on a 8-10 L oxygen at home, pulmonary artery hypertension, right ventricle enlargement, limited systemic sclerosis, history of PE, history of depression, hyperlipidemia, hypothyroidism, obstructive sleep apnea, on CPAP nightly, chronic atrial fibrillation, diastolic heart failure, obesity, chronic kidney disease stage III presents with n/v and electrolyte abnormalities. Persistent nausea and vomiting Weight loss Diarrhea Urine tract infection --Patient reports 3-month history of nausea, vomiting and weight loss. Reports that they started when she was on IV antibiotics for Mycobacterium abscesses. Was on amikacin, cefoxitin, linezolid, azithromycin per patient --Followed with infectious disease and pulmonology as outpatient--recommended to discontinue antibiotics thought to be causing significant nausea, vomiting. Patient discontinued antibiotics a couple of weeks ago. --CT ABD:Cardiomegaly with intralobular septal thickening. Correlate clinically for evidence of congestive failure. Small pleural effusions dependent consolidation. This likely represents atelectasis and clinical correlation will be required. Body wall edema and a trace abdominopelvic ascites indicate fluid overload. The bladder wall appears thickened and there is pericystic infiltrat ion. Correlate with clinical findings and urinalysis. -- GI was consulted. Offered EGD/colonoscopy. Consider further testing as outpatient --Urine culture growing Enterobacter cloacae -- Blood culture negative to date --Trial of metoclopramide, Zofran unsuccessful. IV Antibiotics switched over to Ceftin--completed course Palliative care was consulted for persistent nausea Symptomatically improved on Zyprexa. Also, nonpharmacologic method with smelling of isopropyl alcohol was also successful. Nausea resolved, tolerating diet Continue current management Orthostatic hypotension Continues to be persistently hypotensive. Discontinued Aldactone, Lasix. --Echocardiogram done; EF of 55 to 60%. Pulmonary artery systolic pressure estimated to be 37 mmHg. Continue to hold Lasix and Aldactone Continue reduced dose of metoprolol 25 mg BID ACTH stimulation test: Does not suggest adrenal insufficiency Continue midodrine, teds Subjectively dizziness improved Hypokalemia Hypomagnesemia Replete as needed Monitor Acute on chronic anemia Imaging studies showed no signs of bleeding Denies any obvious bleeding issues ? Likely dilutional due to volume overload Fecal occult negative Anemia work up reviewed Monitor H&H and transfuse as needed Hemoglobin 7.0 today Transfuse PRBCs as needed Peripheral smear pending Repeat fecal occult Minimize blood draws as able Monitor H&H Chronic hypoxic respiratory failure on on 8 to 10 L oxygen at home Pulmonary edema H/O PE H/O A-fib H/O pulmonary hypertension INR subtherapeutic: 1.2 Counseled on diet (has been eating broccoli) Continue Coumadin at 5 mg/day Also on Lovenox bridge Pulmonary hypertension Limited systemic sclerosis Chronic respiratory failure with hypoxia Continue home medications Continue supplemental oxygen Chronic A-fib On metoprolol and Coumadin Chronic diastolic CHF Lasix, Aldactone on hold Monitor volume status Obstructive sleep apnea CPAP nightly with oxygen Hypothyroidism continue Levothyroxine Chronic kidney stage III Creatinine at baseline Decreased hearing Possible side effects from antibiotics Stable DVT Px: Coumadin Lovenox SQ until INR therapeutic Code Status Full Code Disposition Rehab as able Admission and Anticipated Discharge Date Admission Date: January 10, 2023 Subjective Patient is seen and examined at bedside Dizziness much improved as per patient No new complaints Blood pressure stable Denies any bleeding issues Hemoglobin 7.0 today Denies any chest pain, dyspnea, nausea, vomiting, abdominal pain Tolerating current diet Review of Systems Review of Systems: All systems reviewed & are unremarkable except as noted in Subjective Physical Exam Physical Exam: Physical Exam: Vitals signs as noted above General Appearance:Morbidly Obese, no apparent distress Head: normocephalic, Atraumatic Eyes: normal inspection, EOMI Neck: supple, Trachea midline Respiratory/Chest: Normal breath sounds, CTA, No accessory muscle use Cardiovascular: Irregularly irregular, S1, S2, +murmur Abdomen/GI:Soft, Non tender, Bowel sounds present Extremities/Musculoskeletal:normal inspection, 1+ Pedal edema Neurologic/Psych:AAOX3, grossly no focal neurological deficits Skin: normal color, warm Results & Data Results & Data Vital Signs (Past 12 Hours) Vital Signs Temp Pulse Pulse Resp BP BP Pulse Ox 01/26/23 11:56 36.4 C L 104 H 19 111/74 94 01/26/23 08:00 97 H 01/26/23 08:00 01/26/23 08:14 36.6 C 92 H 19 104/65 94 01/26/23 02:41 37 C 89 18 91/54 L 93 O2 Del Method O2 Flow Rate 01/26/23 11:56 Nasal Cannula 9 01/26/23 08:00 01/26/23 08:00 High Flow Nasal Cannula 9 01/26/23 08:14 Nasal Cannula 9 01/26/23 02:41 High Flow Nasal Cannula Laboratory Results Short CBC 01/26/23 Range/Units 07:57 WBC 5.54 (4.8-10.8) K/ul Hgb 7.0 L (12.0-16.0) g/dl Hct 21.4 L (37.0-47.0) % Plt Count 188 (130-400) K/uL BMP 01/26/23 07:57 Sodium 141 Potassium 4.4 Chloride 108 H Carbon Dioxide 26 BUN 18 Creatinine 1.10 D Glucose 91 Calcium 9.1 Liver Function 01/26/23 Range/Units 07:57 Total Bilirubin 0.6 (0.2-1.0) mg/dl AST 13 (13-39) U/L ALT 8 (7-52) U/L Alkaline Phosphatase 76 (34-104) U/L Albumin 3.2 L (3.4-5.0) gm/dl
[2023-01-26] MEDS: WARFARIN SOD 5 MG TAB PO SCH (17:24)
[2023-01-26] MEDS: OLANZapine ZYDIS 5 MG ORALLY DIS. TAB PO SCH (20:36)
[2023-01-27] MEDS: LEVOTHYROXINE SODIUM 200 MCG TABLET PO SCH (05:22)
[2023-01-27 06:12] LABS: Hemoglobin 7.6 g/dl (12.0-16.0)
[2023-01-27 06:36] LABS: INR 1.4 (0.9-1.1); Prothrombin Time 14.6 Seconds (9.0-12.0)
[2023-01-27] MEDS: SERTRALINE HCL 100 MG TABLET PO SCH (08:51)
[2023-01-27] MEDS: AMBRISENTAN 10MG TABLET PO SCH (08:51)
[2023-01-27] MEDS: METOPROLOL SUCC 25MG EXT REL TAB PO SCH ×2 (08:52→20:24)
[2023-01-27] MEDS: CHOLECALCIFEROL 5,000 UNITS 125 MCG TAB PO SCH (08:52)
[2023-01-27] MEDS: CYANOCOBALAMIN (B-12) 500 MCG TABLET PO SCH (08:52)
[2023-01-27] MEDS: FOLIC ACID 1 MG TAB PO SCH (08:53)
[2023-01-27] MEDS: MIDODRINE HCL 2.5 MG TAB PO SCH ×2 (08:53→12:00)
[2023-01-27] MEDS: ASPIRIN 81 MG ECTAB PO SCH (08:53)
[2023-01-27] MEDS: MAGNESIUM OXIDE 400 MG TAB PO SCH (08:53)
[2023-01-27] MEDS: FLUTICASONE PROPIONATE NA SPR 16 GM BTL SCH (08:53)
[2023-01-27] MEDS: ATORVASTATIN 20 MG TAB PO SCH (08:53)
[2023-01-27] MEDS: ENOXAPARIN 100 MG/1ML SYR SQ SCH ×2 (10:49→22:06)
--- NOTE | 2023-01-27 16:27 | Hospitalist Progress Note ---
Date of Service January 27, 2023 Assessment & Plan (1) Nausea & vomiting: (2) Electrolyte abnormality: Plan Patient is a 62 yr female with H/O MTHFR mutation, chronic hypoxemic respiratory failure on a 8-10 L oxygen at home, pulmonary artery hypertension, right ventricle enlargement, limited systemic sclerosis, history of PE, history of depression, hyperlipidemia, hypothyroidism, obstructive sleep apnea, on CPAP nightly, chronic atrial fibrillation, diastolic heart failure, obesity, chronic kidney disease stage III presents with n/v and electrolyte abnormalities. Persistent nausea and vomiting Weight loss Diarrhea Urine tract infection --Patient reports 3-month history of nausea, vomiting and weight loss. Reports that they started when she was on IV antibiotics for Mycobacterium abscesses. Was on amikacin, cefoxitin, linezolid, azithromycin per patient --Followed with infectious disease and pulmonology as outpatient--recommended to discontinue antibiotics thought to be causing significant nausea, vomiting. Patient discontinued antibiotics a couple of weeks ago. --CT ABD:Cardiomegaly with intralobular septal thickening. Correlate clinically for evidence of congestive failure. Small pleural effusions dependent consolidation. This likely represents atelectasis and clinical correlation will be required. Body wall edema and a trace abdominopelvic ascites indicate fluid overload. The bladder wall appears thickened and there is pericystic infiltrat ion. Correlate with clinical findings and urinalysis. -- GI was consulted. Offered EGD/colonoscopy. Consider further testing as outpatient --Urine culture growing Enterobacter cloacae -- Blood culture negative to date --Trial of metoclopramide, Zofran unsuccessful. IV Antibiotics switched over to Ceftin--completed course Palliative care was consulted for persistent nausea Symptomatically improved on Zyprexa. Also, nonpharmacologic method with smelling of isopropyl alcohol was also successful. Nausea resolved, tolerating diet Waiting for rehab placement Orthostatic hypotension Continues to be persistently hypotensive. Discontinued Aldactone, Lasix. --Echocardiogram done; EF of 55 to 60%. Pulmonary artery systolic pressure estimated to be 37 mmHg. Continue to hold Lasix and Aldactone Continue reduced dose of metoprolol 25 mg BID ACTH stimulation test: Does not suggest adrenal insufficiency Continue midodrine, teds Subjectively dizziness improved Increase midodrine to 10 mg 3 times daily Hypokalemia Hypomagnesemia Replete as needed Monitor Acute on chronic anemia Imaging studies showed no signs of bleeding Denies any obvious bleeding issues ? Likely dilutional due to volume overload Fecal occult negative X 2 Anemia work up reviewed Monitor H&H and transfuse as needed Hemoglobin 7.6 today Transfuse PRBCs as needed Peripheral smear: Noncontributory Minimize blood draws as able Monitor H&H Advised to follow-up with hematology as outpatient Chronic hypoxic respiratory failure on on 8 to 10 L oxygen at home Pulmonary edema H/O PE H/O A-fib H/O pulmonary hypertension INR subtherapeutic: 1.2 Counseled on diet (has been eating broccoli) Continue Coumadin at 5 mg/day Also on Lovenox bridge Pulmonary hypertension Limited systemic sclerosis Chronic respiratory failure with hypoxia Continue home medications Continue supplemental oxygen Chronic A-fib On metoprolol and Coumadin Chronic diastolic CHF Lasix, Aldactone on hold Monitor volume status Obstructive sleep apnea CPAP nightly with oxygen Hypothyroidism continue Levothyroxine Chronic kidney stage III Creatinine at baseline Decreased hearing Possible side effects from antibiotics Stable Severe malnutrition Encourage increase oral intake DVT Px: Coumadin Lovenox SQ until INR therapeutic Code Status Full Code Disposition Rehab when accepted Admission and Anticipated Discharge Date Admission Date: January 10, 2023 Subjective Patient is seen and examined at bedside No new complaints Waiting for rehab placement BP variable Mild dizziness--Improved Denies any bleeding issues Hemoglobin 7.6 today Denies any chest pain, dyspnea, nausea, vomiting, abdominal pain Review of Systems Review of Systems: All systems reviewed & are unremarkable except as noted in Subjective Physical Exam Physical Exam: Physical Exam: Vitals signs as noted above General Appearance:Morbidly Obese, no apparent distress Head: normocephalic, Atraumatic Eyes: normal inspection, EOMI Neck: supple, Trachea midline Respiratory/Chest: Normal breath sounds, CTA, No accessory muscle use Cardiovascular: Irregularly irregular, S1, S2, +murmur Abdomen/GI:Soft, Non tender, Bowel sounds present Extremities/Musculoskeletal:normal inspection, 1+ Pedal edema Neurologic/Psych:AAOX3, grossly no focal neurological deficits Skin: normal color, warm Results & Data Results & Data Vital Signs (Past 12 Hours) Vital Signs Temp Pulse Pulse Resp BP Pulse Ox O2 Del Method 01/27/23 15:39 92 H 01/27/23 12:49 01/27/23 10:43 36.9 C 102 H 18 80/48 L 93 High Flow Nasal Cannula 01/27/23 07:44 36.6 C 78 16 99/68 L 97 High Flow Nasal Cannula 01/27/23 07:41 High Flow Nasal Cannula O2 Flow Rate 01/27/23 15:39 01/27/23 12:49 9 01/27/23 10:43 9 01/27/23 07:44 9 01/27/23 07:41 9 Laboratory Results Short CBC 01/27/23 Range/Units 05:40 Hgb 7.6 L (12.0-16.0) g/dl Hct 24.0 L (37.0-47.0) %
[2023-01-27] MEDS: WARFARIN SOD 5 MG TAB PO SCH (16:52)
[2023-01-27] MEDS: MIDODRINE HCL 10 MG TAB PO SCH (16:55)
[2023-01-27] MEDS: OLANZapine ZYDIS 5 MG ORALLY DIS. TAB PO SCH (20:23)
[2023-01-27] MEDS: ACETAMINOPHEN 325 MG TAB PO PRN (20:24)
[2023-01-28] MEDS: LEVOTHYROXINE SODIUM 200 MCG TABLET PO SCH (06:00)
[2023-01-28] MEDS: ACETAMINOPHEN 325 MG TAB PO PRN (06:01)
[2023-01-28 06:20] LABS: Hematocrit (blood only) 24.6 % (37.0-47.0); Hemoglobin 7.9 g/dl (12.0-16.0)
[2023-01-28 06:34] LABS: BUN Creatinine Ratio 16.4 (10-20); Calcium 9.1 mg/dl (8.6-10.3); Creatinine Clr Calc Pharmacy 55.4 ml/min; Est GFR (African American) 54.2 ml/min; Est GFR (Non-African American) 46.8 ml/min; Potassium 4.3 mmol/L (3.5-5.1)
[2023-01-28 06:58] LABS: INR 1.3 (0.9-1.1); Prothrombin Time 14.5 Seconds (9.0-12.0)
[2023-01-28] MEDS: METOPROLOL SUCC 25MG EXT REL TAB PO SCH (09:24)
[2023-01-28] MEDS: SERTRALINE HCL 100 MG TABLET PO SCH (09:24)
[2023-01-28] MEDS: ASPIRIN 81 MG ECTAB PO SCH (09:24)
[2023-01-28] MEDS: CHOLECALCIFEROL 5,000 UNITS 125 MCG TAB PO SCH (09:24)
[2023-01-28] MEDS: FOLIC ACID 1 MG TAB PO SCH (09:24)
[2023-01-28] MEDS: ATORVASTATIN 20 MG TAB PO SCH (09:24)
[2023-01-28] MEDS: MAGNESIUM OXIDE 400 MG TAB PO SCH (09:24)
[2023-01-28] MEDS: MIDODRINE HCL 10 MG TAB PO SCH ×2 (09:25→12:47)
[2023-01-28] MEDS: FLUTICASONE PROPIONATE NA SPR 16 GM BTL SCH (09:25)
[2023-01-28] MEDS: CYANOCOBALAMIN (B-12) 500 MCG TABLET PO SCH (09:25)
[2023-01-28] MEDS: AMBRISENTAN 10MG TABLET PO SCH (09:26)
--- NOTE | 2023-01-28 12:30 | Hospitalist Progress Note ---
Date of Service January 28, 2023 Assessment & Plan (1) Nausea & vomiting: (2) Electrolyte abnormality: Plan Patient is a 62 yr female with H/O MTHFR mutation, chronic hypoxemic respiratory failure on a 8-10 L oxygen at home, pulmonary artery hypertension, right ventricle enlargement, limited systemic sclerosis, history of PE, history of depression, hyperlipidemia, hypothyroidism, obstructive sleep apnea, on CPAP nightly, chronic atrial fibrillation, diastolic heart failure, obesity, chronic kidney disease stage III presents with n/v and electrolyte abnormalities. Persistent nausea and vomiting Weight loss Diarrhea Urine tract infection --Patient reports 3-month history of nausea, vomiting and weight loss. Reports that they started when she was on IV antibiotics for Mycobacterium abscesses. Was on amikacin, cefoxitin, linezolid, azithromycin per patient --Followed with infectious disease and pulmonology as outpatient--recommended to discontinue antibiotics thought to be causing significant nausea, vomiting. Patient discontinued antibiotics a couple of weeks ago. --CT ABD:Cardiomegaly with intralobular septal thickening. Correlate clinically for evidence of congestive failure. Small pleural effusions dependent consolidation. This likely represents atelectasis and clinical correlation will be required. Body wall edema and a trace abdominopelvic ascites indicate fluid overload. The bladder wall appears thickened and there is pericystic infiltrat ion. Correlate with clinical findings and urinalysis. -- GI was consulted. Offered EGD/colonoscopy. Consider further testing as outpatient --Urine culture growing Enterobacter cloacae -- Blood culture negative to date --Trial of metoclopramide, Zofran unsuccessful. IV Antibiotics switched over to Ceftin--completed course Palliative care was consulted for persistent nausea Symptomatically improved on Zyprexa. Also, nonpharmacologic method with smelling of isopropyl alcohol was also successful. Nausea resolved, tolerating diet Plan to discharge to rehab facility today Orthostatic hypotension Continues to be persistently hypotensive. Discontinued Aldactone, Lasix. --Echocardiogram done; EF of 55 to 60%. Pulmonary artery systolic pressure estimated to be 37 mmHg. Continue to hold Lasix and Aldactone Continue reduced dose of metoprolol 25 mg BID ACTH stimulation test: Does not suggest adrenal insufficiency Continue midodrine, teds Increase midodrine to 10 mg 3 times daily BP better Hypokalemia Hypomagnesemia Replete as needed Monitor Acute on chronic anemia Imaging studies showed no signs of bleeding Denies any obvious bleeding issues ? Likely dilutional due to volume overload Fecal occult negative X 2 Anemia work up reviewed Monitor H&H and transfuse as needed Hemoglobin 7.9 today Transfuse PRBCs as needed Peripheral smear: Noncontributory Minimize blood draws as able Monitor H&H Advised to follow-up with hematology as outpatient Chronic hypoxic respiratory failure on on 8 to 10 L oxygen at home Pulmonary edema H/O PE H/O A-fib H/O pulmonary hypertension INR subtherapeutic: 1.3 Counseled on diet (has been eating broccoli) Continue Coumadin 7.5mg/day Continue Lovenox bridge till INR is therapeutic Needs follow-up with Coumadin clinic upon discharge Pulmonary hypertension Limited systemic sclerosis Chronic respiratory failure with hypoxia Continue home medications Continue supplemental oxygen Chronic A-fib On metoprolol and Coumadin Chronic diastolic CHF Lasix, Aldactone on hold Monitor volume status Obstructive sleep apnea CPAP nightly with oxygen Hypothyroidism continue Levothyroxine Chronic kidney stage III Creatinine at baseline Decreased hearing Possible side effects from antibiotics Stable Severe malnutrition Encourage increase oral intake DVT Px: Coumadin Lovenox SQ until INR therapeutic Code Status Full Code Disposition Rehab Admission and Anticipated Discharge Date Admission Date: January 10, 2023 Subjective Patient is seen and examined at bedside States feeling much better today Had physical therapy earlier today No dizziness today Hemoglobin stable Offers no new complaints Denies any chest pain, dyspnea, nausea, vomiting, abdominal pain Plan to discharge to rehab facility today Review of Systems Review of Systems: All systems reviewed & are unremarkable except as noted in Subjective Physical Exam Physical Exam: Physical Exam: Vitals signs as noted above General Appearance:Morbidly Obese, no apparent distress Head: normocephalic, Atraumatic Eyes: normal inspection, EOMI Neck: supple, Trachea midline Respiratory/Chest: Normal breath sounds, CTA, No accessory muscle use Cardiovascular: Irregularly irregular, S1, S2, +murmur Abdomen/GI:Soft, Non tender, Bowel sounds present Extremities/Musculoskeletal:normal inspection, 1+ Pedal edema Neurologic/Psych:AAOX3, grossly no focal neurological deficits Skin: normal color, warm Results & Data Results & Data Vital Signs (Past 12 Hours) Vital Signs Temp Pulse Resp BP Pulse Ox O2 Del Method O2 Flow Rate 01/28/23 12:14 36.6 C 98 H 20 102/66 99 Nasal Cannula 9.0 01/28/23 07:39 36.7 C 89 21 95/62 L 93 Nasal Cannula 9.0 01/28/23 03:22 37 C 86 18 100/64 92 High Flow Nasal Cannula 9 Laboratory Results Short CBC 01/28/23 Range/Units 05:38 Hgb 7.9 L (12.0-16.0) g/dl Hct 24.6 L (37.0-47.0) % BMP 01/28/23 05:38 Sodium 142 Potassium 4.3 Chloride 109 H Carbon Dioxide 26 BUN 20 Creatinine 1.22 H Glucose 89 Calcium 9.1
[2023-01-28] MEDS: ENOXAPARIN 100 MG/1ML SYR SQ SCH (12:47)
--- NOTE | 2023-01-28 12:57 | Discharge Summary ---
Date of Service January 28, 2023 Admission HPI Per Admitting Provider 62-year-old female history of MTHFR mutation chronic hypoxemic respiratory failure on a 8-10 L oxygen at home, pulmonary artery hypertension, right ventricle enlargement, limited systemic sclerosis, history of PE, history of depression, hyperlipidemia, hypothyroidism, obstructive sleep apnea, on CPAP nightly, chronic atrial fibrillation, diastolic heart failure, obesity, chronic kidney disease stage III, lives at home alone, ambulates with a walker, sister lives close by comes because of ongoing persistent nausea vomiting and weight loss and found to electrolyte abnormalities. Because of increasing oxygen re quirements patient underwent bronchoscopy in July 2022 and cultures grew Mycobacterium abscessus . Followed with ID and was treated with p.o. azithromycin Zyvox and IV cefoxitin and amikacin plan to treat for 6 to 12 months. Per patient start developing CUAUHTEMOC and was not getting better and also patient was on and developing nausea vomiting and diarrhea patient was reevaluated by pulmonary and thought her cultures were mostly colonization and antibiotics were stopped couple of weeks ago. As outpatient labs were improving. After stopping antibiotics her diarrhea improved. But she still co ntinued to have nausea and vomiting and not able to keep anything down. And last couple of days she was extremely weak and tired and at home health nurse advised to come to the ER. She says he lost about 45 pounds since last 1 month. Also thinks her hearing is decreased and thinks probably from the side effects of antibiotics. Denies any fevers. Has some cough. Some runny nose. No blurred visions no headaches. No chest pain. No abdominal pain. Today had diarrhea. Micturating fine. Currently hemodynamically stable. Admission Exam Per Admitting Provider General- Not in acute distress. Head- atraumatic Eyes- PERRL ENT- oropharynx dry Neck- supple, no JVD, Lungs- clear to auscultation and percussion Heart- regular rhythm; no murmur, no gallop, no rub appreciated Abdomen- normal bowel sounds, soft, nontender, no masses or hepatosplenomegaly Extremities- pedal edema present, no erythema seen Neuro- alert, oriented x 3; NOn focal. Skin- warm & dry Principal Diagnosis Intractable nausea, vomiting Urinary tract infection Orthostatic hypotension Acute on chronic anemia Chronic hypoxic respiratory failure with hypoxia Pulmonary hypertension Subtherapeutic INR Discharge Data Allergies Allergy/AdvReac Type Severity Reaction Status Date / Time amoxicillin Allergy Mild RASH, Verified 10/09/22 09:10 PRURITIS clavulanic acid Allergy Mild RASH, Verified 10/09/22 09:10 PRURITIS Sulfa (Sulfonamide Allergy Mild HEADACHE, Verified 10/09/22 09:10 Antibiotics) FATIGUE Consultations 01/10/23 08:00 Consult Gastroenterology Routine Consult Otolaryngology (Head and Neck) Routine 01/13/23 10:36 Burn CD for patient Routine 01/14/23 09:37 Consult Palliative Care Routine Procedures Performed Laboratory Results WBC 5.54 K/ul (4.8-10.8) 01/26/23 07:57 RBC 2.30 M/uL (4.20-5.40) L 01/26/23 07:57 Hgb 7.9 g/dl (12.0-16.0) L 01/28/23 05:38 Hct 24.6 % (37.0-47.0) L 01/28/23 05:38 MCV 93.0 fL (80.0-100.0) 01/26/23 07:57 MCH 30.4 pg (25.0-34.0) 01/26/23 07:57 MCHC 32.7 g/dL (32.0-36.0) 01/26/23 07:57 RDW Std Deviation 57.9 fL (36.4-46.3) H 01/26/23 07:[address] 17.2 % (11.5-14.5) H 01/26/23 07:57 Plt Count 188 K/uL (130-400) 01/26/23 07:57 MPV 11.0 fL (9.4-12.4) 01/26/23 07:57 Immature Gran % (Auto) 0.5 % 01/26/23 07:57 Neut % (Auto) 63.4 % 01/26/23 07:57 Lymph % (Auto) 21.7 % 01/26/23 07:57 Jack % (Auto) 7.2 % 01/26/23 07:57 Eos % (Auto) 6.5 % 01/26/23 07:57 Baso % (Auto) 0.7 % 01/26/23 07:57 Reticulocyte % (Auto) 2.4 % (0.5-2.0) H 01/26/23 07:57 Neut # (Auto) 3.51 K/uL (1.40-6.50) 01/26/23 07:57 Lymph # (Auto) 1.20 K/uL (1.2-3.4) 01/26/23 07:57 Jack # (Auto) 0.40 K/uL (0.11-0.59) 01/26/23 07:57 Eos # (Auto) 0.36 K/uL (0-0.50) 01/26/23 07:57 Baso # (Auto) 0.04 K/uL (0-0.2) 01/26/23 07:57 Reticulocyte # 0.05 10^6/uL (0.02-0.10) 01/26/23 07:57 Immature Gran # (Auto) 0.03 K/uL (0.01-0.20) 01/26/23 07:57 Polychromasia 1+ 01/25/23 05:27 Anisocytosis Present 01/26/23 07:57 Tear Drop Cells 1+ 01/23/23 05:58 Peripher Smr Path Cons Cancelled 01/25/23 16:09 PT 14.5 Seconds (9.0-12.0) H 01/28/23 05:38 INR 1.3 (0.9-1.1) H 01/28/23 05:38 Sodium 142 mmol/L (136-145) 01/28/23 05:38 Potassium 4.3 mmol/L (3.5-5.1) 01/28/23 05:38 Chloride 109 mmol/L (98-107) H 01/28/23 05:38 Carbon Dioxide 26 mmol/L (21-32) 01/28/23 05:38 Anion Gap 7 (3-11) 01/28/23 05:38 BUN 20 mg/dl (6-23) 01/28/23 05:38 Creatinine 1.22 mg/dl (0.6-1.2) H 01/28/23 05:38 Est Cr Clr Drug Dosing 55.4 ml/min 01/28/23 05:38 Est GFR ( Amer) 54.2 ml/min 01/28/23 05:38 Est GFR (Non-Af Amer) 46.8 ml/min 01/28/23 05:38 BUN/Creatinine Ratio 16.4 (10-20) 01/28/23 05:38 Glucose 89 mg/dl (70-99(Fasting)) 01/28/23 05:38 Lactate 1.5 mmol/L (0.4-2.0) 01/20/23 00:27 Calcium 9.1 mg/dl (8.6-10.3) 01/28/23 05:38 Phosphorus 2.3 mg/dl (2.5-4.9) L 01/11/23 05:19 Magnesium 1.4 mg/dl (1.7-2.4) L 01/24/23 21:38 Iron Cancelled 01/19/23 12:37 Transferrin Cancelled 01/19/23 12:37 Ferritin Cancelled 01/19/23 12:37 Total Bilirubin 0.6 mg/dl (0.2-1.0) 01/26/23 07:57 AST 13 U/L (13-39) 01/26/23 07:57 ALT 8 U/L (7-52) 01/26/23 07:57 Alkaline Phosphatase 76 U/L (34-104) 01/26/23 07:57 Total Protein 6.1 gm/dl (6.0-8.3) 01/26/23 07:57 Albumin 3.2 gm/dl (3.4-5.0) L 01/26/23 07:57 Globulin 2.9 gm/dl (2.5-4.0) 01/26/23 07:57 Albumin/Globulin Ratio 1.1 (0.9-2) 01/26/23 07:57 Vitamin B12 1016 pg/ml (180-914) H 01/19/23 04:40 Folate 14.43 ng/ml (>5.38) 01/19/23 04:40 TSH 2.572 uIu/ml (0.300-4.500) 01/19/23 20:44 Cortisol Response mcg/dl 01/26/23 07:57 Cortisol AM Sample 9.75 mcg/dl (6.2-22.6) 01/25/23 06:56 Urine Color Yellow 01/20/23 01:15 Urine Appearance Clear (Clear) 01/20/23 01:15 Urine pH 7.0 (4.5-7.5) 01/20/23 01:15 Ur Specific [place] 1.007 (1.000-1.030) 01/20/23 01:15 Urine Protein Negative (Negative) 01/20/23 01:15 Urine Glucose (UA) Negative (Negative) 01/20/23 01:15 Urine Ketones Negative (Negative) 01/20/23 01:15 Urine Blood Negative (Negative) 01/20/23 01:15 Urine Nitrite Negative (Negative) 01/20/23 01:15 Urine Bilirubin Negative (Negative) 01/20/23 01:15 Urine Urobilinogen Negative (Negative) 01/20/23 01:15 Ur Leukocyte Esterase 1+ (Negative) H 01/20/23 01:15 Urine WBC (Auto) 1-5 /hpf (0-5) 01/20/23 01:15 Urine RBC (Auto) 0-4 /hpf (0-4) 01/20/23 01:15 U Hyaline Cast (Auto) 1-5 /lpf (0-5) 01/20/23 01:15 U Epithel Cells (Auto) >30 /lpf (0-5) H 01/20/23 01:15 Urine Bacteria (Auto) Negative (Negative) 01/20/23 01:15 Stool Occult Bld Scrn Negative (Negative) 01/27/23 11:30 SARS-CoV-2 (PCR) NEGATIVE (Negative) 01/09/23 22:57 Influenza Type A (PCR) Negative (Neg) 01/09/23 22:57 Influenza Type B (PCR) Negative (Neg) 01/09/23 22:57 RSV (RT-PCR) Negative (Neg) 01/09/23 22:57 Blood Type A Positive 01/24/23 21:44 Blood Type Recheck A Positive 01/20/23 05:23 Antibody Screen NEGATIVE 01/24/23 21:44 Crossmatch See Detail 01/24/23 21:44 Impressions Chest X-Ray 01/09/23 18:34 SINGLE VIEW CHEST CLINICAL HISTORY: Dehydration. FINDINGS: An AP upright chest radiograph is compared to study dated 10/09/2022. A right PICC line is unchanged in position. The heart is enlarged. The pulmonary vasculature is not congested. Chronic interstitial thickening similar to previous. No airspace consolidation or large pleural effusion is identified. No pneumothorax is seen. The skeletal structures are osteopenic. Bony thorax is grossly intact. IMPRESSION: Cardiomegaly with no active disease in the chest. ACT 112: Negative or not required by law. Electronically signed by: Stevie Leach M.D. 01/10/2023 12:00 AM Abdomen/Pelvis CT 01/20/23 07:44 CT OF THE ABDOMEN AND PELVIS WITHOUT CONTRAST CLINICAL HISTORY: Nausea, vomiting, anemia R/O bleeding. COMPARISON STUDY: CT of the abdomen and pelvis January 10, 2023. TECHNIQUE: Axial images of the abdomen and pelvis were obtained without IV contrast. Images were reviewed in the axial, sagittal, and coronal planes. Automated exposure control was utilized for the study. A dose lowering technique was utilized adhering to the principles of ALARA. FINDINGS: Please note that the chest CT will be reported separately. No hemoperitoneum or pneumoperitoneum is present. There is no retroperitoneal sumi oliver. Evaluation of the abdomen and pelvis is suboptimal on this unenhanced exam. Unenhanced images of the liver, spleen, kidneys and is unremarkable. Hyperdense material within the gallbladder is noted. There is no evidence for acute cholecystitis. There is no evidence for a bowel obstruction. There are sigmoid diverticulosis without evidence for acute diverticulitis. There is no lymphadenopathy. Body wall edema is again noted. This is similar to prior exam. There is presacral stranding. Trace bilateral pleural effusions are present. IMPRESSION: 1. No acute process within the abdomen or pelvis on unenhanced exam. No retroperitoneal hematoma. No hemoperitoneum. 2. No significant change since CT of January 10, 2023. Evidence for volume overload with body wall edema and trace bilateral pleural effusions. 3. Sigmoid diverticulosis. No evidence for acute diverticulitis. ACT 112: Negative or not required by law. Electronically signed by: Diogo Rhodes M.D. 01/20/2023 9:[address] 01/20/23 07:44 CT chest diagnostic wo con CT DOSE: 2132.35 mGy.cm CLINICAL HISTORY: 62 years-old Female with Interstitial lung disease, Anemia R/O bleeding. TECHNIQUE: Multiaxial CT images of the chest were performed without contrast. A dose lowering technique was utilized adhering to the principles of ALARA. COMPARISON: CT abdomen and pelvis of same day, chest CT 01/13/2023 FINDINGS: Right paratracheal lymph node measures 1.9 x 1.2 cm on image 72, previously 2.1 x 1.3 cm. This is likely reactive. Subcarinal lymphadenopathy measures up to 9 mm . Moderate cardiomegaly with extensive coronary artery and moderate mitral annular calcifications. Trace pericardial effusion. Decreased attenuation of the cardiac blood pool suggestive of anemia. Elevation of the main pulmonary artery, 3.3 cm. Atherosclerosis of the thoracic aorta without aneurysm. Small right and trace left pleural effusions, mildly decreased from prior. Anasarca. Intralobular septal thickening with intermixed groundglass and consolidative opacities are noted in a multisegmental multilobar distribution. Findings mildly improved from prior. No bronchiectasis, honeycombing or significant subpleural reticulation identified. Mild endobronchial secretions. Mild dependent bibasilar consolidation have improved. No acute fracture. No acute process of the imaged upper abdomen. IMPRESSION: 1. Cardiomegaly with mildly improved pulmonary edema and patchy bilateral airspace opacities. 2. Small right and trace left pleural effusions have mildly decreased in size f rom prior. 3. Mildly decreased size of the previously described mediastinal lymphadenopathy. ACT 112: Negative or not required by law. Electronically signed by: Khoa Farr M.D. 01/20/2023 10:[address] 01/21/23 12:44 CT head/brain wo con CLINICAL HISTORY: 62 years-old Female with Dizziness. Acute dizziness TECHNIQUE: Multiple axial CT images of the head were obtained without contrast. A dose lowering technique was utilized adhering to the principles of ALARA. CT DOSE: 625.80 mGy.cm COMPARISON: 01/15/2011. FINDINGS: No acute intracranial hemorrhage, midline shift, intracranial mass, hydrocephalus, territorial ischemia or abnormal extra-axial collection. Involutional changes with white matter hypodensities again noted, most pronounced in the right frontal lobe. Findings may represent microvascular ischemic disease versus a demyelinating process. The calvarium is intact. Trace mastoid effusions. Paranasal sinuses are clear. Unremarkable soft tissues and orbits. IMPRESSION: No acute intracranial abnormality. ACT 112: Negative or not required by law. The above report was generated using voice recognition software. It may contain grammatical, syntax or spelling errors. Electronically signed by: Khoa Farr M.D. 01/21/2023 1:56 PM Ordered Studies 01/10/23 10:37 CT abd pelvis IV con only Urgent 01/13/23 08:00 CT chest diagnostic wo con Routine 01/20/23 07:44 CT Abd and Pelvis [CT abd pelvis wo con] Urgent CT chest diagnostic wo con Urgent 01/21/23 12:44 CT head/brain wo con Urgent Hospital Course (1) Nausea & vomiting: (2) Electrolyte abnormality: Plan Patient is a 62 yr female with H/O MTHFR mutation, chronic hypoxemic respiratory failure on a 8-10 L oxygen at home, pulmonary artery hypertension, right ventricle enlargement, limited systemic sclerosis, history of PE, history of depression, hyperlipidemia, hypothyroidism, obstructive sleep apnea, on CPAP nightly, chronic atrial fibrillation, diastolic heart failure, obesity, chronic kidney disease stage III presents with n/v and electrolyte abnormalities. Persistent nausea and vomiting Weight loss Diarrhea Urine tract infection --Patient reports 3-month history of nausea, vomiting and weight loss. Reports that they started when she was on IV antibiotics for Mycobacterium abscesses. Was on amikacin, cefoxitin, linezolid, azithromycin per patient --Followed with infectious disease and pulmonology as outpatient--recommended to discontinue antibiotics thought to be causing significant nausea, vomiting. Patient discontinued antibiotics a couple of weeks ago. --CT ABD:Cardiomegaly with intralobular septal thickening. Correlate clinically for evidence of congestive failure. Small pleural effusions dependent consolidation. This likely represents atelectasis and clinical correlation will be required. Body wall edema and a trace abdominopelvic ascites indicate fluid overload. The bladder wall appears thickened and there is pericystic infiltration. Correlate with clinical findings and urinalysis. -- GI was consulted. Offered EGD/colonoscopy. Consider further testing as outpatient --Urine culture growing Enterobacter cloacae -- Blood culture negative to date --Trial of metoclopramide, Zofran unsuccessful. IV Antibiotics switched over to Ceftin--completed course Palliative care was consulted for persistent nausea Symptomatically improved on Zyprexa. Also, nonpharmacologic method with smelling of isopropyl alcohol was also successful. Nausea resolved, tolerating diet Plan to discharge to rehab facility today Orthostatic hypotension Continues to be persistently hypotensive. Discontinued Aldactone, Lasix. --Echocardiogram done; EF of 55 to 60%. Pulmonary artery systolic pressure estimated to be 37 mmHg. Continue to hold Lasix and Aldactone Continue reduced dose of metoprolol 25 mg BID ACTH stimulation test: Does not suggest adrenal insufficiency Continue midodrine, teds Increase midodrine to 10 mg 3 times daily BP better Hypokalemia Hypomagnesemia Replete as needed Monitor Acute on chronic anemia Imaging studies showed no signs of bleeding Denies any obvious bleeding issues ? Likely dilutional due to volume overload Fecal occult negative X 2 Anemia work up reviewed Monitor H&H and transfuse as needed Hemoglobin 7.9 today Transfuse PRBCs as needed Peripheral smear: Noncontributory Minimize blood draws as able Monitor H&H Advised to follow-up with hematology as outpatient Chronic hypoxic respiratory failure on on 8 to 10 L oxygen at home Pulmonary edema H/O PE H/O A-fib H/O pulmonary hypertension INR subtherapeutic: 1.3 Counseled on diet (has been eating broccoli) Continue Coumadin 7.5mg/day Continue Lovenox bridge till INR is therapeutic Needs follow-up with Coumadin clinic upon discharge Pulmonary hypertension Limited systemic sclerosis Chronic respiratory failure with hypoxia Continue home medications Continue supplemental oxygen Chronic A-fib On metoprolol and Coumadin Chronic diastolic CHF Lasix, Aldactone on hold Monitor volume status Obstructive sleep apnea CPAP nightly with oxygen Hypothyroidism continue Levothyroxine Chronic kidney stage III Creatinine at baseline Decreased hearing Possible side effects from antibiotics Stable Severe malnutrition Encourage increase oral intake DVT Px: Coumadin Lovenox SQ until INR therapeutic Code Status Full Code Disposition Rehab Total Time Total Time Spent Total Time Spent (In Minutes): 58 mimutes Discharge Plan Discharge Items Patient Disposition: Transfer [facility] Reason For Visit: PERSISITENT NAUSEA, HYPOKALEMIA, HYPOMAGNESIA Discharge Diagnosis: Intractable nausea, vomiting Urinary tract infection Orthostatic hypotension Acute on chronic anemia Chronic hypoxic respiratory failure with hypoxia Pulmonary hypertension Subtherapeutic INR Activity: Per Instructions section Exercise/Sports: Gradually increase as tolerated Non-emergency contact: Primary Care Provider, [employer], Oncologist and Catalytic Case Operator Call non-emergency contact if: you have any medication questions, your symptoms worsen, your pain is concerning for you and you have a fever Follow-up/Referrals: Ibis Coyle PA-C [Primary Care Provider] - ( ) Diet: Heart Healthy Addtl Attending Provider Instructions: Follow-up with your primary care physician Ibis Coyle PA-C in 1 week upon discharge from your facility Follow-up with your oncologist/binder coverstitch for further evaluation of low blood levels as advised Follow-up with your sheriff's sergeant in 3 to 4 weeks. Follow-up with your boring machine set up operator jig as needed. --- Continue Lovenox 100 mg SQ twice a day until you are PT/INR is therapeutic between 2.0-3.0. --Follow-up with Coumadin clinic for further adjustment of Coumadin dose as needed. --Continue Coumadin 7.5 mg daily today and tomorrow; Get PT/INR on 01/30/23: Adjust Coumadin dose as needed. -- Your diuretics: Spironolactone and Lasix were discontinued at the time of discharge. Follow-up with your sheriff's sergeant for further recommendations. Seek immediate medical attention if your symptoms reoccur or worsen Please take all medications as instructed on discharge list below. Please call if you have any questions or problems. You can reach a [facility] hospitalist on duty at [facility] 24 hours a day by calling [phone] Pending Studies at Discharge: No Stand-Alone Forms: My [facility] Skilled Items Patient informed of condition?: Yes DNR: No Discharge Level of Care: Skilled Communicable Disease: No Discharge Prognosis: Stable Lines: None Urinary Catheter: No Medications and DC Order Prescriptions: New enoxaparin 100 mg/mL Syringe 100 mg subcut Q12H 3 Days Qty: 6 0RF midodrine 10 mg Tablet 10 mg PO TID@0800,1200,1700 Qty: 90 0RF fluticasone propionate 50 mcg/actuation [place],Suspension 2 spray NA DAILY Qty: 16 0RF olanzapine 5 mg Tablet,Disintegrating 2.5 mg PO HS Qty: 14 0RF magnesium oxide 400 mg (241.3 mg magnesium) Tablet 400 mg PO QAM Qty: 30 0RF Continued atorvastatin 10 mg Tablet 20 mg PO QAM sertraline 100 mg Tablet 200 mg PO QAM cyanocobalamin (vitamin B-12) 500 mcg Tablet 500 mcg PO QAM folic acid 1 mg Tablet 1 mg PO QAM levothyroxine 200 mcg Tablet 200 mcg PO QAM cholecalciferol (vitamin D3) [Vitamin D3] 125 mcg (5,000 unit) Tablet 125 mcg PO QAM aspirin 81 mg Tablet,Chewable 81 mg PO QAM ambrisentan [Letairis] 10 mg Tablet 10 mg PO DAILY tadalafil (pulm. hypertension) [Adcirca] 20 mg Tablet 40 mg PO DAILY Changed metoprolol succinate 50 mg Tablet Extended Release 24 Hr 25 mg PO BID Qty: 30 0RF warfarin [Jantoven] 7.5 mg tablet 7.5 mg PO DAILY Qty: 30 0RF Held furosemide 80 mg Tablet 80 mg PO BID Hold Instructions: To be determined by PCP/[employer] Rx Instructions: 1 TAB IN AM, 1/2 TAB IN PM spironolactone 50 mg Tablet 75 mg PO BID Hold Instructions: To be determined by PCP/[employer] Discharge Orders: Discharge Order (Routine); Ordered 01/28/23 Ordered By: Felix Suárez Admission Data Admit Date/Time: 01/10/23 01:16 Attending Provider: Felix Suárez Admit Provider: Santiago Cassidy Primary Care Provider: Ibis Coyle Other Providers: Oracio Garcia ; Theresa Laboy ; Linda Andrews ; Ramesh Crowe ; Rd Owen ; [facility] ; Jimena Mcmillan ; [facility] ; [place] ; Felix Suárez
[2023-01-28] MEDS ORDERED: WARFARIN SOD 7.5 MG TAB PO SCH (16:00)
--- NOTE | 2023-01-29 08:56 | Coding Query ---
CODING QUERY To promote full compliance with coding requirements relating to patient care, provider participation is requested in all cases of medical biller/coder uncertainty. Please assist us with the question(s) below: Coding Question(s): Pt admitted with nausea & vomiting, electrolyte abnormalities. 40 pound weight loss over past 3 months, UTI. Please document, if known or suspected, the etiology of the nausea and vomiting. Thanks for your help! Kevon Bird [facility] Physician's Response(s): Intractable nausea, vomiting, comorbidities Principal Diagnosis: "that condition established after study, to be chiefly responsible for occasioning the admission of the patient to the hospital for care." Co-Existing Principal Diagnosis: "when two or more diagnoses equally meet the criteria for principal diagnosis as determined by the circumstances of admission, diagnostic work up, and/or therapy provided, and the Alphabetic Index, Tabular List, or another coding guideline does not provide sequencing direction, any one of the diagnoses may be sequenced first." "When the physician has documented what appears to be a current diagnosis in the body of the record, but has not included the diagnosis in the final diagnostic statement, the physician should be asked whether the diagnosis should be added." (Source Coding [facility] 2 QTR90. p3-4) KASSIE
== END 2023-01-28 15:19 | DRG 391 ==
LOC: ED 18:25 → SUATTDRO 01-10 01:16 → EDINP 01-10 01:16 → 4W 01-10 02:44

== ENCOUNTER 2023-02-06 20:08 | Inpatient (IN) ==
[2023-02-06 21:11] LABS: Basophils # (auto) 0.05 K/uL (0-0.2); Basophils % (auto) 0.6 %; Eosinophils # (auto) 0.39 K/uL (0-0.50); Eosinophils % (auto) 4.6 %; Hematocrit (blood only) 27.6 % (37.0-47.0); Hemoglobin 8.7 g/dl (12.0-16.0); Immature Granulocytes # (auto) 0.09 K/uL (0.01-0.20); Immature Granulocytes % (auto) 1.1 %; Lymphocytes # (auto) 1.33 K/uL (1.2-3.4); Lymphocytes % (auto) 15.6 %; Mean Corpuscular Hemoglobin 30.7 pg (25.0-34.0); Mean Corpuscular Hgb Conc 31.5 g/dL (32.0-36.0); Mean Corpuscular Volume 97.5 fL (80.0-100.0); Mean Platelet Volume 11.4 fL (9.4-12.4); Monocytes % (auto) 7.1 %; Neutrophils # (auto) 6.05 K/uL (1.40-6.50); Platelet Count 272 K/uL (130-400); RDW Coefficient of Variation 16.5 % (11.5-14.5); RDW Standard Deviation 58.9 fL (36.4-46.3); Red Blood Count 2.83 M/uL (4.20-5.40); White Blood Count 8.51 K/ul (4.8-10.8)
[2023-02-06 21:24] LABS: Albumin Globulin Ratio 1.1 (0.9-2); Albumin Level 3.8 gm/dl (3.4-5.0); BUN Creatinine Ratio 16.2 (10-20); Bilirubin,Total 0.5 mg/dl (0.2-1.0); Calcium 9.4 mg/dl (8.6-10.3); Creatinine Clr Calc Pharmacy 60.7 ml/min; Est GFR (African American) 60.8 ml/min; Est GFR (Non-African American) 52.4 ml/min; Globulin 3.5 gm/dl (2.5-4.0); Magnesium 1.8 mg/dl (1.7-2.4); Potassium 4.6 mmol/L (3.5-5.1); Total Protein 7.3 gm/dl (6.0-8.3)
[2023-02-06 21:29] LABS: Troponin I High Sensitivity 10.9 pg/ml (0-14)
[2023-02-06 21:36] LABS: INR 1.8 (0.9-1.1); Partial Thromboplastin Ratio 1.2; Partial Thromboplastin Time 34.7 Seconds (21.0-31.0); Prothrombin Time 18.9 Seconds (9.0-12.0)
--- NOTE | 2023-02-06 21:41 | Emergency Department Note ---
Impression & Plan Weakness ADMIT ED Provider Note HPI: The patient is a 62-year-old female with history of chronic respiratory failure, on supplemental oxygen, who presents the emergency department with a chief complaint of weakness and inability to ambulate at home. Patient states that she was just discharged [facility] today following placement after an inpatient admission. Patient states she went home and was having difficulty with basic ambulation and getting up from the toilet and off the couch. Patient states this happened 3-4 times and therefore she re-presented to the hospital for evaluation. On arrival to the ED the patient is alert, she appears to be in no acute distress, she is hemodynamically stable on arrival. ROS: - Per HPI Differential Diagnosis: Acute on chronic anemia, generalized debility, sepsis, amongst other potential pathologies. *Outpatient medications and allergy history reviewed. *Pertinent external medical records reviewed. PE: General: Alert HEENT: Normocephalic, trachea midline Eyes: Extraocular eye movement is intact, no scleral erythema Pulmonary: Clear to auscultation bilaterally, no wheezing Cardio: Regular rate and rhythm GI: Abdomen is soft to palpation : No suprapubic tenderness MSK: No evidence of trauma or malformation of the extremities, no edema Skin: No evidence of rash Neuro: Alert, no focal deficits Psychiatric: Cooperative case monitor: (As interpreted by myself): - An order was placed for continuous cardiac monitoring - Patient was noted to be in atrial fibrillation with a rate of 80 EKG: (As interpreted by myself): Rate: 85 Rhythm: Atrial fibrillation Intervals: Within normal limits ST changes: No ST elevation Time: 2033 Medical Decision Making: Patient presented to the emergency department with generalized weakness. She was just discharged from inpatient rehabilitation facility today. Patient stated that she was too weak to function at home. IV was established and lab work obtained, patient was maintained on quality assurance monitor chassis. Lab work shows no critical findings, baseline anemia with hemoglobin at 8.7, patient denies any recent blood per rectum and did have recent admission where she had 2 negative occult stools. Overall, the patient does appear somewhat debilitated and is having difficulty with ambulatory function and activities of daily living at home, she cannot get up from a seated position. She does not feel safe for discharge as she did not do well at home today when she was discharged from her inpatient rehab facility. Patient was recently admitted to the [facility] hospitalist service therefore I did discuss the case with the on-call hospitalist, Dr. Cassidy, who excepted the patient for inpatient admission and further care. Patient will likely require PT/OT consultation and to determine neck steps as I do likely believe she will require inpatient care/rehab given her overall weakness and issues with mobility and physical functionality. Consultants: Hospitalist, Dr. Cassidy Disposition discussion held by myself with: Patient Diagnosis: 1. Generalized weakness, acute on chronic 2. Ambulatory dysfunction, acute 3. 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 Hyperlipidemia Hypothyroidism Mitral valve regurgitation Severe Morbid obesity with BMI of 45.0-49.9, adult On home oxygen therapy WEARS 4L O2 PRN SOB Pulmonary embolism Pulmonary hypertension severe- following with [facility] Restless leg syndrome Scleroderma Sleep apnea CPAP DEVICE WITH 4L O2 Surgical History History of breast biopsy History of bronchoscopy History of cardiac cath multiple--NO STENTS--per pt to check severe pulmonary htn History of cardioversion X 2 History of colonoscopy with polypectomy History of transesophageal echocardiography (SOPHIE) (~03/09/20) Family History Mother Family history of diabetes mellitus Family history of reaction to anesthesia had a stroke after [place] [facility] [place] [facility] [place] was informed that "it was due to the sedation medication they gave her and that it was administed too quickly to her", unsure of what it was Grandfather (Maternal) Family history of diabetes mellitus Grandmother (Maternal) Family history of diabetes mellitus Brother Family history of diabetes mellitus Social History Smoking Status: Never smoker Second Hand Exposure: Yes; Do You Dip or Chew Tobacco: No; Tobacco Cessation Education Requested by Patient: No Hx Alcohol Use: No Hx Substance Use: No Preferred Language: Macedonian Communication Ability: Effective Animal Keeper Required: No Beliefs That Will Affect Care: None Current Living Situation: Alone Other Information That Helps Us Care for You: No Feels Safe at Home: Yes Safety Concerns: Feels Safe At This Time Assistive Devices: Glasses, Oxygen - Continuous and Walker Allergies Allergies Allergy/AdvReac Type Severity Reaction Status Date / Time amoxicillin Allergy Mild RASH, Verified 10/09/22 09:10 PRURITIS clavulanic acid Allergy Mild RASH, Verified 10/09/22 09:10 PRURITIS Sulfa (Sulfonamide Allergy Mild HEADACHE, Verified 10/09/22 09:10 Antibiotics) FATIGUE Home Meds Home Medications Medication Instructions Recorded Confirmed aspirin 81 mg chewable tablet 81 mg PO QAM 03/06/20 02/06/23 folic acid 1 mg tablet 1 mg PO QAM 03/06/20 02/06/23 furosemide 80 mg tablet 80 mg PO [facility] 03/06/20 02/06/23 levothyroxine 200 mcg tablet 200 mcg PO DAILYBB 03/06/20 02/06/23 sertraline 100 mg tablet 100 mg PO QA 03/06/20 02/06/23 spironolactone 50 mg tablet 75 mg PO BID 03/06/20 02/06/23 ambrisentan 10 mg tablet (Letairis) 10 mg PO QAM 10/09/22 02/06/23 tadalafil (pulm. hypertension) 20 40 mg PO DAILY 10/09/22 02/06/23 mg tablet (pulmonary hypertension) (Adcirca) albuterol sulfate 2.5 mg/3 mL 2.5 mg inhalation UD 02/06/23 02/06/23 (0.083 %) solution for nebulization albuterol sulfate 5 mg/mL(0.5 %) 2.5 mg inhalation UD 02/06/23 02/06/23 solution for nebulization atorvastatin 20 mg tablet 20 mg PO QAM 02/06/23 02/06/23 cholecalciferol (vitamin D3) 25 25 mcg PO DAILY 02/06/23 02/06/23 mcg (1,000 unit) tablet (Vitamin D3) warfarin 7.5 mg tablet (Jantoven) 7.5 mg PO UD 02/06/23 02/06/23 cyanocobalamin (vitamin B-12) 500 500 mcg PO DAILY 02/07/23 02/07/23 mcg tablet metoprolol succinate 25 mg 25 mg PO BID 02/07/23 02/07/23 tablet,extended release 24 hr Previous Rx's Medication Instructions Recorded fluticasone propionate 50 2 spray NA DAILY #16 grams 01/28/23 mcg/actuation nasal spray,suspension magnesium oxide 400 mg (241.3 mg 400 mg PO QAM #30 tabs 01/28/23 magnesium) tablet midodrine 10 mg tablet 10 mg PO TID@0800,1200,1700 #90 01/28/23 tabs olanzapine 5 mg disintegrating 2.5 mg PO HS #14 tabs 01/28/23 tablet Results & Data (ED) Vital Signs Vital Signs - 24 hr 02/06/23 20:05 02/06/23 20:17 02/06/23 20:17 Temperature 36.8 C Temperature Source Oral Oral Pulse Rate 86 Pulse Rate from SpO2 Sensor Pulse Rhythm Respiratory Rate 18 Respiratory Effort / Characteristics Non-Labored Spontaneous Non-Labored Spontaneous Respiratory Depth Normal Normal Respiratory Pattern Blood Pressure Blood Pressure [Right Arm] 116/65 Blood Pressure Mean Blood Pressure Mean [Right Arm] 82 Pulse Oximetry 96 90 Oxygen Delivery Method Nasal Cannula Nasal Cannula Oxygen Flow Rate 6 6 Sepsis Recent Fever Within 48 Hours No Sepsis New/Unexplained Change in Mental Status No Sepsis Action Taken by Nursing No Action Required 02/06/23 21:17 02/06/23 20:30 02/06/23 21:00 Temperature Temperature Source Pulse Rate 101 H 96 H 96 H Pulse Rate from SpO2 Sensor Pulse Rhythm Irregular Respiratory Rate 21 24 19 Respiratory Effort / Characteristics Respiratory Depth Respiratory Pattern Blood Pressure 110/84 110/84 Blood Pressure [Right Arm] Blood Pressure Mean 92 92 Blood Pressure Mean [Right Arm] Pulse Oximetry 97 94 95 Oxygen Delivery Method High Flow Nasal Cannula High Flow Nasal Cannula High Flow Nasal Cannula Oxygen Flow Rate 8 8 8 Sepsis Recent Fever Within 48 Hours Sepsis New/Unexplained Change in Mental Status Sepsis Action Taken by Nursing 02/06/23 21:33 02/06/23 20:25 02/06/23 22:17 Temperature Temperature Source Pulse Rate 100 H 84 Pulse Rate from SpO2 Sensor Pulse Rhythm Respiratory Rate 23 Respiratory Effort / Characteristics Non-Labored Respiratory Depth Normal Respiratory Pattern Regular Blood Pressure 125/67 Blood Pressure [Right Arm] Blood Pressure Mean 86 Blood Pressure Mean [Right Arm] Pulse Oximetry 98 94 Oxygen Delivery Method High Flow Nasal Cannula High Flow Nasal Cannula Oxygen Flow Rate 8 8 Sepsis Recent Fever Within 48 Hours Sepsis New/Unexplained Change in Mental Status Sepsis Action Taken by Nursing 02/06/23 22:22 02/06/23 22:30 02/06/23 23:00 Temperature Temperature Source Pulse Rate 92 H 91 H Pulse Rate from SpO2 Sensor 91 H 92 H 99 H Pulse Rhythm Respiratory Rate 13 17 21 Respiratory Effort / Characteristics Respiratory Depth Respiratory Pattern Blood Pressure 110/53 L 88/50 L Blood Pressure [Right Arm] Blood Pressure Mean 72 62 Blood Pressure Mean [Right Arm] Pulse Oximetry 96 100 93 Oxygen Delivery Method High Flow Nasal Cannula High Flow Nasal Cannula Oxygen Flow Rate 8 8 Sepsis Recent Fever Within 48 Hours Sepsis New/Unexplained Change in Mental Status Sepsis Action Taken by Nursing 02/06/23 23:16 02/06/23 23:18 02/06/23 23:20 Temperature Temperature Source Pulse Rate 102 H 106 H 100 H Pulse Rate from SpO2 Sensor 103 H 107 H 99 H Pulse Rhythm Respiratory Rate 15 27 H 16 Respiratory Effort / Characteristics Respiratory Depth Respiratory Pattern Blood Pressure 82/48 L 107/58 L Blood Pressure [Right Arm] Blood Pressure Mean 59 74 Blood Pressure Mean [Right Arm] Pulse Oximetry 96 95 98 Oxygen Delivery Method High Flow Nasal Cannula High Flow Nasal Cannula Oxygen Flow Rate 8 8 Sepsis Recent Fever Within 48 Hours Sepsis New/Unexplained Change in Mental Status Sepsis Action Taken by Nursing 02/06/23 23:30 02/06/23 23:30 02/07/23 00:00 Temperature Temperature Source Pulse Rate 91 H Pulse Rate from SpO2 Sensor 93 H Pulse Rhythm Respiratory Rate 16 Respiratory Effort / Characteristics Non-Labored Respiratory Depth Normal Respiratory Pattern Regular Blood Pressure 97/56 L Blood Pressure [Right Arm] Blood Pressure Mean 62 Blood Pressure Mean [Right Arm] Pulse Oximetry 97 Oxygen Delivery Method Oxygen Flow Rate Sepsis Recent Fever Within 48 Hours Sepsis New/Unexplained Change in Mental Status Sepsis Action Taken by Nursing 02/07/23 00:00 Temperature Temperature Source Pulse Rate 105 H Pulse Rate from SpO2 Sensor 108 H Pulse Rhythm Respiratory Rate 22 Respiratory Effort / Characteristics Respiratory Depth Respiratory Pattern Blood Pressure 99/63 L Blood Pressure [Right Arm] Blood Pressure Mean 75 Blood Pressure Mean [Right Arm] Pulse Oximetry 97 Oxygen Delivery Method High Flow Nasal Cannula Oxygen Flow Rate 8 Sepsis Recent Fever Within 48 Hours Sepsis New/Unexplained Change in Mental Status Sepsis Action Taken by Nursing Laboratory Data 02/06/23 20:34 02/06/23 20:34 Lab Results 02/06/23 02/06/23 02/06/23 Range/Units 20:34 20:34 20:34 WBC 8.51 (4.8-10.8) K/ul RBC 2.83 L (4.20-5.40) M/uL Hgb 8.7 L (12.0-16.0) g/dl Hct 27.6 L (37.0-47.0) % MCV 97.5 (80.0-100.0) fL MCH 30.7 (25.0-34.0) pg MCHC 31.5 L (32.0-36.0) g/dL RDW Std Deviation 58.9 H (36.4-46.3) fL RDW Coeff of Lane 16.5 H (11.5-14.5) % Plt Count 272 (130-400) K/uL MPV 11.4 (9.4-12.4) fL Immature Gran % (Auto) 1.1 % Neut % (Auto) 71.0 % Lymph % (Auto) 15.6 % [place] % (Auto) 7.1 % Eos % (Auto) 4.6 % Baso % (Auto) 0.6 % Neut # (Auto) 6.05 (1.40-6.50) K/uL Lymph # (Auto) 1.33 (1.2-3.4) K/uL [place] # (Auto) 0.60 H (0.11-0.59) K/uL Eos # (Auto) 0.39 (0-0.50) K/uL Baso # (Auto) 0.05 (0-0.2) K/uL Immature Gran # (Auto) 0.09 (0.01-0.20) K/uL PT 18.9 H (9.0-12.0) Seconds INR 1.8 H (0.9-1.1) APTT 34.7 H (21.0-31.0) Seconds PTT Ratio 1.2 Sodium 140 (136-145) mmol/L Potassium 4.6 (3.5-5.1) mmol/L Chloride 105 (98-107) mmol/L Carbon Dioxide 25 (21-32) mmol/L Anion Gap 10 (3-11) BUN 18 (6-23) mg/dl Creatinine 1.11 (0.6-1.2) mg/dl Est Cr Clr Drug Dosing 60.7 ml/min Est GFR ( Amer) 60.8 ml/min Est GFR (Non-Af Amer) 52.4 ml/min BUN/Creatinine Ratio 16.2 (10-20) Glucose 95 (70-99(Fasting)) mg/dl Calcium 9.4 (8.6-10.3) mg/dl Magnesium 1.8 (1.7-2.4) mg/dl Total Bilirubin 0.5 (0.2-1.0) mg/dl AST 31 (13-39) U/L ALT 23 (7-52) U/L Alkaline Phosphatase 209 H (34-104) U/L Troponin I High Sens 10.9 (0-14) pg/ml Total Protein 7.3 (6.0-8.3) gm/dl Albumin 3.8 (3.4-5.0) gm/dl Globulin 3.5 (2.5-4.0) gm/dl Albumin/Globulin Ratio 1.1 (0.9-2) TSH (0.300-4.500) uIu/ml Urine Color Urine Appearance (Clear) Urine pH (4.5-7.5) Ur Specific Wallace (1.000-1.030) Urine Protein (Negative) Urine Glucose (UA) (Negative) Urine Ketones (Negative) Urine Blood (Negative) Urine Nitrite (Negative) Urine Bilirubin (Negative) Urine Urobilinogen (Negative) Ur Leukocyte Esterase (Negative) 02/06/23 02/06/23 Range/Units 20:34 21:28 WBC (4.8-10.8) K/ul RBC (4.20-5.40) M/uL Hgb (12.0-16.0) g/dl Hct (37.0-47.0) % MCV (80.0-100.0) fL MCH (25.0-34.0) pg MCHC (32.0-36.0) g/dL RDW Std Deviation (36.4-46.3) fL RDW Coeff of Lane (11.5-14.5) % Plt Count (130-400) K/uL MPV (9.4-12.4) fL Immature Gran % (Auto) % Neut % (Auto) % Lymph % (Auto) % [place] % (Auto) % Eos % (Auto) % Baso % (Auto) % Neut # (Auto) (1.40-6.50) K/uL Lymph # (Auto) (1.2-3.4) K/uL [place] # (Auto) (0.11-0.59) K/uL Eos # (Auto) (0-0.50) K/uL Baso # (Auto) (0-0.2) K/uL Immature Gran # (Auto) (0.01-0.20) K/uL PT (9.0-12.0) Seconds INR (0.9-1.1) APTT (21.0-31.0) Seconds PTT Ratio Sodium (136-145) mmol/L Potassium (3.5-5.1) mmol/L Chloride (98-107) mmol/L Carbon Dioxide (21-32) mmol/L Anion Gap (3-11) BUN (6-23) mg/dl Creatinine (0.6-1.2) mg/dl Est Cr Clr Drug Dosing ml/min Est GFR ( Amer) ml/min Est GFR (Non-Af Amer) ml/min BUN/Creatinine Ratio (10-20) Glucose (70-99(Fasting)) mg/dl Calcium (8.6-10.3) mg/dl Magnesium (1.7-2.4) mg/dl Total Bilirubin (0.2-1.0) mg/dl AST (13-39) U/L ALT (7-52) U/L Alkaline Phosphatase (34-104) U/L Troponin I High Sens (0-14) pg/ml Total Protein (6.0-8.3) gm/dl Albumin (3.4-5.0) gm/dl Globulin (2.5-4.0) gm/dl Albumin/Globulin Ratio (0.9-2) TSH 2.221 (0.300-4.500) uIu/ml Urine Color Yellow Urine Appearance Clear (Clear) Urine pH 6.0 (4.5-7.5) Ur Specific Wallace 1.011 (1.000-1.030) Urine Protein Negative (Negative) Urine Glucose (UA) Negative (Negative) Urine Ketones Negative (Negative) Urine Blood Negative (Negative) Urine Nitrite Negative (Negative) Urine Bilirubin Negative (Negative) Urine Urobilinogen Negative (Negative) Ur Leukocyte Esterase Negative (Negative) Administered Medications Ambrisentan (Ambrisentan [Patient Own Med]) 1 each PO DAILY EDLIA Stop: 03/09/23 08:59 Last Admin: 02/07/23 09:03 Dose: 1 each Documented By: HUNTER Aspirin (Aspirin 81 Mg Chew) 81 mg PO QA DELIA Stop: 03/09/23 08:59 Last Admin: 02/07/23 08:03 Dose: 81 mg Documented By: HUNTER Atorvastatin Calcium ([facility]vastatin 20 Mg Tab) [facility] [place]: 03/09/23 08:59 Last Admin: 02/07/23 08:04 Dose: 20 mg Documented By: HUNTER Cyanocobalamin (Cyanocobalamin (B-12) 500 Mcg Tablet) 500 mcg PO DAILY DELIA Stop: 03/09/23 08:59 Last Admin: 02/07/23 08:04 Dose: 500 mcg Documented By: HUNTER Enoxaparin Sodium (Enoxaparin Inj 40 Mg/0.4 Ml Syr) 40 mg SQ Q24H DELIA Stop: 03/09/23 05:59 Last Admin: 02/07/23 05:50 Dose: 40 mg Documented By: CHAPITO Fluticasone Propionate (Fluticasone Propionate Na Spr 16 Gm Btl) 2 sprays NA DAILY DELIA Stop: 03/09/23 08:59 Last Admin: 02/07/23 08:04 Dose: 2 sprays Documented By: HUNTER Folic Acid (Folic Acid 1 Mg Tab) 1 mg PO QAM DELIA Stop: 03/09/23 08:59 Last Admin: 02/07/23 08:03 Dose: 1 mg Documented By: HUNTER Levothyroxine Sodium (Levothyroxine Sodium 200 Mcg Tablet) 200 mcg PO DAILYBB [facility] Stop: 03/09/23 06:29 Last Admin: 02/07/23 05:50 Dose: 200 mcg Documented By: CHAPITO Magnesium Oxide (Magnesium Oxide 400 Mg Tab) 400 mg PO QAM DELIA Stop: 03/09/23 08:59 Last Admin: 02/07/23 08:03 Dose: 400 mg Documented By: HUNTER Metoprolol Succinate (Metoprolol Succ 25mg Ext Rel Tab) 25 mg PO BID DELIA Stop: 03/09/23 08:59 Last Admin: 02/07/23 07:55 Dose: Not Given Documented By: AV Midodrine (Midodrine Hcl 10 Mg Tab) 10 mg PO TID@0800,1200,1700 DELIA Stop: 03/09/23 07:59 Last Admin: 02/07/23 08:04 Dose: 10 mg Documented By: AV Sertraline HCl (Sertraline Hcl 100 Mg Tablet) 100 mg PO QAM DELIA Stop: 03/09/23 08:59 Last Admin: 02/07/23 08:04 Dose: 100 mg Documented By: AV Vitamin D (Cholecalciferol 1,000 Units 25 Mcg Tab) 1,000 units PO DAILY DELIA Stop: 03/09/23 08:59 Last Admin: 02/07/23 08:03 Dose: 1,000 units Documented By: AV Discontinued Medications Midodrine (Midodrine Hcl 10 Mg Tab) 10 mg PO ONCE ONE Stop: 02/06/23 23:31 Last Admin: 02/07/23 00:13 Dose: 10 mg Documented By: DICK Miscellaneous (Order Awaiting Action: Tadalafil (Pulm. Hypertension) [Adcirca] 20 Mg Tablet) 1 each N/A QS [facility] Stop: 03/09/23 07:59 Last Admin: 02/07/23 07:50 Dose: Not Given Documented By: HUNTER Miscellaneous (Order Awaiting Action: Ambrisentan [Letairis] 10 Mg Tablet) 1 each N/A QS DELIA Stop: 03/09/23 07:59 Last Admin: 02/07/23 07:50 Dose: Not Given Documented By: HUNTER Imaging Data Radiologist's Impression: Chest X-Ray 02/06/23 20:49 XR chest 1V portable CLINICAL HISTORY: Weakness TECHNIQUE: Single frontal radiograph of the chest was obtained. Comparison: Comparison is made to chest radiographs 05/12/[address] chest 01/20/2023 FINDINGS: No lines and tubes are seen. Cardiomegaly is noted. The aortic arch is calcified. Reticular interstitial opacities are seen. No evidence of pleural effusion or pneumothorax. IMPRESSION: Interstitial lung disease and cardiomegaly without acute abnormality. ACT 112: Negative or not required by law. Electronically signed by: Ankur Mcmillan M.D. 02/07/2023 6:59 AM Discharge Plan Visit Data Chief Complaint: Weakness Stated Complaint: WEAKNESS ED Provider: Rd Anthony Discharge Problem: Weakness Patient Disposition: Admitted As Inpatient Discharge Instructions Interventions: ED Discharge Assessment Last Done: 02/07/23 02:07
[2023-02-06 21:45] LABS: Appearance Urine Clear (Clear); Bilirubin Urine Negative (Negative); Blood Urine Negative (Negative); Color Urine Yellow; Glucose Urine UA Negative (Negative); Ketones Urine Negative (Negative); Leukocyte Esterase Urine Negative (Negative); Nitrite Urine Negative (Negative); Protein Urine Negative (Negative); Specific Gravity Urine 1.011 (1.000-1.030); Urobilinogen Urine Negative (Negative)
[2023-02-06] MEDS ORDERED: MIDODRINE HCL 10 MG TAB PO ONE (23:30)
--- NOTE | 2023-02-07 00:45 | History & Physical Report ---
Date of Service February 07, 2023 Assessment & Plan (1) Ambulatory dysfunction: Plan: 62-year-old female history of MTHFR mutation chronic hypoxemic respiratory failure on a 8-10 L oxygen , pulmonary artery hypertension, right ventricle enlargement, limited systemic sclerosis, history of PE, history of depression, hyperlipidemia, hypothyroidism, obstructive sleep apnea, on CPAP nightly, chronic atrial fibrillation, diastolic heart failure, obesity, chronic kidney disease stage III who was recently in the hospital for persistent nausea vomiting and electrolyte abnormalities and at the time of nausea vomiting thought to be secondary to 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 During her last admission she was treated for UTI. She was seen by GI and offered EGD colonoscopy, to follow-up as outpatient. She was also seen by palliative care for persistent nausea was prescribed Zyprexa which seemed to improve her symptoms. She also was having orthostatic hypotension so her Aldactone and Lasix were discontinued and also metoprolol succinate dose was reduced to 25 twice daily. ACTH stimulation test was done which was unremarkable and she was placed on midodrine. Also found to anemia and and was suggested to follow outpatient with heme-onc. She was discharged to [facility] jail. She was [facility] from [facility]. At home she was having weakness and ambulatory dysfunction. Ambulatory dysfunction PT OT may need placement Will monitor Hypertension Last admission Lasix and and Aldactone were stopped On midodrine We will monitor Chronic hypoxemic respiratory failure on 8 to 10 L oxygen Will monitor Obstructive sleep apnea on CPAP nightly History of MTHFR mutation History of PE Coumadin We will follow PT/INR Chronic atrial fibrillation Metoprolol succinate dose was reduced to 25 twice daily last admission On Coumadin Chronic diastolic CHF Diuretics were stopped last admission Monitor for volume overload Hypothyroidism Synthyroid Pulmonary hypertension Limited systemic sclerosis Continue home medications Follow-up with pulmonary DVT prophylaxis on Coumadin follow PT/INR Disposition med/surg CODE STATUS full code only if chance of recovery as per my discussion with the patient History of Present Illness Chief Complaint: Weakness and ambulatory dysfunction Primary Care Provider: Ibis Coyle PA-C 62-year-old female history of MTHFR mutation chronic hypoxemic respiratory failure on a 8-10 L oxygen , pulmonary artery hypertension, right ventricle enlargement, limited systemic sclerosis, history of PE, history of depression, hyperlipidemia, hypothyroidism, obstructive sleep apnea, on CPAP nightly, chronic atrial fibrillation, diastolic heart failure, obesity, chronic kidney disease stage III who was recently in the hospital for persistent nausea vomiting and electrolyte abnormalities and at the time of nausea /vomiting thought to be secondary to 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 During her last admission she was treated for UTI. She was seen by GI and offered EGD colonoscopy, to follow-up as outpatient. She was also seen by palliative care for persistent nausea was prescribed Zyprexa which seemed to improve her symptoms. She also was having orthostatic hypotension so her Aldactone and Lasix were discontinued and also metoprolol succinate dose was reduced to 25 twice daily. ACTH stimulation test was done which was unremarkable and she was placed on midodrine. Also found to anemia and and was suggested to follow outpatient with heme-onc. She was discharged to [facility] jail. Patient states as she was doing okay she was discharged home on February 06. At home she was using walker . When she went to bathroom she could not able to lift herself from commode. EMS was called and was helped to get up from commode. But while she was walking to the living room she again fell and at the time was decided to bring her back to the hospital. Current resting comfortably in bed . Mild nonproductive cough. No headache or dizziness. No runny nose. No sore throat. Current nausea/ vomiting resolved , appetite is good and eating fine. No fevers. No chest pain or shortness of breath. No abdominal pain. Normal bowel and bladder movements. Allergies Allergy/AdvReac Type Severity Reaction Status Date / Time amoxicillin Allergy Mild RASH, Verified 10/09/22 09:10 PRURITIS clavulanic acid Allergy Mild RASH, Verified 10/09/22 09:10 PRURITIS Sulfa (Sulfonamide Allergy Mild HEADACHE, Verified 10/09/22 09:10 Antibiotics) FATIGUE Home Medications Medication Instructions Recorded Confirmed Type aspirin 81 mg chewable tablet 81 mg PO QAM 03/06/20 02/06/23 History folic acid 1 mg tablet 1 mg PO QAM 03/06/20 02/06/23 History furosemide 80 mg tablet 80 mg PO AMHS 03/06/20 02/06/23 History levothyroxine 200 mcg tablet 200 mcg PO DAILYBB 03/06/20 02/06/23 History sertraline 100 mg tablet 100 mg PO QAM 03/06/20 02/06/23 History spironolactone 50 mg tablet 75 mg PO BID 03/06/20 02/06/23 History ambrisentan 10 mg tablet (Letairis) 10 mg PO QAM 10/09/22 02/06/23 History tadalafil (pulm. hypertension) 20 40 mg PO DAILY 10/09/22 02/06/23 History mg tablet (pulmonary hypertension) (Adcirca) fluticasone propionate 50 2 spray NA DAILY #16 grams 01/28/23 02/06/23 Rx mcg/actuation nasal spray,suspension magnesium oxide 400 mg (241.3 mg 400 mg PO QAM #30 tabs 01/28/23 02/06/23 Rx magnesium) tablet midodrine 10 mg tablet 10 mg PO TID@0800,1200,1700 #90 01/28/23 02/06/23 Rx tabs olanzapine 5 mg disintegrating 2.5 mg PO HS #14 tabs 01/28/23 02/06/23 Rx tablet albuterol sulfate 2.5 mg/3 mL 2.5 mg inhalation UD 02/06/23 02/06/23 History (0.083 %) solution for nebulization albuterol sulfate 5 mg/mL(0.5 %) 2.5 mg inhalation UD 02/06/23 02/06/23 History solution for nebulization atorvastatin 20 mg tablet 20 mg PO QAM 02/06/23 02/06/23 History cholecalciferol (vitamin D3) 25 25 mcg PO DAILY 02/06/23 02/06/23 History mcg (1,000 unit) tablet (Vitamin D3) warfarin 7.5 mg tablet (Jantoven) 7.5 mg PO UD 02/06/23 02/06/23 History cyanocobalamin (vitamin B-12) 500 500 mcg PO DAILY 02/07/23 02/07/23 History mcg tablet metoprolol succinate 25 mg 25 mg PO BID 02/07/23 02/07/23 History tablet,extended release 24 hr Past Med/Surg History Medical History Aortic stenosis Mild per 02/2020 ECHO Atrial fibrillation CAD (coronary artery disease) Non obstructive per 2018 cath per 03/01/20 cardio note Chronic diastolic CHF (congestive heart failure) Deep vein thrombosis UPPER LEFT THIGH 2010 Depression Mariama's disease Heterozygous MTHFR mutation [id number] Hyperlipidemia Hypothyroidism Mitral valve regurgitation Severe Morbid obesity with BMI of 45.0-49.9, adult On home oxygen therapy WEARS 4L O2 PRN SOB Pulmonary embolism Pulmonary hypertension severe- following with [facility] Restless leg syndrome Scleroderma Sleep apnea CPAP DEVICE WITH 4L O2 Surgical History History of breast biopsy History of bronchoscopy History of cardiac cath multiple--NO STENTS--per pt to check severe pulmonary htn History of cardioversion X 2 History of colonoscopy with polypectomy History of transesophageal echocardiography (SOPHIE) (~03/09/20) Family History Mother Family history of diabetes mellitus Family history of reaction to anesthesia had a stroke after surgery in [facility] [place], was informed that "it was due to the sedation medication they gave her and that it was administed too quickly to her", unsure of what it was Grandfather (Maternal) Family history of diabetes mellitus Grandmother (Maternal) Family history of diabetes mellitus Brother Family history of diabetes mellitus Social History Smoking Status: Never smoker Second Hand Exposure: Yes; Do You Dip or Chew Tobacco: No; Tobacco Cessation Education Requested by Patient: No Hx Alcohol Use: No Hx Substance Use: No Preferred Language: [place] Communication Ability: Effective Spray Gunner Required: No Beliefs That Will Affect Care: None Current Living Situation: Alone Other Information That Helps Us Care for You: No Feels Safe at Home: Yes Safety Concerns: Feels Safe At This Time Assistive Devices: Glasses, Oxygen - Continuous and Walker Review of Systems Review of Systems: All systems reviewed & are unremarkable except as noted in Subjective Physical Exam Physical Exam: General- Not in distress. Head- atraumatic Eyes- PERRL. ENT- oropharynx clear Neck- supple, no JVD. Lungs- clear to auscultation , no wheezing or crackles. Heart- regular rhythm; no murmur, no gallop. Abdomen- normal bowel sounds, soft, nontender, no distension Extremities- mild pretibial edema, no erythema seen. Neuro- alert, oriented x 3; PERRL, no facial palsy; no dysarthria; moves extremities Skin- warm & dry Results & Data Results & Data Vital Signs (Past 12 Hours) Vital Signs Temp Pulse Resp BP BP Pulse Ox O2 Del Method 02/07/23 00:28 104 H 02/07/23 00:00 105 H 22 99/63 L 97 High Flow Nasal Cannula 02/06/23 23:30 91 H 16 97 02/06/23 23:30 97/56 L 02/06/23 23:20 100 H 16 98 02/06/23 23:18 106 H 27 H 107/58 L 95 High Flow Nasal Cannula 02/06/23 23:16 102 H 15 82/48 L 96 High Flow Nasal Cannula 02/06/23 23:00 21 88/50 L 93 High Flow Nasal Cannula 02/06/23 22:30 91 H 17 110/53 L 100 High Flow Nasal Cannula 02/06/23 22:22 92 H 13 96 02/06/23 22:17 94 High Flow Nasal Cannula 02/06/23 20:25 84 02/06/23 21:33 100 H 23 125/67 98 High Flow Nasal Cannula 02/06/23 21:00 96 H 19 110/84 95 High Flow Nasal Cannula 02/06/23 20:30 96 H 24 110/84 94 High Flow Nasal Cannula 02/06/23 21:17 101 H 21 97 High Flow Nasal Cannula 02/06/23 20:17 116/65 02/06/23 20:17 90 Nasal Cannula 02/06/23 20:05 36.8 C 86 18 96 Nasal Cannula O2 Flow Rate 02/07/23 00:28 02/07/23 00:00 8 02/06/23 23:30 02/06/23 23:30 02/06/23 23:20 02/06/23 23:18 8 02/06/23 23:16 8 02/06/23 23:00 8 02/06/23 22:30 8 02/06/23 22:22 02/06/23 22:17 8 02/06/23 20:25 02/06/23 21:33 8 02/06/23 21:00 8 02/06/23 20:30 8 02/06/23 21:17 8 02/06/23 20:17 02/06/23 20:17 6 02/06/23 20:05 6 Diagnostic Findings Laboratory Results WBC 8.51 K/ul (4.8-10.8) 02/06/23 20:34 RBC 2.83 M/uL (4.20-5.40) L 02/06/23 20:34 Hgb 8.7 g/dl (12.0-16.0) L 02/06/23 20:34 Hct 27.6 % (37.0-47.0) L 02/06/23 20:34 MCV 97.5 fL (80.0-100.0) 02/06/23 20: MCH 30.7 pg (25.0-34.0) 02/06/23 20:34 MCHC 31.5 g/dL (32.0-36.0) L 02/06/23 20:34 RDW Std Deviation 58.9 fL (36.4-46.3) H 02/06/23 20:[address] 16.5 % (11.5-14.5) H 02/06/23 20:34 Plt Count 272 K/uL (130-400) 02/06/23 20:34 MPV 11.4 fL (9.4-12.4) 02/06/23 20:34 Immature Gran % (Auto) 1.1 % 02/06/23 20:34 Neut % (Auto) 71.0 % 02/06/23 20:34 Lymph % (Auto) 15.6 % 02/06/23 20:34 [place] % (Auto) 7.1 % 02/06/23 20:34 Eos % (Auto) 4.6 % 02/06/23 20:34 Baso % (Auto) 0.6 % 02/06/23 20:34 Neut # (Auto) 6.05 K/uL (1.40-6.50) 02/06/23 20:34 Lymph # (Auto) 1.33 K/uL (1.2-3.4) 02/06/23 20:34 [place] # (Auto) 0.60 K/uL (0.11-0.59) H 02/06/23 20:34 Eos # (Auto) 0.39 K/uL (0-0.50) 02/06/23 20:34 Baso # (Auto) 0.05 K/uL (0-0.2) 02/06/23 20:34 Immature Gran # (Auto) 0.09 K/uL (0.01-0.20) 02/06/23 20:34 PT 18.9 Seconds (9.0-12.0) H 02/06/23 20:34 INR 1.8 (0.9-1.1) H 02/06/23 20:34 APTT 34.7 Seconds (21.0-31.0) H 02/06/23 20:34 PTT Ratio 1.2 02/06/23 20:34 Sodium 140 mmol/L (136-145) 02/06/23 20:34 Potassium 4.6 mmol/L (3.5-5.1) 02/06/23 20:34 Chloride 105 mmol/L (98-107) 02/06/23 20:34 Carbon Dioxide 25 mmol/L (21-32) 02/06/23 20:34 Anion Gap 10 (3-11) 02/06/23 20:34 BUN 18 mg/dl (6-23) 02/06/23 20:34 Creatinine 1.11 mg/dl (0.6-1.2) 02/06/23 20:34 Est Cr Clr Drug Dosing 60.7 ml/min 02/06/23 20:34 Est GFR ( Amer) 60.8 ml/min 02/06/23 20:34 Est GFR (Non-Af Amer) 52.4 ml/min 02/06/23 20:34 BUN/Creatinine Ratio 16.2 (10-20) 02/06/23 20:34 Glucose 95 mg/dl (70-99(Fasting)) 02/06/23 20:34 Calcium 9.4 mg/dl (8.6-10.3) 02/06/23 20:34 Magnesium 1.8 mg/dl (1.7-2.4) 02/06/23 20:34 Total Bilirubin 0.5 mg/dl (0.2-1.0) 02/06/23 20:34 AST 31 U/L (13-39) 02/06/23 20:34 ALT 23 U/L (7-52) 02/06/23 20:34 Alkaline Phosphatase 209 U/L (34-104) H 02/06/23 20:34 Troponin I High Sens 10.9 pg/ml (0-14) 02/06/23 20:34 Total Protein 7.3 gm/dl (6.0-8.3) 02/06/23 20:34 Albumin 3.8 gm/dl (3.4-5.0) 02/06/23 20:34 Globulin 3.5 gm/dl (2.5-4.0) 02/06/23 20:34 Albumin/Globulin Ratio 1.1 (0.9-2) 02/06/23 20:34 TSH 2.221 uIu/ml (0.300-4.500) 02/06/23 20:34 Urine Color Yellow 02/06/23 21:28 Urine Appearance Clear (Clear) 02/06/23 21:28 Urine pH 6.0 (4.5-7.5) 02/06/23 21:28 Ur Specific [place] 1.011 (1.000-1.030) 02/06/23 21:28 Urine Protein Negative (Negative) 02/06/23 21:28 Urine Glucose (UA) Negative (Negative) 02/06/23 21:28 Urine Ketones Negative (Negative) 02/06/23 21:28 Urine Blood Negative (Negative) 02/06/23 21:28 Urine Nitrite Negative (Negative) 02/06/23 21:28 Urine Bilirubin Negative (Negative) 02/06/23 21:28 Urine Urobilinogen Negative (Negative) 02/06/23 21:28 Ur Leukocyte Esterase Negative (Negative) 02/06/23 21:28 ECG Additional Comments: ECG A-fib with a rate of 85. No significant change was found Code Status & VTE Plan VTE Prophylaxis Plan VTE Prophylaxis will be ordered: Yes
[2023-02-07] MEDS ORDERED: ALBUTEROL 0.083% NEBU SOLN 3 ML VIAL INH PRN (02:17)
[2023-02-07] MEDS: ENOXAPARIN INJ 40 MG/0.4 ML SYR SQ SCH (05:50)
[2023-02-07] MEDS: LEVOTHYROXINE SODIUM 200 MCG TABLET PO SCH (05:50)
--- NOTE | 2023-02-07 07:01 | XRay Report ---
XR chest 1V portable CLINICAL HISTORY: Weakness TECHNIQUE: Single frontal radiograph of the chest was obtained. Comparison: Comparison is made to chest radiographs 05/12/[address] chest 01/20/2023 FINDINGS: No lines and tubes are seen. Cardiomegaly is noted. The aortic arch is calcified. Reticular interstit ial opacities are seen. No evidence of pleural effusion or pneumothorax. IMPRESSION: Interstitial lung disease and cardiomegaly without acute abnormality. ACT 112: Negative or not required by law. Electronically signed by: Ankur Mcmillan M.D. 02/07/2023 6:59 AM
[2023-02-07] MEDS: METOPROLOL SUCC 25MG EXT REL TAB PO SCH ×2 (07:55→20:13)
[2023-02-07] MEDS: FOLIC ACID 1 MG TAB PO SCH (08:03)
[2023-02-07] MEDS: ASPIRIN 81 MG CHEW PO SCH (08:03)
[2023-02-07] MEDS: MAGNESIUM OXIDE 400 MG TAB PO SCH (08:03)
[2023-02-07] MEDS: CHOLECALCIFEROL 1,000 UNITS 25 MCG TAB PO SCH (08:03)
[2023-02-07] MEDS: CYANOCOBALAMIN (B-12) 500 MCG TABLET PO SCH (08:04)
[2023-02-07] MEDS: ATORVASTATIN 20 MG TAB PO SCH (08:04)
[2023-02-07] MEDS: FLUTICASONE PROPIONATE NA SPR 16 GM BTL SCH (08:04)
[2023-02-07] MEDS: SERTRALINE HCL 100 MG TABLET PO SCH (08:04)
[2023-02-07] MEDS: MIDODRINE HCL 10 MG TAB PO SCH ×3 (08:04→17:13)
[2023-02-07 08:07] LABS: Basophils # (auto) 0.04 K/uL (0-0.2); Basophils % (auto) 0.7 %; Eosinophils % (auto) 5.1 %; Hematocrit (blood only) 24.3 % (37.0-47.0); Hemoglobin 7.7 g/dl (12.0-16.0); Immature Granulocytes # (auto) 0.05 K/uL (0.01-0.20); Immature Granulocytes % (auto) 0.9 %; Lymphocytes % (auto) 15.3 %; Mean Corpuscular Hemoglobin 30.7 pg (25.0-34.0); Mean Corpuscular Hgb Conc 31.7 g/dL (32.0-36.0); Mean Corpuscular Volume 96.8 fL (80.0-100.0); Monocytes # (auto) 0.48 K/uL (0.11-0.59); Monocytes % (auto) 8.2 %; Neutrophils # (auto) 4.11 K/uL (1.40-6.50); Neutrophils % (auto) 69.8 %; Platelet Count 219 K/uL (130-400); RDW Coefficient of Variation 16.2 % (11.5-14.5); RDW Standard Deviation 58.1 fL (36.4-46.3); Red Blood Count 2.51 M/uL (4.20-5.40); White Blood Count 5.88 K/ul (4.8-10.8)
[2023-02-07 08:17] LABS: INR 1.7 (0.9-1.1); Prothrombin Time 18.1 Seconds (9.0-12.0)
[2023-02-07 08:31] LABS: RBC Morphology Unremarkable
[2023-02-07 08:56] LABS: BUN Creatinine Ratio 15.6 (10-20); Calcium 8.9 mg/dl (8.6-10.3); Est GFR (African American) 72.4 ml/min; Est GFR (Non-African American) 62.5 ml/min; Magnesium 1.8 mg/dl (1.7-2.4); Potassium 4.3 mmol/L (3.5-5.1)
[2023-02-07] MEDS: TADALAFIL PO SCH (09:03)
[2023-02-07] MEDS: AMBRISENTAN PO SCH (09:03)
--- NOTE | 2023-02-07 12:40 | Electrocardiogram Report ---
Test Reason : Blood Pressure : / mmHG Vent. Rate : 085 BPM Atrial Rate : 000 BPM P-R Int : 000 ms QRS Dur : 076 ms QT Int : 376 ms P-R-T Axes : 000 002 -11 degrees QTc Int : 447 ms Atrial fibrillation Abnormal ECG When compared with ECG of 12-JAN-2023 05:46, No significant change was found Confirmed by Sandeep Mclaughlin ([id number]) on 02/07/2023 12:40:45 PM Referred By: REFERRED SELF Confirmed By:Sandeep Mclaughlin
--- NOTE | 2023-02-07 13:48 | Hospitalist Progress Note ---
Date of Service February 07, 2023 Assessment & Plan (1) Ambulatory dysfunction: Plan: 62-year-old female history of MTHFR mutation chronic hypoxemic respiratory failure on a 8-10 L oxygen , pulmonary artery hypertension, right ventricle enlargement, limited systemic sclerosis, history of PE, history of depression, hyperlipidemia, hypothyroidism, obstructive sleep apnea, on CPAP nightly, chronic atrial fibrillation, diastolic heart failure, obesity, chronic kidney disease stage III who was recently in the hospital for persistent nausea vomiting and electrolyte abnormalities and at the time of nausea vomiting thought to be secondary to 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 During her last admission she was treated for UTI. She was seen by GI and offered EGD colonoscopy, to follow-up as outpatient. She was also seen by palliative care for persistent nausea was prescribed Zyprexa which seemed to improve her symptoms. She also was having orthostatic hypotension so her Aldactone and Lasix were discontinued and also metoprolol succinate dose was reduced to 25 twice daily. ACTH stimulation test was done which was unremarkable and she was placed on midodrine. Also found to anemia and and was suggested to follow outpatient with heme-onc. She was discharged to [facility] custodial. She was discharged to home from [facility] on 06 February. At home she was having weakness and ambulatory dysfunction. She was not able to get up from the toilet seat. Ambulatory dysfunction Generalized weakness Recent prolonged hospitalization due to persistent nausea and vomiting along with ambulatory dysfunction/orthostatic hypotension. Was discharged to [facility] on January 28, 2023; discharged home on February 06. Reports weakness moving from sitting to standing position. PT OT evaluation. Might need rehab. Orthostatic hypotension Last admission Lasix and and Aldactone were stopped On midodrine We will monitor Chronic hypoxemic respiratory failure on 8 to 10 L oxygen Will monitor Obstructive sleep apnea on CPAP nightly History of MTHFR mutation History of PE Coumadin We will follow PT/INR Chronic atrial fibrillation Metoprolol succinate dose was reduced to 25 twice daily last admission On Coumadin Chronic diastolic CHF Diuretics were stopped last admission Monitor for volume overload Hypothyroidism Synthyroid Pulmonary hypertension Limited systemic sclerosis Continue home medications Follow-up with pulmonary DVT prophylaxis on Coumadin/Lovenox. Disposition med/surg CODE STATUS full code Please note the above document was generated using voice recognition software. It may contain grammatical, syntax or spelling errors. Any formal questions or concerns about the content, text or information contained within the body of this dictation should be directly addressed to the provider for clarification Admission and Anticipated Discharge Date Admission Date: February 07, 2023 Subjective Patient seen and examined at bedside. She is comfortably sitting up eating her breakfast. Denies dizziness, nausea or vomiting. Review of Systems Review of Systems: All systems reviewed & are unremarkable except as noted in Subjective Physical Exam Physical Exam: General- Not in distress. Head- atraumatic Lungs- clear to auscultation , faint crackles heard at bases. Heart- regular rhythm; no murmur, no gallop. Abdomen- normal bowel sounds, soft, nontender, no distension Extremities- mild pretibial edema, no erythema seen. Neuro- alert, oriented x 3; PERRL, no facial palsy; no dysarthria; moves extremities Skin- warm & dry Results & Data Results & Data Vital Signs (Past 12 Hours) Vital Signs Temp Pulse Resp BP Pulse Ox O2 Del Method O2 Flow Rate 02/07/23 09:21 High Flow Nasal Cannula 8 02/07/23 07:32 36.9 C 99 H 18 97/49 L 95 High Flow Nasal Cannula 8 02/07/23 06:30 36.8 C 102 H 18 100/60 95 High Flow Nasal Cannula 8 02/07/23 02:42 High Flow Nasal Cannula 8 02/07/23 02:42 36.7 C 111 H 18 149/85 H 93 High Flow Nasal Cannula 8 02/07/23 02:42 High Flow Nasal Cannula 8 02/07/23 02:22 36.7 C 111 H 18 149/85 H 93 High Flow Nasal Cannula 8 Laboratory Results Laboratory Results WBC 5.88 K/ul (4.8-10.8) 02/07/23 07:44 RBC 2.51 M/uL (4.20-5.40) L 02/07/23 07:44 Hgb 7.7 g/dl (12.0-16.0) L 02/07/23 07:44 Hct 24.3 % (37.0-47.0) L 02/07/23 07:44 MCV 96.8 fL (80.0-100.0) 02/07/23 07:44 MCH 30.7 pg (25.0-34.0) 02/07/23 07:44 MCHC 31.7 g/dL (32.0-36.0) L 02/07/23 07:44 RDW Std Deviation 58.1 fL (36.4-46.3) H 02/07/23 07:[address] 16.2 % (11.5-14.5) H 02/07/23 07:44 Plt Count 219 K/uL (130-400) 02/07/23 07:44 MPV 11.0 fL (9.4-12.4) 02/07/23 07:44 Immature Gran % (Auto) 0.9 % 02/07/23 07:44 Neut % (Auto) 69.8 % 02/07/23 07:44 Lymph % (Auto) 15.3 % 02/07/23 07:44 [place] % (Auto) 8.2 % 02/07/23 07:44 Eos % (Auto) 5.1 % 02/07/23 07:44 Baso % (Auto) 0.7 % 02/07/23 07:44 Neut # (Auto) 4.11 K/uL (1.40-6.50) 02/07/23 07:44 Lymph # (Auto) 0.90 K/uL (1.2-3.4) L 02/07/23 07:44 [place] # (Auto) 0.48 K/uL (0.11-0.59) 02/07/23 07:44 Eos # (Auto) 0.30 K/uL (0-0.50) 02/07/23 07:44 Baso # (Auto) 0.04 K/uL (0-0.2) 02/07/23 07:44 Immature Gran # (Auto) 0.05 K/uL (0.01-0.20) 02/07/23 07:44 RBC Morphology Unremarkable 02/07/23 07:44 PT 18.1 Seconds (9.0-12.0) H 02/07/23 07:44 INR 1.7 (0.9-1.1) H 02/07/23 07:44 APTT 34.7 Seconds (21.0-31.0) H 02/06/23 20:34 PTT Ratio 1.2 02/06/23 20:34 Sodium 140 mmol/L (136-145) 02/07/23 07:44 Potassium 4.3 mmol/L (3.5-5.1) 02/07/23 07:44 Chloride 109 mmol/L (98-107) H 02/07/23 07:44 Carbon Dioxide 25 mmol/L (21-32) 02/07/23 07:44 Anion Gap 6 (3-11) 02/07/23 07:44 BUN 15 mg/dl (6-23) 02/07/23 07:44 Creatinine 0.96 mg/dl (0.6-1.2) 02/07/23 07:44 Est Cr Clr Drug Dosing 71.0 ml/min 02/07/23 07:44 Est GFR ( Amer) 72.4 ml/min 02/07/23 07:44 Est GFR (Non-Af Amer) 62.5 ml/min 02/07/23 07:44 BUN/Creatinine Ratio 15.6 (10-20) 02/07/23 07:44 Glucose 95 mg/dl (70-99(Fasting)) 02/07/23 07:44 Calcium 8.9 mg/dl (8.6-10.3) 02/07/23 07:44 Magnesium 1.8 mg/dl (1.7-2.4) 02/07/23 07:44 Total Bilirubin 0.5 mg/dl (0.2-1.0) 02/06/23 20:34 AST 31 U/L (13-39) 02/06/23 20:34 ALT 23 U/L (7-52) 02/06/23 20:34 Alkaline Phosphatase 209 U/L (34-104) H 02/06/23 20:34 Troponin I High Sens 10.9 pg/ml (0-14) 02/06/23 20:34 Total Protein 7.3 gm/dl (6.0-8.3) 02/06/23 20:34 Albumin 3.8 gm/dl (3.4-5.0) 02/06/23 20:34 Globulin 3.5 gm/dl (2.5-4.0) 02/06/23 20:34 Albumin/Globulin Ratio 1.1 (0.9-2) 02/06/23 20:34 TSH 2.221 uIu/ml (0.300-4.500) 02/06/23 20:34 Urine Color Yellow 02/06/23 21:28 Urine Appearance Clear (Clear) 02/06/23 21:28 Urine pH 6.0 (4.5-7.5) 02/06/23 21:28 Ur Specific [place] 1.011 (1.000-1.030) 02/06/23 21:28 Urine Protein Negative (Negative) 02/06/23 21:28 Urine Glucose (UA) Negative (Negative) 02/06/23 21:28 Urine Ketones Negative (Negative) 02/06/23 21:28 Urine Blood Negative (Negative) 02/06/23 21:28 Urine Nitrite Negative (Negative) 02/06/23 21: Urine Bilirubin Negative (Negative) 02/06/23 21: Urine Urobilinogen Negative (Negative) 02/06/23 21:28 Ur Leukocyte Esterase Negative (Negative) 02/06/23 21:28 Impressions Chest X-Ray 02/06/23 20:49 XR chest 1V portable CLINICAL HISTORY: Weakness TECHNIQUE: Single frontal radiograph of the chest was obtained. Comparison: Comparison is made to chest radiographs 05/12/[address] chest 01/20/2023 FINDINGS: No lines and tubes are seen. Cardiomegaly is noted. The aortic arch is calcified. Reticular interstitial opacities are seen. No evidence of pleural effusion or pneumothorax. IMPRESSION: Interstitial lung disease and cardiomegaly without acute abnormality. ACT 112: Negative or not required by law. Electronically signed by: Ankur Mcmillan M.D. 02/07/2023 6:59 AM
[2023-02-07] MEDS ORDERED: WARFARIN SOD 7.5 MG TAB PO ONE (14:30)
[2023-02-07] MEDS: OLANZapine ZYDIS 5 MG ORALLY DIS. TAB PO SCH (20:14)
[2023-02-08] MEDS: ENOXAPARIN INJ 40 MG/0.4 ML SYR SQ SCH (06:07)
[2023-02-08] MEDS: LEVOTHYROXINE SODIUM 200 MCG TABLET PO SCH (06:07)
[2023-02-08] MEDS: AMBRISENTAN PO SCH (08:36)
[2023-02-08] MEDS: CYANOCOBALAMIN (B-12) 500 MCG TABLET PO SCH (08:36)
[2023-02-08] MEDS: MAGNESIUM OXIDE 400 MG TAB PO SCH (08:36)
[2023-02-08] MEDS: FOLIC ACID 1 MG TAB PO SCH (08:36)
[2023-02-08] MEDS: FLUTICASONE PROPIONATE NA SPR 16 GM BTL SCH (08:36)
[2023-02-08] MEDS: SERTRALINE HCL 100 MG TABLET PO SCH (08:36)
[2023-02-08] MEDS: ASPIRIN 81 MG CHEW PO SCH (08:36)
[2023-02-08] MEDS: METOPROLOL SUCC 25MG EXT REL TAB PO SCH ×2 (08:36→20:13)
[2023-02-08] MEDS: ATORVASTATIN 20 MG TAB PO SCH (08:36)
[2023-02-08] MEDS: MIDODRINE HCL 10 MG TAB PO SCH ×3 (08:36→17:21)
[2023-02-08] MEDS: CHOLECALCIFEROL 1,000 UNITS 25 MCG TAB PO SCH (08:36)
[2023-02-08] MEDS: TADALAFIL PO SCH (08:37)
[2023-02-08 10:34] LABS: Calcium 9.2 mg/dl (8.6-10.3); Creatinine Clr Calc Pharmacy 56.8 ml/min; Est GFR (African American) 55.3 ml/min; Est GFR (Non-African American) 47.7 ml/min; Potassium 4.7 mmol/L (3.5-5.1)
[2023-02-08 10:41] LABS: Basophils # (auto) 0.03 K/uL (0-0.2); Basophils % (auto) 0.5 %; Eosinophils # (auto) 0.31 K/uL (0-0.50); Eosinophils % (auto) 4.7 %; Hematocrit (blood only) 25.4 % (37.0-47.0); Hemoglobin 8.1 g/dl (12.0-16.0); Immature Granulocytes # (auto) 0.05 K/uL (0.01-0.20); Immature Granulocytes % (auto) 0.8 %; Lymphocytes # (auto) 1.05 K/uL (1.2-3.4); Lymphocytes % (auto) 15.8 %; Mean Corpuscular Hemoglobin 30.6 pg (25.0-34.0); Mean Corpuscular Hgb Conc 31.9 g/dL (32.0-36.0); Mean Corpuscular Volume 95.8 fL (80.0-100.0); Mean Platelet Volume 11.3 fL (9.4-12.4); Monocytes # (auto) 0.46 K/uL (0.11-0.59); Monocytes % (auto) 6.9 %; Neutrophils # (auto) 4.75 K/uL (1.40-6.50); Neutrophils % (auto) 71.3 %; Platelet Count 277 K/uL (130-400); RDW Coefficient of Variation 16.4 % (11.5-14.5); RDW Standard Deviation 57.6 fL (36.4-46.3); Red Blood Count 2.65 M/uL (4.20-5.40); White Blood Count 6.65 K/ul (4.8-10.8)
[2023-02-08 10:46] LABS: INR 1.6 (0.9-1.1); Prothrombin Time 17.5 Seconds (9.0-12.0)
--- NOTE | 2023-02-08 13:16 | Hospitalist Progress Note ---
Date of Service February 08, 2023 Assessment & Plan (1) Ambulatory dysfunction: Plan: 62-year-old female history of MTHFR mutation chronic hypoxemic respiratory failure on a 8-10 L oxygen , pulmonary artery hypertension, right ventricle enlargement, limited systemic sclerosis, history of PE, history of depression, hyperlipidemia, hypothyroidism, obstructive sleep apnea, on CPAP nightly, chronic atrial fibrillation, diastolic heart failure, obesity, chronic kidney disease stage III who was recently in the hospital for persistent nausea vomiting and electrolyte abnormalities and at the time of nausea vomiting thought to be secondary to 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 During her last admission she was treated for UTI. She was seen by GI and offered EGD colonoscopy, to follow-up as outpatient. She was also seen by palliative care for persistent nausea was prescribed Zyprexa which seemed to improve her symptoms. She also was having orthostatic hypotension so her Aldactone and Lasix were discontinued and also metoprolol succinate dose was reduced to 25 twice daily. ACTH stimulation test was done which was unremarkable and she was placed on midodrine. Also found to anemia and and was suggested to follow outpatient with heme-onc. She was discharged to [facility] long term. She was discharged to home from [facility] on 06 February. At home she was having weakness and ambulatory dysfunction. She was not able to get up from the toilet seat. Ambulatory dysfunction Generalized weakness Recent prolonged hospitalization due to persistent nausea and vomiting along with ambulatory dysfunction/orthostatic hypotension. Was discharged to [facility] on January 28, 2023; discharged home on February 06. Reports weakness moving from sitting to standing position. PT OT evaluation done; might benefit from short-term rehab stay. Orthostatic hypotension Last admission Lasix and and Aldactone were stopped On midodrine We will monitor Chronic hypoxemic respiratory failure on 8 to 10 L oxygen Will monitor Obstructive sleep apnea on CPAP nightly History of MTHFR mutation History of PE Coumadin Will increase Coumadin to 10 mg today. Repeat PT/INR tomorrow Chronic atrial fibrillation Metoprolol succinate dose was reduced to 25 twice daily last admission On Coumadin Chronic diastolic CHF Diuretics were stopped last admission Monitor for volume overload Persistent nausea vomiting- resolved Had persistent nausea and vomiting last admission. Improved on Zyprexa. Reports weight gain. Hypothyroidism Synthyroid Pulmonary hypertension Limited systemic sclerosis Continue home medications Follow-up with pulmonary DVT prophylaxis on Coumadin/Lovenox. Disposition med/surg CODE STATUS full code Please note the above document was generated using voice recognition software. It may contain grammatical, syntax or spelling errors. Any formal questions or concerns about the content, text or information contained within the body of this dictation should be directly addressed to the provider for clarification Admission and Anticipated Discharge Date Admission Date: February 07, 2023 Subjective Patient seen and examined at bedside. She is sitting on the bed comfortably; not in any distress. Denies any dizziness. Worked well with PT OT. Review of Systems Review of Systems: All systems reviewed & are unremarkable except as noted in Subjective Physical Exam Physical Exam: General- Not in distress. Head- atraumatic Lungs- clear to auscultation , faint crackles heard at bases. Heart- regular rhythm; no murmur, no gallop. Abdomen- normal bowel sounds, soft, nontender, no distension Extremities- mild pretibial edema, no erythema seen. Neuro- alert, oriented x 3; PERRL, no facial palsy; no dysarthria; moves extremities Skin- warm & dry Results & Data Results & Data Vital Signs (Past 12 Hours) Vital Signs Temp Pulse Resp BP Pulse Ox O2 Del Method O2 Flow Rate 02/08/23 10:35 High Flow Nasal Cannula 10 02/08/23 06:11 36.9 C 91 H 18 103/63 94 High Flow Nasal Cannula 8 Laboratory Results Laboratory Results WBC 6.65 K/ul (4.8-10.8) 02/08/23 10:04 RBC 2.65 M/uL (4.20-5.40) L 02/08/23 10:04 Hgb 8.1 g/dl (12.0-16.0) L 02/08/23 10:04 Hct 25.4 % (37.0-47.0) L 02/08/23 10:04 MCV 95.8 fL (80.0-100.0) 02/08/23 10:04 MCH 30.6 pg (25.0-34.0) 02/08/23 10:04 MCHC 31.9 g/dL (32.0-36.0) L 02/08/23 10:04 RDW Std Deviation 57.6 fL (36.4-46.3) H 02/08/23 10:[address] 16.4 % (11.5-14.5) H 02/08/23 10:04 Plt Count 277 K/uL (130-400) 02/08/23 10:04 MPV 11.3 fL (9.4-12.4) 02/08/23 10:04 Immature Gran % (Auto) 0.8 % 02/08/23 10:04 Neut % (Auto) 71.3 % 02/08/23 10:04 Lymph % (Auto) 15.8 % 02/08/23 10:04 [place] % (Auto) 6.9 % 02/08/23 10:04 Eos % (Auto) 4.7 % 02/08/23 10:04 Baso % (Auto) 0.5 % 02/08/23 10:04 Neut # (Auto) 4.75 K/uL (1.40-6.50) 02/08/23 10:04 Lymph # (Auto) 1.05 K/uL (1.2-3.4) L 02/08/23 10:04 [place] # (Auto) 0.46 K/uL (0.11-0.59) 02/08/23 10:04 Eos # (Auto) 0.31 K/uL (0-0.50) 02/08/23 10:04 Baso # (Auto) 0.03 K/uL (0-0.2) 02/08/23 10:04 Immature Gran # (Auto) 0.05 K/uL (0.01-0.20) 02/08/23 10:04 RBC Morphology Unremarkable 02/07/23 07:44 PT 17.5 Seconds (9.0-12.0) H 02/08/23 10:04 INR 1.6 (0.9-1.1) H 02/08/23 10:04 APTT 34.7 Seconds (21.0-31.0) H 02/06/23 20:34 PTT Ratio 1.2 02/06/23 20:34 Sodium 139 mmol/L (136-145) 02/08/23 10:04 Potassium 4.7 mmol/L (3.5-5.1) 02/08/23 10:04 Chloride 106 mmol/L (98-107) 02/08/23 10:04 Carbon Dioxide 24 mmol/L (21-32) 02/08/23 10:04 Anion Gap 9 (3-11) 02/08/23 10:04 BUN 18 mg/dl (6-23) 02/08/23 10:04 Creatinine 1.20 mg/dl (0.6-1.2) 02/08/23 10:04 Est Cr Clr Drug Dosing 56.8 ml/min 02/08/23 10:04 Est GFR ( Amer) 55.3 ml/min 02/08/23 10:04 Est GFR (Non-Af Amer) 47.7 ml/min 02/08/23 10:04 BUN/Creatinine Ratio 15.0 (10-20) 02/08/23 10:04 Glucose 115 mg/dl (70-99(Fasting)) H 02/08/23 10:04 Calcium 9.2 mg/dl (8.6-10.3) 02/08/23 10:04 Magnesium 1.8 mg/dl (1.7-2.4) 02/07/23 07:44 Total Bilirubin 0.5 mg/dl (0.2-1.0) 02/06/23 20:34 AST 31 U/L (13-39) 02/06/23 20:34 ALT 23 U/L (7-52) 02/06/23 20:34 Alkaline Phosphatase 209 U/L (34-104) H 02/06/23 20:34 Troponin I High Sens 10.9 pg/ml (0-14) 02/06/23 20:34 Total Protein 7.3 gm/dl (6.0-8.3) 02/06/23 20:34 Albumin 3.8 gm/dl (3.4-5.0) 02/06/23 20:34 Globulin 3.5 gm/dl (2.5-4.0) 02/06/23 20:34 Albumin/Globulin Ratio 1.1 (0.9-2) 02/06/23 20:34 TSH 2.221 uIu/ml (0.300-4.500) 02/06/23 20:34 Urine Color Yellow 02/06/23 21:28 Urine Appearance Clear (Clear) 02/06/23 21:28 Urine pH 6.0 (4.5-7.5) 02/06/23 21:28 Ur Specific [place] 1.011 (1.000-1.030) 02/06/23 21:28 Urine Protein Negative (Negative) 02/06/23 21:28 Urine Glucose (UA) Negative (Negative) 02/06/23 21:28 Urine Ketones Negative (Negative) 02/06/23 21:28 Urine Blood Negative (Negative) 02/06/23 21:28 Urine Nitrite Negative (Negative) 02/06/23 21:28 Urine Bilirubin Negative (Negative) 02/06/23 21:28 Urine Urobilinogen Negative (Negative) 02/06/23 21:28 Ur Leukocyte Esterase Negative (Negative) 02/06/23 21:28 Impressions Chest X-Ray 02/06/23 20:49 XR chest 1V portable CLINICAL HISTORY: Weakness TECHNIQUE: Single frontal radiograph of the chest was obtained. Comparison: Comparison is made to chest radiographs 05/12/[address] chest 01/20/2023 FINDINGS: No lines and tubes are seen. Cardiomegaly is noted. The aortic arch is calcified. Reticular interstitial opacities are seen. No evidence of pleural effusion or pneumothorax. IMPRESSION: Interstitial lung disease and cardiomegaly without acute abnormality. ACT 112: Negative or not required by law. Electronically signed by: Ankur Mcmillan M.D. 02/07/2023 6:59 AM
[2023-02-08] MEDS: WARFARIN SOD 10 MG TAB PO SCH (15:31)
[2023-02-08] MEDS: OLANZapine ZYDIS 5 MG ORALLY DIS. TAB PO SCH (20:13)
[2023-02-08] MEDS: ACETAMINOPHEN 325 MG TAB PO PRN (22:02)
[2023-02-09] MEDS: ENOXAPARIN INJ 40 MG/0.4 ML SYR SQ SCH (06:15)
[2023-02-09] MEDS: LEVOTHYROXINE SODIUM 200 MCG TABLET PO SCH (06:15)
[2023-02-09] MEDS: MIDODRINE HCL 10 MG TAB PO SCH ×3 (08:35→16:07)
[2023-02-09] MEDS: SERTRALINE HCL 100 MG TABLET PO SCH (08:35)
[2023-02-09] MEDS: ATORVASTATIN 20 MG TAB PO SCH (08:35)
[2023-02-09] MEDS: ASPIRIN 81 MG CHEW PO SCH (08:35)
[2023-02-09] MEDS: CHOLECALCIFEROL 1,000 UNITS 25 MCG TAB PO SCH (08:35)
[2023-02-09] MEDS: CYANOCOBALAMIN (B-12) 500 MCG TABLET PO SCH (08:36)
[2023-02-09] MEDS: FOLIC ACID 1 MG TAB PO SCH (08:36)
[2023-02-09] MEDS: MAGNESIUM OXIDE 400 MG TAB PO SCH (08:36)
[2023-02-09] MEDS: METOPROLOL SUCC 25MG EXT REL TAB PO SCH ×2 (08:36→20:13)
[2023-02-09] MEDS: TADALAFIL PO SCH (08:37)
[2023-02-09] MEDS: AMBRISENTAN PO SCH (08:37)
[2023-02-09] MEDS: FLUTICASONE PROPIONATE NA SPR 16 GM BTL SCH (08:38)
[2023-02-09 09:37] LABS: Basophils # (auto) 0.04 K/uL (0-0.2); Basophils % (auto) 0.7 %; Eosinophils # (auto) 0.29 K/uL (0-0.50); Hematocrit (blood only) 25.9 % (37.0-47.0); Hemoglobin 8.2 g/dl (12.0-16.0); Immature Granulocytes # (auto) 0.04 K/uL (0.01-0.20); Immature Granulocytes % (auto) 0.7 %; Lymphocytes # (auto) 1.03 K/uL (1.2-3.4); Lymphocytes % (auto) 17.6 %; Mean Corpuscular Hemoglobin 30.4 pg (25.0-34.0); Mean Corpuscular Hgb Conc 31.7 g/dL (32.0-36.0); Mean Corpuscular Volume 95.9 fL (80.0-100.0); Mean Platelet Volume 11.1 fL (9.4-12.4); Monocytes # (auto) 0.37 K/uL (0.11-0.59); Monocytes % (auto) 6.3 %; Neutrophils # (auto) 4.07 K/uL (1.40-6.50); Neutrophils % (auto) 69.7 %; Platelet Count 266 K/uL (130-400); RDW Coefficient of Variation 16.3 % (11.5-14.5); RDW Standard Deviation 57.2 fL (36.4-46.3); White Blood Count 5.84 K/ul (4.8-10.8)
[2023-02-09 10:00] LABS: BUN Creatinine Ratio 18.3 (10-20); Calcium 9.3 mg/dl (8.6-10.3); Creatinine Clr Calc Pharmacy 62.6 ml/min; Est GFR (African American) 62.1 ml/min; Est GFR (Non-African American) 53.6 ml/min; Potassium 4.3 mmol/L (3.5-5.1)
[2023-02-09 10:05] LABS: INR 1.9 (0.9-1.1); Prothrombin Time 19.8 Seconds (9.0-12.0)
--- NOTE | 2023-02-09 14:54 | Hospitalist Progress Note ---
Date of Service February 09, 2023 Assessment & Plan (1) Ambulatory dysfunction: Plan: 62-year-old female history of MTHFR mutation chronic hypoxemic respiratory failure on a 8-10 L oxygen , pulmonary artery hypertension, right ventricle enlargement, limited systemic sclerosis, history of PE, history of depression, hyperlipidemia, hypothyroidism, obstructive sleep apnea, on CPAP nightly, chronic atrial fibrillation, diastolic heart failure, obesity, chronic kidney disease stage III who was recently in the hospital for persistent nausea vomiting and electrolyte abnormalities and at the time of nausea vomiting thought to be secondary to 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 During her last admission she was treated for UTI. She was seen by GI and offered EGD colonoscopy, to follow-up as outpatient. She was also seen by palliative care for persistent nausea was prescribed Zyprexa which seemed to improve her symptoms. She also was having orthostatic hypotension so her Aldactone and Lasix were discontinued and also metoprolol succinate dose was reduced to 25 twice daily. ACTH stimulation test was done which was unremarkable and she was placed on midodrine. Also found to anemia and and was suggested to follow outpatient with heme-onc. She was discharged to [facility] longterm. She was discharged to home from [facility] on 06 February. At home she was having weakness and ambulatory dysfunction. She was not able to get up from the toilet seat. Ambulatory dysfunction Generalized weakness Recent prolonged hospitalization due to persistent nausea and vomiting along with ambulatory dysfunction/orthostatic hypotension. Was discharged to [facility] on January 28, 2023; discharged home on February 06. Reports weakness moving from sitting to standing position. PT OT evaluation done; might benefit from short-term rehab stay. Orthostatic hypotension Last admission Lasix and and Aldactone were stopped On midodrine We will monitor Chronic hypoxemic respiratory failure on 8 to 10 L oxygen Will monitor Obstructive sleep apnea on CPAP nightly History of MTHFR mutation History of PE Coumadin on Coumadin to 10 mg today. Repeat PT/INR tomorrow Chronic atrial fibrillation Metoprolol succinate dose was reduced to 25 twice daily last admission On Coumadin Chronic diastolic CHF Diuretics were stopped last admission Monitor for volume overload Persistent nausea vomiting- resolved Had persistent nausea and vomiting last admission. Improved on Zyprexa. Reports weight gain. Hypothyroidism Synthyroid Pulmonary hypertension Limited systemic sclerosis Continue home medications Follow-up with pulmonary DVT prophylaxis on Coumadin/Lovenox. Disposition med/surg CODE STATUS full code PT OT evaluation done; recommend short-term rehab. Case management on board. Patient reports that she would prefer [facility]. Please note the above document was generated using voice recognition software. It may contain grammatical, syntax or spelling errors. Any formal questions or concerns about the content, text or information contained within the body of this dictation should be directly addressed to the provider for clarification Admission and Anticipated Discharge Date Admission Date: February 07, 2023 Subjective Patient seen and examined at bedside. Comfortably sitting up at the edge of the bed; not in distress. Review of Systems Review of Systems: All systems reviewed & are unremarkable except as noted in Subjective Physical Exam Physical Exam: General- Not in distress. Head- atraumatic Lungs- clear to auscultation , faint crackles heard at bases. Heart- regular rhythm; no murmur, no gallop. Abdomen- normal bowel sounds, soft, nontender, no distension Extremities- mild pretibial edema, no erythema seen. Neuro- alert, oriented x 3; PERRL, no facial palsy; no dysarthria; moves extremities Skin- warm & dry Results & Data Results & Data Vital Signs (Past 12 Hours) Vital Signs Temp Pulse Resp BP Pulse Ox O2 Del Method O2 Flow Rate 02/09/23 14:25 36.8 C 88 16 101/67 100 Nasal Cannula 8 02/09/23 09:51 High Flow Nasal Cannula 8 02/09/23 07:15 36.7 C 86 16 104/65 98 Nasal Cannula 8 Laboratory Results Laboratory Results WBC 5.84 K/ul (4.8-10.8) 02/09/23 08:53 RBC 2.70 M/uL (4.20-5.40) L 02/09/23 08:53 Hgb 8.2 g/dl (12.0-16.0) L 02/09/23 08:53 Hct 25.9 % (37.0-47.0) L 02/09/23 08:53 MCV 95.9 fL (80.0-100.0) 02/09/23 08:53 MCH 30.4 pg (25.0-34.0) 02/09/23 08:53 MCHC 31.7 g/dL (32.0-36.0) L 02/09/23 08:53 RDW Std Deviation 57.2 fL (36.4-46.3) H 02/09/23 08:[address] 16.3 % (11.5-14.5) H 02/09/23 08:53 Plt Count 266 K/uL (130-400) 02/09/23 08:53 MPV 11.1 fL (9.4-12.4) 02/09/23 08:53 Immature Gran % (Auto) 0.7 % 02/09/23 08:53 Neut % (Auto) 69.7 % 02/09/23 08:53 Lymph % (Auto) 17.6 % 02/09/23 08:53 [place] % (Auto) 6.3 % 02/09/23 08:53 Eos % (Auto) 5.0 % 02/09/23 08:53 Baso % (Auto) 0.7 % 02/09/23 08:53 Neut # (Auto) 4.07 K/uL (1.40-6.50) 02/09/23 08:53 Lymph # (Auto) 1.03 K/uL (1.2-3.4) L 02/09/23 08:53 [place] # (Auto) 0.37 K/uL (0.11-0.59) 02/09/23 08:53 Eos # (Auto) 0.29 K/uL (0-0.50) 02/09/23 08:53 Baso # (Auto) 0.04 K/uL (0-0.2) 02/09/23 08:53 Immature Gran # (Auto) 0.04 K/uL (0.01-0.20) 02/09/23 08:53 RBC Morphology Unremarkable 02/07/23 07:44 PT 19.8 Seconds (9.0-12.0) H 02/09/23 08:53 INR 1.9 (0.9-1.1) H 02/09/23 08:53 APTT 34.7 Seconds (21.0-31.0) H 02/06/23 20:34 PTT Ratio 1.2 02/06/23 20:34 Sodium 140 mmol/L (136-145) 02/09/23 08:53 Potassium 4.3 mmol/L (3.5-5.1) 02/09/23 08:53 Chloride 107 mmol/L (98-107) 02/09/23 08:53 Carbon Dioxide 26 mmol/L (21-32) 02/09/23 08:53 Anion Gap 7 (3-11) 02/09/23 08:53 BUN 20 mg/dl (6-23) 02/09/23 08:53 Creatinine 1.09 mg/dl (0.6-1.2) 02/09/23 08:53 Est Cr Clr Drug Dosing 62.6 ml/min 02/09/23 08:53 Est GFR ( Amer) 62.1 ml/min 02/09/23 08:53 Est GFR (Non-Af Amer) 53.6 ml/min 02/09/23 08:53 BUN/Creatinine Ratio 18.3 (10-20) 02/09/23 08:53 Glucose 114 mg/dl (70-99(Fasting)) H 02/09/23 08:53 Calcium 9.3 mg/dl (8.6-10.3) 02/09/23 08:53 Magnesium 1.8 mg/dl (1.7-2.4) 02/07/23 07:44 Total Bilirubin 0.5 mg/dl (0.2-1.0) 02/06/23 20:34 AST 31 U/L (13-39) 02/06/23 20:34 ALT 23 U/L (7-52) 02/06/23 20:34 Alkaline Phosphatase 209 U/L (34-104) H 02/06/23 20:34 Troponin I High Sens 10.9 pg/ml (0-14) 02/06/23 20:34 Total Protein 7.3 gm/dl (6.0-8.3) 02/06/23 20:34 Albumin 3.8 gm/dl (3.4-5.0) 02/06/23 20:34 Globulin 3.5 gm/dl (2.5-4.0) 02/06/23 20:34 Albumin/Globulin Ratio 1.1 (0.9-2) 02/06/23 20:34 TSH 2.221 uIu/ml (0.300-4.500) 02/06/23 20:34 Urine Color Yellow 02/06/23 21:28 Urine Appearance Clear (Clear) 02/06/23 21:28 Urine pH 6.0 (4.5-7.5) 02/06/23 21:28 Ur Specific [place] 1.011 (1.000-1.030) 02/06/23 21:28 Urine Protein Negative (Negative) 02/06/23 21:28 Urine Glucose (UA) Negative (Negative) 02/06/23 21:28 Urine Ketones Negative (Negative) 02/06/23 21:28 Urine Blood Negative (Negative) 02/06/23 21: Urine Nitrite Negative (Negative) 02/06/23 21: Urine Bilirubin Negative (Negative) 02/06/23 21:28 Urine Urobilinogen Negative (Negative) 02/06/23 21:28 Ur Leukocyte Esterase Negative (Negative) 02/06/23 21:28 Impressions Chest X-Ray 02/06/23 20:49 XR chest 1V portable CLINICAL HISTORY: Weakness TECHNIQUE: Single frontal radiograph of the chest was obtained. Comparison: Comparison is made to chest radiographs 05/12/[address] chest 01/20/2023 FINDINGS: No lines and tubes are seen. Cardiomegaly is noted. The aortic arch is calcified. Reticular interstitial opacities are seen. No evidence of pleural effusion or pneumothorax. IMPRESSION: Interstitial lung disease and cardiomegaly without acute abnormality. ACT 112: Negative or not required by law. Electronically signed by: Ankur Mcmillan M.D. 02/07/2023 6:59 AM
[2023-02-09] MEDS: WARFARIN SOD 10 MG TAB PO SCH (16:07)
[2023-02-09] MEDS: OLANZapine ZYDIS 5 MG ORALLY DIS. TAB PO SCH (20:08)
[2023-02-10] MEDS: LEVOTHYROXINE SODIUM 200 MCG TABLET PO SCH (05:55)
[2023-02-10] MEDS: ENOXAPARIN INJ 40 MG/0.4 ML SYR SQ SCH (05:56)
[2023-02-10 07:21] LABS: Basophils # (auto) 0.04 K/uL (0-0.2); Basophils % (auto) 0.6 %; Eosinophils # (auto) 0.32 K/uL (0-0.50); Eosinophils % (auto) 4.8 %; Hematocrit (blood only) 26.7 % (37.0-47.0); Hemoglobin 8.3 g/dl (12.0-16.0); Immature Granulocytes # (auto) 0.06 K/uL (0.01-0.20); Immature Granulocytes % (auto) 0.9 %; Lymphocytes # (auto) 1.11 K/uL (1.2-3.4); Lymphocytes % (auto) 16.8 %; Mean Corpuscular Hemoglobin 30.4 pg (25.0-34.0); Mean Corpuscular Hgb Conc 31.1 g/dL (32.0-36.0); Mean Corpuscular Volume 97.8 fL (80.0-100.0); Monocytes # (auto) 0.51 K/uL (0.11-0.59); Monocytes % (auto) 7.7 %; Neutrophils # (auto) 4.57 K/uL (1.40-6.50); Neutrophils % (auto) 69.2 %; Platelet Count 289 K/uL (130-400); RDW Coefficient of Variation 16.3 % (11.5-14.5); RDW Standard Deviation 58.3 fL (36.4-46.3); Red Blood Count 2.73 M/uL (4.20-5.40); White Blood Count 6.61 K/ul (4.8-10.8)
[2023-02-10 07:49] LABS: BUN Creatinine Ratio 17.7 (10-20); Calcium 9.3 mg/dl (8.6-10.3); Est GFR (African American) 53.2 ml/min; Est GFR (Non-African American) 45.9 ml/min; Potassium 4.5 mmol/L (3.5-5.1)
[2023-02-10 07:59] LABS: INR 2.2 (0.9-1.1); Prothrombin Time 22.8 Seconds (9.0-12.0)
[2023-02-10] MEDS: AMBRISENTAN PO SCH (08:20)
[2023-02-10] MEDS: ASPIRIN 81 MG CHEW PO SCH (08:21)
[2023-02-10] MEDS: TADALAFIL PO SCH (08:21)
[2023-02-10] MEDS: MAGNESIUM OXIDE 400 MG TAB PO SCH (08:21)
[2023-02-10] MEDS: CHOLECALCIFEROL 1,000 UNITS 25 MCG TAB PO SCH (08:22)
[2023-02-10] MEDS: SERTRALINE HCL 100 MG TABLET PO SCH (08:22)
[2023-02-10] MEDS: FOLIC ACID 1 MG TAB PO SCH (08:22)
[2023-02-10] MEDS: METOPROLOL SUCC 25MG EXT REL TAB PO SCH ×2 (08:22→20:28)
[2023-02-10] MEDS: ATORVASTATIN 20 MG TAB PO SCH (08:23)
[2023-02-10] MEDS: MIDODRINE HCL 10 MG TAB PO SCH ×3 (08:23→16:38)
[2023-02-10] MEDS: CYANOCOBALAMIN (B-12) 500 MCG TABLET PO SCH (08:23)
[2023-02-10] MEDS: FLUTICASONE PROPIONATE NA SPR 16 GM BTL SCH (08:24)
--- NOTE | 2023-02-10 16:32 | Hospitalist Progress Note ---
Date of Service February 10, 2023 Assessment & Plan (1) Ambulatory dysfunction: Plan: 62-year-old female history of MTHFR mutation chronic hypoxemic respiratory failure on a 8-10 L oxygen , pulmonary artery hypertension, right ventricle enlargement, limited systemic sclerosis, history of PE, history of depression, hyperlipidemia, hypothyroidism, obstructive sleep apnea, on CPAP nightly, chronic atrial fibrillation, diastolic heart failure, obesity, chronic kidney disease stage III who was recently in the hospital for persistent nausea vomiting and electrolyte abnormalities and at the time of nausea vomiting thought to be secondary to 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 During her last admission she was treated for UTI. She was seen by GI and offered EGD colonoscopy, to follow-up as outpatient. She was also seen by palliative care for persistent nausea was prescribed Zyprexa which seemed to improve her symptoms. She also was having orthostatic hypotension so her Aldactone and Lasix were discontinued and also metoprolol succinate dose was reduced to 25 twice daily. ACTH stimulation test was done which was unremarkable and she was placed on midodrine. Also found to anemia and and was suggested to follow outpatient with heme-onc. She was discharged to [facility]. She was discharged to home from [facility] on 06 February. At home she was having weakness and ambulatory dysfunction. She was not able to get up from the toilet seat. Ambulatory dysfunction Generalized weakness Recent prolonged hospitalization due to persistent nausea and vomiting along with ambulatory dysfunction/orthostatic hypotension. Was discharged to [facility] on January 28, 2023; discharged home on February 06. Reports weakness moving from sitting to standing position. PT OT evaluation done; might benefit from short-term rehab stay. Orthostatic hypotension Last admission Lasix and and Aldactone were stopped On midodrine We will monitor Chronic hypoxemic respiratory failure on 8 to 10 L oxygen Will monitor Obstructive sleep apnea on CPAP nightly History of MTHFR mutation History of PE Coumadin Was given Coumadin 10 mg for last 2 days. PT/INR therapeutic. will decrease the dose of Coumadin back to 7.5 mg. Chronic atrial fibrillation Metoprolol succinate dose was reduced to 25 twice daily last admission On Coumadin Chronic diastolic CHF Diuretics were stopped last admission Monitor for volume overload Persistent nausea vomiting- resolved Had persistent nausea and vomiting last admission. Improved on Zyprexa. Reports weight gain. Hypothyroidism Synthyroid Pulmonary hypertension Limited systemic sclerosis Continue home medications Follow-up with pulmonary DVT prophylaxis on Coumadin/Lovenox. Disposition med/surg CODE STATUS full code PT OT evaluation done; recommend short-term rehab. Case management on board. Patient reports that she would prefer [facility]. second option is [facility]. Please note the above document was generated using voice recognition software. It may contain grammatical, syntax or spelling errors. Any formal questions or concerns about the content, text or information contained within the body of this dictation should be directly addressed to the provider for clarification Admission and Anticipated Discharge Date Admission Date: February 07, 2023 Subjective Patient seen and examined at bedside. She is sitting up at the side of the bed comfortably. Not in distress. Denies dizziness, nausea or vomiting. Review of Systems Review of Systems: All systems reviewed & are unremarkable except as noted in Subjective Physical Exam Physical Exam: General- Not in distress. Head- atraumatic Lungs- clear to auscultation , faint crackles heard at bases. Heart- regular rhythm; no murmur, no gallop. Abdomen- normal bowel sounds, soft, nontender, no distension Extremities- mild pretibial edema, no erythema seen. Neuro- alert, oriented x 3; PERRL, no facial palsy; no dysarthria; moves extremities Skin- warm & dry Results & Data Results & Data Vital Signs (Past 12 Hours) Vital Signs Temp Pulse Resp BP Pulse Ox O2 Del Method O2 Flow Rate 02/10/23 15:23 36.8 C 75 20 101/66 99 High Flow Nasal Cannula 8 02/10/23 08:30 Nasal Cannula 8 02/10/23 07:44 36.8 C 96 H 20 101/66 99 Nasal Cannula 8 Laboratory Results Laboratory Results WBC 6.61 K/ul (4.8-10.8) 02/10/23 06:52 RBC 2.73 M/uL (4.20-5.40) L 02/10/23 06:52 Hgb 8.3 g/dl (12.0-16.0) L 02/10/23 06:52 Hct 26.7 % (37.0-47.0) L 02/10/23 06:52 MCV 97.8 fL (80.0-100.0) 02/10/23 06:52 MCH 30.4 pg (25.0-34.0) 02/10/23 06:52 MCHC 31.1 g/dL (32.0-36.0) L 02/10/23 06:52 RDW Std Deviation 58.3 fL (36.4-46.3) H 02/10/23 06:[address] 16.3 % (11.5-14.5) H 02/10/23 06:52 Plt Count 289 K/uL (130-400) 02/10/23 06:52 MPV 11.0 fL (9.4-12.4) 02/10/23 06:52 Immature Gran % (Auto) 0.9 % 02/10/23 06:52 Neut % (Auto) 69.2 % 02/10/23 06:52 Lymph % (Auto) 16.8 % 02/10/23 06:52 [place] % (Auto) 7.7 % 02/10/23 06:52 Eos % (Auto) 4.8 % 02/10/23 06:52 Baso % (Auto) 0.6 % 02/10/23 06:52 Neut # (Auto) 4.57 K/uL (1.40-6.50) 02/10/23 06:52 Lymph # (Auto) 1.11 K/uL (1.2-3.4) L 02/10/23 06:52 [place] # (Auto) 0.51 K/uL (0.11-0.59) 02/10/23 06:52 Eos # (Auto) 0.32 K/uL (0-0.50) 02/10/23 06:52 Baso # (Auto) 0.04 K/uL (0-0.2) 02/10/23 06:52 Immature Gran # (Auto) 0.06 K/uL (0.01-0.20) 02/10/23 06:52 RBC Morphology Unremarkable 02/07/23 07:44 PT 22.8 Seconds (9.0-12.0) H 02/10/23 06:52 INR 2.2 (0.9-1.1) H 02/10/23 06:52 APTT 34.7 Seconds (21.0-31.0) H 02/06/23 20:34 PTT Ratio 1.2 02/06/23 20:34 Sodium 140 mmol/L (136-145) 02/10/23 06:52 Potassium 4.5 mmol/L (3.5-5.1) 02/10/23 06:52 Chloride 107 mmol/L (98-107) 02/10/23 06:52 Carbon Dioxide 25 mmol/L (21-32) 02/10/23 06:52 Anion Gap 8 (3-11) 02/10/23 06:52 BUN 22 mg/dl (6-23) 02/10/23 06:52 Creatinine 1.24 mg/dl (0.6-1.2) H 02/10/23 06:52 Est Cr Clr Drug Dosing 55.0 ml/min 02/10/23 06:52 Est GFR ( Amer) 53.2 ml/min 02/10/23 06:52 Est GFR (Non-Af Amer) 45.9 ml/min 02/10/23 06:52 BUN/Creatinine Ratio 17.7 (10-20) 02/10/23 06:52 Glucose 95 mg/dl (70-99(Fasting)) 02/10/23 06:52 Calcium 9.3 mg/dl (8.6-10.3) 02/10/23 06:52 Magnesium 1.8 mg/dl (1.7-2.4) 02/07/23 07:44 Total Bilirubin 0.5 mg/dl (0.2-1.0) 02/06/23 20:34 AST 31 U/L (13-39) 02/06/23 20:34 ALT 23 U/L (7-52) 02/06/23 20:34 Alkaline Phosphatase 209 U/L (34-104) H 02/06/23 20:34 Troponin I High Sens 10.9 pg/ml (0-14) 02/06/23 20:34 Total Protein 7.3 gm/dl (6.0-8.3) 02/06/23 20:34 Albumin 3.8 gm/dl (3.4-5.0) 02/06/23 20:34 Globulin 3.5 gm/dl (2.5-4.0) 02/06/23 20:34 Albumin/Globulin Ratio 1.1 (0.9-2) 02/06/23 20:34 TSH 2.221 uIu/ml (0.300-4.500) 02/06/23 20:34 Urine Color Yellow 02/06/23 21:28 Urine Appearance Clear (Clear) 02/06/23 21:28 Urine pH 6.0 (4.5-7.5) 02/06/23 21:28 Ur Specific [place] 1.011 (1.000-1.030) 02/06/23 21:28 Urine Protein Negative (Negative) 02/06/23 21:28 Urine Glucose (UA) Negative (Negative) 02/06/23 21:28 Urine Ketones Negative (Negative) 02/06/23 21:28 Urine Blood Negative (Negative) 02/06/23 21:28 Urine Nitrite Negative (Negative) 02/06/23 21:28 Urine Bilirubin Negative (Negative) 02/06/23 21:28 Urine Urobilinogen Negative (Negative) 02/06/23 21:28 Ur Leukocyte Esterase Negative (Negative) 02/06/23 21:28 Impressions Chest X-Ray 02/06/23 20:49 XR chest 1V portable CLINICAL HISTORY: Weakness TECHNIQUE: Single frontal radiograph of the chest was obtained. Comparison: Comparison is made to chest radiographs 05/12/[address] chest 01/20/2023 FINDINGS: No lines and tubes are seen. Cardiomegaly is noted. The aortic arch is calcified. Reticular interstitial opacities are seen. No evidence of pleural effusion or pneumothorax. IMPRESSION: Interstitial lung disease and cardiomegaly without acute abnormality. ACT 112: Negative or not required by law. Electronically signed by: Ankur Mcmillan M.D. 02/07/2023 6:59 AM
[2023-02-10] MEDS: WARFARIN SOD 10 MG TAB PO SCH (16:59)
[2023-02-10] MEDS: OLANZapine ZYDIS 5 MG ORALLY DIS. TAB PO SCH (20:31)
[2023-02-11] MEDS: LEVOTHYROXINE SODIUM 200 MCG TABLET PO SCH (05:53)
[2023-02-11] MEDS: AMBRISENTAN PO SCH (07:54)
[2023-02-11] MEDS: MIDODRINE HCL 10 MG TAB PO SCH ×3 (07:54→16:04)
[2023-02-11] MEDS: TADALAFIL PO SCH (07:54)
[2023-02-11] MEDS: ATORVASTATIN 20 MG TAB PO SCH (07:55)
[2023-02-11] MEDS: CYANOCOBALAMIN (B-12) 500 MCG TABLET PO SCH (07:55)
[2023-02-11] MEDS: CHOLECALCIFEROL 1,000 UNITS 25 MCG TAB PO SCH (07:56)
[2023-02-11] MEDS: ASPIRIN 81 MG CHEW PO SCH (07:56)
[2023-02-11] MEDS: METOPROLOL SUCC 25MG EXT REL TAB PO SCH ×2 (07:57→20:34)
[2023-02-11] MEDS: FOLIC ACID 1 MG TAB PO SCH (07:57)
[2023-02-11] MEDS: MAGNESIUM OXIDE 400 MG TAB PO SCH (07:57)
[2023-02-11] MEDS: SERTRALINE HCL 100 MG TABLET PO SCH (07:57)
[2023-02-11] MEDS: FLUTICASONE PROPIONATE NA SPR 16 GM BTL SCH (07:58)
[2023-02-11] MEDS ORDERED: SERTRALINE HCL 100 MG TABLET PO ONE (08:04)
[2023-02-11 08:34] LABS: Basophils # (auto) 0.03 K/uL (0-0.2); Basophils % (auto) 0.4 %; Eosinophils % (auto) 4.1 %; Hematocrit (blood only) 25.3 % (37.0-47.0); Hemoglobin 8.1 g/dl (12.0-16.0); Immature Granulocytes # (auto) 0.08 K/uL (0.01-0.20); Immature Granulocytes % (auto) 1.1 %; Lymphocytes # (auto) 1.12 K/uL (1.2-3.4); Lymphocytes % (auto) 15.2 %; Mean Corpuscular Hemoglobin 31.4 pg (25.0-34.0); Mean Corpuscular Volume 98.1 fL (80.0-100.0); Mean Platelet Volume 10.9 fL (9.4-12.4); Monocytes # (auto) 0.63 K/uL (0.11-0.59); Monocytes % (auto) 8.5 %; Neutrophils # (auto) 5.22 K/uL (1.40-6.50); Neutrophils % (auto) 70.7 %; Platelet Count 266 K/uL (130-400); RDW Coefficient of Variation 16.3 % (11.5-14.5); RDW Standard Deviation 57.2 fL (36.4-46.3); Red Blood Count 2.58 M/uL (4.20-5.40); White Blood Count 7.38 K/ul (4.8-10.8)
[2023-02-11 08:39] LABS: Prothrombin Time 21.1 Seconds (9.0-12.0)
[2023-02-11 09:21] LABS: BUN Creatinine Ratio 19.5 (10-20); Calcium 9.3 mg/dl (8.6-10.3); Creatinine Clr Calc Pharmacy 60.4 ml/min; Est GFR (African American) 59.5 ml/min; Est GFR (Non-African American) 51.3 ml/min; Potassium 4.4 mmol/L (3.5-5.1)
[2023-02-11] MEDS: WARFARIN SOD 7.5 MG TAB PO SCH (16:04)
--- NOTE | 2023-02-11 18:32 | Hospitalist Progress Note ---
Date of Service February 11, 2023 Assessment & Plan (1) Ambulatory dysfunction: Plan: 62-year-old female history of MTHFR mutation chronic hypoxemic respiratory failure on a 8-10 L oxygen , pulmonary artery hypertension, right ventricle enlargement, limited systemic sclerosis, history of PE, history of depression, hyperlipidemia, hypothyroidism, obstructive sleep apnea, on CPAP nightly, chronic atrial fibrillation, diastolic heart failure, obesity, chronic kidney disease stage III who was recently in the hospital for persistent nausea vomiting and electrolyte abnormalities and at the time of nausea vomiting thought to be secondary to 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 During her last admission she was treated for UTI. She was seen by GI and offered EGD colonoscopy, to follow-up as outpatient. She was also seen by palliative care for persistent nausea was prescribed Zyprexa which seemed to improve her symptoms. She also was having orthostatic hypotension so her Aldactone and Lasix were discontinued and also metoprolol succinate dose was reduced to 25 twice daily. ACTH stimulation test was done which was unremarkable and she was placed on midodrine. Also found to anemia and and was suggested to follow outpatient with heme-onc. She was discharged to [facility]. She was discharged to home from [facility] on 06 February. At home she was having weakness and ambulatory dysfunction. She was not able to get up from the toilet seat. Ambulatory dysfunction Generalized weakness Recent prolonged hospitalization due to persistent nausea and vomiting along with ambulatory dysfunction/orthostatic hypotension. Was discharged to [facility] on January 28, 2023; discharged home on February 06. Reports weakness moving from sitting to standing position. PT/OT, case management consults, will require additional rehab stay Orthostatic hypotension Last admission Lasix and and Aldactone were stopped On midodrine BP stable Chronic hypoxemic respiratory failure on 8 to 10 L oxygen No acute issue Obstructive sleep apnea on CPAP nightly History of MTHFR mutation History of PE On Coumadin with therapeutic INR Follow INR, adjust Coumadin accordingly Chronic atrial fibrillation Metoprolol succinate dose was reduced to 25 twice daily last admission On Coumadin Chronic diastolic CHF Diuretics were stopped last admission Monitor for volume overload, currently appears euvolemic Persistent nausea vomiting- resolved Had persistent nausea and vomiting last admission. Improved on Zyprexa. Hypothyroidism Synthyroid Pulmonary hypertension Limited systemic sclerosis Continue home medications Follow-up with pulmonary DVT PROPHYLAXIS On Coumadin with therapeutic INR Dispo-PT/OT, case management consults. Will need placement for additional rehab. Patient seen in collaboration with Dr. Suárez. Admission and Anticipated Discharge Date Admission Date: February 07, 2023 Supervising Physician Co-Signing Physician Notes Patient is seen and examined at bedside. States having mild soreness of knees. Denies any chest pain, dyspnea, dizziness, nausea, vomiting, abdominal pain. Physical Exam: Vitals signs as noted above General Appearance:Morbidly Obese, no apparent distress Head: normocephalic, Atraumatic Eyes: normal inspection, EOMI Neck: supple, Trachea midline Respiratory/Chest: Normal breath sounds, CTA, No accessory muscle use Cardiovascular: Irregularly irregular, S1, S2, +murmur Abdomen/GI:Soft, Non tender, Bowel sounds present Extremities/Musculoskeletal:normal inspection, 1+ Pedal edema Neurologic/Psych:AAOX3, grossly no focal neurological deficits Skin: normal color, warm Ambulatory dysfunction Generalized weakness Orthostatic hypotension Chronic respiratory failure with hypoxia Chronic A-fib Continue current management Plan to discharge to rehab facility when arranged Case management to help with discharge planning. Subjective Follow-up for generalized weakness, ambulatory dysfunction. Patient seen and examined. Sitting on the edge of the bed. Offers no complaints, eager to be discharged to rehab. No chest pain or shortness of breath. Denies abdominal pain or nausea. Review of Systems Review of Systems: All systems reviewed & are unremarkable except as noted in Subjective Physical Exam Constitutional: WD/WN, vitals as above no acute distress Respiratory: normal respiratory effort; no respiratory distress Auscultation: + diminished lung sounds Cardiovascular: Rate/Rhythm: regular rate and regular rhythm Vessels: normal peripheral pulses Extremities: no edema Gastrointestinal (Abdomen): Percussion/Palpation: abdomen soft; abdomen nontender Skin: no rashes, warm and dry Neurologic: no focal motor deficits Psychiatric: A+Ox3, euthymic affect Results & Data Results & Data Vital Signs (Past 12 Hours) Vital Signs Temp Pulse Resp BP Pulse Ox O2 Del Method O2 Flow Rate 02/11/23 17:01 36.8 C 85 18 100/62 100 Room Air 02/11/23 16:38 Nasal Cannula 8 02/11/23 12:27 High Flow Nasal Cannula 8 02/11/23 07:42 36.8 C 96 H 16 103/63 100 High Flow Nasal Cannula 8 Laboratory Results Short CBC 02/11/23 Range/Units 07:57 WBC 7.38 (4.8-10.8) K/ul Hgb 8.1 L (12.0-16.0) g/dl Hct 25.3 L (37.0-47.0) % Plt Count 266 (130-400) K/uL BMP 02/11/23 07:57 Sodium 140 Potassium 4.4 Chloride 106 Carbon Dioxide 27 BUN 22 Creatinine 1.13 Glucose 97 Calcium 9.3
[2023-02-11] MEDS: OLANZapine ZYDIS 5 MG ORALLY DIS. TAB PO SCH (20:34)
[2023-02-12] MEDS: LEVOTHYROXINE SODIUM 200 MCG TABLET PO SCH (06:14)
[2023-02-12 08:04] LABS: Prothrombin Time 21.4 Seconds (9.0-12.0)
[2023-02-12] MEDS: METOPROLOL SUCC 25MG EXT REL TAB PO SCH ×2 (08:47→20:28)
[2023-02-12] MEDS: AMBRISENTAN PO SCH (08:47)
[2023-02-12] MEDS: TADALAFIL PO SCH (08:47)
[2023-02-12] MEDS: ATORVASTATIN 20 MG TAB PO SCH (08:48)
[2023-02-12] MEDS: CHOLECALCIFEROL 1,000 UNITS 25 MCG TAB PO SCH (08:48)
[2023-02-12] MEDS: ASPIRIN 81 MG CHEW PO SCH (08:48)
[2023-02-12] MEDS: SERTRALINE HCL 100 MG TABLET PO SCH (08:48)
[2023-02-12] MEDS: FLUTICASONE PROPIONATE NA SPR 16 GM BTL SCH (08:49)
[2023-02-12] MEDS: MIDODRINE HCL 10 MG TAB PO SCH ×3 (08:49→16:12)
[2023-02-12] MEDS: FOLIC ACID 1 MG TAB PO SCH (08:49)
[2023-02-12] MEDS: MAGNESIUM OXIDE 400 MG TAB PO SCH (08:49)
[2023-02-12] MEDS: CYANOCOBALAMIN (B-12) 500 MCG TABLET PO SCH (08:49)
[2023-02-12] MEDS: WARFARIN SOD 7.5 MG TAB PO SCH (16:11)
--- NOTE | 2023-02-12 16:57 | Hospitalist Progress Note ---
Date of Service February 12, 2023 Assessment & Plan (1) Ambulatory dysfunction: Plan: 62-year-old female history of MTHFR mutation chronic hypoxemic respiratory failure on a 8-10 L oxygen , pulmonary artery hypertension, right ventricle enlargement, limited systemic sclerosis, history of PE, history of depression, hyperlipidemia, hypothyroidism, obstructive sleep apnea, on CPAP nightly, chronic atrial fibrillation, diastolic heart failure, obesity, chronic kidney disease stage III who was recently in the hospital for persistent nausea vomiting and electrolyte abnormalities and at the time of nausea vomiting thought to be secondary to 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 During her last admission she was treated for UTI. She was seen by GI and offered EGD colonoscopy, to follow-up as outpatient. She was also seen by palliative care for persistent nausea was prescribed Zyprexa which seemed to improve her symptoms. She also was having orthostatic hypotension so her Aldactone and Lasix were discontinued and also metoprolol succinate dose was reduced to 25 twice daily. ACTH stimulation test was done which was unremarkable and she was placed on midodrine. Also found to anemia and and was suggested to follow outpatient with heme-onc. She was discharged to [facility]. She was discharged to home from [facility] on 06 February. At home she was having weakness and ambulatory dysfunction. She was not able to get up from the toilet seat. Ambulatory dysfunction Generalized weakness Recent prolonged hospitalization due to persistent nausea and vomiting along with ambulatory dysfunction/orthostatic hypotension. Was discharged to [facility] on January 28, 2023; discharged home on February 06. Reports weakness moving from sitting to standing position. PT/OT, case management consults, will require additional rehab stay --placement pending Orthostatic hypotension Last admission Lasix and and Aldactone were stopped On midodrine BP stable Chronic hypoxemic respiratory failure on 8 to 10 L oxygen No acute issue Obstructive sleep apnea on CPAP nightly History of MTHFR mutation History of PE On Coumadin with therapeutic INR INR 2.0 today Follow INR, adjust Coumadin accordingly Chronic atrial fibrillation Metoprolol succinate dose was reduced to 25 twice daily last admission On Coumadin Chronic diastolic CHF Diuretics were stopped last admission Monitor for volume overload, currently appears euvolemic Persistent nausea vomiting- resolved Had persistent nausea and vomiting last admission. Improved on Zyprexa. Hypothyroidism Continue levothyroxine Pulmonary hypertension Limited systemic sclerosis Continue home medications Follow-up with pulmonary DVT PROPHYLAXIS On Coumadin with therapeutic INR Dispo-PT/OT, case management consults. Will need placement for additional rehab. Patient seen in collaboration with Dr. Suárez. Admission and Anticipated Discharge Date Admission Date: February 07, 2023 Supervising Physician Co-Signing Physician Notes Patient is seen and examined at bedside. States feeling well today. Offers no new complaints. Plan to be discharged to rehab facility when accepted. Physical Exam: Vitals signs as noted above General Appearance:Morbidly Obese, no apparent distress Head: normocephalic, Atraumatic Eyes: normal inspection, EOMI Neck: supple, Trachea midline Respiratory/Chest: Normal breath sounds, CTA, No accessory muscle use Cardiovascular: Irregularly irregular, S1, S2, +murmur Abdomen/GI:Soft, Non tender, Bowel sounds present Extremities/Musculoskeletal:normal inspection, 1+ Pedal edema Neurologic/Psych:AAOX3, grossly no focal neurological deficits Skin: normal color, warm Ambulatory dysfunction Generalized weakness Orthostatic hypotension Chronic respiratory failure with hypoxia Chronic A-fib Continue current management Plan to discharge to rehab facility when arranged Case management to help with discharge planning. Subjective Follow-up for generalized weakness, ambulatory dysfunction. Patient seen and examined. Observed patient ambulating in the [place] with therapy. Offers no complaints, reports breathing is at baseline. No chest pain. Denies abdominal pain and nausea. Review of Systems Review of Systems: All systems reviewed & are unremarkable except as noted in Subjective Physical Exam Physical Exam: please refer to Dr. Suárez's addendum for physical exam Results & Data Results & Data Vital Signs (Past 12 Hours) Vital Signs Temp Pulse Resp BP Pulse Ox O2 Del Method O2 Flow Rate 02/12/23 15:39 36.8 C 94 H 18 115/78 100 Room Air 02/12/23 15:39 High Flow Nasal Cannula 8 02/12/23 10:30 High Flow Nasal Cannula 8 02/12/23 07:52 36.9 C 110 H 18 112/71 100 High Flow Nasal Cannula 8
[2023-02-12] MEDS: OLANZapine ZYDIS 5 MG ORALLY DIS. TAB PO SCH (20:27)
[2023-02-12] MEDS: ACETAMINOPHEN 325 MG TAB PO PRN (20:28)
[2023-02-13] MEDS: LEVOTHYROXINE SODIUM 200 MCG TABLET PO SCH (05:52)
[2023-02-13] MEDS: ACETAMINOPHEN 325 MG TAB PO PRN (05:53)
[2023-02-13] MEDS: AMBRISENTAN PO SCH (08:12)
[2023-02-13] MEDS: ATORVASTATIN 20 MG TAB PO SCH (08:12)
[2023-02-13] MEDS: ASPIRIN 81 MG CHEW PO SCH (08:12)
[2023-02-13] MEDS: CYANOCOBALAMIN (B-12) 500 MCG TABLET PO SCH (08:12)
[2023-02-13] MEDS: MIDODRINE HCL 10 MG TAB PO SCH ×2 (08:12→11:07)
[2023-02-13] MEDS: CHOLECALCIFEROL 1,000 UNITS 25 MCG TAB PO SCH (08:12)
[2023-02-13] MEDS: SERTRALINE HCL 100 MG TABLET PO SCH (08:13)
[2023-02-13] MEDS: FLUTICASONE PROPIONATE NA SPR 16 GM BTL SCH (08:13)
[2023-02-13] MEDS: METOPROLOL SUCC 25MG EXT REL TAB PO SCH (08:13)
[2023-02-13] MEDS: FOLIC ACID 1 MG TAB PO SCH (08:13)
[2023-02-13] MEDS: MAGNESIUM OXIDE 400 MG TAB PO SCH (08:13)
[2023-02-13] MEDS: TADALAFIL PO SCH (08:13)
[2023-02-13 09:12] LABS: Hematocrit (blood only) 26.4 % (37.0-47.0); Hemoglobin 8.4 g/dl (12.0-16.0); Mean Corpuscular Hgb Conc 31.8 g/dL (32.0-36.0); Mean Corpuscular Volume 97.4 fL (80.0-100.0); Mean Platelet Volume 10.9 fL (9.4-12.4); Platelet Count 299 K/uL (130-400); RDW Coefficient of Variation 16.2 % (11.5-14.5); RDW Standard Deviation 57.3 fL (36.4-46.3); Red Blood Count 2.71 M/uL (4.20-5.40); White Blood Count 8.22 K/ul (4.8-10.8)
[2023-02-13 09:18] LABS: INR 2.2 (0.9-1.1); Prothrombin Time 22.8 Seconds (9.0-12.0)
[2023-02-13 09:34] LABS: Calcium 9.6 mg/dl (8.6-10.3); Creatinine Clr Calc Pharmacy 58.8 ml/min; Est GFR (African American) 57.6 ml/min; Est GFR (Non-African American) 49.7 ml/min; Potassium 4.4 mmol/L (3.5-5.1)
--- NOTE | 2023-02-13 13:52 | Discharge Summary ---
Discharge Summary Date of Service February 13, 2023 Notes For Next Care Provider ambulatory weakness, returning to rehab Medication Changes From Visit N/A Admission HPI Per Admitting Provider 62-year-old female history of MTHFR mutation chronic hypoxemic respiratory failure on a 8-10 L oxygen , pulmonary artery hypertension, right ventricle enlargement, limited systemic sclerosis, history of PE, history of depression, hyperlipidemia, hypothyroidism, obstructive sleep apnea, on CPAP nightly, chronic atrial fibrillation, diastolic heart failure, obesity, chronic kidney disease stage III who was recently in the hospital for persistent nausea vomiting and electrolyte abnormalities and at the time of nausea /vomiting thought to be secondary to 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 During her last admission she was treated for UTI. She was seen by GI and offered EGD colonoscopy, to follow-up as outpatient. She was also seen by palliative care for persistent nausea was prescribed Zyprexa which seemed to improve her symptoms. She also was having orthostatic hypotension so her Aldactone and Lasix were discontinued and also metoprolol succinate dose was reduced to 25 twice daily. ACTH stimulation test was done which was unremarkable and she was placed on midodrine. Also found to anemia and and was suggested to follow outpatient with heme-onc. She was discharged to [facility]. Patient states as she was doing okay she was discharged home on February 06. At home she was using walker . When she went to bathroom she could not able to lift herself from commode. EMS was called and was helped to get up from commode. But while she was walking to the living room she again fell and at the time was decided to bring her back to the hospital. Current resting comfortably in bed . Mild nonproductive cough. No headache or dizziness. No runny nose. No sore throat. Current nausea/ vomiting resolved , appetite is good and eating fine. No fevers. No chest pain or shortness of breath. No abdominal pain. Normal bowel and bladder movements. Admission Exam Per Admitting Provider General- Not in distress. Head- atraumatic Eyes- PERRL. ENT- oropharynx clear Neck- supple, no JVD. Lungs- clear to auscultation , no wheezing or crackles. Heart- regular rhythm; no murmur, no gallop. Abdomen- normal bowel sounds, soft, nontender, no distension Extremities- mild pretibial edema, no erythema seen. Neuro- alert, oriented x 3; PERRL, no facial palsy; no dysarthria; moves extremities Skin- warm & dry Principal Dx & Hospital Course #1 = Principal Diagnosis (1) Weakness: (2) Ambulatory dysfunction: (3) MTHFR mutation: (4) Raynaud's phenomenon: (5) Depression: (6) Dyslipidemia: (7) History of pulmonary embolism: (8) Atrial fibrillation: Plan Ambulatory dysfunction Generalized weakness Recent prolonged hospitalization due to persistent nausea and vomiting along with ambulatory dysfunction/orthostatic hypotension. Was discharged to [facility] on January 28, 2023; discharged home on February 06. Reports weakness moving from sitting to standing position. PT/OT, case management consults, will require additional rehab stay - discharging to [facility] today Orthostatic hypotension Last admission Lasix and and Aldactone were stopped On midodrine BP stable Chronic hypoxemic respiratory failure on 8 to 10 L oxygen No acute issue Obstructive sleep apnea on CPAP nightly History of MTHFR mutation History of PE On Coumadin with therapeutic INR INR 2.0 today Follow INR, adjust Coumadin accordingly Chronic atrial fibrillation Metoprolol succinate dose was reduced to 25 twice daily last admission On Coumadin Chronic diastolic CHF Diuretics were stopped last admission- - remains euvolemic Monitor for volume overload, currently appears euvolemic Persistent nausea vomiting- resolved Had persistent nausea and vomiting last admission. Improved on Zyprexa. Hypothyroidism Continue levothyroxine Pulmonary hypertension Limited systemic sclerosis Continue home medications Follow-up with pulmonary Discharge Exam Gen: WD/WN, NAD, lying in bed, A&Ox3, morbidly obese HEENT: Normocephalic, atraumatic, conjunctivae moist, sclerae anicteric, mucous membranes moist Lung: Clear to Auscultation bilaterally, no wheezes/rales/rhonchi Heart: Regular rate, regular rhythm, + murmur, rubs, or gallops Abdomen: Soft, NT, ND +BS x 4 Extremities: 1+ pedal edema Skin: Warm, no rash Updated Medication List Medication Instructions Recorded Confirmed Type aspirin 81 mg chewable tablet 81 mg PO QAM 03/06/20 02/06/23 History folic acid 1 mg tablet 1 mg PO QAM 03/06/20 02/06/23 History levothyroxine 200 mcg tablet 200 mcg PO DAILYBB 03/06/20 02/06/23 History sertraline 100 mg tablet 200 mg PO QAM 03/06/20 02/11/23 History ambrisentan 10 mg tablet (Letairis) 10 mg PO QAM 10/09/22 02/06/23 History tadalafil (pulm. hypertension) 20 40 mg PO DAILY 10/09/22 02/06/23 History mg tablet (pulmonary hypertension) (Adcirca) fluticasone propionate 50 2 spray NA DAILY #16 grams 01/28/23 02/06/23 Rx mcg/actuation nasal spray,suspension magnesium oxide 400 mg (241.3 mg 400 mg PO QAM #30 tabs 01/28/23 02/06/23 Rx magnesium) tablet midodrine 10 mg tablet 10 mg PO TID@0800,1200,1700 #90 01/28/23 02/06/23 Rx tabs olanzapine 5 mg disintegrating 2.5 mg PO HS #14 tabs 01/28/23 02/06/23 Rx tablet albuterol sulfate 2.5 mg/3 mL 2.5 mg inhalation UD 02/06/23 02/06/23 History (0.083 %) solution for nebulization albuterol sulfate 5 mg/mL(0.5 %) 2.5 mg inhalation UD 02/06/23 02/06/23 History solution for nebulization atorvastatin 20 mg tablet 20 mg PO QAM 02/06/23 02/06/23 History cholecalciferol (vitamin D3) 25 25 mcg PO DAILY 02/06/23 02/06/23 History mcg (1,000 unit) tablet (Vitamin D3) warfarin 7.5 mg tablet (Jantoven) 7.5 mg PO UD 02/06/23 02/06/23 History cyanocobalamin (vitamin B-12) 500 500 mcg PO DAILY 02/07/23 02/07/23 History mcg tablet metoprolol succinate 25 mg 25 mg PO BID 02/07/23 02/07/23 History tablet,extended release 24 hr Hospital Stay Data Consultations 02/06/23 22:36 ED Decision to Admit Stat Pending Results Patient Have Any Pending Studies at Discharge: No Discharge Instructions Given to Patient (Per Discharging Provider) Admitted for weakness following recent prolonged hospital stay and subsequent rehab. PT/OT recommending returning to rehab for further conditioning. Continue baseline supplemental NC O2 at 8-10L. PENDING TEST RESULTS: None RECOMMENDATIONS FOR FOLLOW-UP: Follow up with PCP as scheduled. Diuretics discontinued on recent admission due to orthostatic hypotension. Continue medication regimen as scheduled aside from changes noted above. OTHER INSTRUCTIONS: Seek medical attention if you have: * temperature above 101 * chest pain or trouble breathing * abdominal pain, nausea, vomiting * diarrhea, dark stools or bloody stools * any unanswered questions or concerns Call 911 if symptoms are severe. Please take good care of yourself. Call if you have any questions or problems. You can reach a [facility] hospitalist on duty at [facility] 24 hours a day by calling [phone]. Total Time Total Time Spent Total Time Spent (In Minutes): 40 Supervising Physician Co-Signing Physician Notes Patient is seen and examined at bedside on day of discharge. Offers no new complaints. Sitting on bed comfortably during my encounter. Denies any chest pain, dyspnea, dizziness, nausea, vomiting, abdominal pain. Plan to be discharged to rehab facility today. Physical Exam: Vitals signs as noted above General Appearance:Morbidly Obese, no apparent distress Head: normocephalic, Atraumatic Eyes: normal inspection, EOMI Neck: supple, Trachea midline Respiratory/Chest: Normal breath sounds, CTA, No accessory muscle use Cardiovascular: Irregularly irregular, S1, S2, +murmur Abdomen/GI:Soft, Non tender, Bowel sounds present Extremities/Musculoskeletal:normal inspection, 1+ Pedal edema Neurologic/Psych:AAOX3, grossly no focal neurological deficits Skin: normal color, warm Ambulatory dysfunction Generalized weakness Orthostatic hypotension Chronic respiratory failure with hypoxia Chronic A-fib Plan to be discharged to rehab facility today. I personally reviewed the record. Patient is interviewed and examined at bedside. Patient's care is coordinated with Samantha Moreau PA-C. Please refer to the documentation above for details of patient's presentation and for discussion of other issues.
== END 2023-02-13 16:48 | DRG 556 ==
LOC: ED 20:08 → 3N 02-07 00:28 → SUATTDRO 02-07 00:28 → 3N 02-07 02:07